=== PATIENT | male | born 1940 | race Caucasian/White ===

== ENCOUNTER → 2018-01-10 | Outpatient (CLI) | payer MEDICARE, BC ==
--- NOTE | 2018-01-10 17:01 | CT ---
EXAMINATION TYPE: CT abdomen pelvis wo con DATE OF EXAM: 01/10/2018 COMPARISON: Prior CT 12/29/2013, CT chest 07/17/2016 HISTORY: flank pain for 2-[address] DLP: 253.6 mGycm Automated exposure control for dose reduction was used. TECHNIQUE: Helical acquisition of images from the lung bases through the pelvis. FINDINGS: Artifact due to patient's hardware within the lumbar spine with sensitivity. There are dens e coronary artery calcifications present. LUNG BASES: No significant abnormality is appreciated. AORTA: No significant abnormality is appreciated. LIVER/GB: Patient is post cholecystectomy, there is dilation of the common bile duct. Colonic interpo sition noted anterior to the liver as on prior exam.. PANCREAS: No significant abnormality is seen. SPLEEN: No significant abnormality is seen. ADRENALS: No significant abnormality is seen. KIDNEYS: Marked left-sided hydronephrosis is again seen.. REPRODUCTIVE ORGANS: Prostate seeds are present.. URINARY BLADDER: There is a thickened wall possibly due to chronic outlet obstruction, correlate to exclude cystitis.. BOWEL: No significant abnormality is seen. FREE AIR: No Free Air is visible. ASCITES: None visible. PELVIC ADENOPATHY: None visualized. RETROPERITONEAL ADENOPATHY: No Retroperitoneal Adenopathy visible. OSSEOUS STRUCTURES: Postop change noted to the left hip. Degenerative disc changes are present in the visualized spine. Patient shows posterior fusion at L3-L5. IMPRESSION: MARKED LEFT-SIDED HYDRONEPHROSIS APPEARS CHRONIC. NONCONTRAST EXAM, ARTIFACTS. Additional findings ab ove.
== END | disposition home or self-care (01) ==
LOC: RADCTMAIN 15:12
PROVIDERS: ATTEND Urology
DX: N13.30 Unspecified hydronephrosis (principal)
CPT/HCPCS: 74176

== ENCOUNTER → 2018-01-12 | Outpatient (CLI) | payer MEDICARE, BC ==
--- NOTE | 2018-01-13 16:00 | PE ---
EXAMINATION TYPE: PET CT fusion skull to thigh DATE OF EXAM: 01/12/2018 COMPARISON: CT abdomen pelvis 01/10/2018, CT chest 07/17/2016 Prior PET/CT: None HISTORY: Prostate cancer, solitary pulmonary nodule. TECHNIQUE: Following the intravenous administration of 13.717 mCi of F-18 FDG, whole body images are performed from the skull base to the midthigh. Images are reviewed on the computer in the coronal, axial, and sagittal planes. Reconstructed rotating images are created on independent workstation and reviewed on the computer. A localization and attenuation correction CT is performed in conjunction with the PET scan. DLP: 187.20 mGycm SCAN: Initial Blood glucose: 68 mg/dL Average Mediastinum SUV: 1.24 Average Liver SUV: 1.62 FINDINGS: NECK: Mild uptake is within the adenoid tissue with an average SUV value of approximately 2.15. Abno rmal uptake within the neck is not otherwise identified. There is some increased uptake at the level of the vocal cords likely related to inflammation. THORAX: No abnormal uptake. No suspicious uptake within the posterior lateral right lung linear findi ngs. This has an SUV value 0.63 ABDOMEN: No abnormal uptake PELVIS: No abnormal uptake. Prostate has some limitation due to beam hardening artifact from the left hip prosthesis. Suspicious uptake within the prostate is not identified. OSSEOUS STRUCTURES: No abnormal uptake. LOCALIZATION CT: There is a 0.8 cm density adjacent to the peripheral margin of the posterior lateral right lung base corresponding to the findings on the comparison CTA chest. No significant interval c hanges evident. Coronary artery calcifications present no additional suspicious nodules are evident. Note is made of diverticular changes within the colon. Extensive postsurgical changes are within the lumbar spine. There is a left hydronephrosis and hydroureter present. COMPARISON: Findings appear stable from comparison chest and comparison abdomen and pelvis CTs. IMPRESSION: 1. No suspicious radiotracer accumulation to suggest metastatic disease at the posterior lateral righ t lung base nodule. 2. Suspicious uptake elsewhere within the PET scan to suggest metastatic prostate cancer is not ident ified. 3. Left hydronephrosis and hydroureter. Recommendations: 1. Recommend monitoring with CT chest. If the right basilar nodule should change, reevaluation with P ET CT could be performed.
== END | disposition home or self-care (01) ==
LOC: RADPETMAIN 01-05 12:23
PROVIDERS: ATTEND Internal Medicine Critical Care Medicine
DX: N13.30 Unspecified hydronephrosis (principal); R91.8 Other nonspecific abnormal finding of lung field
CPT/HCPCS: 78815; A9552

== ENCOUNTER 2018-04-10 09:01 | Day surgery (SDC) | payer MEDICARE, BC ==
[2018-04-08 11:35] VITALS: BMI 19.3
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
[~2018-04-10 09:01] MED LIST: DEXAMETHASONE SOD PHOSPHATE 10 MG/ML 1 ML VIAL IV ONE; LACTATED RINGERS 1,000 ML IV SCH; LIDOCAINE 1% 20 ML VIAL (10MG/ML) FOR IV START INTRADERMA PRN; MIDAZOLAM 2 MG/2 ML VIAL IV PRN; ONDANSETRON 4 MG/2 ML VIAL IVP ONE; SCOPOLAMINE 1.5MG/72HR PATCH TRANSDERM ONE; ceFAZolin 1,000 MG in DEXTROSE/WATER 1 50ML.BAG IV ONE
--- NOTE | 2018-04-10 10:09 | XR ---
EXAMINATION TYPE: XR KUB DATE OF EXAM: 04/10/2018 CLINICAL DATA: 77-year-old male preop kidney stones, [facility] COMPARISON: 02/12/2015 FINDINGS: Supine imaging limited for assessment of free air. Posterior and interbody lumbar fusion changes. Cho lecystectomy clips. Brachytherapy seeds in the region of the prostate gland. Pelvic phleboliths. Ama l content partially obscures the renal shadows. Moderate stool burden. Nonobstructive bowel gas patte rn. IMPRESSION: Bowel content largely obscures the renal shadows. Pelvic phleboliths are stable.
[2018-04-10 10:14] VITALS: TEMP 97.8
[2018-04-10] MEDS ORDERED: MIDAZOLAM 2 MG/2 ML VIAL ONE (10:56)
[2018-04-10] MEDS ORDERED: fentaNYL (PF) 50 MCG/ML 2 ML AMP ONE (10:56)
[2018-04-10] MEDS ORDERED: LIDOCAINE 1% INJ 10MG/ML (20 ML MDV) ONE (10:56)
[2018-04-10] MEDS ORDERED: SUCCINYLCHOLINE CHLORIDE 100 MG/5 ML SYR IV ONE (10:56)
[2018-04-10] MEDS ORDERED: ePHEDrine SULFATE/0.9% NACL/PF 50 MG/5 ML SYRINGE IV ONE (10:56)
[2018-04-10] MEDS ORDERED: PROPOFOL 10 MG/ML 20 ML VIAL IV ONE (10:56)
[2018-04-10] MEDS ORDERED: IOHEXOL 350 MG/ML 50 ML in EMPTY BAG 1 BAG IRRIGATION ONE (11:25)
[2018-04-10] MEDS ORDERED: LACTATED RINGERS 1,000 ML IV ONE (12:45)
--- NOTE | 2018-04-10 12:51 | P.OP ---
Date of Procedure: 04/10/18 Preoperative Diagnosis: Left flank pain, left hydronephrosis Postoperative Diagnosis: Same, multiple ureteral strictures, distal ureteral calculus causing obstruction Procedure(s) Performed: Cystoscopy, left retrograde pyelogram, left ureteroscopy laser lithotripsy and stone basket Anesthesia: LEA Surgeon: Wm Hammer Pathology: other (Stone) Condition: stable Disposition: PACU Indications for Procedure: The patient is 77. He has a history of a severely bad back with multiple surgeries as well as kidney stones. He has had left flank pain. He had a computed tomography scan a couple months ago identified left hydronephrosis. I wanted to come for cystoscopy and retrograde but due to multiple reasons he canceled the procedure. Now comes for this procedure Description of Procedure: The patient is brought to the operating suite he is given a successful general endotracheal anesthesia. He's placed lithotomy position with extreme care to his left hip due to previous hip surgery. It is placed in a very neutral position. The right leg is placed lithotomy as I approach in the left ureter. Cystoscopy Foroblique lens and 22-Bengali sheath identifies a normal urethra. The prostate is obstructing. The bladder wall is severely trabeculated with cellules. It is otherwise normal. After an extended period of time the left ureteral orifice is identified and intubated. There is marked J hooking of the ureter. A retrograde pyelogram shows stricturing in multiple areas with proximal hydronephrosis. There appears to be a filling defect in the distal ureter consistent with the stone. After several attempts I'm able to eventually pass a wire up the ureter into the renal pelvis. I'm unable to pass any catheter beyond the first stricturing just below the iliac vessels. I am able to pass a reentry sheath into the ureter up to this point in time. With the flexible ureteroscope I look through this and identify stone. The stone was broken into tiny pieces with the laser lithotripsy and basketed a. I am Never able to get a catheter beyond the strictured points and the ureter. We will have to see how much of this resolves after I remove the obstructing distal ureteral stone. Latter strain the patient awake and returned recovery room good condition. Review the computed tomography scan again in due to previous hip surgery as well as hardware the spine there is a lot of reflection in the region of the left ureter and therefore it difficult to really say what is going on in the ureter other than the obstruction from the stone identified from surgery today.
[2018-04-10] MEDS: HYDROmorphone 0.5 MG/0.5 ML SYRINGE IVP PRN ×4 (13:19→14:10)
[2018-04-10 13:48] VITALS: RESP 16
[2018-04-10] MEDS ORDERED: BELLADONNA-OPIUM 16.2-60 MG 1 EACH SUPP RECTAL ONE (14:42)
[2018-04-10] MEDS ORDERED: KETOROLAC 30 MG/ML 1 ML VIAL IVP PRN (14:42)
[2018-04-10] MEDS: MORPHINE SULFATE 4 MG/ML SYRINGE IV ONE ×2 (15:08→15:23)
--- NOTE | 2018-04-10 15:24 | FL ---
Fluoroscopy HISTORY: Ureteroscopy 1 minute 17 seconds fluoroscopy time supplied to the referring clinician. 7 intraoperative C-arm kevin ges document the procedure. See dictated report from urology.
[2018-04-10] MEDS ORDERED: HYDROcodone/APAP 7.5-325MG 1 EACH TAB PO ONE (15:53)
[2018-04-10] MEDS ORDERED: OXYBUTYNIN CHLORIDE 5 MG TAB PO STA (16:02)
[2018-04-10 16:40] VITALS: BP 172/80; PULSE 72
== END 2018-04-10 17:25 | disposition home or self-care (01) ==
LOC: OR 09:01
PROVIDERS: ATTEND Urology
DX: N13.2 Hydronephrosis with renal and ureteral calculous obstruction (principal); Z87.442 Personal history of urinary calculi; I25.10 Atherosclerotic heart disease of native coronary artery without angina pectoris; I10 Essential (primary) hypertension; E78.5 Hyperlipidemia, unspecified; Z86.711 Personal history of pulmonary embolism; Z85.46 Personal history of malignant neoplasm of prostate; Z95.5 Presence of coronary angioplasty implant and graft; M19.90 Unspecified osteoarthritis, unspecified site; Z79.82 Long term (current) use of aspirin; Z79.891 Long term (current) use of opiate analgesic; Z79.899 Other long term (current) drug therapy; Z88.1 Allergy status to other antibiotic agents
CPT/HCPCS: 52352; 82365; 74420; 74018; C1758 ×2; C1769 ×2; J2250; J2270; J1100; J2405; J2001; J3010; J0690; J0330; J2704; Q9967; J1170; 93005

== ENCOUNTER 2018-04-15 21:10 | Emergency (ER) | payer MEDICARE, BC ==
[2018-04-15 21:42] VITALS: BP 185/89; PULSE 76; RESP 20; TEMP 98.4
[2018-04-15] MEDS ORDERED: MORPHINE SULFATE 4 MG/ML SYRINGE IM STA (22:12)
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
== END 2018-04-15 22:25 | disposition home or self-care (01) ==
LOC: EC 21:10
DX: R33.9 Retention of urine, unspecified (principal); R10.30 Lower abdominal pain, unspecified; I10 Essential (primary) hypertension; I25.10 Atherosclerotic heart disease of native coronary artery without angina pectoris; E78.5 Hyperlipidemia, unspecified; M19.90 Unspecified osteoarthritis, unspecified site; Z79.82 Long term (current) use of aspirin; Z79.899 Other long term (current) drug therapy; Z88.1 Allergy status to other antibiotic agents; Z86.711 Personal history of pulmonary embolism; Z85.46 Personal history of malignant neoplasm of prostate; Z92.3 Personal history of irradiation; Z87.891 Personal history of nicotine dependence; Z95.5 Presence of coronary angioplasty implant and graft; Z90.49 Acquired absence of other specified parts of digestive tract; Z96.642 Presence of left artificial hip joint
CPT/HCPCS: 99284; 51702; 96372; J2270

== ENCOUNTER → 2018-04-22 | Outpatient (CLI) | payer MEDICARE, BC ==
[2018-04-22 08:40] LABS: Blood Urea Nitrogen 12 mg/dL (9-20)
--- NOTE | 2018-04-22 11:38 | XR ---
EXAMINATION TYPE: XR IVP DATE OF EXAM: 04/22/2018 COMPARISON: PET/CT January 12, 2018. CT abdomen pelvis January 10, 2018. Older CT urogram December HISTORY: Left-sided hydronephrosis and calculus of kidney per order. Left-sided flank pain per patien t. TECHNIQUE: Following intravenous administration of 100 cc Isovue-370, multiple spot images are obtain ed at varying time intervals. The preliminary film of the abdomen reveals metallic hardware from left hip arthroplasty partially im aged. Brachytherapy seeds in prostate gland overlying pubic symphysis is redemonstrated. Surgical teo nge to the mid to lower lumbar spine is again seen. Cholecystectomy clips are redemonstrated. Some re sidual contrast material is seen in distal colon. Overlying vascular calcification is present. Following intravenous administration of contrast material, sequential films of the abdomen were obtai rui. There is prompt cortical medullary uptake and excretion of the contrast by the right kidney whi ch demonstrates normal size and configuration. The collecting systems and visualized portions of the right ureter reveals slightly tortuous course otherwise no suspicious abnormality. Left kidney shows delayed cortical medullary uptake and excretion into dilated calyces. Even after waiting over 100 mi nutes there is nonvisualization of central pelvis or ureter. No obvious obstructing mass or calculus seen on recent CT. There is gradual accumulation of contrast material in the urinary bladder showing trabeculation and l obulated margin. Suspect findings related to chronic outlet obstruction. Post void image not performe d. After such longtime patient was anxious to leave. IMPRESSION: Severe left-sided pyelocaliectasis with absent excretion into left ureter. Etiology uncer tain as is new from 2014 CT urogram. Correlation with retrograde urogram findings April 10, 2018 ad josette. Suspect delayed function to left kidney versus right kidney. This can be quantified with nucle or medicine study if desired.
== END ==
LOC: RADFLMAIN 08:02
PROVIDERS: ATTEND Urology
DX: N13.2 Hydronephrosis with renal and ureteral calculous obstruction (principal)
CPT/HCPCS: 82565; 84520; 74400; Q9967

== ENCOUNTER 2018-04-26 18:51 | Inpatient (IN) | payer MEDICARE, BC ==
[2018-04-26] MEDS ORDERED: MORPHINE SULFATE 4 MG/ML SYRINGE IVP STA (19:41)
[2018-04-26] MEDS ORDERED: ONDANSETRON 4 MG/2 ML VIAL IVP STA (19:41)
[2018-04-26] MEDS ORDERED: ACETAMINOPHEN TAB 500 MG TAB PO STA (19:41)
[2018-04-26] MEDS ORDERED: LEVOFLOXACIN 750MG-D5W PMX 750 MG in DEXTROSE/WATER 1 150ML.BAG IVPB STA (19:55)
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
[2018-04-26 20:05] LABS: Basophils % (A) 0 %; Eosinophils % (A) 0 %; HCT 39.3 % (39.0-53.0); HGB 12.4 gm/dL (13.0-17.5); Lymphocytes # (A) 0.2 k/uL (1.0-4.8); Lymphocytes % (A) 2 %; MCH 30.9 pg (25.0-35.0); MCHC 31.6 g/dL (31.0-37.0); MCV 97.8 fL (80.0-100.0); Mean Platelet Volume 6.6; Monocytes # (A) 0.4 k/uL (0-1.0); Monocytes % (A) 5 %; Neutrophils % (A) 92 %; Platelet Count 266 k/uL (150-450); RBC 4.01 m/uL (4.30-5.90); RDW 12.8 % (11.5-15.5); WBC 8.7 k/uL (3.8-10.6)
[2018-04-26 20:18] LABS: ALT 34 U/L (21-72); AST 40 U/L (17-59); Albumin 3.6 g/dL (3.5-5.0); Alkaline Phosphatase 93 U/L (38-126); Anion Gap 9 mmol/L; Blood Urea Nitrogen 28 mg/dL (9-20); Calcium 8.8 mg/dL (8.4-10.2); Carbon Dioxide 29 mmol/L (22-30); Chloride 95 mmol/L (98-107); Glucose 127 mg/dL (74-99); Lipase 31 U/L (23-300); Potassium 5.5 mmol/L (3.5-5.1); Sodium 133 mmol/L (137-145); Total Bilirubin 0.6 mg/dL (0.2-1.3); Total Protein 6.9 g/dL (6.3-8.2)
[2018-04-26 20:29] LABS: Appearance,Urine Turbid (Clear); Bacteria,Urine Many /hpf; Bilirubin,Urine Negative (Negative); Blood,Urine Large (Negative); Color,Urine Light Red; Glucose,Urine (UA) Negative (Negative); Ketones,Urine Negative (Negative); Leukocyte Esterase,Urine Large (Negative); Mucus,Urine Many /hpf; Nitrite,Urine Positive (Negative); Protein,Urine 2+ (Negative); RBC,Urine >182 /hpf (0-5); Specific Gravity,Urine 1.018 (1.001-1.035); Urobilinogen,Urine <2.0 mg/dL (<2.0); WBC,Urine >182 /hpf (0-5)
--- NOTE | 2018-04-26 20:38 | XR ---
EXAMINATION TYPE: XR chest 2V DATE OF EXAM: 04/26/2018 COMPARISON: 11/13/2013 HISTORY: Left flank pain chest pain TECHNIQUE: Frontal and lateral views of the chest are obtained. FINDINGS: There is no heart failure nor confluent pneumonic infiltrate. There is elevated right diap hragm with interposition of the hepatic flexure of the colon. Heart size is normal. Costophrenic angl es are clear. IMPRESSION: No active cardiopulmonary disease. Chronic right diaphragm elevation.
--- NOTE | 2018-04-26 21:26 | CT ---
EXAMINATION TYPE: CT abdomen pelvis wo con DATE OF EXAM: 04/26/2018 COMPARISON: 01/10/2018 HISTORY: flank pain, hx of stones, prostate ca CT DLP: 445.1 mGycm Automated exposure control for dose reduction was used. TECHNIQUE: Helical acquisition of images was performed from the lung bases through the pelvis. FINDINGS: There is some patchy scarring and atelectasis at the lung bases. There is no pleural effusion. Heart size is normal. There is no pericardial effusion. There are clips from cholecystectomy. There is dila tion of the biliary tree. The common bile duct measures up to 1.5 cm. There is mild ectasia of the in trahepatic bile ducts also. Spleen appears normal. I see no pancreatic mass. There is no adrenal mass . There is severe left-sided hydronephrosis. There is extensive metal artifact apparently back surger y. There is extensive metal artifact from the left hip prosthesis. There is Scott catheter in the uri nary bladder. Ureters are difficult to evaluate because of artifact. There is no sign of free air. Th ere is no ascites. There is no inguinal hernia. There is no sign of a bowel obstruction. There is multilevel posterior fusion surgery in the lumbar spine. There is no compression fracture. B deep pelvis appears intact. IMPRESSION: THERE IS SEVERE LEFT-SIDED HYDRONEPHROSIS UNCHANGED COMPARED TO OLD EXAM. NO OBSTRUCTING CALCULUS NHUNG NTIFIED. EXAM LIMITED BY THE ARTIFACT. THERE IS SOME SCARRING AND ATELECTASIS AT THE LUNG BASES INCRE ASED COMPARED TO OLD EXAM. Chronic dilated biliary tree unchanged.
[2018-04-26] MEDS ORDERED: ONDANSETRON 4 MG/2 ML VIAL IVP PRN (22:46)
[2018-04-26] MEDS ORDERED: NALOXONE 0.4 MG/ML 1 ML VIAL IV PRN (22:46)
[2018-04-26] MEDS ORDERED: HYDROcodone/APAP 5-325MG 1 EACH TAB PO PRN (22:46)
[2018-04-26] MEDS: SODIUM CHLORIDE 0.9% 1,000 ML IV SCH (23:00)
[2018-04-27] MEDS: HYDROmorphone 1 MG/ML 1 ML SYRINGE IVP PRN ×2 (01:21→22:19)
[2018-04-27] MEDS: TEMAZEPAM 30 MG CAP PO PRN ×2 (02:04→22:16)
[2018-04-27 07:55] LABS: Basophils % (A) 0 %; Eosinophils # (A) 0.1 k/uL (0-0.7); Eosinophils % (A) 1 %; HCT 37.7 % (39.0-53.0); Lymphocytes # (A) 0.3 k/uL (1.0-4.8); Lymphocytes % (A) 3 %; MCH 31.7 pg (25.0-35.0); MCHC 31.7 g/dL (31.0-37.0); MCV 99.9 fL (80.0-100.0); Mean Platelet Volume 6.8; Monocytes # (A) 0.3 k/uL (0-1.0); Monocytes % (A) 3 %; Neutrophils # (A) 7.9 k/uL (1.3-7.7); Neutrophils % (A) 91 %; Platelet Count 241 k/uL (150-450); RBC 3.78 m/uL (4.30-5.90); RDW 12.9 % (11.5-15.5); WBC 8.7 k/uL (3.8-10.6)
[2018-04-27 08:09] LABS: Anion Gap 9 mmol/L; Blood Urea Nitrogen 24 mg/dL (9-20); Calcium 8.6 mg/dL (8.4-10.2); Carbon Dioxide 28 mmol/L (22-30); Chloride 99 mmol/L (98-107); Glucose 97 mg/dL (74-99); Potassium 5.1 mmol/L (3.5-5.1); Sodium 136 mmol/L (137-145)
[2018-04-27] MEDS ORDERED: HYDROcodone/APAP 10-325MG 1 EACH TAB PO PRN (11:05)
[2018-04-27] MEDS: LEVOFLOXACIN 500MG-D5W PMX 500 MG in DEXTROSE/WATER 1 100ML.BAG IVPB SCH (11:50)
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
[2018-04-27] MEDS: HEPARIN SODIUM,PORCINE 5,000 UNIT/ML 1 ML VIAL SQ SCH (16:47)
--- NOTE | 2018-04-27 18:05 | P.PN ---
Subjective Progress Note Date: 04/27/[address] Alfredo and he will place a nephrostomy tube in the left kidney tomorrow to relieve the obstruction Objective - Vital Signs Vital signs: Vital Signs Temp 96.7 F L 04/27/18 14:50 Pulse 57 L 04/27/18 14:50 Resp 16 04/27/18 14:50 BP 90/59 04/27/18 14:50 Pulse Ox 97 04/27/18 14:50 Intake & Output 04/26/18 04/27/18 04/27/18 18:59 06:59 18:59 Intake Total 740 Output Total 250 Balance -250 740 Weight 63.503 kg Intake: Intake, IV Titration 740 Amount Levofloxacin 500Mg-D5w 100 Pmx 500 mg In Dextrose/ Water 1 100ml.bag @ 100 mls/hr IVPB Q24H [facility] Rx#: [id number] Sodium Chloride 0.9% 1, 640 000 ml @ 80 mls/hr IV . [id number] [facility] Rx#:[id number] Output: Urine 250 Other: Voiding Method Indwelling Catheter Indwelling Catheter - Labs CBC & Chem 7: 04/27/18 07:29 04/27/18 07:29 Labs: Abnormal Lab Results - Last 24 Hours (Table) 04/26/18 04/26/18 04/26/18 Range/Units 19:35 19:35 20:00 RBC 4.01 L (4.30-5.90) m/uL Hgb 12.4 L (13.0-17.5) gm/dL Hct (39.0-53.0) % Neutrophils # 8.0 H (1.3-7.7) k/uL Lymphocytes # 0.2 L (1.0-4.8) k/uL Sodium 133 L (137-145) mmol/L Potassium 5.5 H (3.5-5.1) mmol/L Chloride 95 L (98-107) mmol/L BUN 28 H (9-20) mg/dL Glucose 127 H (74-99) mg/dL Urine Protein 2+ H (Negative) Urine Blood Large H (Negative) Ur Leukocyte Esterase Large H (Negative) Urine RBC >182 H (0-5) /hpf Urine WBC >182 H (0-5) /hpf Urine WBC Clumps Many H (None) /hpf Urine Bacteria Many H (None) /hpf Urine Mucus Many H (None) /hpf 04/27/18 04/27/18 Range/Units 07:29 07:29 RBC 3.78 L (4.30-5.90) m/uL Hgb 12.0 L (13.0-17.5) gm/dL Hct 37.7 L (39.0-53.0) % Neutrophils # 7.9 H (1.3-7.7) k/uL Lymphocytes # 0.3 L (1.0-4.8) k/uL Sodium 136 L (137-145) mmol/L Potassium (3.5-5.1) mmol/L Chloride (98-107) mmol/L BUN 24 H (9-20) mg/dL Glucose (74-99) mg/dL Urine Protein (Negative) Urine Blood (Negative) Ur Leukocyte Esterase (Negative) Urine RBC (0-5) /hpf Urine WBC (0-5) /hpf Urine WBC Clumps (None) /hpf Urine Bacteria (None) /hpf Urine Mucus (None) /hpf Microbiology - Last 24 Hours (Table) 04/26/18 19:35 Blood Culture Gram Stain - Preliminary Blood Blood Culture - Preliminary Enterobacter cloacae 04/26/18 19:35 Blood Culture - Final Blood 04/26/18 20:00 Urine Culture - Preliminary Urine,Catheterized
[2018-04-27] MEDS ORDERED: TEMAZEPAM 30 MG CAP PO SCH (21:00)
[2018-04-27] MEDS: LISINOPRIL 5 MG TAB PO SCH (22:16)
[2018-04-27] MEDS: ATENOLOL 25 MG TAB PO SCH (22:16)
[2018-04-27] MEDS: SODIUM CHLORIDE 0.9% 1,000 ML IV SCH (22:18)
[2018-04-28] MEDS: HEPARIN SODIUM,PORCINE 5,000 UNIT/ML 1 ML VIAL SQ SCH ×4 (00:34→23:10)
[2018-04-28] MEDS: ASPIRIN 81 MG PO SCH (08:00)
--- NOTE | 2018-04-28 08:52 | P.PN ---
Subjective Progress Note Date: 04/28/18 The patient is in the hospital with left flank pain. He has obstruction of the left ureter of indeterminate cause. The retrograde approach was not successful in order to give any answers the cause of the obstruction. He will get a left nephrostomy tube and antegrade nephrostogram today. Urethral Scott will be removed later today. Objective - Vital Signs Vital signs: Vital Signs Temp 97.8 F 04/28/18 07:58 Pulse 69 04/28/18 07:58 Resp 17 04/28/18 07:58 BP 131/75 04/28/18 07:58 Pulse Ox 100 04/28/18 07:58 Intake & Output 04/27/18 04/28/18 04/28/18 18:59 06:59 18:59 Intake Total 740 Output Total 1100 Balance 740 -1100 Intake: Intake, IV Titration 740 Amount Levofloxacin 500Mg-D5w 100 Pmx 500 mg In Dextrose/ Water 1 100ml.bag @ 100 mls/hr IVPB Q24H [facility] Rx#: [id number] Sodium Chloride 0.9% 1, 640 000 ml @ 80 mls/hr IV . [id number] [facility] Rx#:[id number] Output: Urine 1100 Other: Voiding Method Indwelling Catheter Indwelling Catheter - Labs CBC & Chem 7: 04/27/18 07:29 04/27/18 07:29 Labs: Microbiology - Last 24 Hours (Table) 04/26/18 20:00 Urine Culture - Preliminary Urine,Catheterized Gram Neg Bacilli 04/26/18 19:35 Blood Culture Gram Stain - Preliminary Blood Blood Culture - Preliminary Enterobacter cloacae 04/26/18 19:35 Blood Culture - Final Blood
--- NOTE | 2018-04-28 10:13 | P.PN ---
Progress Note - Text The patient is a 77-year-old gentleman who 2 evenings ago was admitted through the emergency room with abdominal flank discomfort. He has indeterminant hydronephrosis of the left kidney. Scott catheter placement earlier for urinary retention. Presently blood culture has grown out Enterobacter cloacae and there is a gram-negative bacilli growing out of his urine culture. Final identification and sensitivities are pending. He seems to have responded well to levofloxacin. Urology consult appreciated. Anticipation today for left nephrostomy tube and antegrade nephrostogram to be performed. Also anticipation for removal of Scott later today. This morning he is alert lying in bed. Does complain of some left back and flank discomfort. No respiratory distress or chest pain. Last vital signs show temperature 97.8 with a pulse of 69 and respirations 17. Blood pressure is 131/75 and he is 100% saturated on 2 L nasal cannula. Lungs are sent generally clear. Heart tones were regular without murmur or rubs appreciated Abdomen is soft and nontender without rebound or guarding. No unusual edema. He is alert and oriented. No focal deficits noted at this time. Discussed the above with patient and . They both seem to understand reasons for further workup and treatment. If all seems to go well they seem to be anticipating discharge tomorrow. We'll await for further clinical response along with results of microbiology testing and further recommendations from urology. Dr. Stokes on medical call for me if any concerns or problems should arise.
[2018-04-28] MEDS: LEVOFLOXACIN 500MG-D5W PMX 500 MG in DEXTROSE/WATER 1 100ML.BAG IVPB SCH (11:05)
[2018-04-28] MEDS: HYDROmorphone 1 MG/ML 1 ML SYRINGE IVP PRN ×3 (11:06→20:10)
[2018-04-28] MEDS: SODIUM CHLORIDE 0.9% 1,000 ML IV SCH ×2 (12:48→23:10)
[2018-04-28] MEDS: ATENOLOL 25 MG TAB PO SCH (20:03)
[2018-04-28] MEDS: LATANOPROST 0.005% OPHTH DROPS 2.5 ML BTL BOTH EYES SCH (20:03)
[2018-04-28] MEDS: LISINOPRIL 5 MG TAB PO SCH (20:03)
[2018-04-28] MEDS: TEMAZEPAM 30 MG CAP PO PRN (20:10)
[2018-04-29] MEDS: HYDROmorphone 1 MG/ML 1 ML SYRINGE IVP PRN ×4 (06:15→22:05)
[2018-04-29] MEDS: HEPARIN SODIUM,PORCINE 5,000 UNIT/ML 1 ML VIAL SQ SCH ×2 (07:26→17:24)
[2018-04-29] MEDS: ASPIRIN 81 MG PO SCH (07:27)
[2018-04-29] MEDS ORDERED: fentaNYL (PF) 50 MCG/ML 2 ML AMP IVP ONE (09:00)
[2018-04-29] MEDS ORDERED: MIDAZOLAM 2 MG/2 ML VIAL IVP ONE (09:00)
[2018-04-29] MEDS ORDERED: LIDOCAINE 1% INJ 10MG/ML (20 ML MDV) SQ ONE (09:05)
[2018-04-29] MEDS ORDERED: IV FLUID CONTINUATION 1,000 ML IV ONE (09:06)
[2018-04-29] MEDS ORDERED: IOPAMIDOL-250 50ML BTL IV ONE (09:34)
[2018-04-29] MEDS: LEVOFLOXACIN 500 MG TAB PO SCH (11:23)
[2018-04-29] MEDS: SODIUM CHLORIDE 0.9% 1,000 ML IV SCH (11:40)
--- NOTE | 2018-04-29 11:59 | P.PN ---
Subjective Progress Note Date: 04/29/18 The patient had a left nephrostomy tube placed today. The urine was cloudy so therefore an antegrade nephrostogram was not done. He is feeling better. His Scott catheters removed. From a urologic standpoint if he urinates and feels okay he can go home later today. He should go home on oral antibiotics. He should contact me on Sunday or for follow-up to make arrangements for an antegrade nephrostogram next week. Objective - Vital Signs Vital signs: Vital Signs Temp 97.5 F L 04/29/18 11:17 Pulse 51 L 04/29/18 11:17 Resp 16 04/29/18 11:17 BP 154/81 04/29/18 11:17 Pulse Ox 96 04/29/18 11:17 Intake & Output 04/28/18 04/29/18 04/29/18 18:59 06:59 18:59 Intake Total 400 300 100 Output Total 900 1700 Balance -500 -1400 100 Intake: IV 100 Intake, IV Titration 400 Amount Levofloxacin 500Mg-D5w 400 Pmx 500 mg In Dextrose/ Water 1 100ml.bag @ 100 mls/hr IVPB Q24H [facility] Rx#: [id number] Oral 300 Output: Urine 900 1700 Other: Voiding Method Indwelling Catheter Indwelling Catheter Indwelling Catheter - Labs CBC & Chem 7: 04/27/18 07:29 04/27/18 07:29 Labs: Microbiology - Last 24 Hours (Table) 04/26/18 19:35 Blood Culture Gram Stain - Final Blood Blood Culture - Final Enterobacter cloacae 04/26/18 20:00 Urine Culture - Final Urine,Catheterized Enterobacter cloacae 04/27/18 12:51 Blood Culture - Preliminary Blood No Growth after 24 hours 04/27/18 12:19 Blood Culture - Preliminary Blood No Growth after 24 hours
--- NOTE | 2018-04-29 12:51 | P.DS ---
Providers Date of admission: 04/26/18 22:46 The patient is a 77-year-old gentleman who 3 days previous presented to the emergency room with abdominal and left flank discomfort. Patient has been found to have hydronephrosis of the left kidney and did have a Scott catheter replacement prior to admission for urinary retention. Patient was found to have gram-negative a urinary tract infection with Enterobacter cloacae associated with sepsis with positive urine and blood cultures. On presentation his white count was 8.7 with hemoglobin of 12 and a platelet count of 241. Sodium was 136 with potassium of 5.5 with hydration decreased down to 5.1. Initially his BUN was 28 this also decreased. His GFR was 90 and creatinine 0.68. Blood sugar initially was 127 but decreased down to 97. Lactic acid level was 1.8. Urinalysis showed a large amount of leukocyte esterase and 182 white cells and as mentioned above blood and urine cultures were positive for Enterobacter to cloacae which was sensitive to Levaquin. Initial CAT scan showed the left sided hydronephrosis. No definite obstructing calculus. Chest x-ray showed no acute active disease. Some right diaphragmatic elevation. He is being followed as an outpatient by pulmonary medicine for a right lower lobe infiltrate. Patient was seen by urology Dr. Hammer.. Patient underwent left nephrostomy tube placement. And his Scott catheter was removed. Presently he is in bed alert and oriented. Vital signs reveal temperature 97.5 with a pulse of 51-60 and regular. Respirations are 16. Blood pressure 154/81 and he is 96% saturated on 3 L nasal cannula. Lung and heart examination is clear. Abdomen is soft and nontender. There is no unusual edema. He is generally weak but no focal neurological weakness. Patient is anticipating discharge later this afternoon. Dr. Hammer states that if he is doing well this afternoon he can be discharged and this was discussed with patient. Also discussed with nursing staff this afternoon. Levaquin 500 mg will be continued for another 10 days and be sent through my EMR to [facility]. He is to resume his home medications. [place] 10-325 approximately 4 tablets daily. Oxycodone 40 mg twice a day as maintenance for his chronic osteoarthritis and lumbar pain. Travel post eyedrops 0.004% 1 drop in both eyes daily Lisinopril 5 mg at at bedtime Atenolol 25 mg at at bedtime Aspirin 81 mg daily Restoril 30 mg at at bedtime as needed for sleep Simvastatin 40 mg at at bedtime for his cholesterol. Diet and activities as tolerated. Patient to have follow-up with Dr. Hammer in 2 days as per his note. Return to the emergency room if any concerns or problems should arise. Discharge diagnosis 1. Gram-negative septicemia with positive urinary and blood cultures for Enterobacter cloacae sensitive to Levaquin. 2. Left hydro-nephrosis of undetermined etiology at this time. 3. Previous postop urinary retention. 4. Previous history of prostate cancer. 5. Patient post previous left hip surgery and lumbar surgeries making evaluation by abdominal and pelvic CAT scans difficult. 6. History of nephrolithiasis 7. Hypertension 8. Coronary artery disease with previous heart catheterization and stent placement 9. Hyperlipidemia 10. Right lower lobe lung infiltrate being followed by pulmonary medicine and scheduled to have repeat CAT scan in July 2018. 11. Insomnia 12. Chronic pain mostly related to his back and hip disease. On chronic analgesics. 13. Previous surgeries include repair of mandibular fracture. Right elbow surgery. Previous left inguinal repair. Previous cholecystectomy. Attending physician: Kane Stokes Consults: 04/26/18 22:47 Consult Physician Routine Consulting Provider: Wm Hammer Consult Reason/Comments: pyelo, hydronephrosis Do you want consulting provider notified?: Already Contacted Primary care physician: Franky Brumfield Patient Condition at Discharge: Fair Plan - Discharge Summary Discharge Rx Participant: Yes New Discharge Prescriptions: No Action Temazepam [Restoril] 30 mg PO HS Atenolol [Tenormin] 25 mg PO HS Lisinopril 5 mg PO HS Aspirin 81 mg PO DAILY Simvastatin [Zocor] 40 mg PO HS oxyCODONE HCL 40 mg PO BID HYDROcodone/APAP 10-325MG [[place] 10-325] 1 tab PO DAILY PRN PRN Reason: Pain Travoprost [Travatan Z 0.004%] 1 drop BOTH EYES DAILY Discharge Medication List Aspirin 81 mg PO DAILY 02/23/14 [History] Atenolol [Tenormin] 25 mg PO HS 02/23/14 [History] Lisinopril 5 mg PO HS 02/23/14 [History] Temazepam [Restoril] 30 mg PO HS 02/23/14 [History] Simvastatin [Zocor] 40 mg PO HS 04/08/18 [History] HYDROcodone/APAP 10-325MG [[place] 10-325] 1 tab PO DAILY PRN 04/26/18 [History] Travoprost [Travatan Z 0.004%] 1 drop BOTH EYES DAILY 04/26/18 [History] oxyCODONE HCL 40 mg PO BID 04/26/18 [History] Follow up Appointment(s)/Referral(s): Franky Brumfield MD [Primary Care Provider] - 1-2 days
[2018-04-29] MEDS: LISINOPRIL 5 MG TAB PO SCH (21:54)
[2018-04-29] MEDS: LATANOPROST 0.005% OPHTH DROPS 2.5 ML BTL BOTH EYES SCH (21:54)
[2018-04-29] MEDS: ATENOLOL 25 MG TAB PO SCH (21:54)
[2018-04-29] MEDS: TEMAZEPAM 30 MG CAP PO PRN (22:14)
[2018-04-30] MEDS: HEPARIN SODIUM,PORCINE 5,000 UNIT/ML 1 ML VIAL SQ SCH ×2 (00:28→08:23)
[2018-04-30] MEDS: SODIUM CHLORIDE 0.9% 1,000 ML IV SCH (01:13)
[2018-04-30] MEDS: HYDROmorphone 1 MG/ML 1 ML SYRINGE IVP PRN (06:34)
--- NOTE | 2018-04-30 07:28 | IR ---
EXAMINATION TYPE: IR nephrostomy DATE OF EXAM: 04/29/2018 COMPARISON: CT 04/26/2018 HISTORY: Hydronephrosis, ureteral obstruction PROCEDURE: Maximal barrier technique was utilized. The skin overlying the left kidney was localized using ultrasound and the overlying skin prepped and draped. Ultrasound was utilized with sterile graciela hnique. Lidocaine used for local anesthesia. Skin lidya was made with a scalpel. Access was gained u nder ultrasound with a 21-gauge needle to the posterior left kidney. Urine returned in the hub of th e needle. A 0.018 inch wire was advanced. The access site was dilated and subsequently an 8.5-Fren ch catheter was advanced over wire in the renal pelvis and fixed in place. Urine returned in the hub of the catheter. Gentle hand injection of contrast material performed and spot image obtained verif brandy placement. Next a sterile dressing was placed. The patient remained in stable condition without complication. The patient was discharged to observation. No significant bleeding. 15 minutes of conscious sedation time utilized. 1.4 minutes fluoroscopy time. 47 intraoperative C-arm images document the procedure. IMPRESSION: STATUS POST 8.5 [place] left NEPHROSTOMY TUBE PLACEMENT WITH ULTRASOUND AND FLUOROSCOPIC G UDNG. THIS PROCEDURE WAS PERFORMED BY THE UNDERSIGNED.
[2018-04-30 07:33] VITALS: BP 124/70; PULSE 54; RESP 16; TEMP 97.7
[2018-04-30] MEDS: LEVOFLOXACIN 500 MG TAB PO SCH (08:22)
[2018-04-30] MEDS: ASPIRIN 81 MG PO SCH (08:23)
[2018-04-30] MEDS ORDERED: TAMSULOSIN 0.4 MG CAP.ER.24H PO SCH (08:30)
--- NOTE | 2018-04-30 11:24 | P.PN ---
Subjective Progress Note Date: 04/30/18 Principal diagnosis: This 77-year-old gentleman was admitted to the hospital with fever and suggestion of a left pyelonephritis due to an obstructive element from kidney stone. The patient recently had lithotripsy. He still has a residual stone in the left kidney. Patient presents with fever chills has positive blood and urine culture with Enterobacter cloacae which is sensitive to Levaquin patient' s remained afebrile since initial presentation. He is continues to remain afebrile. He has a drainage nephrostomy tube and a Scott catheter as he was unable to void. Patient has hematuria present in the nephrostomy tube and a Scott catheter drainage bag. Patient's been up to walk without dizziness feels well. Denies nausea vomiting or abdominal pain denies chest pain shortness of breath. The patient was planned for discharge yesterday however he could not and thus is being discharged today. Patient evaluated by me prior to discharge for Dr. Alejandre. He has received Levaquin dosage this morning. He will continue with antibiotic in the outpatient. Medicines prescribed albuterol available to him tomorrow due to the pharmacy remaining close to have. He should be fine as he has received his Levaquin and Flomax dose today. REVIEW OF SYSTEMS: Neuro: Denies any headaches dizziness. Psych: Denies anxiety depression feels oriented. Cardiac: Denies chest pain and angina palpitations. Respiratory: Denies shortness of breath cough. GI: Denies nausea vomiting or abdominal pain. No diarrhea or constipation, no bowel movement yet. : Has hematuria Extremities: Denies pain. No edema. Skin: Intact. Constitutional: No fever, chills. Objective - Vital Signs Vital signs: Vital Signs Temp 97.7 F 04/30/18 07:00 Pulse 54 L 04/30/18 07:00 Resp 16 04/30/18 07:00 BP 124/70 04/30/18 07:00 Pulse Ox 97 04/30/18 07:00 Intake & Output 04/29/18 04/30/18 04/30/18 18:59 06:59 18:59 Intake Total 100 940 Output Total 1000 2350 Balance -900 -1410 Intake: IV 100 Intake, IV Titration 640 Amount Sodium Chloride 0.9% 1, 640 000 ml @ 80 mls/hr IV . [id number] [facility] Rx#:[id number] Oral 300 Output: Drainage 400 500 Left Back 400 500 Urine 600 1850 Other: Voiding Method Indwelling Catheter Indwelling Catheter Indwelling Catheter # Bowel Movements 1 PHYSICAL EXAMINATION: Cooperative, at present in no acute distress. HEENT: Neck supple. No JVD. Chest: Clear to auscultation Cardiac: Normal S1-S2 no gallops no murmur . Abdomen: Soft Pap sounds present. Left nephrostomy tube in place Scott catheter in place Extremities: No edema no tenderness Neurologically: Awake, alert, oriented with well-coordinated movements. - Labs CBC & Chem 7: 04/27/18 07:29 04/27/18 07:29 Labs: Microbiology - Last 24 Hours (Table) 04/29/18 09:30 Urine Culture - Preliminary Urine,Ureter 04/27/18 12:51 Blood Culture - Preliminary Blood No Growth after 48 hours 04/27/18 12:19 Blood Culture - Preliminary Blood No Growth after 48 hours 04/26/18 19:35 Blood Culture Gram Stain - Final Blood Blood Culture - Final Enterobacter cloacae Assessment and Plan Assessment: ASSESSMENT: 1. Left pyelonephritis. 2. Obstructive left kidney. 3. Nephrolithiasis. 4. Hematuria. 5. Coronary artery disease. 6. Chronic back pain. 7. Mild chronic anemia. PLAN: Continue present medical regimen patient stable to be discharged home. His been on the appropriate antibiotic. He has received today's dose and is to continue on the outpatient. He has home care set up. He has appointments to follow with Dr. Shoaib Hammer and Dr. Alejandre.
== END 2018-04-30 13:26 | disposition home health service (06) | DRG 698 ==
LOC: EC 18:51 → 4MS4W 22:46
PROVIDERS: ADMIT Internal Medicine; ATTEND Internal Medicine
PROC: 0T9430Z Drainage of Left Kidney Pelvis with Drainage Device, Percutaneous Approach (ICD-10-PCS; principal; 2018-04-29 08:30)
DX: T83.518A Infection and inflammatory reaction due to other urinary catheter, initial encounter (principal); A41.51 Sepsis due to Escherichia coli [E. coli]; A41.59 Other Gram-negative sepsis; N13.6 Pyonephrosis; D64.9 Anemia, unspecified; E78.5 Hyperlipidemia, unspecified; G47.00 Insomnia, unspecified; G89.29 Other chronic pain; I10 Essential (primary) hypertension; I25.10 Atherosclerotic heart disease of native coronary artery without angina pectoris; N20.0 Calculus of kidney; N32.89 Other specified disorders of bladder; Z88.1 Allergy status to other antibiotic agents; Z79.82 Long term (current) use of aspirin; Z80.9 Family history of malignant neoplasm, unspecified; Z82.49 Family history of ischemic heart disease and other diseases of the circulatory system; Z85.46 Personal history of malignant neoplasm of prostate; Z86.711 Personal history of pulmonary embolism; Z87.442 Personal history of urinary calculi; Z87.891 Personal history of nicotine dependence; Z90.49 Acquired absence of other specified parts of digestive tract; Z95.5 Presence of coronary angioplasty implant and graft; Z96.642 Presence of left artificial hip joint; Z87.01 Personal history of pneumonia (recurrent); Z79.891 Long term (current) use of opiate analgesic; Z92.3 Personal history of irradiation; Z98.42 Cataract extraction status, left eye; Z98.41 Cataract extraction status, right eye
CPT/HCPCS: 36415; 50432; 71046; 74176; 80048; 80053; 81001; 83605; 83690; 85025; 87040; 87077; 87086; 87150; 87186; 96365; 96375; 99285

== ENCOUNTER 2018-05-03 11:00 | Day surgery (SDC) | payer MEDICARE, BC ==
[~2018-05-03 11:00] MED LIST changes: -DEXAMETHASONE SOD PHOSPHATE 10 MG/ML 1 ML VIAL IV ONE; +GENTAMICIN 80 MG in SODIUM CHLORIDE 0.9% 100 ML IVPB ONE; -LACTATED RINGERS 1,000 ML IV SCH; -LIDOCAINE 1% 20 ML VIAL (10MG/ML) FOR IV START INTRADERMA PRN; -MIDAZOLAM 2 MG/2 ML VIAL IV PRN; -ONDANSETRON 4 MG/2 ML VIAL IVP ONE; -SCOPOLAMINE 1.5MG/72HR PATCH TRANSDERM ONE; -ceFAZolin 1,000 MG in DEXTROSE/WATER 1 50ML.BAG IV ONE
[2018-05-03 11:24] VITALS: RESP 16; TEMP 98.1
[2018-05-03] MEDS ORDERED: SODIUM CHLORIDE 0.9% 500 ML 500 ML IV ONE (11:29)
[2018-05-03] MEDS ORDERED: LIDOCAINE 1% INJ 10MG/ML (20 ML MDV) ONE (12:10)
[2018-05-03 13:00] VITALS: BP 118/64; PULSE 69
--- NOTE | 2018-05-03 13:58 | IR ---
Nephrostogram HISTORY: Hydronephrosis Patient's indwelling left nephrostomy tube was evaluated under real-time fluoroscopy. General hand in jection of contrast material was performed under fluoroscopic observation and images were obtained. F ollowing the procedure catheter was attached to gravity drainage. No immediate consultation. Patient discharged in stable condition. FINDINGS: Left hydronephrosis is noted. There is redundancy the proximal ureter. At the level of the iliac vasculature, sacroiliac joint on the left there is an abrupt termination of the contrast sulaimani al. IMPRESSION: Mid left ureteral obstruction
== END 2018-05-03 12:58 | disposition home or self-care (01) ==
LOC: OR 11:00
PROVIDERS: ATTEND Radiology Diagnostic Radiology
DX: N13.1 Hydronephrosis with ureteral stricture, not elsewhere classified (principal); Z87.442 Personal history of urinary calculi
CPT/HCPCS: 50431; C1769; 74425

== ENCOUNTER → 2018-05-14 | Outpatient (CLI) | payer MEDICARE, BC ==
[2018-05-14 14:56] LABS: Basophils % (A) 1 %; Eosinophils # (A) 0.2 k/uL (0-0.7); Eosinophils % (A) 4 %; HCT 36.7 % (39.0-53.0); HGB 11.8 gm/dL (13.0-17.5); Lymphocytes # (A) 0.7 k/uL (1.0-4.8); Lymphocytes % (A) 13 %; MCH 32.2 pg (25.0-35.0); MCHC 32.1 g/dL (31.0-37.0); MCV 100.4 fL (80.0-100.0); Mean Platelet Volume 6.8; Monocytes # (A) 0.4 k/uL (0-1.0); Monocytes % (A) 7 %; Neutrophils # (A) 4.3 k/uL (1.3-7.7); Neutrophils % (A) 75 %; Platelet Count 275 k/uL (150-450); RBC 3.66 m/uL (4.30-5.90); RDW 13.3 % (11.5-15.5); WBC 5.8 k/uL (3.8-10.6)
[2018-05-14 15:10] LABS: Appearance,Urine Cloudy (Clear); Bilirubin,Urine Negative (Negative); Blood,Urine Large (Negative); Color,Urine Yellow; Glucose,Urine (UA) Negative (Negative); Ketones,Urine Negative (Negative); Leukocyte Esterase,Urine Large (Negative); Mucus,Urine Occasional /hpf; Nitrite,Urine Positive (Negative); Protein,Urine Trace (Negative); RBC,Urine >182 /hpf (0-5); Specific Gravity,Urine 1.015 (1.001-1.035); Urobilinogen,Urine <2.0 mg/dL (<2.0); WBC,Urine 65 /hpf (0-5)
[2018-05-14 15:20] LABS: ALT 15 U/L (21-72); AST 18 U/L (17-59); Albumin 3.7 g/dL (3.5-5.0); Alkaline Phosphatase 63 U/L (38-126); Anion Gap 5 mmol/L; Blood Urea Nitrogen 13 mg/dL (9-20); Calcium 8.9 mg/dL (8.4-10.2); Carbon Dioxide 30 mmol/L (22-30); Chloride 105 mmol/L (98-107); Glucose 118 mg/dL (74-99); Sodium 140 mmol/L (137-145); Total Bilirubin 0.5 mg/dL (0.2-1.3)
--- NOTE | 2018-05-14 16:05 | XR ---
EXAMINATION TYPE: XR chest 2V DATE OF EXAM: 05/14/2018 COMPARISON: Prior chest x-ray 04/26/2018 HISTORY: Preop TECHNIQUE: Frontal and lateral views of the chest are obtained on 3 images. FINDINGS: There is tenting of the right hemidiaphragm, suspect eventration. Mild loss in the right h emithorax is noted. Cardiomediastinal silhouette, pulmonary vascularity and sanna are stable. No evide nt pneumothorax or pleural effusion. Colonic interposition noted anterior to the liver. Postop change s are noted to the lumbar spine. Prominent lung volumes suggest underlying COPD. Surgical clips prese nt in the right upper quadrant. IMPRESSION: No acute cardiopulmonary process.
== END | disposition home or self-care (01) ==
LOC: RADXRMAIN 13:44
PROVIDERS: ATTEND Urology
DX: Z01.818 Encounter for other preprocedural examination (principal); Z01.812 Encounter for preprocedural laboratory examination; N13.30 Unspecified hydronephrosis; R53.83 Other fatigue; R06.02 Shortness of breath; R31.29 Other microscopic hematuria
CPT/HCPCS: 36415; 71046; 80053; 81001; 85025; 86850; 86900; 86901; 87077; 87086; 87186

== ENCOUNTER 2018-05-20 10:55 | Inpatient (IN) | payer MEDICARE, BC ==
[2018-05-16 10:15] VITALS: BMI 17.9
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
[~2018-05-20 10:55] MED LIST changes: +AMPICILLIN 1,000 MG in SODIUM CHLORIDE 0.9% 50 ML IVPB ONE; +DEXAMETHASONE SOD PHOSPHATE 10 MG/ML 1 ML VIAL IV ONE; -GENTAMICIN 80 MG in SODIUM CHLORIDE 0.9% 100 ML IVPB ONE; +GENTAMICIN IN NACL ISO-OSM PMX 80 MG in SALINE 1 100ML.BAG IVPB ONE; +HYDROmorphone 0.5 MG/0.5 ML SYRINGE IVP PRN; +LIDOCAINE 1% 20 ML VIAL (10MG/ML) FOR IV START INTRADERMA PRN; +ONDANSETRON 4 MG/2 ML VIAL IVP ONE; +SCOPOLAMINE 1.5MG/72HR PATCH TRANSDERM ONE
--- NOTE | 2018-05-20 11:25 | XR ---
EXAMINATION TYPE: XR KUB DATE OF EXAM: 05/20/2018 COMPARISON: NONE HISTORY: Presurgical TECHNIQUE: One view abdominal series FINDINGS: Left-sided nephrostomy tube is seen. There is a catheter overlying the bladder with patellar densitie s related to previous prostate intervention or previous surgery. Postsurgical change left hip and sev ere arthropathy right hip. Surgical clips gallbladder fossa retained fecal debris throughout the colo n. IMPRESSION: 1. Left-sided nephrostomy. Suspect there may be a upper pole renal calculi totaling approximately 3-4 with the largest measuring 5.2 mm
[2018-05-20] MEDS: LACTATED RINGERS 1,000 ML IV SCH (11:40)
[2018-05-20] MEDS ORDERED: MIDAZOLAM 2 MG/2 ML VIAL ONE (13:02)
[2018-05-20] MEDS ORDERED: ROCURONIUM BROMIDE 10 MG/ML 10 ML VIAL IV ONE (13:02)
[2018-05-20] MEDS ORDERED: fentaNYL (PF) 50 MCG/ML 2 ML AMP ONE (13:02)
[2018-05-20] MEDS ORDERED: ePHEDrine SULFATE/0.9% NACL/PF 50 MG/5 ML SYRINGE IV ONE (13:02)
[2018-05-20] MEDS ORDERED: SUCCINYLCHOLINE CHLORIDE 100 MG/5 ML SYR IV ONE (13:02)
[2018-05-20] MEDS ORDERED: NEOSTIGMINE 1 MG/ML 10 ML VIAL ONE (13:02)
[2018-05-20] MEDS ORDERED: GLYCOPYRROLATE 0.2 MG/ML 2 ML VIAL ONE (13:02)
[2018-05-20] MEDS ORDERED: PHENYLEPHRINE-0.9% NACL SYG 1 MG/10 ML SYRINGE ONE (13:02)
[2018-05-20] MEDS ORDERED: PROPOFOL 10 MG/ML 20 ML VIAL IV ONE (13:02)
[2018-05-20] MEDS ORDERED: LIDOCAINE 1% INJ 10MG/ML (20 ML MDV) ONE (13:02)
[2018-05-20] MEDS ORDERED: IOPAMIDOL-370 50ML BTL MISCELLANE ONE (13:31)
--- NOTE | 2018-05-20 14:44 | FL ---
EXAMINATION TYPE: FL Perc Nephro Tube Change DATE OF EXAM: 05/20/2018 COMPARISON: NONE HISTORY: Nephrostomy tube exchange TECHNIQUE: Fluoroscopy. FINDINGS: Fluoroscopic guidance was provided during procedure 6 minutes and 11 seconds 0 images subm itted. IMPRESSION: As Above.
[2018-05-20] MEDS ORDERED: LACTATED RINGERS 1,000 ML IV ONE (14:54)
[2018-05-20] MEDS ORDERED: MAG HYDROX/AL HYDROX/SIMETH 30 ML CUP PO PRN (16:26)
[2018-05-20] MEDS ORDERED: ACETAMINOPHEN TAB 325 MG TAB PO PRN (16:26)
[2018-05-20] MEDS ORDERED: ONDANSETRON 4 MG/2 ML VIAL IVP PRN (16:26)
[2018-05-20] MEDS ORDERED: NALOXONE 0.4 MG/ML 1 ML VIAL IV PRN (16:28)
[2018-05-20] MEDS ORDERED: HYDROmorphone PCA 5 MG/25 ML SYRINGE IV PRN (16:28)
--- NOTE | 2018-05-20 16:37 | P.OP ---
Date of Procedure: 05/20/18 Preoperative Diagnosis: Left ureteral obstruction indeterminate etiology Postoperative Diagnosis: Left ureteral obstruction secondary to left ureteral calculus and marked scarring of distal ureter Procedure(s) Performed: Percutaneous ureteroscopy with failed ureteral dilation. Replacement of 8- Macanese J nephrostomy tube, abdominal and retroperitoneal exploration with left ureterolithotomy, ureterectomy with ureteroureterostomy over 6 x 28 double-J catheter Anesthesia: LEA Surgeon: Wm Hammer Occupational Health And Safety Manager #1: Domo Gomes Estimated Blood Loss (ml): 200 Pathology: other (Stone, ureter) Condition: stable Disposition: PACU Indications for Procedure: The patient is 77. Several months ago he developed gross hematuria and flank pain. A computed tomography scan was indeterminate other than left hydronephrosis. For 3 months he declined any treatment but eventually elected to undergo cystoscopy retrograde pyelogram. Retrograde showed an obstruction around the iliac vessels. Remove some stone but the exact cause is indeterminate based on CT and retrograde pyelogram. Because is unable dilate the ureter from below I didn't nephrostomy tube was placed. An antegrade nephrostogram showed no passage of dye down the ureter beyond the obstruction. He comes for left ureteroscopy, antegrade procedures as indicated possible open ureterolithotomy or ureterectomy. Description of Procedure: The patient is brought to the operating suite on the operating table is given a general endotracheal anesthesia. He previously has had an indwelling catheter. He has a left nephrostomy tube. He's placed in a prone position with care to airways and extremities. A sterile prep and drape was administered. Through the previously placed nephrostomy tube a nephrostogram shows the ureter abruptly cut enough just above the iliac vessels at the SI joint. He get the impression that there may be a stone distal to this. I passed a wire down the ureter. I passed an 8-10-Macanese reentry catheter. A second safety wires passed down the ureter. Over the working wire pass a flexible ureteroscope remove the working wire looked down the ureter. I think I see an opening in the ureter. An 035 wires passed through the ureteroscope and fortunately through the ureter down into the bladder. Several attempts to dilate the ureter at this level failed. Because of this I feel that I'll need open the ureter to figure the problem. It is still my impression that there is a stone there. On the ureters no 35 super stiff wire for ureteral identification. Over the working wire an 8-Macanese J nephrostomy tube was placed in the kidney. Patient is placed in a supine position with a sterile prep and drape. An incision from the pubic bone to above the umbilicus is made. The rectus fascia is opened in its midline. Due to scarring of the pre-vesicle fat the peritoneum is entered. Scarring comes from radiation. I explore the retroperitoneum after packing the bowel away. Identify the internal and then external iliac vessels. I finally identify the ureter which is placed somewhat laterally crossing the external iliac vessels. Slowly adherent to the vessels. Palpably there appears to be a stone as the ureter crosses external iliac vein and artery. I tediously dissect proximally and distally to the stone and placed Vesseloops around the ureter. Tediously dissect the ureter off the iliac vessels making sure not to injure the vessels. Once this is done a ureterotomy is made above the stone. I cut the rigid ureterotomy through the stone. The stone was identified and removed. First segment of about 6-7 mm ureter looked very unhealthy. I elect to transect the ureter after plain stay stitches in the ureter proximally and distally. Ureter sent off to pathology. I spatulated the ureter proximally and distally. A new 6 x 28 double-J catheter was placed in the ureter and coils in the renal pelvis and the bladder over a 035 wire. The wires removed. I then closed the ureter with 2 running 4- 0 Vicryl's. Ureter was freed proximally and distally so that there is no tension on the ureter. A Lee-Quezada drain is brought through separate stab incision. The abdominal rectus fascias closed with interrupted [id number] 0 PDS a skin is stapled the patient's awake and returned recovery. Blood loss is approximately 200 mL.
[2018-05-20] MEDS: KETOROLAC 30 MG/ML 1 ML VIAL IVP PRN (17:45)
[2018-05-20] MEDS: DEXTROSE 5%-0.45% NACL 1,000 ML IV SCH (18:33)
[2018-05-20] MEDS: ATORVASTATIN 20 MG TAB PO SCH (21:21)
[2018-05-20] MEDS: LISINOPRIL 5 MG TAB PO SCH (21:21)
[2018-05-20] MEDS: ATENOLOL 25 MG TAB PO SCH (21:21)
[2018-05-20] MEDS: ARTIFICIAL TEARS-HYPROMELLOSE DROPS 15 ML BTL BOTH EYES SCH (22:55)
[2018-05-21] MEDS: KETOROLAC 30 MG/ML 1 ML VIAL IVP PRN ×4 (00:25→20:04)
[2018-05-21] MEDS: HYDROmorphone 0.5 MG/0.5 ML SYRINGE IVP PRN ×5 (03:48→21:32)
[2018-05-21] MEDS: DEXTROSE 5%-0.45% NACL 1,000 ML IV SCH ×2 (03:51→14:58)
[2018-05-21] MEDS: LACTATED RINGERS 1,000 ML IV SCH (04:16)
[2018-05-21] MEDS ORDERED: SODIUM CHLORIDE 0.9% 500 ML 500 ML IV ONE (07:18)
[2018-05-21] MEDS: ARTIFICIAL TEARS-HYPROMELLOSE DROPS 15 ML BTL BOTH EYES SCH ×2 (07:26→21:29)
[2018-05-21] MEDS: ASPIRIN 81 MG PO SCH (07:26)
[2018-05-21] MEDS: TAMSULOSIN 0.4 MG CAP.ER.24H PO SCH (07:26)
--- NOTE | 2018-05-21 07:30 | P.PN ---
Subjective Progress Note Date: 05/21/18 The patient's and his first postoperative day from a ureteral exploration, ureterolithotomy, ureterectomy and ureteral ureterostomy on the left side. He is having a moderate amount of pain which I expect is because of the fact that he is on chronic narcotics for his bad back therefore probably requiring more than he has been given. His urine output is diminished. His abdomen is soft. GOLD drainage was 100 mL. I will increase his narcotics and give him a bolus of fluids. We'll continue with recuperation. Objective - Vital Signs Vital signs: Vital Signs Temp 98.8 F 05/20/18 23:00 Pulse 67 05/20/18 23:00 Resp 12 05/20/18 23:00 BP 128/54 05/20/18 23:00 Pulse Ox 97 05/20/18 23:00 Intake & Output 05/20/18 05/21/18 05/21/18 18:59 06:59 18:59 Intake Total 1750 800 Output Total 1075 230 Balance 675 570 Intake: IV 1750 Intake, IV Titration 800 Amount Dextrose 5%-0.45% NaCl 1, 800 000 ml @ 100 mls/hr IV . Q10H [facility] Rx#:[id number] Output: Drainage 25 230 Abdomen 25 110 Left Back 120 Urine 850 Estimated Blood Loss 200 Other: Voiding Method Indwelling Catheter
[2018-05-21] MEDS ORDERED: HYDROmorphone 1 MG/ML 1 ML SYRINGE IVP PRN (09:49)
[2018-05-21] MEDS ORDERED: HYDROmorphone 0.5 MG/0.5 ML SYRINGE IVP PRN (09:49)
[2018-05-21] MEDS: LISINOPRIL 5 MG TAB PO SCH (21:29)
[2018-05-21] MEDS: ATENOLOL 25 MG TAB PO SCH (21:29)
[2018-05-21] MEDS: ATORVASTATIN 20 MG TAB PO SCH (21:29)
[2018-05-21] MEDS: TEMAZEPAM 30 MG CAP PO SCH (22:40)
[2018-05-22] MEDS: DEXTROSE 5%-0.45% NACL 1,000 ML IV SCH ×4 (01:08→20:48)
[2018-05-22] MEDS: LACTATED RINGERS 1,000 ML IV SCH (04:14)
[2018-05-22] MEDS: HYDROmorphone 0.5 MG/0.5 ML SYRINGE IVP PRN ×4 (04:50→18:53)
--- NOTE | 2018-05-22 08:15 | P.PN ---
Subjective Progress Note Date: 05/22/18 The patient is in his second postoperative day from a ureteral lithotomy and ureteral repair. His urine output is good. His GOLD drainage is moderate the most of his peritoneal fluid. His pain is reasonably under control. He will ambulate. If he ambulates adequately I will remove his catheter for a voiding trial. Objective - Vital Signs Vital signs: Vital Signs Temp 98.5 F 05/22/18 06:00 Pulse 67 05/22/18 06:00 Resp 20 05/22/18 06:00 BP 109/64 05/22/18 06:00 Pulse Ox 97 05/22/18 06:00 Intake & Output 05/21/18 05/22/18 05/22/18 18:59 06:59 18:59 Intake Total 1200 400 Output Total 650 1150 Balance 550 -750 Intake: Oral 1200 400 Output: Drainage 350 350 Abdomen 170 190 Left Back 180 160 Urine 300 800 Uretheral (Scott) 400 Other: Voiding Method Indwelling Catheter Indwelling Catheter
[2018-05-22] MEDS: ARTIFICIAL TEARS-HYPROMELLOSE DROPS 15 ML BTL BOTH EYES SCH ×2 (08:21→20:47)
[2018-05-22] MEDS: ASPIRIN 81 MG PO SCH (08:21)
[2018-05-22] MEDS: TAMSULOSIN 0.4 MG CAP.ER.24H PO SCH (08:21)
[2018-05-22] MEDS: KETOROLAC 30 MG/ML 1 ML VIAL IVP PRN ×3 (08:22→21:24)
[2018-05-22] MEDS: TEMAZEPAM 30 MG CAP PO SCH (20:47)
[2018-05-22] MEDS: ATENOLOL 25 MG TAB PO SCH (20:47)
[2018-05-22] MEDS: LISINOPRIL 5 MG TAB PO SCH (20:47)
[2018-05-22] MEDS: ATORVASTATIN 20 MG TAB PO SCH (20:47)
[2018-05-23] MEDS: LACTATED RINGERS 1,000 ML IV SCH ×2 (06:06→23:19)
[2018-05-23] MEDS: ASPIRIN 81 MG PO SCH (07:42)
[2018-05-23] MEDS: TAMSULOSIN 0.4 MG CAP.ER.24H PO SCH (07:42)
[2018-05-23] MEDS: KETOROLAC 30 MG/ML 1 ML VIAL IVP PRN (07:42)
[2018-05-23] MEDS: ARTIFICIAL TEARS-HYPROMELLOSE DROPS 15 ML BTL BOTH EYES SCH ×2 (07:44→20:20)
[2018-05-23] MEDS: HYDROmorphone 0.5 MG/0.5 ML SYRINGE IVP PRN ×3 (09:00→21:46)
--- NOTE | 2018-05-23 11:35 | P.PN ---
Subjective Progress Note Date: 05/23/18 The patient is in his third postoperative day from ureteral exploration, ureterolithotomy and ureteral lysis, ureterectomy. On the left side. He is feeling much better. His pain is under control. He is ambulating. He is tolerating a regular diet. I will discontinue his IV fluids. I'll discontinue his Scott. If he urinates adequately and continues to tolerate no of IV fluids he'll be discharged home tomorrow. I'll remove his drain tomorrow. His vital signs are stable. Objective - Vital Signs Vital signs: Vital Signs Temp 98.7 F 05/23/18 07:00 Pulse 75 05/23/18 07:00 Resp 16 05/23/18 07:45 BP 108/67 05/23/18 07:00 Pulse Ox 96 05/23/18 07:00 Intake & Output 05/22/18 05/23/18 05/23/18 18:59 06:59 18:59 Intake Total 300 Output Total 1025 865 350 Balance -1025 -565 -350 Weight 56.699 kg 56.699 kg Intake: Oral 300 Output: Drainage 925 65 350 Abdomen 375 25 50 Left Back 550 40 300 Urine 100 800 Uretheral (Scott) 800 Other: Voiding Method Indwelling Catheter Indwelling Catheter Indwelling Catheter # Voids 2 # Bowel Movements 0
[2018-05-23] MEDS: DEXTROSE 5%-0.45% NACL 1,000 ML IV SCH ×2 (11:54→23:18)
[2018-05-23] MEDS: ATORVASTATIN 20 MG TAB PO SCH (20:15)
[2018-05-23] MEDS: LISINOPRIL 5 MG TAB PO SCH (20:15)
[2018-05-23] MEDS: ATENOLOL 25 MG TAB PO SCH (20:15)
[2018-05-23] MEDS: TEMAZEPAM 30 MG CAP PO SCH (21:47)
[2018-05-24] MEDS: HYDROmorphone 2 MG/ML 1 ML SYRINGE IVP PRN ×4 (05:19→18:54)
[2018-05-24] MEDS: ASPIRIN 81 MG PO SCH (07:30)
[2018-05-24] MEDS: TAMSULOSIN 0.4 MG CAP.ER.24H PO SCH (07:30)
[2018-05-24] MEDS: ARTIFICIAL TEARS-HYPROMELLOSE DROPS 15 ML BTL BOTH EYES SCH ×2 (07:31→21:04)
--- NOTE | 2018-05-24 07:32 | P.PN ---
Subjective Progress Note Date: 05/24/18 The patient is in his fourth postoperative day. The Scott catheter was removed last night but he did not urinate. Bladder scan showed the amount of urine in the bladder around 60 mL. Most of the urine was suctioning up through the double-J catheter into the left nephrostomy tube. The drainage in the GOLD increased also. I will clamp the nephrostomy tube in order to fill up the bladder to see if he can void. I will leave the GOLD drain in for now just to make sure it does not continue to increase. I will delay is discharged to later today or tomorrow depending on how he does. Objective - Vital Signs Vital signs: Vital Signs Temp 99.4 F 05/24/18 07:00 Pulse 80 05/24/18 07:00 Resp 18 05/24/18 07:00 BP 105/62 05/24/18 07:00 Pulse Ox 96 05/24/18 07:00 Intake & Output 05/23/18 05/24/18 05/24/18 18:59 06:59 18:59 Intake Total 200 100 Output Total 1018 637 Balance -818 -537 Weight 56.699 kg Intake: Oral 200 100 Output: Drainage 780 530 Abdomen 50 210 Left Back 730 320 Urine 220 Uretheral (Scott) 200 Post Void Residual 18 107 Other: Voiding Method Indwelling Catheter Urinal # Voids 1
[2018-05-24] MEDS ORDERED: HYDROmorphone 4 MG TABLET PO PRN (10:57)
[2018-05-24] MEDS: TEMAZEPAM 30 MG CAP PO SCH (21:04)
[2018-05-24] MEDS: ATORVASTATIN 20 MG TAB PO SCH (21:04)
[2018-05-24] MEDS: LISINOPRIL 5 MG TAB PO SCH (22:54)
[2018-05-24] MEDS: ATENOLOL 25 MG TAB PO SCH (22:54)
[2018-05-24] MEDS ORDERED: SODIUM CHLORIDE 0.9% 500 ML 500 ML IV ONE (23:21)
[2018-05-24] MEDS ORDERED: DEXTROSE 5%-0.45% NACL 1,000 ML with POTASSIUM CHLORIDE 20 MEQ IV SCH ×2 (23:30)
[2018-05-25] MEDS: D5-0.45% NACL WITH KCL 20MEQ/L 1,000 ML IV SCH ×3 (02:04→22:58)
[2018-05-25] MEDS: ARTIFICIAL TEARS-HYPROMELLOSE DROPS 15 ML BTL BOTH EYES SCH ×2 (07:48→22:36)
[2018-05-25] MEDS: ASPIRIN 81 MG PO SCH (07:48)
[2018-05-25] MEDS: TAMSULOSIN 0.4 MG CAP.ER.24H PO SCH (07:48)
--- NOTE | 2018-05-25 09:43 | P.PN ---
Progress Note - Text Progress Note Date: 05/25/18 The patient is afebrile. He had not been eating or drinking much yesterday and last night his systolic blood pressure was less than 90. He was given fluids and his pressure this morning is 92/54. He is alert and says that his pain is much less since his nephrostomy tube was removed. He says that he is hungry but the hospital food is not appetizing and so his will be bringing in food from home. He does not think he's had a bowel movement in a few days. He denies any shortness of breath. Urine draining from his Scott catheter is dark brown in color but is free of clots. A moderate amount of serosanguineous drainage is coming from the Lee-Quezada drain. On examination the patient's incision is uninflamed. His abdomen is soft and nontender. The source of the patient's hypotension last night is probably hypovolemia as his blood pressure has improved with IV fluids. His labs will be checked this morning and it is possible that he could be discharged later today if he remains comfortable and he is normotensive. His Tenormin and lisinopril have been held due to his blood pressure.
[2018-05-25 11:10] LABS: HCT 25.1 % (39.0-53.0); MCH 31.4 pg (25.0-35.0); MCHC 31.8 g/dL (31.0-37.0); MCV 98.8 fL (80.0-100.0); Mean Platelet Volume 6.1; Platelet Count 295 k/uL (150-450); RBC 2.54 m/uL (4.30-5.90); RDW 13.7 % (11.5-15.5)
[2018-05-25 14:20] LABS: Anion Gap 2 mmol/L; Blood Urea Nitrogen 25 mg/dL (9-20); Calcium 7.5 mg/dL (8.4-10.2); Carbon Dioxide 27 mmol/L (22-30); Chloride 105 mmol/L (98-107); Glucose 113 mg/dL (74-99); Potassium 4.7 mmol/L (3.5-5.1); Sodium 134 mmol/L (137-145)
[2018-05-25] MEDS: TEMAZEPAM 30 MG CAP PO SCH (22:32)
[2018-05-25] MEDS: ATORVASTATIN 20 MG TAB PO SCH (22:32)
[2018-05-25] MEDS: ATENOLOL 25 MG TAB PO SCH (22:32)
[2018-05-25] MEDS: LISINOPRIL 5 MG TAB PO SCH (22:33)
[2018-05-25] MEDS: HYDROmorphone 2 MG/ML 1 ML SYRINGE IVP PRN (22:40)
[2018-05-26 02:07] VITALS: PULSE 82
[2018-05-26] MEDS: HYDROmorphone 2 MG/ML 1 ML SYRINGE IVP PRN (06:01)
[2018-05-26] MEDS: TAMSULOSIN 0.4 MG CAP.ER.24H PO SCH (07:50)
[2018-05-26] MEDS: ASPIRIN 81 MG PO SCH (07:51)
[2018-05-26] MEDS: ARTIFICIAL TEARS-HYPROMELLOSE DROPS 15 ML BTL BOTH EYES SCH (07:51)
[2018-05-26] MEDS: D5-0.45% NACL WITH KCL 20MEQ/L 1,000 ML IV SCH (07:51)
[2018-05-26 08:01] VITALS: BP 115/70; RESP 15; TEMP 98.2
[2018-05-26 09:58] LABS: Basophils % (A) 0 %; Eosinophils # (A) 0.2 k/uL (0-0.7); Eosinophils % (A) 2 %; HCT 27.6 % (39.0-53.0); HGB 9.1 gm/dL (13.0-17.5); Lymphocytes # (A) 0.6 k/uL (1.0-4.8); Lymphocytes % (A) 5 %; MCH 32.5 pg (25.0-35.0); MCHC 32.8 g/dL (31.0-37.0); MCV 98.8 fL (80.0-100.0); Mean Platelet Volume 6.6; Monocytes # (A) 0.9 k/uL (0-1.0); Monocytes % (A) 8 %; Neutrophils % (A) 85 %; Platelet Count 347 k/uL (150-450); RBC 2.79 m/uL (4.30-5.90); RDW 13.6 % (11.5-15.5); WBC 11.9 k/uL (3.8-10.6)
[2018-05-26 10:12] LABS: Anion Gap 5 mmol/L; Blood Urea Nitrogen 15 mg/dL (9-20); Carbon Dioxide 28 mmol/L (22-30); Chloride 100 mmol/L (98-107); Glucose 121 mg/dL (74-99); Sodium 133 mmol/L (137-145)
== END 2018-05-26 11:45 | disposition home health service (06) | DRG 661 ==
LOC: 2ORMAIN 10:55 → 4MS4W 16:22
PROVIDERS: ADMIT Urology; ATTEND Urology
PROC: 0T170Z7 Bypass Left Ureter to Left Ureter, Open Approach (ICD-10-PCS; 2018-05-20)
PROC: 0T25X0Z Change Drainage Device in Kidney, External Approach (ICD-10-PCS; 2018-05-20)
PROC: 0TC70ZZ Extirpation of Matter from Left Ureter, Open Approach (ICD-10-PCS; principal; 2018-05-20 13:00)
DX: N13.2 Hydronephrosis with renal and ureteral calculous obstruction (principal); I25.10 Atherosclerotic heart disease of native coronary artery without angina pectoris; I10 Essential (primary) hypertension; I25.84 Coronary atherosclerosis due to calcified coronary lesion; E78.5 Hyperlipidemia, unspecified; M19.90 Unspecified osteoarthritis, unspecified site; Z96.642 Presence of left artificial hip joint; E78.00 Pure hypercholesterolemia, unspecified; E86.1 Hypovolemia; Z88.1 Allergy status to other antibiotic agents; Z85.46 Personal history of malignant neoplasm of prostate; Z92.3 Personal history of irradiation; Z87.891 Personal history of nicotine dependence; Z95.5 Presence of coronary angioplasty implant and graft; Z98.1 Arthrodesis status; Z79.82 Long term (current) use of aspirin; Z79.899 Other long term (current) drug therapy; Z86.711 Personal history of pulmonary embolism; Z82.49 Family history of ischemic heart disease and other diseases of the circulatory system; Z79.891 Long term (current) use of opiate analgesic
CPT/HCPCS: 50435; 74018; 80048; 82365; 85025; 85027; 86850; 86900; 86901; 88305

== ENCOUNTER 2018-05-28 10:00 | Inpatient (IN) | payer MEDICARE, BC ==
[2018-05-28] MEDS ORDERED: SODIUM CHLORIDE 0.9% 500 ML 500 ML IV ONE (10:26)
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
[2018-05-28 11:28] LABS: Basophils % (A) 0 %; Eosinophils % (A) 0 %; HCT 26.4 % (39.0-53.0); HGB 8.4 gm/dL (13.0-17.5); Lymphocytes # (A) 0.3 k/uL (1.0-4.8); Lymphocytes % (A) 2 %; MCH 30.9 pg (25.0-35.0); MCHC 31.7 g/dL (31.0-37.0); MCV 97.4 fL (80.0-100.0); Mean Platelet Volume 6.2; Monocytes # (A) 0.9 k/uL (0-1.0); Monocytes % (A) 5 %; Neutrophils # (A) 14.7 k/uL (1.3-7.7); Neutrophils % (A) 91 %; Platelet Count 468 k/uL (150-450); RBC 2.71 m/uL (4.30-5.90); RDW 13.5 % (11.5-15.5); WBC 16.1 k/uL (3.8-10.6)
--- NOTE | 2018-05-28 11:29 | XR ---
EXAMINATION TYPE: XR chest 2V DATE OF EXAM: 05/28/2018 COMPARISON: Chest x-ray May 2018. HISTORY: Altered mental status since kidney stone surgery a few days ago. TECHNIQUE: Frontal and lateral views of the chest are obtained. FINDINGS: Elevated right hemidiaphragm is redemonstrated with colonic interposition . Seen best on la teral view there is new free air. Patchy bibasilar opacities are now present.. The cardiac silhouett e size is within normal limits. The osseous structures are intact. IMPRESSION: Nonspecific pneumoperitoneum given history of recent open abdominal surgery. New patchy bibasal acute atelectasis and/or infiltrate. Case discussed with ER physician via telephone at time of dictation.
[2018-05-28 11:35] LABS: Partial Thromboplastin Time 22.6 sec (22.0-30.0); Prothrombin Time 10.8 sec (9.0-12.0)
[2018-05-28 11:38] LABS: ALT 25 U/L (21-72); AST 22 U/L (17-59); Albumin 2.6 g/dL (3.5-5.0); Alkaline Phosphatase 69 U/L (38-126); Anion Gap 9 mmol/L; Blood Urea Nitrogen 19 mg/dL (9-20); Calcium 8.4 mg/dL (8.4-10.2); Carbon Dioxide 25 mmol/L (22-30); Chloride 99 mmol/L (98-107); Glucose 119 mg/dL (74-99); Potassium 4.8 mmol/L (3.5-5.1); Sodium 133 mmol/L (137-145); Total Bilirubin 0.7 mg/dL (0.2-1.3); Total Protein 5.3 g/dL (6.3-8.2)
[2018-05-28 11:39] LABS: RBC,Urine >182 /hpf (0-5); WBC,Urine >182 /hpf (0-5)
[2018-05-28 11:40] LABS: Appearance,Urine Bloody (Clear); Color,Urine Dark Red
[2018-05-28 11:54] LABS: Amphetamine Screen,Urine Not Detected (NotDetected); Barbiturate Screen,Urine Not Detected (NotDetected); Benzodiazepines Screen,Urine Detected (NotDetected); Cocaine Screen,Urine Not Detected (NotDetected); Methadone Screen, Urine Not Detected (NotDetected); Opiate Screen,Urine Detected (NotDetected); Oxycodone Screen, Urine Detected (NotDetected); Phencyclidine Screen,Urine Not Detected (NotDetected); Tricyclic Antidepressant,Urine Not Detected (NotDetected); Urn Cannabinoid Scrn Not Detected (NotDetected)
[2018-05-28 12:00] LABS: Troponin I 0.022 ng/mL (0.000-0.034)
[2018-05-28] MEDS ORDERED: LEVOFLOXACIN 750MG-D5W PMX 750 MG in DEXTROSE/WATER 1 150ML.BAG IVPB STA (12:22)
[2018-05-28 12:34] LABS: Creatine Kinase MB 1.2 ng/mL (0.0-2.4)
[2018-05-28] MEDS ORDERED: SODIUM CHLORIDE 0.9% 1,000 ML IV ONE ×2 (13:17→15:31)
[2018-05-28] MEDS ORDERED: HYDROmorphone 0.5 MG/0.5 ML SYRINGE IVP PRN (15:21)
[2018-05-28] MEDS ORDERED: HYDROcodone/APAP 10-325MG 1 EACH TAB PO PRN (17:29)
--- NOTE | 2018-05-28 18:24 | HP ---
HISTORY AND PHYSICAL Mr. Bonds is a 77-year-old gentleman presented to the emergency room. CHIEF COMPLAINT: Apparently altered mental status and not feeling well this morning. HISTORY OF PRESENT ILLNESS: The patient recently underwent urological surgery to remove a left ureteral stone and also improve drainage of the stenotic left distal ureter. The patient went home apparently 2 days ago and this morning he was very weak. Apparently seeing spots he stated and felt confused and brought in by family members. He denies any chest pain or unusual shortness of breath, but has been very weak. No nausea, vomiting. The patient's past history as stated with the recent urologic procedures. Other past history though includes long-standing orthopedic problems with the back and hips with multiple surgeries performed previously for which he is also on chronic pain medication. He has had a previous left inguinal hernia repair, cholecystectomy, history of renal stones, and history of prostate cancer. The patient has had previous shockwave lithotripsy. He has other medical history of hypertension, coronary artery disease with previous stent placement, hyperlipidemia, insomnia. There is also some concern regarding a right lower lobe mass. It has been followed by pulmonary medicine and he plans on having a PET scan performed in July. ALLERGIES: INCLUDE CEPHALOSPORINS FOR WHICH HE HAS HAD NAUSEA AND VOMITING. HOME MEDICATIONS: Included his [place] that he takes daily for pain as needed . He is on Plavix 75 mg daily. He is on oxycodone 40 mg twice a day for chronic pain control with temazepam 30 mg at q.h.s. for sleep. Flomax 0.4 mg daily, Zocor 40 mg at q.h.s., lisinopril 5 mg at q.h.s. He is on Refresh tears 2 drops to both eyes twice a day. Atenolol 25 mg at q.h.s. and aspirin 81 mg daily. REVIEW OF SYSTEMS: Basically as mentioned in history of present illness. He states he feels a little more alert this afternoon as seen in the evening in the emergency room. He is not having further visual disturbances. He denies any chest pain. No nausea or vomiting. No fever or chills. Some mild cough. No unusual edema. FAMILY HISTORY: Positive for hypertension and heart disease. Father had a myocardial infarction. The mother had an unknown type of cancer. SOCIAL HISTORY: Positive for smoking in the past, but denies any excessive alcohol usage. 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 PHYSICAL EXAMINATION: The patient generally looks somewhat cachectic, but he is alert, in no acute distress. His temperature is 97.9, pulse of 94, respirations were up to 18 and now down to 12, blood pressure was down to 93/58, it is now 105/56, and he is 98% saturated. LUNGS: Are generally clear, although diminished at bases. Head and neck exam revealed the neck to be not stiff. No adenopathy. Extraocular movements intact. Once again , lungs are generally clear, but diminished. Heart tones were slightly tachycardic and irregular without definitive murmurs or rubs appreciated. ABDOMEN: Soft and nontender without rebound, guarding, or masses. Extremities revealed no edema. Neurologically, he is alert, knows where he is at this particular time. There is no cranial nerves or focal peripheral weakness noted. LABORATORY TESTING: Revealed a white count elevated at 16, with a hemoglobin down to 8.4 and a platelet count of 468 and there is a left shift of 14.7. His INR was 1.0. Sodium is slightly low at 133 with a potassium 4.8. His BUN of 19, creatinine 0.62, giving him a GFR 60. Blood sugar was 119. His albumin is low at 2.6. CK was 33 and troponin 0.022. AST and ALT were normal. Urine revealed 182 white and red cells. It was grossly dark red. Toxicology screen is positive for oxycodone and benzodiazepines for which he is taking and consistent with. The patient did have a chest x-ray which revealed the pneumoperitoneum after his recent surgery and there is some very patchy basilar atelectasis or infiltrate seen. Also, his EKG showed some atrial fibrillation with a rate just above 100. Some nonspecific T-wave changes without any acute ischemic changes noted. IMPRESSION: 1. Possibility of underlying sepsis from urinary source, although the urine is also post surgical procedures, but he does have an elevated white count with a left shift. 2. New onset atrial fibrillation, although rate is only mildly elevated at this time. 3. Recent urologic procedure for removal of renal stones and improvement of drainage of the left kidney with distal ureteral obstruction and anemia postop, likely related to some blood loss. 4. Other past medical history is delineated in the past history section of this report as stated above. PLANS: At this time, the patient to be hydrated. Antibiotics in the form of Levaquin has been started pending culture. We will increase his beta ryanne, atenolol dosage from 25- 50, and consult with Cardiology and urology are to follow and further recommendations and treatment pending clinical response and results of above. MMLIZETTL / JANESN: [id number] / MTDD
[2018-05-28 20:18] LABS: Glucose,Whole Blood 96 mg/dL (75-99)
[2018-05-28] MEDS: ARTIFICIAL TEARS-HYPROMELLOSE DROPS 15 ML BTL BOTH EYES SCH (20:48)
[2018-05-28] MEDS: TEMAZEPAM 15 MG CAP PO SCH (20:48)
[2018-05-28] MEDS: ATORVASTATIN 20 MG TAB PO SCH (20:48)
[2018-05-28] MEDS: ATENOLOL 50 MG TAB PO SCH (20:48)
[2018-05-28] MEDS ORDERED: LISINOPRIL 5 MG TAB PO SCH (21:00)
[2018-05-28] MEDS ORDERED: ATENOLOL 25 MG TAB PO SCH (21:00)
[2018-05-28] MEDS ORDERED: TEMAZEPAM 30 MG CAP PO SCH (21:00)
[2018-05-29 06:45] LABS: Basophils % (A) 0 %; Eosinophils # (A) 0.1 k/uL (0-0.7); Eosinophils % (A) 1 %; HCT 20.4 % (39.0-53.0); Lymphocytes # (A) 0.4 k/uL (1.0-4.8); Lymphocytes % (A) 2 %; MCH 31.5 pg (25.0-35.0); MCHC 32.1 g/dL (31.0-37.0); Mean Platelet Volume 6.6; Monocytes # (A) 0.8 k/uL (0-1.0); Monocytes % (A) 5 %; Neutrophils # (A) 15.4 k/uL (1.3-7.7); Neutrophils % (A) 92 %; Platelet Count 382 k/uL (150-450); RBC 2.08 m/uL (4.30-5.90); RDW 13.8 % (11.5-15.5); WBC 16.8 k/uL (3.8-10.6)
[2018-05-29 06:47] LABS: Anion Gap 5 mmol/L; Blood Urea Nitrogen 18 mg/dL (9-20); Calcium 7.5 mg/dL (8.4-10.2); Carbon Dioxide 27 mmol/L (22-30); Chloride 102 mmol/L (98-107); Glucose 84 mg/dL (74-99); Potassium 4.4 mmol/L (3.5-5.1); Sodium 134 mmol/L (137-145)
[2018-05-29 06:48] LABS: Glucose,Whole Blood 101 mg/dL (75-99)
[2018-05-29 07:15] LABS: HGB 6.6 gm/dL (13.0-17.5)
--- NOTE | 2018-05-29 07:57 | P.PN ---
Progress Note - Text The patient is a 77-year-old gentleman who presented yesterday to the emergency room not feeling well with altered mental status and weakness. The patient had recently undergone left ureteral stone removal and further urologic surgery to improve drainage of the stenotic left distal ureter. The patient was found yesterday to have an elevated white count and a be anemic. Urinalysis was consistent with infection. He was also found to be in what appeared new onset atrial fibrillation with rate around 100. The patient was placed on antibiotics in the form of Levaquin. Also his beta blockers were slightly increased. This morning he states he feels better. He is aroused easily. Denies chest pain or shortness of breath at rest. Temperature is 98.4 with a pulse of 79 and respirations 21. Blood pressure is 109/51 and he is 93% saturated on 2 L nasal cannula. Lungs are generally clear. Heart rate sounds more regular today. Abdomen is nontender. No unusual edema. Neurologically he seems alert and oriented without focal cranial nerves or peripheral deficits but he is generally weak. Laboratory White count persists to be elevated at 16.8 and hemoglobin is still down to 6.6. Platelets are 382. Sodium is 134 with potassium 4.1. BUN is 18 with creatinine of 0.7 for given him a GFR of 88. TSH is mildly low at 0.374 and free T4 is pending. No cultures are back at this time. Impressions and plans 1. Sepsis from urinary tract source. On Levaquin with cultures pending. Lactic acid level was not elevated. Patient appears to be improving. 2. New-onset atrial fibrillation. EKG from this morning appears to be sinus rhythm. He is not having any chest pain. 3. A blood loss anemia with hemoglobin down to 6.6. We'll transfuse 1 unit of packed cells. Patient is dyspneic with minimal exertion. Overall very weak. Await further recommendations from consultants. Cardiology and neurology. Repeat labs in the morning. We'll add physical and occupational therapy once patient is transfused 1 unit of blood.
[2018-05-29 07:59] LABS: T4, Free (Free Thyroxine) 1.46 ng/dL (0.78-2.19)
[2018-05-29] MEDS: ARTIFICIAL TEARS-HYPROMELLOSE DROPS 15 ML BTL BOTH EYES SCH ×2 (08:24→20:47)
[2018-05-29] MEDS: TAMSULOSIN 0.4 MG CAP.ER.24H PO SCH (08:27)
[2018-05-29] MEDS: LISINOPRIL 2.5 MG TAB PO SCH (08:28)
[2018-05-29] MEDS: ASPIRIN 81 MG PO SCH (08:29)
--- NOTE | 2018-05-29 08:54 | P.PN ---
Subjective Progress Note Date: 05/29/18 Patient is in the hospital with dehydration, blood loss anemia and urinary tract infection with sepsis. Dr. Alejandre is transfusing him blood. His urine output is improved. I'll remove his fernando today. I'll check the drain fluid and urine fluid for creatinine to see whether the drain fluid his peritoneal fluid or urine. I'll continue to follow. Objective - Vital Signs Vital signs: Vital Signs Temp 98.1 F 05/29/18 08:00 Pulse 79 05/29/18 08:00 Resp 18 05/29/18 08:00 BP 91/52 05/29/18 08:00 Pulse Ox 94 L 05/29/18 08:00 Intake & Output 05/28/18 05/29/18 05/29/18 18:59 06:59 18:59 Intake Total 600 Output Total 750 Balance -150 Weight 58.967 kg 53 kg Intake: Intake, IV Titration 600 Amount Sodium Chloride 0.9% 1, 600 000 ml @ 75 mls/hr IV . [id number] ONE Rx#:[id number] Output: Urine 750 Other: Voiding Method Indwelling Catheter # Voids 1 - Labs CBC & Chem 7: 05/29/18 05:23 05/29/18 05:23 Labs: Abnormal Lab Results - Last 24 Hours (Table) 05/28/18 05/28/18 05/28/18 Range/Units 10:45 10:45 10:45 WBC 16.1 H (3.8-10.6) k/uL RBC 2.71 L (4.30-5.90) m/uL Hgb 8.4 L (13.0-17.5) gm/dL Hct 26.4 L (39.0-53.0) % Plt Count 468 H (150-450) k/uL Neutrophils # 14.7 H (1.3-7.7) k/uL Lymphocytes # 0.3 L (1.0-4.8) k/uL Sodium 133 L (137-145) mmol/L Creatinine 0.62 L (0.66-1.25) mg/dL Glucose 119 H (74-99) mg/dL POC Glucose (mg/dL) (75-99) mg/dL Calcium (8.4-10.2) mg/dL Total Creatine Kinase 33 L (55-170) U/L Total Protein 5.3 L (6.3-8.2) g/dL Albumin 2.6 L (3.5-5.0) g/dL TSH (0.465-4.680) mIU/L Urine RBC (0-5) /hpf Urine WBC (0-5) /hpf Urine Opiates Screen (NotDetected) Ur Oxycodone Screen (NotDetected) U Benzodiazepines Scrn (NotDetected) 05/28/18 05/29/18 05/29/18 Range/Units 10:45 05:23 05:23 WBC 16.8 H (3.8-10.6) k/uL RBC 2.08 L (4.30-5.90) m/uL Hgb 6.6 L* D (13.0-17.5) gm/dL Hct 20.4 L (39.0-53.0) % Plt Count (150-450) k/uL Neutrophils # 15.4 H (1.3-7.7) k/uL Lymphocytes # 0.4 L (1.0-4.8) k/uL Sodium 134 L (137-145) mmol/L Creatinine (0.66-1.25) mg/dL Glucose (74-99) mg/dL POC Glucose (mg/dL) (75-99) mg/dL Calcium 7.5 L (8.4-10.2) mg/dL Total Creatine Kinase (55-170) U/L Total Protein (6.3-8.2) g/dL Albumin (3.5-5.0) g/dL TSH 0.374 L (0.465-4.680) mIU/L Urine RBC >182 H (0-5) /hpf Urine WBC >182 H (0-5) /hpf Urine Opiates Screen Detected H (NotDetected) Ur Oxycodone Screen Detected H (NotDetected) U Benzodiazepines Scrn Detected H (NotDetected) 05/29/18 Range/Units 06:44 WBC (3.8-10.6) k/uL RBC (4.30-5.90) m/uL Hgb (13.0-17.5) gm/dL Hct (39.0-53.0) % Plt Count (150-450) k/uL Neutrophils # (1.3-7.7) k/uL Lymphocytes # (1.0-4.8) k/uL Sodium (137-145) mmol/L Creatinine (0.66-1.25) mg/dL Glucose (74-99) mg/dL POC Glucose (mg/dL) 101 H (75-99) mg/dL Calcium (8.4-10.2) mg/dL Total Creatine Kinase (55-170) U/L Total Protein (6.3-8.2) g/dL Albumin (3.5-5.0) g/dL TSH (0.465-4.680) mIU/L Urine RBC (0-5) /hpf Urine WBC (0-5) /hpf Urine Opiates Screen (NotDetected) Ur Oxycodone Screen (NotDetected) U Benzodiazepines Scrn (NotDetected)
[2018-05-29] MEDS ORDERED: CLOPIDOGREL 75 MG TAB PO SCH (09:00)
--- NOTE | 2018-05-29 09:42 | ECHOF ---
Referral Reason:new atrial fib MEASUREMENTS -------- HEIGHT: 177.8 cm WEIGHT: 59.0 kg BP: 109/51 RVIDd: 3.5 cm (< 3.3) IVSd: 1.1 cm (0.6 - 1.1) LVIDd: 3.9 cm (3.9 - 5.3) LVPWd: 1.1 cm (0.6 - 1.1) IVSs: 1.6 cm LVIDs: 2.7 cm LVPWs: 1.8 cm LA Diam: 3.9 cm (2.7 - 3.8) LAESV Index (A-L): 25.98 ml/m Ao Diam: 2.5 cm (2.0 - 3.7) AV Cusp: 1.5 cm (1.5 - 2.6) MV EXCURSION: 8.677 mm (> 18.000) MV EF SLOPE: 54 mm/s (70 - 150) EPSS: 0.7 cm MV E Home: 0.81 m/s MV DecT: 237 ms MV A Home: 0.91 m/s MV E/A Ratio: 0.89 RAP: 5.00 mmHg RVSP: 27.00 mmHg FINDINGS -------- Sinus rhythm. This was a technically adequate study. The left ventricular size is normal. There is borderline concentric left ventricular hypertrophy. Overall left ventricular systolic function is normal with, an EF between 60 - 65 %. The right ventricle is mildly enlarged. Normal LA size by volume 22+/-6 ml/m2. The right atrium is normal in size. The aortic valve is trileaflet and appears structurally normal. The mitral valve is normal. Mild tricuspid regurgitation present. Right ventricular systolic pressure is normal at < 35 mmHg. The pulmonic valve was not well visualized. The aortic root size is normal. IVC Not well visulized. There is no pericardial effusion. CONCLUSIONS -------- 1. Sinus rhythm. 2. This was a technically adequate study. 3. The left ventricular size is normal. 4. There is borderline concentric left ventricular hypertrophy. 5. Overall left ventricular systolic function is normal with, an EF between 60 - 65 %. 6. The right ventricle is mildly enlarged. 7. Normal LA size by volume 22+/-6 ml/m2. 8. The right atrium is normal in size. 9. The aortic valve is trileaflet and appears structurally normal. 10. The mitral valve is normal. 11. Mild tricuspid regurgitation present. 12. Right ventricular systolic pressure is normal at < 35 mmHg. 13. The pulmonic valve was not well visualized. 14. The aortic root size is normal. 15. IVC Not well visulized. 16. There is no pericardial effusion. CONSUMER SERVICES CONSULTANT: Alma Rosenthal RDCS
--- NOTE | 2018-05-29 10:07 | P.PN ---
Subjective Progress Note Date: 05/29/18 Principal diagnosis: Weakness This is a pleasant 77-year-old gentleman who sees Dr. MALAIKA Murphy in the office as an outpatient with a past medical history significant for coronary artery disease and prior angioplasty and stenting with the details on that are unavailable at this point, hypertension, dyslipidemia, who presented to the emergency room feeling weak. The patient just underwent a urological surgery to remove a left ureteral stone and also improve the drainage of stenotic left distal ureter. The procedure was performed a few days ago. The patient does have chronic Scott catheter placed. He presented to the hospital not feeling right. He stated that and feeling weak. No symptoms of chest pain or chest discomfort, no shortness of breath, no dizziness or lightheadedness, and no feeling of heart racing or fluttering and no syncope. The EKG showed atrial fibrillation with a relatively controlled heart rate. This is new to the patient. He never been diagnosed was A. fib before. The cardiac enzymes were checked and came in to be within normal limits. The hemoglobin came in to be around 6 and the patient is in process of receiving one unit of packed RBC. There is no obvious source of bleeding beside the hematuria. The UA was performed and showed evidence of UTI. The echocardiogram showed normal LV function without any significant valvular abnormalities. The chest x-ray did not show any acute abnormalities as well. Objective - Vital Signs Vital signs: Vital Signs Temp 98.1 F 05/29/18 08:00 Pulse 79 05/29/18 08:00 Resp 18 05/29/18 08:00 BP 91/52 05/29/18 08:00 Pulse Ox 94 L 05/29/18 08:00 Intake & Output 05/28/18 05/29/18 05/29/18 18:59 06:59 18:59 Intake Total 600 240 Output Total 750 100 Balance -150 140 Weight 58.967 kg 53 kg Intake: Intake, IV Titration 600 Amount Sodium Chloride 0.9% 1, 600 000 ml @ 75 mls/hr IV . [id number] ONE Rx#:[id number] Oral 240 Output: Drainage 100 Left Abdomen 100 Urine 750 Other: Voiding Method Indwelling Catheter Indwelling Catheter # Voids 1 - Constitutional General appearance: Present: no acute distress - Respiratory Respiratory: bilateral: CTA - Cardiovascular Rhythm: irregularly irregular Heart sounds: normal: S1, S2 - Labs CBC & Chem 7: 01/23/19 05:23 05/29/18 05:23 Labs: Abnormal Lab Results - Last 24 Hours (Table) 05/28/18 05/28/18 05/28/18 Range/Units 10:45 10:45 10:45 WBC 16.1 H (3.8-10.6) k/uL RBC 2.71 L (4.30-5.90) m/uL Hgb 8.4 L (13.0-17.5) gm/dL Hct 26.4 L (39.0-53.0) % Plt Count 468 H (150-450) k/uL Neutrophils # 14.7 H (1.3-7.7) k/uL Lymphocytes # 0.3 L (1.0-4.8) k/uL Sodium 133 L (137-145) mmol/L Creatinine 0.62 L (0.66-1.25) mg/dL Glucose 119 H (74-99) mg/dL POC Glucose (mg/dL) (75-99) mg/dL Calcium (8.4-10.2) mg/dL Total Creatine Kinase 33 L (55-170) U/L Total Protein 5.3 L (6.3-8.2) g/dL Albumin 2.6 L (3.5-5.0) g/dL TSH (0.465-4.680) mIU/L Urine RBC (0-5) /hpf Urine WBC (0-5) /hpf Urine Opiates Screen (NotDetected) Ur Oxycodone Screen (NotDetected) U Benzodiazepines Scrn (NotDetected) 05/28/18 05/29/18 05/29/18 Range/Units 10:45 05:23 05:23 WBC 16.8 H (3.8-10.6) k/uL RBC 2.08 L (4.30-5.90) m/uL Hgb 6.6 L* D (13.0-17.5) gm/dL Hct 20.4 L (39.0-53.0) % Plt Count (150-450) k/uL Neutrophils # 15.4 H (1.3-7.7) k/uL Lymphocytes # 0.4 L (1.0-4.8) k/uL Sodium 134 L (137-145) mmol/L Creatinine (0.66-1.25) mg/dL Glucose (74-99) mg/dL POC Glucose (mg/dL) (75-99) mg/dL Calcium 7.5 L (8.4-10.2) mg/dL Total Creatine Kinase (55-170) U/L Total Protein (6.3-8.2) g/dL Albumin (3.5-5.0) g/dL TSH 0.374 L (0.465-4.680) mIU/L Urine RBC >182 H (0-5) /hpf Urine WBC >182 H (0-5) /hpf Urine Opiates Screen Detected H (NotDetected) Ur Oxycodone Screen Detected H (NotDetected) U Benzodiazepines Scrn Detected H (NotDetected) 05/29/18 Range/Units 06:44 WBC (3.8-10.6) k/uL RBC (4.30-5.90) m/uL Hgb (13.0-17.5) gm/dL Hct (39.0-53.0) % Plt Count (150-450) k/uL Neutrophils # (1.3-7.7) k/uL Lymphocytes # (1.0-4.8) k/uL Sodium (137-145) mmol/L Creatinine (0.66-1.25) mg/dL Glucose (74-99) mg/dL POC Glucose (mg/dL) 101 H (75-99) mg/dL Calcium (8.4-10.2) mg/dL Total Creatine Kinase (55-170) U/L Total Protein (6.3-8.2) g/dL Albumin (3.5-5.0) g/dL TSH (0.465-4.680) mIU/L Urine RBC (0-5) /hpf Urine WBC (0-5) /hpf Urine Opiates Screen (NotDetected) Ur Oxycodone Screen (NotDetected) U Benzodiazepines Scrn (NotDetected) Assessment and Plan Assessment: Assessment #1 generalized weakness #2 anemia likely secondary to hematuria #3 atrial fibrillation with controlled heart rate, seems to be of new onset #4 coronary artery disease Plan #1 I agree about increasing the dose of metoprolol #2 I would suggest stop the Plavix since the stent was performed more than a year ago and the patient hemoglobin is low #3 hold any kind of oral anticoagulation for the atrial fibrillation at this point #4 the echocardiogram was reviewed #5 follow-up with the patient. Thank you for allowing us participate in his care
[2018-05-29 11:34] VITALS: BMI 16.7
[2018-05-29] MEDS: ATENOLOL 50 MG TAB PO SCH (11:42)
[2018-05-29 11:47] LABS: Glucose,Whole Blood 125 mg/dL (75-99)
[2018-05-29] MEDS ORDERED: LEVOFLOXACIN 750MG-D5W PMX 750 MG in DEXTROSE/WATER 1 150ML.BAG IVPB SCH (14:00)
[2018-05-29 16:02] LABS: Basophils % (A) 0 %; Eosinophils # (A) 0.1 k/uL (0-0.7); Eosinophils % (A) 0 %; HCT 26.5 % (39.0-53.0); Hypochromasia Slight; Lymphocytes # (A) 0.5 k/uL (1.0-4.8); Lymphocytes % (A) 2 %; MCH 31.1 pg (25.0-35.0); MCHC 31.7 g/dL (31.0-37.0); MCV 98.4 fL (80.0-100.0); Mean Platelet Volume 6.4; Monocytes # (A) 0.9 k/uL (0-1.0); Monocytes % (A) 4 %; Neutrophils # (A) 20.2 k/uL (1.3-7.7); Neutrophils % (A) 93 %; Platelet Count 376 k/uL (150-450); RDW 13.8 % (11.5-15.5); WBC 21.8 k/uL (3.8-10.6)
[2018-05-29 16:08] LABS: HGB 8.4 gm/dL (13.0-17.5)
[2018-05-29 16:09] LABS: Glucose,Whole Blood 111 mg/dL (75-99)
[2018-05-29] MEDS: ATORVASTATIN 20 MG TAB PO SCH (20:42)
[2018-05-29] MEDS: TEMAZEPAM 15 MG CAP PO SCH (20:42)
[2018-05-29 21:00] LABS: Glucose,Whole Blood 71 mg/dL (75-99)
[2018-05-30 05:33] LABS: Glucose,Whole Blood 87 mg/dL (75-99)
[2018-05-30 07:06] LABS: Basophils % (A) 0 %; Eosinophils # (A) 0.2 k/uL (0-0.7); Eosinophils % (A) 1 %; HCT 27.5 % (39.0-53.0); HGB 8.7 gm/dL (13.0-17.5); Lymphocytes # (A) 0.5 k/uL (1.0-4.8); Lymphocytes % (A) 2 %; MCH 30.7 pg (25.0-35.0); MCHC 31.5 g/dL (31.0-37.0); MCV 97.5 fL (80.0-100.0); Mean Platelet Volume 5.9; Monocytes # (A) 0.7 k/uL (0-1.0); Monocytes % (A) 3 %; Neutrophils # (A) 18.6 k/uL (1.3-7.7); Neutrophils % (A) 93 %; Platelet Count 461 k/uL (150-450); RBC 2.82 m/uL (4.30-5.90); RDW 13.8 % (11.5-15.5); WBC 20.1 k/uL (3.8-10.6)
[2018-05-30 07:17] LABS: Anion Gap 3 mmol/L; Blood Urea Nitrogen 17 mg/dL (9-20); Calcium 7.6 mg/dL (8.4-10.2); Carbon Dioxide 28 mmol/L (22-30); Chloride 102 mmol/L (98-107); Glucose 91 mg/dL (74-99); Potassium 4.1 mmol/L (3.5-5.1); Sodium 133 mmol/L (137-145)
--- NOTE | 2018-05-30 08:10 | P.PN ---
Progress Note - Text The patient presented to the emergency room 2 days previous with the multiple altered mental status and weakness. Patient had undergone earlier urologic surgery for removal of left renal stone and cyanotic left distal ureter. Patient was found to be very anemic with a hemoglobin down to 6.6 and an elevated white count. Patient did receive unit of packed cells yesterday and has been on antibiotics. IV hydration. Patient also was initially in atrial fibrillation but appears to be back in sinus rhythm at this time. Patient appears to be generally weak but arouses easily. States he feels better. Denies any chest pain or shortness of breath at rest. Vital signs this morning showed a temperature 98.3 with a pulse of 71 and respirations 20. Blood pressure 99/58 and he was 96% saturated on 2 L. Lungs are generally clear although diminished at bases. Heart tones appeared to be regular. Abdomen nontender. No unusual edema. He is generally weak with atrophic musculature but no neurological focal weakness or cranial nerve deficits noted. Laboratory This morning shows a white count persisting at 20,000 with a hemoglobin of 8.7 and a platelet count of 461. There still somewhat of a left shift at 18.6. Sodium is 133 with a potassium 4.1. BUN is 17 with a creatinine of 0.65 given him a GFR greater than 90. Calcium is 7.6 and blood sugar 91. Urine culture is still pending but blood culture from the is negative Impressions and plans Patient clinically appears to be better. At this point we will see how he does with therapy today. Continue Levaquin pending culture. Possible discharge to home tomorrow pending clinical response and results of above. If physically unable to manage May have to consider extended care facility rehab.
--- NOTE | 2018-05-30 08:40 | P.PN ---
Subjective Progress Note Date: 05/30/18 Principal diagnosis: Weakness This is a pleasant 77-year-old gentleman who sees Dr. MALAIKA Murphy in the office as an outpatient with a past medical history significant for coronary artery disease and prior angioplasty and stenting with the details on that are unavailable at this point, hypertension, dyslipidemia, who presented to the emergency room feeling weak. The patient just underwent a urological surgery to remove a left ureteral stone and also improve the drainage of stenotic left distal ureter. The procedure was performed a few days ago. The patient does have chronic Scott catheter placed. He presented to the hospital not feeling right. He stated that and feeling weak. No symptoms of chest pain or chest discomfort, no shortness of breath, no dizziness or lightheadedness, and no feeling of heart racing or fluttering and no syncope. The EKG showed atrial fibrillation with a relatively controlled heart rate. This is new to the patient. He never been diagnosed was A. fib before. The cardiac enzymes were checked and came in to be within normal limits. The hemoglobin came in to be around 6 and the patient is in process of receiving one unit of packed RBC. There is no obvious source of bleeding beside the hematuria. The UA was performed and showed evidence of UTI. The echocardiogram showed normal LV function without any significant valvular abnormalities. The chest x-ray did not show any acute abnormalities as well. On follow-up with the patient today, May 302018, he is feeling slightly better. He continues to be in atrial fibrillation was controlled heart rate on the current dose of beta ryanne. His hemoglobin dropped last night around 6 and received one unit of packed RBC with improvement in the hemoglobin to around 8. He is not on any antiplatelet beside aspirin and I don't feel that we need to put him on anticoagulation because of the anemia and possible bleeding related to hematuria. Objective - Vital Signs Vital signs: Vital Signs Temp 98.3 F 05/30/18 04:00 Pulse 71 05/30/18 04:00 Resp 20 05/30/18 04:00 BP 99/58 05/30/18 04:00 Pulse Ox 96 05/30/18 04:00 Intake & Output 05/29/18 05/30/18 05/30/18 18:59 06:59 18:59 Intake Total 550 575 Output Total 750 340 Balance -200 235 Weight 53 kg 53.5 kg Intake: Intake, IV Titration 450 Amount Sodium Chloride 0.9% 1, 450 000 ml @ 75 mls/hr IV . [id number] ONE Rx#:[id number] Oral 240 125 Blood Product 310 Rc As-1 Unit 310 [id number] Output: Drainage 100 90 Left Abdomen 100 90 Urine 650 250 Other: Voiding Method Indwelling Catheter Indwelling Catheter - Constitutional General appearance: Present: no acute distress - Respiratory Respiratory: bilateral: CTA - Cardiovascular Rhythm: irregularly irregular Heart sounds: normal: S1, S2 - Labs CBC & Chem 7: 05/30/18 06:42 05/30/18 06:42 Labs: Abnormal Lab Results - Last 24 Hours (Table) 05/29/18 05/29/18 05/29/18 Range/Units 08:47 11:35 15:36 WBC 21.8 H (3.8-10.6) k/uL RBC 2.70 L (4.30-5.90) m/uL Hgb 8.4 L D (13.0-17.5) gm/dL Hct 26.5 L (39.0-53.0) % Plt Count (150-450) k/uL Neutrophils # 20.2 H (1.3-7.7) k/uL Lymphocytes # 0.5 L (1.0-4.8) k/uL Sodium (137-145) mmol/L Creatinine (0.66-1.25) mg/dL POC Glucose (mg/dL) 125 H (75-99) mg/dL Calcium (8.4-10.2) mg/dL Crossmatch See Detail 05/29/18 05/29/18 05/30/18 Range/Units 16:05 20:59 06:42 WBC 20.1 H (3.8-10.6) k/uL RBC 2.82 L (4.30-5.90) m/uL Hgb 8.7 L (13.0-17.5) gm/dL Hct 27.5 L (39.0-53.0) % Plt Count 461 H (150-450) k/uL Neutrophils # 18.6 H (1.3-7.7) k/uL Lymphocytes # 0.5 L (1.0-4.8) k/uL Sodium (137-145) mmol/L Creatinine (0.66-1.25) mg/dL POC Glucose (mg/dL) 111 H 71 L (75-99) mg/dL Calcium (8.4-10.2) mg/dL Crossmatch 05/30/18 Range/Units 06:42 WBC (3.8-10.6) k/uL RBC (4.30-5.90) m/uL Hgb (13.0-17.5) gm/dL Hct (39.0-53.0) % Plt Count (150-450) k/uL Neutrophils # (1.3-7.7) k/uL Lymphocytes # (1.0-4.8) k/uL Sodium 133 L (137-145) mmol/L Creatinine 0.65 L (0.66-1.25) mg/dL POC Glucose (mg/dL) (75-99) mg/dL Calcium 7.6 L (8.4-10.2) mg/dL Crossmatch Microbiology - Last 24 Hours (Table) 05/28/18 13:17 Blood Culture - Preliminary Blood No Growth after 24 hours 05/29/18 08:30 Urine Culture - Preliminary Urine,Catheterized Assessment and Plan Assessment: Assessment #1 generalized weakness #2 anemia likely secondary to hematuria #3 atrial fibrillation with controlled heart rate, seems to be of new onset #4 coronary artery disease Plan #1 continue the current dose of beta ryanne #2 continue holding any kind of anticoagulation #3 continue monitoring the hemoglobin #4 follow-up with the patient Thank you for allowing us participate in his care
[2018-05-30] MEDS: ARTIFICIAL TEARS-HYPROMELLOSE DROPS 15 ML BTL BOTH EYES SCH ×2 (09:26→20:12)
[2018-05-30] MEDS: ASPIRIN 81 MG PO SCH (09:26)
[2018-05-30] MEDS: ATENOLOL 50 MG TAB PO SCH (09:26)
[2018-05-30] MEDS: TAMSULOSIN 0.4 MG CAP.ER.24H PO SCH (09:26)
[2018-05-30] MEDS ORDERED: HYDROmorphone 2 MG TAB PO PRN (10:26)
[2018-05-30] MEDS: LISINOPRIL 2.5 MG TAB PO SCH ×2 (11:42→15:36)
[2018-05-30 12:17] LABS: Glucose,Whole Blood 95 mg/dL (75-99)
[2018-05-30] MEDS ORDERED: LEVOFLOXACIN 750 MG TAB PO SCH (14:00)
[2018-05-30] MEDS: HYDROcodone/APAP 10-325MG 1 EACH TAB PO PRN (15:36)
[2018-05-30 16:55] LABS: Glucose,Whole Blood 92 mg/dL (75-99)
[2018-05-30 19:56] LABS: Glucose,Whole Blood 97 mg/dL (75-99)
[2018-05-30] MEDS: TEMAZEPAM 15 MG CAP PO SCH (20:12)
[2018-05-30] MEDS: ATORVASTATIN 20 MG TAB PO SCH (20:12)
--- NOTE | 2018-05-31 01:24 | DS ---
DISCHARGE SUMMARY Mr. Bonds is a 77-year-old gentleman who was admitted through the emergency room on the of this month. He had been confused and weak at home. The patient had recently undergone a urological procedure to remove left ureteral stone and also help improve a stenotic left distal ureter. Apparently he had generally been doing well until he felt confused with visual disturbances the day of admission and brought to the emergency room. The patient was found on presentation to be somewhat obtunded and lethargic. White count elevated at 16, with a hemoglobin initially of 8.4, and platelet count of 468. INR was 1.0. His sodium was 133, potassium 4.8, BUN of 19 with a creatinine 0.62, and a blood sugar of 119. Liver function tests were good, although albumin was low at 2.6. Troponin was normal at 0.022. TSH was mildly low at 0.374 with a free T4 was normal at 1.46. Urinalysis did show 182 white and red cells. The patient was given IV fluids, initiated on antibiotics. Consult obtained with the urology and cardiology as his EKG showed atrial fibrillation, rate around 100. Subsequent laboratory values revealed a drop in his hemoglobin down to 6.6, and with his lower blood pressures and weakness and shortness of breath, he was transfused 1 unit of packed cells. Cultures of blood and urine remained no growth. His anemia was felt to possibly secondary to blood loss from the urinary source and plasma lactic acid level is 1.6 with hydration and the blood transfusion. The patient participated with physical and occupational therapy and showed improvement and plans at this point are to likely discharge back to home tomorrow morning. Home medications to include aspirin 81 mg daily, but he is to remain off of Plavix and not restart that. He is to take his atenolol instead of 25 mg, increase that to 2 or 50 mg daily. He can continue his other home medications and include his Restoril at q.h.s., Flomax 0.4 mg daily, Zocor 40 mg daily, lisinopril 5 mg at q.h.s every other day. He can take his [place] 10-325 1 q.8 hours, but is recommended to hold his oxycodone for now or atleast decrease to 1 daily. It is recommended that he take his lisinopril every other day instead of daily and recheck in the office in approximately a week and follow up with Urology. Home nursing follow up recommended. Also follow up with Cardiology for his new onset atrial fib. FINAL DISCHARGE DIAGNOSES: 1. Symptomatic acute blood loss anemia requiring transfusions with hemoglobin dropping to 6.6, symptomatically. 2. New onset atrial fib with generally rate controlled. 3. Underlying malnutrition with low albumin. Somewhat severe, with an albumin of 2.6. 4. Hematuria from recent procedure. 5. Recent hydronephrosis of the left kidney with left renal stone and ureteral stenoses. 6. History of severe lumbar and hip osteoarthritis with previous multiple surgeries for those areas. 7. Underlying coronary artery disease with previous stenting. 8. History of hypertension. 9. History of hyperlipidemia. 10.History of chronic pain syndrome. 11.History of insomnia. 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 Prognosis overall is guarded. He is to resume a diet and gradual increase in activities with home care and home therapy. MMODL / IJN: [id number] / [id number]
[2018-05-31 07:15] LABS: Glucose,Whole Blood 115 mg/dL (75-99)
--- NOTE | 2018-05-31 07:40 | P.DS ---
Providers Date of admission: 05/28/18 13:17 Attending physician: Franky Brumfield Consults: 05/28/18 13:17 Consult Physician Urgent Consulting Provider: [facility] Consult Reason/Comments: New-onset A. fib Do you want consulting provider notified?: Yes Consult Physician Urgent Consulting Provider: Wm Hammer Consult Reason/Comments: Urinary tract infection, postop Do you want consulting provider notified?: Yes Primary care physician: Franky Brumfield Plan - Discharge Summary Discharge Rx Participant: No New Discharge Prescriptions: No Action Temazepam [Restoril] 30 mg PO HS Atenolol [Tenormin] 25 mg PO HS Lisinopril 5 mg PO HS Aspirin 81 mg PO DAILY Simvastatin [Zocor] 40 mg PO HS oxyCODONE HCL 40 mg PO BID HYDROcodone/APAP 10-325MG [[place] 10-325] 1 tab PO DAILY PRN PRN Reason: Pain Tamsulosin [Flomax] 0.4 mg PO DAILY #30 cap Vit C/E/Zn/Coppr/Lutein/Zeaxan [Preservision Areds 2 Softgel] 1 cap PO BID Carboxymethylcellulose Sodium [Refresh Tears] 2 drops BOTH EYES BID Clopidogrel [Plavix] 75 mg PO DAILY Discharge Medication List Aspirin 81 mg PO DAILY 02/23/14 [History] Atenolol [Tenormin] 25 mg PO HS 02/23/14 [History] Lisinopril 5 mg PO HS 02/23/14 [History] Temazepam [Restoril] 30 mg PO HS 02/23/14 [History] Simvastatin [Zocor] 40 mg PO HS 04/08/18 [History] HYDROcodone/APAP 10-325MG [[place] 10-325] 1 tab PO DAILY PRN 04/26/18 [History] oxyCODONE HCL 40 mg PO BID 04/26/18 [History] Tamsulosin [Flomax] 0.4 mg PO DAILY #30 cap 04/30/18 [Rx] Carboxymethylcellulose Sodium [Refresh Tears] 2 drops BOTH EYES BID 05/02/18 [ History] Vit C/E/Zn/Coppr/Lutein/Zeaxan [Preservision Areds 2 Softgel] 1 cap PO BID 05/02 [History] Clopidogrel [Plavix] 75 mg PO DAILY 05/28/18 [History] Follow up Appointment(s)/Referral(s): Franky Brumfield MD [Primary Care Provider] - 06/06/18 11:00 am [facility] Visiting Nurse, [NON-STAFF] - 1-2 Days
--- NOTE | 2018-05-31 07:47 | P.PN ---
Progress Note - Text The patient is a 77-year-old gentleman who was admitted with weakness, relative hypotension and confusion state. Please refer to discharge summary that has been dictated. This morning he is aroused and alert and oriented. Patient states he feels better. Vital signs show a temperature 90.8 with a pulse of 58 and respirations 16. Blood pressure 107/54 and he is 91% saturated. Lung and heart exam was clear. Abdomen is soft and nontender. No unusual edema. No focal neurological deficits noted. A cultures of blood and urine have all been negative. Last hemoglobin was 8.7. Anticipate discharge home today. Please refer to previously dictated discharge summary for meds and instructions for follow-up. Home nursing recommended. Recommended patient decrease his [place] to once a day. Decrease his lisinopril to every other day or cut in half. Increase his atenolol to 2 tablets daily. Follow up in office next week. We'll hold antibiotics as cultures are all negative.
[2018-05-31] MEDS: LISINOPRIL 2.5 MG TAB PO SCH (08:44)
[2018-05-31] MEDS: ATENOLOL 50 MG TAB PO SCH (08:45)
[2018-05-31] MEDS: TAMSULOSIN 0.4 MG CAP.ER.24H PO SCH (08:45)
[2018-05-31] MEDS: ASPIRIN 81 MG PO SCH (08:45)
[2018-05-31] MEDS: ARTIFICIAL TEARS-HYPROMELLOSE DROPS 15 ML BTL BOTH EYES SCH (08:46)
[2018-05-31] MEDS: HYDROcodone/APAP 10-325MG 1 EACH TAB PO PRN (08:53)
[2018-05-31 11:41] LABS: Glucose,Whole Blood 105 mg/dL (75-99)
[2018-05-31 11:58] VITALS: BP 107/68; PULSE 78; RESP 17; TEMP 98.2
--- NOTE | 2018-05-31 13:32 | CDI ---
Documentation Clarification Form Date: 05/31/2018 12:40:34 PM From: Beatriz Thorne RN, CCDS Admit Date: 05/28/2018 1:17:00 PM Patient Name: Franky Bonds Visit Number: [id number] Discharge Date: ATTENTION: The Clinical Documentation Specialists (CDI) and [facility] Coding Staff appreciate your assistance in clarifying documentation. Please respond to the clarification below the line at the bottom and electronically sign. The CDI & [facility] Coding staff will review the response and follow-up if needed. Please note: Queries are made part of the Legal Health Record. If you have any questions, please contact the author of this message via ITS. Dr. Franky Brumfield Altered Mental Status was documented in the ED evaluation, your H&P and ongoing progress notes. He was having difficulty time understanding conversations per . History/Risk Factors: Coronary Artery disease, hypertension, Prostate disorder 04/29/18 Nephrostomy tube-left Clinical Indicators: Present with confusion, weakness, blood in his urine from his catheter Vital signs: 97/60 89 16 97.9 EK: shows Atrial Fibrillation with rapid ventricular response at 104 bpm Labs: WBC 16.1 HGB 8.4, HCT 26.4 NA+ 133; UA: Ur WBC >182, bloody appearance, Urine Drug Screen positive for Opiates, Oxycodone, Benzodiazepines CXR: New patchy bibasilar ac atelectasis and/or infiltrate Treatment: Monitor Labs Levaquin IV Neurological assessment per protocol In your professional opinion, please clarify the etiology of the Altered Mental Status, if known. Metabolic Encephalopathy (specify cause if known) Toxic Encephalopathy Delirium (specify cause): Dementia (if know, specify Type and if with/without Behavioral Disturbance) Other condition (please specify) Unable to determine (Last Revision: August 2017) Toxic encephalopathy with hypovolemic shock. POA. RRD. MTDD
--- NOTE | 2018-05-31 13:50 | CDI ---
Documentation Clarification Form Date: 05/31/2018 1:36:43 PM From: Beatriz Thorne RN, CCDS Admit Date: 05/28/2018 1:17:00 PM Patient Name: Franky Bonds Visit Number: [id number] Discharge Date: ATTENTION: The Clinical Documentation Specialists (CDI) and [facility] Coding Staff appreciate your assistance in clarifying documentation. Please respond to the clarification below the line at the bottom and electronically sign. The CDI & [facility] Coding staff will review the response and follow-up if needed. Please note: Queries are made part of the Legal Health Record. If you have any questions, please contact the author of this message via ITS. Dr. Malick Guaman Atrial Fibrillation is documented in the ED evaluation, H&P, and your consult and progress notes. History/Risk Factors: Coronary artery disease, Hypertension Clinical Indicators: Present with complaints of feeling weak, no feeling his heart was racing or fluttering and no syncope. He had an initial HGB 8.4, dropped to 6.6 05/30/18 he continues to be in atrial fibrillation with controlled rate on current dose of beta ryanne EKG/telemetry: Atrial Fibrillation with rapid ventricular response at 104 bmp Treatment: traffic monitor specialist Tenormin PO Hold anticoagulation In your professional opinion, can you please clarify the type of Atrial Fibrillation, if known? Paroxysmal Persistent Other, please specify Unable to determine (Last Revision: August 2017) MTDD
--- NOTE | 2018-05-31 14:10 | CDI ---
Documentation Clarification Form Date: 05/31/2018 1:52:52 PM From: Beatriz Thorne RN, CCDS Admit Date: 05/28/2018 1:17:00 PM Patient Name: Franky Bonds Visit Number: [id number] Discharge Date: ATTENTION: The Clinical Documentation Specialists (CDI) and [facility] Coding Staff appreciate your assistance in clarifying documentation. Please respond to the clarification below the line at the bottom and electronically sign. The CDI & [facility] Coding staff will review the response and follow-up if needed. Please note: Queries are made part of the Legal Health Record. If you have any questions, please contact the author of this message via ITS. Dr. Wm Hammer UTI was documented in the ED evaluation, your consult on 05/29/18. History/Risk Factors: Davila catheter POA, Coronary artery disease, Hypertension , Prostate cancer , Clinical Indicators: Present with confusion and complaints of weakness. He was noted to have blood in his urine from his davila catheter present on admission. 04/29/18 had nephrostomy tube- left Vital Signs: 97/60 89 16 97.9 WBC: 16.1 Urinalysis: appearance bloody, urine WBC >184 Urine Culture: No Growth after 18 hours Treatment Levaquin IV (change to Po) IV Fluids bolus Flomax PO Monitor I/O Please clarify in your documentation the urinary tract infection with sepsis, cause if known: -If due to the Davila catheter, device or implant, please document Identify location of infection (if known) Bladder, Kidney, Urethra Contaminated specimen Other, please specify Unable to determine Present on Admission: Yes No (Last Revision: February 2017) the uti w sepsis would be due to wither the nephrostomy tube or davila which were required MTDD
--- NOTE | 2018-06-04 07:39 | CDI ---
Documentation Clarification Form Date: 06/04/18 From: Alessia Adal Marnie Sanchez, Developmental Mathematics Instructor Hours-8:30 am & 5 pm MCece Admit Date: 05/28/2018 1:17:00 PM Patient Name: Franky Bonds Visit Number: [id number] Discharge Date: 05/31/2018 2:40:00 PM ATTENTION: The Clinical Documentation Specialists (CDI) and [facility] Coding Staff appreciate your assistance in clarifying documentation. Please respond to the clarification below the line at the bottom and electronically sign. The CDI & [facility] Coding staff will review the response and follow-up if needed. Please note: Queries are made part of the Legal Health Record. If you have any questions, please contact the author of this message via ITS. Dr. Franky Brumfield Malnutrition has been documented in discharge summary. History/Risk Factors: sepsis, UTI, toxic encephalopathy,cachexia Labs: Albumin/ Total Protein:2.6/5.3 Current BMI: 16.9 Insufficient energy intake: intake less than 50% EER > 1 year, depressed temporal region, sunken eyes, protruding clavical bones, prominent depressions between ribs and sternum Weight Loss: Loss of subcutaneous fat: visible fat loss Loss of muscle mass: visible muscle loss Fluid accumulation: Treatment: general healthful diet and commercial beverage Dietary Consult: yes Supplements: CIB TID PPN/TPN: none In your professional opinion, can you please clarify if these findings signify one of the following conditions? Mild Protein-Calorie Malnutrition Moderate Protein-Calorie Malnutrition Severe Protein-Calorie Malnutrition Malnutrition, unspecified Malnutrition following GI surgery Other condition, please specify Unable to determine Moderate protein-calorie malnutrition, POA. RRD. MTDD
== END 2018-05-31 14:40 | disposition home health service (06) | DRG 698 ==
LOC: EC 10:00 → 3SCARD 13:17 → 3NMEDONC 05-30 17:05
PROVIDERS: ADMIT Internal Medicine; ATTEND Internal Medicine
PROC: 30233N1 Transfusion of Nonautologous Red Blood Cells into Peripheral Vein, Percutaneous Approach (ICD-10-PCS; principal; 2018-05-29)
DX: T83.511A Infection and inflammatory reaction due to indwelling urethral catheter, initial encounter (principal); A41.9 Sepsis, unspecified organism; G92 Toxic encephalopathy; R57.1 Hypovolemic shock; R64 Cachexia; Z68.1 Body mass index [BMI] 19.9 or less, adult; D62 Acute posthemorrhagic anemia; E44.0 Moderate protein-calorie malnutrition; N39.0 Urinary tract infection, site not specified; I48.91 Unspecified atrial fibrillation; D50.0 Iron deficiency anemia secondary to blood loss (chronic); E78.5 Hyperlipidemia, unspecified; I25.10 Atherosclerotic heart disease of native coronary artery without angina pectoris; E86.0 Dehydration; I10 Essential (primary) hypertension; G89.4 Chronic pain syndrome; G47.00 Insomnia, unspecified; M16.10 Unilateral primary osteoarthritis, unspecified hip; M47.816 Spondylosis without myelopathy or radiculopathy, lumbar region; R91.8 Other nonspecific abnormal finding of lung field; I83.90 Asymptomatic varicose veins of unspecified lower extremity; Z79.82 Long term (current) use of aspirin; Z79.02 Long term (current) use of antithrombotics/antiplatelets; Z79.891 Long term (current) use of opiate analgesic; Z79.899 Other long term (current) drug therapy; Z88.1 Allergy status to other antibiotic agents; Z86.711 Personal history of pulmonary embolism; Z87.442 Personal history of urinary calculi; Z85.46 Personal history of malignant neoplasm of prostate; Z92.3 Personal history of irradiation; Z90.49 Acquired absence of other specified parts of digestive tract; Z95.5 Presence of coronary angioplasty implant and graft; Z96.642 Presence of left artificial hip joint; Z87.891 Personal history of nicotine dependence; Z87.01 Personal history of pneumonia (recurrent); Z87.820 Personal history of traumatic brain injury; Z98.42 Cataract extraction status, left eye; Z98.41 Cataract extraction status, right eye; Z82.49 Family history of ischemic heart disease and other diseases of the circulatory system; Y84.6 Urinary catheterization as the cause of abnormal reaction of the patient, or of later complication, without mention of misadventure at the time of the procedure
CPT/HCPCS: 36415; 71046; 80048; 80053; 80306; 81001; 82550; 82553; 82570; 83605; 84439; 84443; 84484; 85025; 85610; 85730; 86850; 86900; 86901; 86920; 87040; 87086; 93005; 93306; 96361; 96365; 96375; 99285

== ENCOUNTER 2018-06-02 10:17 | Emergency (ER) | payer MEDICARE, BC ==
[2018-06-02 10:34] VITALS: RESP 16; TEMP 98.3
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
[2018-06-02 11:22] LABS: Basophils # (A) 0.1 k/uL (0-0.2); Basophils % (A) 0 %; Eosinophils # (A) 0.7 k/uL (0-0.7); Eosinophils % (A) 5 %; HCT 32.5 % (39.0-53.0); HGB 10.4 gm/dL (13.0-17.5); Hypochromasia Slight; Lymphocytes # (A) 0.9 k/uL (1.0-4.8); Lymphocytes % (A) 6 %; MCH 31.4 pg (25.0-35.0); MCHC 32.1 g/dL (31.0-37.0); MCV 97.7 fL (80.0-100.0); Mean Platelet Volume 6.4; Monocytes # (A) 0.8 k/uL (0-1.0); Monocytes % (A) 6 %; Neutrophils # (A) 11.7 k/uL (1.3-7.7); Neutrophils % (A) 82 %; Platelet Count 811 k/uL (150-450); RBC 3.33 m/uL (4.30-5.90); RDW 13.9 % (11.5-15.5); WBC 14.4 k/uL (3.8-10.6)
[2018-06-02 11:40] LABS: ALT 32 U/L (21-72); AST 37 U/L (17-59); Albumin 2.3 g/dL (3.5-5.0); Alkaline Phosphatase 98 U/L (38-126); Anion Gap 4 mmol/L; Blood Urea Nitrogen 8 mg/dL (9-20); Calcium 7.8 mg/dL (8.4-10.2); Carbon Dioxide 29 mmol/L (22-30); Chloride 103 mmol/L (98-107); Glucose 118 mg/dL (74-99); Potassium 4.3 mmol/L (3.5-5.1); Sodium 136 mmol/L (137-145); Total Bilirubin 0.5 mg/dL (0.2-1.3)
--- NOTE | 2018-06-02 11:42 | XR ---
Abdomen HISTORY: Pain Frontal view the abdomen correlated to prior abdomen 05/20/2018 Double-J left ureteral stent is in place. Postop changes are noted to the lumbar spine and left hip. There are overlying artifacts present, cardiac leads, tubing. Lung bases are not included on exam. Ga s distended loops of small bowel are present. Retained fecal debris again noted within the colon. Pos tprocedural changes noted to the prostate, Scott catheter no longer seen. Arthropathy present in the right hip. IMPRESSION: Postop changes.
[2018-06-02 11:51] LABS: Partial Thromboplastin Time 25.3 sec (22.0-30.0); Prothrombin Time 10.3 sec (9.0-12.0)
[2018-06-02 12:05] LABS: RBC,Urine >182 /hpf (0-5); WBC,Urine >182 /hpf (0-5)
--- NOTE | 2018-06-02 12:06 | XR ---
EXAMINATION TYPE: XR chest 1V portable DATE OF EXAM: 06/02/2018 COMPARISON: Abdomen same date, cysts chest x-ray 05/28/2018 HISTORY: 1 week postop, hematuria TECHNIQUE: Single frontal view of the chest is obtained. FINDINGS: Pneumoperitoneum is again noted. Right hemidiaphragm is elevated. No pneumothorax. Heart s ize is stable. IMPRESSION: Persistent pneumoperitoneum is present, there is elevation of the right hemidiaphragm wh ich is again seen. Case discussed with Mariya in the EC at the time of interpretation of the exam.
[2018-06-02 12:09] LABS: Appearance,Urine Bloody (Clear); Color,Urine Red
[2018-06-02 15:40] VITALS: BP 116/73; PULSE 81
== END 2018-06-02 15:00 | disposition home or self-care (01) ==
LOC: EC 10:17
DX: R31.9 Hematuria, unspecified (principal); R05 Cough; R63.0 Anorexia; I25.10 Atherosclerotic heart disease of native coronary artery without angina pectoris; E78.5 Hyperlipidemia, unspecified; I10 Essential (primary) hypertension; M19.90 Unspecified osteoarthritis, unspecified site; Z86.711 Personal history of pulmonary embolism; Z85.46 Personal history of malignant neoplasm of prostate; Z87.442 Personal history of urinary calculi; Z87.19 Personal history of other diseases of the digestive system; Z90.6 Acquired absence of other parts of urinary tract; Z90.49 Acquired absence of other specified parts of digestive tract; Z95.818 Presence of other cardiac implants and grafts; Z95.5 Presence of coronary angioplasty implant and graft; Z98.890 Other specified postprocedural states; Z96.642 Presence of left artificial hip joint; Z93.6 Other artificial openings of urinary tract status; Z87.891 Personal history of nicotine dependence; Z79.82 Long term (current) use of aspirin; Z79.891 Long term (current) use of opiate analgesic; Z79.02 Long term (current) use of antithrombotics/antiplatelets; Z79.899 Other long term (current) drug therapy; Z88.1 Allergy status to other antibiotic agents
CPT/HCPCS: 36415; 71045; 74018; 80053; 81001; 85025; 85610; 85730; 87086; 99284

== ENCOUNTER 2018-06-28 09:03 | Inpatient (IN) | payer MEDICARE, BC ==
[2018-06-28] MEDS ORDERED: LEVOFLOXACIN 750MG-D5W PMX 750 MG in DEXTROSE/WATER 1 150ML.BAG IVPB STA (09:08)
[2018-06-28] MEDS ORDERED: IBUPROFEN 600 MG TAB PO STA (09:08)
[2018-06-28] MEDS ORDERED: ACETAMINOPHEN TAB 500 MG TAB PO STA (09:08)
[2018-06-28] MEDS ORDERED: HYDROmorphone 0.5 MG/0.5 ML SYRINGE IVP STA (09:09)
[2018-06-28] MEDS ORDERED: ONDANSETRON 4 MG/2 ML VIAL IVP STA (09:10)
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
[2018-06-28] MEDS: SODIUM CHLORIDE 0.9% 500 ML 500 ML IV SCH ×2 (09:17→10:07)
[2018-06-28 09:35] LABS: Basophils % (A) 0 %; Eosinophils # (A) 0.1 k/uL (0-0.7); Eosinophils % (A) 1 %; HCT 32.9 % (39.0-53.0); HGB 10.1 gm/dL (13.0-17.5); Hypochromasia Slight; Lymphocytes # (A) 0.3 k/uL (1.0-4.8); Lymphocytes % (A) 3 %; MCH 29.7 pg (25.0-35.0); MCHC 30.6 g/dL (31.0-37.0); MCV 97.2 fL (80.0-100.0); Mean Platelet Volume 6.4; Monocytes # (A) 0.5 k/uL (0-1.0); Monocytes % (A) 5 %; Neutrophils # (A) 8.8 k/uL (1.3-7.7); Neutrophils % (A) 90 %; Platelet Count 394 k/uL (150-450); RBC 3.39 m/uL (4.30-5.90); RDW 14.8 % (11.5-15.5); WBC 9.8 k/uL (3.8-10.6)
--- NOTE | 2018-06-28 09:43 | XR ---
EXAMINATION TYPE: XR chest 2V DATE OF EXAM: 06/28/2018 COMPARISON: 06/02/2018 HISTORY: Fever and altered mental status TECHNIQUE: Frontal and lateral views of the chest are obtained. FINDINGS: Colonic superimposition over the liver is unchanged from the prior. Large amount retained colonic stool is noted. Cholecystectomy clips are seen. Chronic right hemidiaphragm elevation is pres ent. The lungs are clear without evidence of focal consolidation or pleural effusion. No pneumothorax is seen. Enlargement of the main pulmonary arteries is again noted suggesting underlying pulmonary a rterial hypertension. Cardiomediastinal silhouette is within normal limits. IMPRESSION: 1. No acute cardiopulmonary process. 2. Enlargement of main pulmonary artery suggesting underlying pulmonary arterial hypertension. 3. Large degree of retained colonic stool without colonic dilatation and the visualized upper abdomen .
[2018-06-28 09:46] LABS: Partial Thromboplastin Time 24.7 sec (22.0-30.0); Prothrombin Time 11.1 sec (9.0-12.0)
[2018-06-28 09:50] LABS: ALT 64 U/L (21-72); AST 144 U/L (17-59); Alkaline Phosphatase 417 U/L (38-126); Anion Gap 6 mmol/L; Blood Urea Nitrogen 11 mg/dL (9-20); Calcium 8.4 mg/dL (8.4-10.2); Carbon Dioxide 27 mmol/L (22-30); Chloride 104 mmol/L (98-107); Glucose 114 mg/dL (74-99); Potassium 4.3 mmol/L (3.5-5.1); Sodium 137 mmol/L (137-145); Total Bilirubin 0.6 mg/dL (0.2-1.3); Total Protein 6.2 g/dL (6.3-8.2)
[2018-06-28 10:35] LABS: Appearance,Urine Cloudy (Clear); Bacteria,Urine Occasional /hpf; Bilirubin,Urine Negative (Negative); Blood,Urine Moderate (Negative); Color,Urine Yellow; Glucose,Urine (UA) Negative (Negative); Ketones,Urine Trace (Negative); Leukocyte Esterase,Urine Large (Negative); Mucus,Urine Few /hpf; Nitrite,Urine Positive (Negative); Protein,Urine 1+ (Negative); RBC,Urine >182 /hpf (0-5); Specific Gravity,Urine 1.014 (1.001-1.035); Urobilinogen,Urine <2.0 mg/dL (<2.0); WBC,Urine >182 /hpf (0-5)
[2018-06-28] MEDS ORDERED: SODIUM CHLORIDE 0.9% 1,000 ML IV ONE (11:39)
[2018-06-28] MEDS ORDERED: ACETAMINOPHEN TAB 325 MG TAB PO PRN (11:40)
[2018-06-28] MEDS ORDERED: IBUPROFEN 600 MG TAB PO PRN (11:40)
[2018-06-28 12:18] VITALS: RESP 16
[2018-06-28] MEDS ORDERED: HYDROcodone/APAP 10-325MG 1 EACH TAB PO PRN (13:27)
[2018-06-28 14:55] VITALS: BMI 18.6
[2018-06-28] MEDS ORDERED: TEMAZEPAM 30 MG CAP PO SCH (21:00)
[2018-06-28] MEDS ORDERED: ATORVASTATIN 20 MG TAB PO SCH (21:00)
[2018-06-28] MEDS ORDERED: LOSARTAN 25 MG TAB PO SCH (21:00)
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
[2018-06-29] MEDS ORDERED: CLOPIDOGREL 75 MG TAB PO SCH (09:00)
[2018-06-29] MEDS ORDERED: ASPIRIN 81 MG PO SCH (09:00)
[2018-06-29] MEDS ORDERED: TAMSULOSIN 0.4 MG CAP.ER.24H PO SCH (09:00)
[2018-06-29 09:30] VITALS: BP 110/54; PULSE 80; TEMP 98
--- NOTE | 2018-06-29 11:02 | P.DS ---
Providers Date of admission: 06/28/18 11:39 Attending physician: Franky Brumfield Consults: 06/28/18 11:39 Consult Physician Urgent Consulting Provider: Wm Hammer Consult Reason/Comments: Urinary tract infection Do you want consulting provider notified?: Yes Primary care physician: Franky Brumfield The patient is a 77-year-old gentleman who presented to the emergency room in a confused state with a temperature of 101. Workup in the emergency room revealed marked pyuria and hematuria on urinalysis. He does have history of a recent large kidney stone with obstruction then ended up with an open exploration to remove the urethral stone and stent placement in the left distal ureter for drainage. He has had what appeared to be a previous urinary tract infection also. Other comorbidities include long-standing orthopedic problems in the back and hips which required multiple surgeries and chronic analgesic control. There is also history of prostate cancer. History of hypertension, coronary artery disease with stent placement and hyperlipidemia and insomnia. With his temperature in mental status changes and lethargy the patient was admitted with IV fluids and IV antibiotics in the form of Levaquin. Cultures have been sent. Patient clinically improved though with the treatment. A Scott catheter has been placed. Temperature has remained down and this morning it is 98.0 with a pulse of 80 and respirations 16. Blood pressure 110/54 and is 96% saturated. Lung and heart exam was clear. Abdomen is nontender. No unusual edema. He is alert and oriented without focal neurological deficits. At this time the patient will be discharge. Case discussed with urology. Scott catheter will be continued. He will resume his home medications except I discussed with family and nursing staff that he is continue losartan 25 mg daily but not to take lisinopril. Can continue his chronic pain medicines which is oxycodone 40 mg twice a day and [place] 10-325 one to 2 daily as needed. For breakthrough pain. Aspirin 81 mg daily Restoril 30 mg at at bedtime Flomax 0.4 daily Zocor 40 mg at at bedtime And Plavix 75 mg daily. Discharge diagnosis Urinary tract infection with sepsis. Organism unspecified at this time pending cultures. Toxic encephalopathy with the underlying infection with confusion and lethargy and mental status changes. Also relative hypotension. History of nephrolithiasis with obstruction of the left kidney drainage and status post open surgery to remove blockage and stenting. Multiple orthopedic problems of the back and hips which have required multiple surgeries in the past and for which she is on chronic pain meds. History of prostate cancer. Hypertension Coronary artery disease with stent placement Hyperlipidemia Insomnia The Valentin will be sent in to his pharmacy here at the hospital. 750 mg 1 daily for 7 more days. Patient will have follow-up with Dr. Hammer from urology this week. 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 Plan - Discharge Summary Discharge Rx Participant: No New Discharge Prescriptions: No Action Temazepam [Restoril] 30 mg PO HS Aspirin 81 mg PO DAILY oxyCODONE HCL 40 mg PO BID HYDROcodone/APAP 10-325MG [[place] 10-325] 1 tab PO DAILY PRN PRN Reason: Pain Tamsulosin [Flomax] 0.4 mg PO DAILY #30 cap Clopidogrel [Plavix] 75 mg PO DAILY Simvastatin [Zocor] 40 mg PO HS Losartan [Cozaar] 25 mg PO HS Lisinopril [Zestril] 5 mg PO DAILY Discharge Medication List Aspirin 81 mg PO DAILY 02/23/14 [History] Temazepam [Restoril] 30 mg PO HS 02/23/14 [History] HYDROcodone/APAP 10-325MG [[place] 10-325] 1 tab PO DAILY PRN 04/26/18 [History] oxyCODONE HCL 40 mg PO BID 04/26/18 [History] Tamsulosin [Flomax] 0.4 mg PO DAILY #30 cap 04/30/18 [Rx] Clopidogrel [Plavix] 75 mg PO DAILY 05/28/18 [History] Simvastatin [Zocor] 40 mg PO HS 06/02/18 [History] Lisinopril [Zestril] 5 mg PO DAILY 06/28/18 [History] Losartan [Cozaar] 25 mg PO HS 06/28/18 [History] Follow up Appointment(s)/Referral(s): Franky Brumfield MD [Primary Care Provider] - 1-2 days
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
[2018-06-29] MEDS ORDERED: LEVOFLOXACIN 750MG-D5W PMX 750 MG in DEXTROSE/WATER 1 150ML.BAG IVPB SCH (12:00)
== END 2018-06-29 12:15 | disposition home or self-care (01) | DRG 871 ==
LOC: EC 09:03 → 4SSUR 11:39
PROVIDERS: ADMIT Internal Medicine; ATTEND Internal Medicine
DX: A41.9 Sepsis, unspecified organism (principal); G92 Toxic encephalopathy; N39.0 Urinary tract infection, site not specified; N13.9 Obstructive and reflux uropathy, unspecified; E78.5 Hyperlipidemia, unspecified; G47.00 Insomnia, unspecified; I10 Essential (primary) hypertension; I25.10 Atherosclerotic heart disease of native coronary artery without angina pectoris; M19.90 Unspecified osteoarthritis, unspecified site; R91.8 Other nonspecific abnormal finding of lung field; M54.5 Low back pain; M25.559 Pain in unspecified hip; G89.29 Other chronic pain; Z79.02 Long term (current) use of antithrombotics/antiplatelets; Z79.82 Long term (current) use of aspirin; Z79.891 Long term (current) use of opiate analgesic; Z79.899 Other long term (current) drug therapy; Z96.642 Presence of left artificial hip joint; Z95.5 Presence of coronary angioplasty implant and graft; Z87.891 Personal history of nicotine dependence; Z87.442 Personal history of urinary calculi; Z87.440 Personal history of urinary (tract) infections; Z86.711 Personal history of pulmonary embolism; Z85.46 Personal history of malignant neoplasm of prostate; Z87.820 Personal history of traumatic brain injury; Z87.01 Personal history of pneumonia (recurrent); Z88.8 Allergy status to other drugs, medicaments and biological substances; Z98.1 Arthrodesis status; Z98.42 Cataract extraction status, left eye; Z98.41 Cataract extraction status, right eye; Z96.1 Presence of intraocular lens; Z90.49 Acquired absence of other specified parts of digestive tract; Z92.3 Personal history of irradiation; Z80.3 Family history of malignant neoplasm of breast; Z82.49 Family history of ischemic heart disease and other diseases of the circulatory system
CPT/HCPCS: 36415; 71046; 80053; 81001; 83605; 85025; 85610; 85730; 87040; 87077; 87086; 87186; 87502; 93005; 96365; 96375; 99285

== ENCOUNTER → 2018-12-25 | Outpatient (CLI) | payer MEDICARE, BC ==
[2018-12-25 13:09] LABS: Basophils % (A) 0 %; Eosinophils # (A) 0.2 k/uL (0-0.7); Eosinophils % (A) 1 %; HCT 36.2 % (39.0-53.0); HGB 11.5 gm/dL (13.0-17.5); Lymphocytes % (A) 8 %; MCHC 31.9 g/dL (31.0-37.0); MCV 94.2 fL (80.0-100.0); Monocytes # (A) 0.6 k/uL (0-1.0); Monocytes % (A) 5 %; Neutrophils # (A) 9.6 k/uL (1.3-7.7); Neutrophils % (A) 84 %; Platelet Count 272 k/uL (150-450); RBC 3.84 m/uL (4.30-5.90); RDW 15.4 % (11.5-15.5); WBC 11.4 k/uL (3.8-10.6)
[2018-12-25 19:52] LABS: African American GFR (CKD) 97.8 (60.0-200.0); Albumin 4.2 g/dL (3.80-4.90); Albumin/Globulin Ratio 1.68 (1.60-3.17); Anion Gap 8.4 mmol/L (4.00-12.00); BUN/Creat Ratio 17.5 Ratio (12.00-20.00); Calcium 8.7 mg/dL (8.7-10.3); Carbon Dioxide 27.6 mmol/L (21.6-31.8); Globulin 2.5 g/dL (1.6-3.3); Non-African American GFR(CKD) 84.4 (60.0-200.0); Potassium 4.2 mmol/L (3.5-5.5); Total Bilirubin 0.5 mg/dL (0.2-1.2); Total Protein 6.7 g/dL (6.2-8.2)
== END | disposition home or self-care (01) ==
LOC: LABWHC1 12:18
PROVIDERS: ATTEND Internal Medicine
DX: A41.9 Sepsis, unspecified organism (principal); R79.9 Abnormal finding of blood chemistry, unspecified; D64.9 Anemia, unspecified
CPT/HCPCS: 36415; 80053; 85025; 87040; 87086

== ENCOUNTER → 2019-02-10 | Outpatient (CLI) | payer MEDICARE, BC | END | disposition home or self-care (01) | LOC: LABWHC1 13:11 | PROVIDERS: ATTEND Urology | DX: C61 Malignant neoplasm of prostate (principal) | CPT/HCPCS: 36415; 84153 ==

== ENCOUNTER → 2019-02-21 | Outpatient (CLI) | payer MEDICARE, BC | LOC: LABWHC1 13:28 | PROVIDERS: ATTEND Urology | DX: R97.20 Elevated prostate specific antigen [PSA] (principal) | CPT/HCPCS: 36415; 84153 ==

== ENCOUNTER → 2019-02-26 | Outpatient (CLI) | payer MEDICARE, BC | LOC: LABWHC1 10:39 | PROVIDERS: ATTEND Urology | DX: R97.20 Elevated prostate specific antigen [PSA] (principal) | CPT/HCPCS: 36415; 84153 ==

== ENCOUNTER → 2019-03-06 | Outpatient (CLI) | payer MEDICARE, BC ==
[2019-03-06 14:33] LABS: HCT 41.5 % (39.0-53.0); MCH 31.3 pg (25.0-35.0); MCHC 31.5 g/dL (31.0-37.0); MCV 99.4 fL (80.0-100.0); Mean Platelet Volume 5.4; Platelet Count 437 k/uL (150-450); RBC 4.17 m/uL (4.30-5.90); RDW 13.1 % (11.5-15.5); WBC 10.8 k/uL (3.8-10.6)
[2019-03-06 18:31] LABS: Band Neutrophils % 1 %; Eosinophils # (M) 0.65 k/uL (0-0.7); Lymphocytes # (M) 1.62 k/uL (1.0-4.8); Metamyelocytes # (M) 0.54 k/uL (0); Metamyelocytes % 5 %; Monocytes # (M) 0.76 k/uL (0-1.0); Myelocytes # (M) 0.11 k/uL (0); Myelocytes % 1 %; Neutrophils % (M) 66 %; Nucleated Red Blood Cells 0 /100 WBC (0-0); Total Cells Counted 200
[2019-03-06 18:32] LABS: Polychromasia Present
[2019-03-06 18:53] LABS: Erythrocyte Sedimentation Rate 29 mm/hr (0-15)
[2019-03-06 19:07] LABS: C Reactive Protein 0.6 mg/dL (0.0-0.8); Uric Acid 5.1 mg/dL (3.7-8.7)
--- NOTE | 2019-03-07 09:58 | XR ---
EXAMINATION TYPE: XR toes LT DATE OF EXAM: 03/06/2019 COMPARISON: NONE HISTORY: L big toe infection R/O Osteomyalitis TECHNIQUE: 3 views of the left great toe are submitted FINDINGS: There Is no evidence for fracture or dislocation. No bony destructive process is seen. Vasc ular calcifications are noted. IMPRESSION: No evidence for osteomyelitis at this time. If symptoms persist consider bone scan.
== END | disposition home or self-care (01) ==
LOC: LABWHC1 13:37
PROVIDERS: ATTEND Family Medicine
DX: L03.032 Cellulitis of left toe (principal); M79.89 Other specified soft tissue disorders
CPT/HCPCS: 36415; 84550; 85025; 85652; 86140; 87040

== ENCOUNTER → 2019-03-11 | Outpatient (CLI) | payer MEDICARE, BC ==
--- NOTE | 2019-03-11 16:07 | NM ---
EXAMINATION TYPE: NM bone scan whole body DATE OF EXAM: 03/11/2019 COMPARISON: No recent exams for comparison, comparison prior CT 04/26/2018 HISTORY: Prostate cancer Delayed whole-body scanning was performed following the injection of 22.2 mCi Tc 99m MDP. Images acq uired 3 hours post injection. FINDINGS: Uptake of the radiopharmaceutical is mildly abnormal. No significant left renal uptake is identified. Patient is status post left hip arthroplasty, uptake at the level of the femoral prosthesis is noted which may be postoperative, difficult to exclude loosening of the prosthesis. There is likely calcif ication present within the superficial femoral arteries. Uptake within the left forearm is likely due to the injection. Bandlike area of uptake is present in what is likely L2 vertebral body which may b e due to an osteoporotic compression fracture, relative photopenia at the lower lumbar spine may be d ue to patient's postop change. Uptake in the maxilla and mandible is likely due to periodontal diseas e. IMPRESSION: Findings could be due to osteoporotic compression fracture or degenerative disc change. Possible hip loosening of the prosthesis on the left. No convincing metastatic disease.
== END | disposition home or self-care (01) ==
LOC: RADNMMAIN 09:57
PROVIDERS: ATTEND Urology
DX: C61 Malignant neoplasm of prostate (principal); Z88.1 Allergy status to other antibiotic agents
CPT/HCPCS: 78306; A9503

== ENCOUNTER 2019-04-02 12:45 | Observation (INO) | payer MEDICARE, BC ==
[2019-04-02] MEDS ORDERED: CLINDAMYCIN 900 MG in DEXTROSE 5% IN WATER 50 ML IVPB ONE ×2 (13:58)
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
[2019-04-02 15:23] LABS: Basophils % (A) 0 %; Eosinophils # (A) 0.3 k/uL (0-0.7); Eosinophils % (A) 4 %; HCT 37.5 % (39.0-53.0); Lymphocytes # (A) 0.9 k/uL (1.0-4.8); Lymphocytes % (A) 13 %; MCH 31.8 pg (25.0-35.0); MCHC 32.1 g/dL (31.0-37.0); MCV 99.1 fL (80.0-100.0); Mean Platelet Volume 5.7; Monocytes # (A) 0.5 k/uL (0-1.0); Monocytes % (A) 8 %; Neutrophils # (A) 4.8 k/uL (1.3-7.7); Neutrophils % (A) 73 %; Platelet Count 237 k/uL (150-450); RBC 3.78 m/uL (4.30-5.90); RDW 12.9 % (11.5-15.5); WBC 6.5 k/uL (3.8-10.6)
[2019-04-02 15:37] LABS: African American GFR (CKD) >90 (>60 ml/min/1.73 sqM); Anion Gap 5 mmol/L; Blood Urea Nitrogen 15 mg/dL (9-20); Calcium 8.9 mg/dL (8.4-10.2); Carbon Dioxide 30 mmol/L (22-30); Chloride 105 mmol/L (98-107); Glucose 100 mg/dL (74-99); Non-African American GFR(CKD) 83 (>60 ml/min/1.73 sqM); Potassium 4.2 mmol/L (3.5-5.1); Sodium 140 mmol/L (137-145)
[2019-04-02] MEDS ORDERED: LACTATED RINGERS 1,000 ML IV ONE (16:36)
[2019-04-02] MEDS ORDERED: HYDROcodone/APAP 7.5-325MG 1 EACH TAB PO PRN (17:44)
[2019-04-02] MEDS: AMPICILLIN-SULBACTAM 3 GM in SODIUM CHLORIDE 0.9% 100 ML IVPB SCH ×3 (18:24→22:51)
[2019-04-02] MEDS ORDERED: PROPOFOL 10 MG/ML 20 ML VIAL IV ONE (18:26)
[2019-04-02] MEDS ORDERED: ceFAZolin 3,000 MG in SODIUM CHLORIDE 0.9% IRRIGATIO 3,000 ML IRRIGATION ONE (18:50)
--- NOTE | 2019-04-02 19:06 | P.OP ---
Date of Procedure: 04/02/19 Preoperative Diagnosis: Left great toe paronychial infection Postoperative Diagnosis: Same Procedure(s) Performed: Irrigation and debridement and nail removal left great toe (irrigation and debridement of nonviable skin and subcutaneous tissue with a scalpel was performed) Anesthesia: MAC Surgeon: Winston Mckenzie Estimated Blood Loss (ml): 5 IV fluids (ml): 300 Pathology: other (Deep cultures sent to microbiology) Condition: stable Disposition: PACU Indications for Procedure: The patient is very pleasant 78-year-old male who is had a paronychial infection to his left great toenail for the past month. He was initially managed by his primary care physician with oral antibiotics. He continued to have pain and persistent infection is referred to my office. He had x-rays which showed no evidence of deep infection. Clinically he had a paronychial infection. He was continued on oral antibiotics and warm water soaks were started. I saw him this afternoon in the office and he had failed to improve over the last week despite oral antibiotics and warm water soaks. He continued to have a paronychial infection with a small amount of purulent drainage. He also had chronic hypertrophic changes of the nail plate consistent with a fungal infection. He rated his pain around the paronychial fold at a 10 out of 10. We discussed performing a digital block in the office and removing the nail plate and performing an I&D versus admitting the patient to the hospital for a course of IV antibiotics and a formal I&D in the operating room. Due to the patient failing over 3 weeks of oral antibiotics and wound care he and his requested being admitted to the hospital overnight and a formal I&D in the operating room. We discussed potential risks and complications including but not limited to risk of persistent infection, risk of need for further procedures, risk of deep infection, and possibly risk of amputation. They also understand the potential for nail deformity and failure of the nail to grow. Operative Findings: There is a small amount of purulence in the paronychia fold which was swabbed and sent for cultures Description of Procedure: The patient was identified and prepped holding and the correct left big toe was marked with my initials. I reviewed the consent form with the patient and his . All the questions were answered. The patient was then brought back to the operating room. He was positioned on the OR table where a Mac sedation was administered. A timeout was then performed identifying the correct patient and operative extremity. A digital block was then performed using a mixture of 2% lidocaine and quarter percent Marcaine open without epinephrine. Once the digital block of the great toe was performed the leg was prepped and draped in the standard sterile fashion. I began by making small incisions into the paronychial fold at the medial and lateral base of the nail plate. A small amount of purulence was encountered. It was swabbed and sent for culture. Due to the hypertrophic changes in the nail plate and the pressure the nail plate was putting on the paronychial fold I removed the nail plate with a Jasper elevator. The wound was thoroughly irrigated with sterile saline. The incisions were closed loosely with interrupted 3-0 nylon. A sterile nonadherent dressing consisting of Adaptic, fluffs, Kerlix, and Mohamud wrap was applied. The patient was then brought to recovery having time of the procedure well. Plan: The patient is going to be admitted overnight for 2 doses of IV Unasyn. We will commence dressing changes tomorrow with nonadherent gauze over the nail matrix. The patient started and seen by Dr. Tello recommended discharge home tomorrow on Augmentin. He will also require twice daily warm water soaks in wa rm soapy water with Dial soap. He'll follow-up in the office with me in 1 week for a wound check.
[2019-04-02] MEDS: oxyCODONE ER 20 MG TAB.ER.12H PO SCH (20:16)
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
[2019-04-02] MEDS ORDERED: TEMAZEPAM 30 MG CAP PO SCH (21:00)
[2019-04-03] MEDS: AMPICILLIN-SULBACTAM 3 GM in SODIUM CHLORIDE 0.9% 100 ML IVPB SCH (06:21)
[2019-04-03] MEDS: oxyCODONE ER 20 MG TAB.ER.12H PO SCH (07:39)
[2019-04-03 08:04] VITALS: BP 145/69; PULSE 60; RESP 17; TEMP 98.6
[2019-04-03] MEDS ORDERED: ATENOLOL 25 MG TAB PO SCH (09:00)
[2019-04-03] MEDS ORDERED: MULTIVITAMINS, THERA 1 EACH TAB PO SCH (09:00)
[2019-04-03] MEDS ORDERED: ASPIRIN 81 MG PO SCH (09:00)
[2019-04-03] MEDS ORDERED: TAMSULOSIN 0.4 MG CAP.ER.24H PO SCH (09:00)
--- NOTE | 2019-04-03 09:47 | P.DS ---
Providers Date of admission: 04/02/19 14:11 Expected date of discharge: 04/03/19 Attending physician: Winston Mckenzie Consults: 04/02/19 13:58 Consult Physician Routine Consulting Provider: Moose Tello Consult Reason/Comments: Left great toe paronychial infection Do you want consulting provider notified?: Yes Consult Physician Routine Consulting Provider: Salomon Chapman Consult Reason/Comments: Medical management Do you want consulting provider notified?: Yes Primary care physician: Winston Mckenzie - Discharge Diagnosis(es) (1) Cellulitis of great toe of left foot Current Visit: Yes Status: Acute (2) Paronychia of great toe, left Current Visit: Yes Status: Acute Hospital Course: The patient is an 78-year-old male who presented to our office yesterday for a recheck of his left great toe. He was previously treated by his primary care physician with oral antibiotics and was referred to our office for further evaluation and treatment by Dr. Mckenzie. For the past week the patient continued on oral antibiotics and warm water soaks. The patient failed to improve and he was taken to the operating room last night for a irrigation and debridement with nail removal of the left great toe. The patient has been seen by Dr. Mckenzie as well. He has had 2 doses of Unasyn overnight. The patient will be sent home on Augmentin. On the day of discharge, the patient states his pain is controlled. Vital signs are stable. Patient has done well postoperatively. Dressing on the left foot was removed. There is active bleeding present to the nail bed no purulent drainage noted. Mild swelling to the toe is present. No proximal red streaking. The patient's toe was soaked and a dry nonadherent dressing was applied. Calf is soft and nontender. Good foot and ankle motion present. Neurological and circulatory status is intact. The patient is stable for discharge home today. He will recheck in our office in 1 week. Pertinent Studies: Laboratory Tests 04/02/19 04/02/19 14:45 14:45 WBC 6.5 RBC 3.78 L Hgb 12.0 L Lymphocytes # 0.9 L Glucose 100 H Patient Condition at Discharge: Stable Plan - Discharge Summary Discharge Rx Participant: No New Discharge Prescriptions: New Amoxic-Pot Clav 875-125Mg [Augmentin 875-125] 1 tab PO Q12HR #20 tablet No Action Temazepam [Restoril] 30 mg PO HS Aspirin 162 mg PO DAILY Tamsulosin [Flomax] 0.4 mg PO DAILY #30 cap Simvastatin [Zocor] 40 mg PO HS HYDROcodone/APAP 7.5-325MG [[place] 7.5-325] 1 tab PO BID PRN PRN Reason: Pain oxyCODONE HCL [oxyCODONE HCL (IR)] 60 mg PO BID Atenolol 25 mg PO DAILY Multivitamins, Thera [Multivitamin (formulary)] 1 tab PO DAILY Cephalexin [Keflex] 500 mg PO TID Discharge Medication List Aspirin 162 mg PO DAILY 02/23/14 [History] Temazepam [Restoril] 30 mg PO HS 02/23/14 [History] Tamsulosin [Flomax] 0.4 mg PO DAILY #30 cap 04/30/18 [Rx] Simvastatin [Zocor] 40 mg PO HS 06/02/18 [History] Amoxic-Pot Clav 875-125Mg [Augmentin 875-125] 1 tab PO Q12HR #20 tablet 04/02/19 [Rx] Atenolol 25 mg PO DAILY 04/02/19 [History] Cephalexin [Keflex] 500 mg PO TID 04/02/19 [History] HYDROcodone/APAP 7.5-325MG [[place] 7.5-325] 1 tab PO BID PRN 04/02/19 [History] Multivitamins, Thera [Multivitamin (formulary)] 1 tab PO DAILY 04/02/19 [History] oxyCODONE HCL [oxyCODONE HCL (IR)] 60 mg PO BID 04/02/19 [History] Follow up Appointment(s)/Referral(s): Winston Mckenzie MD [Primary Care Provider] - 1 Week Patient Instructions/Handouts: Abscess Incision and Drainage (DC) Activity/Diet/Wound Care/Special Instructions: Warm water and Dial soap soaks to the left great toe twice daily. Allow wound to dry and apply non-adherent dressing after soaking Follow up with Dr. Mckenzie in 1 week for a wound check. Follow up with Dr. Tello. Call [facility] with any questions or concerns, . Discharge Disposition: HOME SELF-CARE
== END 2019-04-03 10:14 | disposition home or self-care (01) ==
LOC: 4SSUR 14:11
PROVIDERS: ADMIT Orthopaedic Surgery; ATTEND Orthopaedic Surgery
DX: L03.032 Cellulitis of left toe (principal); I25.10 Atherosclerotic heart disease of native coronary artery without angina pectoris; I10 Essential (primary) hypertension; Z87.891 Personal history of nicotine dependence; E78.5 Hyperlipidemia, unspecified; M19.90 Unspecified osteoarthritis, unspecified site; G89.29 Other chronic pain; M54.9 Dorsalgia, unspecified; M79.605 Pain in left leg; M25.552 Pain in left hip; Z85.46 Personal history of malignant neoplasm of prostate; Z92.3 Personal history of irradiation; Z87.01 Personal history of pneumonia (recurrent); Z86.711 Personal history of pulmonary embolism; Z87.442 Personal history of urinary calculi; Z86.718 Personal history of other venous thrombosis and embolism; Z96.642 Presence of left artificial hip joint; Z90.49 Acquired absence of other specified parts of digestive tract; Z95.5 Presence of coronary angioplasty implant and graft; Z98.42 Cataract extraction status, left eye; Z98.41 Cataract extraction status, right eye; Z82.49 Family history of ischemic heart disease and other diseases of the circulatory system; Z80.3 Family history of malignant neoplasm of breast; Z79.02 Long term (current) use of antithrombotics/antiplatelets; Z79.82 Long term (current) use of aspirin; Z79.891 Long term (current) use of opiate analgesic; Z79.899 Other long term (current) drug therapy; Z88.1 Allergy status to other antibiotic agents
CPT/HCPCS: 11750; 86900; 86901; 80048; 85025; 86850; 87070; 87205; 87075; 87102; G0378 ×2; J0690; J0295 ×2; J2704

== ENCOUNTER → 2019-07-03 | Outpatient (CLI) | payer MEDICARE, BC ==
--- NOTE | 2019-07-03 12:41 | XR ---
KUB HISTORY: Kidney stones, C 61, N20 5 KUB and 2 images correlated prior exam 06/02/2018 There has been removal of the left double-J stent, overlying artifacts and longer seen. Postop change s again noted to the left hip spine. Osteoarthritic change noted to the right hip. Metallic seeds pre sent over the prostate. There are vascular calcifications within the pelvis. Surgical clips present i n the left hemipelvis. Retained fecal debris present throughout the distribution of the colon, bowel gas may be. Underlying detail. Surgical clips present right upper quadrant. IMPRESSION: Correlate for fecal stasis.
== END | disposition home or self-care (01) ==
LOC: LABWHC1 11:01
PROVIDERS: ATTEND Urology
DX: R19.5 Other fecal abnormalities (principal); C61 Malignant neoplasm of prostate
CPT/HCPCS: 36415; 74018; 84153

== ENCOUNTER 2019-07-10 09:47 | Inpatient (IN) | payer MEDICARE, BC ==
[2019-07-10] MEDS ORDERED: KETOROLAC 30 MG/ML 1 ML VIAL IVP STA (09:57)
[2019-07-10] MEDS ORDERED: SODIUM CHLORIDE 0.9% 500 ML 500 ML IV STA (09:57)
[2019-07-10] MEDS ORDERED: SODIUM CHLORIDE 0.9% 1,000 ML IV STA ×3 (09:57→11:51)
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
[2019-07-10 10:16] LABS: Basophils % (A) 0 %; Eosinophils # (A) 0.4 k/uL (0-0.7); Eosinophils % (A) 4 %; HCT 37.7 % (39.0-53.0); HGB 12.1 gm/dL (13.0-17.5); Lymphocytes # (A) 0.8 k/uL (1.0-4.8); Lymphocytes % (A) 9 %; MCH 31.1 pg (25.0-35.0); MCHC 32.2 g/dL (31.0-37.0); MCV 96.6 fL (80.0-100.0); Monocytes # (A) 0.8 k/uL (0-1.0); Monocytes % (A) 8 %; Neutrophils # (A) 6.9 k/uL (1.3-7.7); Neutrophils % (A) 76 %; Platelet Count 224 k/uL (150-450); RDW 12.9 % (11.5-15.5)
[2019-07-10 10:27] LABS: Albumin 3.6 g/dL (3.5-5.0); Calcium 8.6 mg/dL (8.4-10.2); Total Bilirubin 0.4 mg/dL (0.2-1.3); Total Protein 6.8 g/dL (6.3-8.2)
[2019-07-10 10:28] LABS: Appearance,Urine Clear (Clear); Bacteria,Urine Rare /hpf; Bilirubin,Urine Negative (Negative); Blood,Urine Moderate (Negative); Color,Urine Light Yellow; Glucose,Urine (UA) Negative (Negative); Ketones,Urine Negative (Negative); Leukocyte Esterase,Urine Small (Negative); Mucus,Urine Rare /hpf; Nitrite,Urine Negative (Negative); PH, Urine 5.5 (5.0-8.0); Protein,Urine Negative (Negative); RBC,Urine >182 /hpf (0-5); Specific Gravity,Urine 1.008 (1.001-1.035); Urobilinogen,Urine <2.0 mg/dL (<2.0); WBC,Urine 16 /hpf (0-5)
--- NOTE | 2019-07-10 10:40 | XR ---
EXAMINATION TYPE: XR KUB DATE OF EXAM: 07/10/2019 COMPARISON: 07/03/2019 HISTORY: Pain TECHNIQUE: One view abdominal series FINDINGS: Postsurgical change involving the vertebral column. Extensive retained fecal debris throughout the co cliff with a nonspecific pattern. No diagnostic evidence of obstruction. Severe arthropathy right hip a nd postsurgical change left hip. Surgical clips are seen in the gallbladder fossa. Hypertrophic hewitt es of the spine with diffuse osteopenia. Elevation the right hemidiaphragm. Metallic densities overly ing the region of the prostate gland. IMPRESSION: 1. Nonspecific abdomen. Correlate for constipation.
[2019-07-10] MEDS ORDERED: INSULIN REGULAR 100 UNIT/ML VIAL IV ONE (12:06)
[2019-07-10] MEDS ORDERED: DEXTROSE 50% SYRINGE 50 ML IVP STA (12:07)
--- NOTE | 2019-07-10 13:10 | US ---
EXAMINATION TYPE: US kidneys/renal and bladder DATE OF EXAM: 07/10/2019 COMPARISON: NONE CLINICAL HISTORY: hydronephrosis . EXAM MEASUREMENTS: Right Kidney: 11.7 x 7.7 x 6.7 cm Left Kidney: 12.4 x 6.7 x 6.7 cm Technically difficult study. Only able to visualized intercostally due to overlying bowel gas Right Kidney: moderate hydro,subcentimeter cyst noted, partially obscured, see above limitations Left Kidney: severe hydro unable to visualize normal parenchyma, partially obscured see above limitat ions Bladder: distended bladder, prominent vessels visualized posterior, possible inferior septation IMPRESSION: 1. Bilateral hydronephrosis greater on the left. Note is made the bladder is distended correlate clin ically. Mild bladder wall thickening posteriorly could be on the basis of cystitis correlate with uri nalysis to exclude other etiologies..
--- NOTE | 2019-07-10 13:34 | CT ---
EXAMINATION TYPE: CT abdomen pelvis wo con DATE OF EXAM: 07/10/2019 COMPARISON: 04/26/2018 HISTORY: 78-year-old male Flank pain. CT DLP: 535.7 mGycm. Automated exposure control for dose reduction was used. TECHNIQUE: Contiguous axial scanning of the abdomen and pelvis without IV contrast. Coronal and sagit anastasiya reconstructions performed. FINDINGS: Heart normal size without pericardial effusion. Extensive two-vessel coronary artery calcifications a re present. Redemonstrated prominent asymmetric elevation right hemidiaphragm. Pleural-parenchymal thickening pos terior right base has increased in the interval and can be reassessed in 6 months. Bands of atelectas is and scarring at the left base unchanged. Cholecystectomy clips. Chronic dilatation of the bile duct and biliary tree. Lack of IV contrast limi ts assessment of the solid abdominal viscera and vascular structures. Adrenal glands, some seen appears satisfactory. Pancreas diffusely atrophic. Redemonstrated is severe left-sided hydronephrosis and hydroureter down to the left iliac vessel cros sing. There has been progressive renal cortical loss as compared to 2018. Moderate right-sided hydronephrosis and hydroureter. Moderate apical scarring calcifications abdominal aorta and iliac arteries. No dilated small bowel, free fluid, or free air. Limited assessment of the retroperitoneum due to extensive streak and beam hardening artifact from th e patient's L3-L5 posterior fusion hardware. No obvious retroperitoneal lymphadenopathy. Severe distention of the urinary bladder up to the level of the umbilicus measuring 15.3 cm. Wall thi ckening and slight trabeculated appearance is noted. Brachytherapy seeds are present within the prost ate gland which measures approximately 4.8 cm wide. Extensive dental artifact from the patient's left hip total arthroplasty limits visualization of pelv ic structures. Mild generalized anasarca change is noted. Bones: Degenerative changes of the right hip. Bone harvesting site posterior left iliac bone. Lumbar fusion hardware. IMPRESSION: 1. 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 Progressive renal cortical volume loss as compared to 2018. 2. Moderate right-sided hydronephrosis and hydroureter. No obstructing calculus is identified. 3. Marked distention of the urinary bladder with the dome of the bladder reaching up to the level of the umbilicus. Wall thickening and trabeculation suggests chronic bladder wall hypertrophy. Correlat e for bladder outlet obstruction. 4. The prostate gland contains brachytherapy seeds and measures 4.8 cm wide, only mildly enlarged. 5. Unchanged diffuse dilatation of the bile duct and biliary tree. 6. Continued asymmetric elevation right hemidiaphragm. Correlate for the possibility of hemidiaphrag matic paralysis. Pleural parenchymal thickening at the right base is increased from 2018 and probably represents progressive scarring. Follow-up CT chest in 6 months to reassess this thickening.
[2019-07-10] MEDS ORDERED: NALOXONE 0.4 MG/ML 1 ML VIAL IV PRN ×2 (14:00→16:50)
[2019-07-10] MEDS ORDERED: HYDROcodone/APAP 7.5-325MG 1 EACH TAB PO PRN (14:10)
[2019-07-10] MEDS ORDERED: DEXTROSE 5% IN WATER 1,000 ML IV SCH (14:15)
[2019-07-10] MEDS: DEXTROSE 5% IN WATER 1,000 ML with SODIUM BICARB (1 MEQ/ML) 150 ML IV SCH (14:38)
[2019-07-10] MEDS ORDERED: MELATONIN 3 MG TABLET PO PRN (16:50)
[2019-07-10] MEDS ORDERED: ACETAMINOPHEN TAB 325 MG TAB PO PRN (16:50)
[2019-07-10] MEDS ORDERED: ONDANSETRON 4 MG/2 ML VIAL IVP PRN (16:50)
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
[2019-07-10 16:58] LABS: Calcium 8.4 mg/dL (8.4-10.2); Potassium 5.3 mmol/L (3.5-5.1)
[2019-07-10] MEDS ORDERED: DOCUSATE 283 MG/5 ML ENEMA RECTAL STA (18:09)
[2019-07-10] MEDS ORDERED: BISACODYL 10 MG SUPP RECTAL STA (18:11)
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
[2019-07-10 19:03] LABS: Hepatitis B Surface AB- Quant 3.5 mIU/mL; Hepatitis B Surface Antibody Non-Reactive (Non-Reactive); Hepatitis B Surface Antigen Non-Reactive (Non-Reactive)
[2019-07-10] MEDS ORDERED: TEMAZEPAM 30 MG CAP PO SCH (21:00)
[2019-07-10] MEDS: HYDROcodone/APAP 7.5-325MG 1 EACH TAB PO PRN (21:34)
[2019-07-10] MEDS: ATORVASTATIN 20 MG TAB PO SCH (21:35)
[2019-07-11] MEDS: DEXTROSE 5% IN WATER 1,000 ML with SODIUM BICARB (1 MEQ/ML) 150 ML IV SCH (02:17)
[2019-07-11 05:40] LABS: HCT 35.5 % (39.0-53.0); HGB 11.9 gm/dL (13.0-17.5); MCH 31.7 pg (25.0-35.0); MCHC 33.5 g/dL (31.0-37.0); MCV 94.4 fL (80.0-100.0); Mean Platelet Volume 7.3; Platelet Count 219 k/uL (150-450); RBC 3.76 m/uL (4.30-5.90); WBC 6.7 k/uL (3.8-10.6)
[2019-07-11 05:48] LABS: INR 1.1 (<1.2); Prothrombin Time 11.3 sec (9.0-12.0)
[2019-07-11 05:50] LABS: Calcium 8.4 mg/dL (8.4-10.2); Magnesium 1.9 mg/dL (1.6-2.3); Potassium 4.8 mmol/L (3.5-5.1)
[2019-07-11 07:02] LABS: VBG PH 7.39 (7.31-7.41)
[2019-07-11] MEDS: MULTIVITAMINS, THERA 1 EACH TAB PO SCH (07:41)
[2019-07-11] MEDS: TAMSULOSIN 0.4 MG CAP.ER.24H PO SCH (07:41)
[2019-07-11] MEDS: ATENOLOL 25 MG TAB PO SCH (07:41)
[2019-07-11] MEDS: HYDROcodone/APAP 7.5-325MG 1 EACH TAB PO PRN (07:47)
[2019-07-11] MEDS ORDERED: ASPIRIN 81 MG PO SCH (09:00)
[2019-07-11] MEDS: SODIUM CHLORIDE 0.9% 1,000 ML IV SCH ×2 (12:11→20:28)
[2019-07-11] MEDS ORDERED: amLODIPine 10 MG TAB PO STA (12:25)
--- NOTE | 2019-07-11 12:33 | P.PN ---
Subjective Progress Note Date: 07/11/19 The patient is in the hospital with acute renal failure. Upon admission his creatinine was 11.19. It is down to 2. 55 this morning. He is feeling much better. His confusion has lessened. He has had good bowel movement with the cathartics. I had a lengthy discussion with the patient and his about the causes of retention (impaction, lower urinary tract obstruction, bad back ). His hydronephrosis is due to the urine retention. His elevated PSA also has to be addressed. From urologic standpoint he will probably go home with the catheter and I will do outpatient urodynamics with cystoscopy. I will continue to follow the patient. Objective - Vital Signs Vital signs: Vital Signs Temp 97.9 F 07/11/19 12:00 Pulse 57 L 07/11/19 12:00 Resp 18 07/11/19 12:00 BP 197/82 07/11/19 12:00 Pulse Ox 96 07/11/19 12:00 Intake & Output 07/10/19 07/11/19 07/11/19 18:59 06:59 18:59 Intake Total 240 90 Output Total 4850 3150 750 Balance -4610 -3150 -660 Weight 58.967 kg 87.5 kg Intake: Oral 240 90 Output: Urine 4850 3150 750 Uretheral (Scott) 1000 Other: Voiding Method Indwelling Catheter Indwelling Catheter Indwelling Catheter # Voids 1 - Labs CBC & Chem 7: 07/11/19 05:20 07/11/19 05:20 Labs: Abnormal Lab Results - Last 24 Hours (Table) 07/10/19 07/11/19 07/11/19 Range/Units 16:15 05:20 05:20 RBC 3.76 L (4.30-5.90) m/uL Hgb 11.9 L (13.0-17.5) gm/dL Hct 35.5 L (39.0-53.0) % VBG pCO2 (37-51) mmHg VBG HCO3 (24-28) mmol/L Potassium 5.3 H (3.5-5.1) mmol/L Carbon Dioxide 21 L 32 H (22-30) mmol/L BUN 85 H 47 H (9-20) mg/dL Creatinine 8.00 H* 2.55 H (0.66-1.25) mg/dL 07/11/19 Range/Units 05:59 RBC (4.30-5.90) m/uL Hgb (13.0-17.5) gm/dL Hct (39.0-53.0) % VBG pCO2 53 H (37-51) mmHg VBG HCO3 31 H (24-28) mmol/L Potassium (3.5-5.1) mmol/L Carbon Dioxide (22-30) mmol/L BUN (9-20) mg/dL Creatinine (0.66-1.25) mg/dL Microbiology - Last 24 Hours (Table) 07/10/19 10:00 Urine Culture - Final Urine,Voided
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
--- NOTE | 2019-07-11 14:58 | P.PN ---
Subjective Progress Note Date: 07/11/19 (delayed charting seen at 1000) Principal diagnosis: confusion Patient is an 78-year-old male past medical history of pyelonephritis left hydronephrosis, and multiple kidney stones along with A. fib, hypertension, and dyslipidemia who presented to the emergency department due to increasing confusion. On arrival to the emergency department his blood pressure is 171/75. His initial laboratory analysis showed a hemoglobin of 12.1, hematocrit 37.7, potassium 6, carbon dioxide 16, anion gap 16, BUN 107, and creatinine of 11. He had a KUB which was negative. This was followed by renal ultrasound which demonstrated bilateral [place]. He ultimately underwent an CT abdomen and pelvis. This demonstrated persistent severe left-sided hydronephrosis and hydroureter along with mild right hydronephrosis but no obstructing calculi, marked distention of the urinary bladder, mildly enlarged prostate, and asymmetric elevation of the right hemidiaphragm along with pleural parenchymal thickening at the right base. He had a Davila catheter inserted with return of 1400 mL of urine. He was started on IV fluids. Nephrology and urology were consulted. His potassium improved within a few hours and his renal function greatly improved by the next morning. He did developed some hematuria suspect due to bladder distension. Patient seen and examined at bedside. No chest pain, swelling better right hand, no shortness of breath, had a large BM today, no nausea, no vomiting, feeling less fatigued. Worried about needed a davila on D/C as hx of sepsis due to davila in the past. Objective - Vital Signs Vital signs: Vital Signs Temp 97.9 F 07/11/19 12:00 Pulse 57 L 07/11/19 12:00 Resp 18 07/11/19 12:00 BP 197/82 07/11/19 12:00 Pulse Ox 96 07/11/19 12:00 Intake & Output 07/10/19 07/11/19 07/11/19 18:59 06:59 18:59 Intake Total 240 90 Output Total 4850 3150 750 Balance -4610 -3150 -660 Weight 58.967 kg 87.5 kg Intake: Oral 240 90 Output: Urine 4850 3150 750 Uretheral (Davila) 1000 Other: Voiding Method Indwelling Catheter Indwelling Catheter Indwelling Catheter # Voids 1 - Exam General: ill appearing, no distress, appears at stated age Derm: warm, dry Head: atraumatic, normocephalic, symmetric Eyes: EOMI, no lid lag, anicteric sclera Mouth: no lip lesion, mucus membranes moist, [place] Cardiovascular: S1S2 reg, no murmur, positive posterior tibial pulse bilateral, Lungs: CTA bilateral, no rhonchi, no rales , no accessory muscle use Abdominal: soft, nontender to palpation, no guarding, no appreciable organomegaly Ext: + gross muscle atrophy, no edema, no contractures Neuro: CN II-XI grossly intact, no focal neuro deficits Psych: Alert, oriented, appropriate affect, confusion resolved. - Labs CBC & Chem 7: 07/11/19 05:20 07/11/19 05:20 Labs: Abnormal Lab Results - Last 24 Hours (Table) 07/10/19 07/11/19 07/11/19 Range/Units 16:15 05:20 05:20 RBC 3.76 L (4.30-5.90) m/uL Hgb 11.9 L (13.0-17.5) gm/dL Hct 35.5 L (39.0-53.0) % VBG pCO2 (37-51) mmHg VBG HCO3 (24-28) mmol/L Potassium 5.3 H (3.5-5.1) mmol/L Carbon Dioxide 21 L 32 H (22-30) mmol/L BUN 85 H 47 H (9-20) mg/dL Creatinine 8.00 H* 2.55 H (0.66-1.25) mg/dL 07/11/19 Range/Units 05:59 RBC (4.30-5.90) m/uL Hgb (13.0-17.5) gm/dL Hct (39.0-53.0) % VBG pCO2 53 H (37-51) mmHg VBG HCO3 31 H (24-28) mmol/L Potassium (3.5-5.1) mmol/L Carbon Dioxide (22-30) mmol/L BUN (9-20) mg/dL Creatinine (0.66-1.25) mg/dL Microbiology - Last 24 Hours (Table) 07/10/19 10:00 Urine Culture - Final Urine,Voided Assessment and Plan Assessment: Acute renal failure secondary to urinary retention -Davila catheter placed - strict i and o -IV fluids -Repeat BMP in a.m. -Avoid additional nephrotoxic agents -nephrology and urology recs appreciated (likely home with davila, out pt urodynamincs) Acute on chronic Back pain likely secondary hydronephrosis -Continue with norco, stop oxy with somonolence -Monitor for improvement Acute metabolic encepahlopathy due to renal failure - supportive care and as above. Anemia, chronic -Follow CBC -Outpatient evaluation Paroxysmal atrial fibrillation - atenolol - not on chronic anticoagulation will not start Hypertension - atenolol - follow BP Dyslipidemia - Zocor History of prostate cancer with elevated PSA - Urology recs Known right lower lobe mass -Being followed by pulmonary Hyperkalemia, resolved anion gap metabolic acidosis, resolved DVT prophylaxis: SCDs Discussed with: patient, nursing Anticipated discharge date: 2-[address]: home A total of 65 minutes was spent on the care of this complex patient more than 50% of the time was spent in counseling and care coordination.
[2019-07-11] MEDS: ATORVASTATIN 20 MG TAB PO SCH (21:39)
[2019-07-12 06:20] LABS: HCT 37.5 % (39.0-53.0); HGB 12.4 gm/dL (13.0-17.5); MCH 31.4 pg (25.0-35.0); MCHC 33.2 g/dL (31.0-37.0); MCV 94.6 fL (80.0-100.0); Mean Platelet Volume 7.2; Platelet Count 283 k/uL (150-450); RBC 3.96 m/uL (4.30-5.90); WBC 9.8 k/uL (3.8-10.6)
[2019-07-12 06:42] LABS: Calcium 8.8 mg/dL (8.4-10.2); Potassium 4.4 mmol/L (3.5-5.1)
[2019-07-12] MEDS: ATENOLOL 25 MG TAB PO SCH (09:28)
[2019-07-12] MEDS: TAMSULOSIN 0.4 MG CAP.ER.24H PO SCH (09:28)
[2019-07-12] MEDS: MULTIVITAMINS, THERA 1 EACH TAB PO SCH (09:28)
[2019-07-12] MEDS: HYDROcodone/APAP 7.5-325MG 1 EACH TAB PO PRN ×2 (09:33→16:08)
--- NOTE | 2019-07-12 11:00 | P.PN ---
Subjective Progress Note Date: 07/12/19 The patient's creatinine has normalized. He is feeling well. From urologic standpoint he can go home at any time. The catheter should remain in. I will set him up for cystoscopy and urodynamics to assess the function of the bladder and try to determine the reason he went in urine retention. The possibilities could include a neurogenic bladder ,fecal impaction or prostate enlargement. Objective - Vital Signs Vital signs: Vital Signs Temp 98.4 F 07/12/19 08:00 Pulse 65 07/12/19 08:00 Resp 18 07/12/19 04:00 BP 146/75 07/12/19 08:00 Pulse Ox 98 07/12/19 08:00 Intake & Output 07/11/19 07/12/19 07/12/19 18:59 06:59 18:59 Intake Total 90 150 60 Output Total 1550 650 Balance -1460 -500 60 Weight 85.6 kg Intake: Intake, IV Titration 150 Amount Sodium Chloride 0.9% 1, 150 000 ml @ 75 mls/hr IV . [id number] [facility] Rx#:[id number] Oral 90 60 Output: Urine 1550 650 Other: Voiding Method Indwelling Catheter Indwelling Catheter Indwelling Catheter # Voids 0 # Bowel Movements 0 - Labs CBC & Chem 7: 07/12/19 05:45 07/12/19 05:45 Labs: Abnormal Lab Results - Last 24 Hours (Table) 07/12/19 07/12/19 Range/Units 05:45 05:45 RBC 3.96 L (4.30-5.90) m/uL Hgb 12.4 L (13.0-17.5) gm/dL Hct 37.5 L (39.0-53.0) % BUN 24 H (9-20) mg/dL Glucose 103 H (74-99) mg/dL Microbiology - Last 24 Hours (Table) 07/10/19 10:00 Urine Culture - Final Urine,Voided
--- NOTE | 2019-07-12 11:28 | P.PN ---
Subjective Progress Note Date: 07/12/19 Follow-up for acute kidney injury Objective - Vital Signs Vital signs: Vital Signs Temp 98.4 F 07/12/19 08:00 Pulse 65 07/12/19 08:00 Resp 18 07/12/19 04:00 BP 146/75 07/12/19 08:00 Pulse Ox 98 07/12/19 08:00 Intake & Output 07/11/19 07/12/19 07/12/19 18:59 06:59 18:59 Intake Total 90 150 60 Output Total 1550 650 Balance -1460 -500 60 Weight 85.6 kg Intake: Intake, IV Titration 150 Amount Sodium Chloride 0.9% 1, 150 000 ml @ 75 mls/hr IV . [id number] [facility] Rx#:[id number] Oral 90 60 Output: Urine 1550 650 Other: Voiding Method Indwelling Catheter Indwelling Catheter Indwelling Catheter # Voids 0 # Bowel Movements 0 - Exam Acute distress S1-S2 heard Lungs clear Abdomen soft Scott catheter No edema - Labs CBC & Chem 7: 07/12/19 05:45 07/12/19 05:45 Labs: Abnormal Lab Results - Last 24 Hours (Table) 07/12/19 07/12/19 Range/Units 05:45 05:45 RBC 3.96 L (4.30-5.90) m/uL Hgb 12.4 L (13.0-17.5) gm/dL Hct 37.5 L (39.0-53.0) % BUN 24 H (9-20) mg/dL Glucose 103 H (74-99) mg/dL Microbiology - Last 24 Hours (Table) 07/10/19 10:00 Urine Culture - Final Urine,Voided Assessment and Plan Assessment: #1 acute kidney injury secondary to obstructive uropathy creatinine back to baseline. #2 history of prostate cancer #3 hyperkalemia secondary to obstructive uropathy resolved #4 metabolic alkalosis #5 hypertension essential Plan: #1 renal function stable back to baseline #2 appreciate urology input #3 stable from nephrology point of view for discharge
--- NOTE | 2019-07-12 13:45 | P.PN ---
Subjective Progress Note Date: 07/12/19 (delayed charting seen at 1030) Principal diagnosis: confusion Patient is an 78-year-old male past medical history of pyelonephritis left hydronephrosis, and multiple kidney stones along with A. fib, hypertension, and dyslipidemia who presented to the emergency department due to increasing confusion. On arrival to the emergency department his blood pressure is 171/75. His initial laboratory analysis showed a hemoglobin of 12.1, hematocrit 37.7, potassium 6, carbon dioxide 16, anion gap 16, BUN 107, and creatinine of 11. He had a KUB which was negative. This was followed by renal ultrasound which demonstrated bilateral [place]. He ultimately underwent an CT abdomen and pelvis. This demonstrated persistent severe left-sided hydronephrosis and hydroureter along with mild right hydronephrosis but no obstructing calculi, marked distention of the urinary bladder, mildly enlarged prostate, and asymmetric elevation of the right hemidiaphragm along with pleural parenchymal thickening at the right base. He had a Davila catheter inserted with return of 1400 mL of urine. He was started on IV fluids. Nephrology and urology were consulted. His potassium improved within a few hours and his renal function greatly improved by the next morning. He did developed some hematuria suspect due to bladder distension. He will be discharge with a davila cath and outpatient urodynamic testing. Patient seen and examined at bedside. Feeling well today, still having some diarrhea, no nausea, no vomiting, no chest pain, no shortness of breath, is okay with home health. Excited be discharged tomorrow. He is having some worsening low back pain that his oxycodone has been held. We discussed that we will restart this but at a lower dose and see how he tolerates it. Objective - Vital Signs Vital signs: Vital Signs Temp 98.4 F 07/12/19 08:00 Pulse 65 07/12/19 08:00 Resp 18 07/12/19 04:00 BP 146/75 07/12/19 08:00 Pulse Ox 98 07/12/19 08:00 Intake & Output 07/11/19 07/12/19 07/12/19 18:59 06:59 18:59 Intake Total 90 150 60 Output Total 1550 650 Balance -1460 -500 60 Weight 85.6 kg Intake: Intake, IV Titration 150 Amount Sodium Chloride 0.9% 1, 150 000 ml @ 75 mls/hr IV . [id number] [facility] Rx#:[id number] Oral 90 60 Output: Urine 1550 650 Other: Voiding Method Indwelling Catheter Indwelling Catheter Indwelling Catheter # Voids 0 # Bowel Movements 0 - Exam General: Nontoxic, no distress, appears at stated age Derm: warm, dry Head: atraumatic, normocephalic, symmetric Eyes: EOMI, no lid lag, anicteric sclera Mouth: no lip lesion, mucus membranes moist, [place] Cardiovascular: S1S2 reg, no murmur, positive posterior tibial pulse bilateral, Lungs: CTA bilateral, no rhonchi, no rales , no accessory muscle use Abdominal: soft, nontender to palpation, no guarding, no appreciable organomegaly Ext: + gross muscle atrophy, 1+ edema, no contractures Neuro: CN II-XII grossly intact, no focal neuro deficits Psych: Alert, oriented, appropriate affect, confusion resolved. - Labs CBC & Chem 7: 07/12/19 05:45 07/12/19 05:45 Labs: Abnormal Lab Results - Last 24 Hours (Table) 07/12/19 07/12/19 Range/Units 05:45 05:45 RBC 3.96 L (4.30-5.90) m/uL Hgb 12.4 L (13.0-17.5) gm/dL Hct 37.5 L (39.0-53.0) % BUN 24 H (9-20) mg/dL Glucose 103 H (74-99) mg/dL Microbiology - Last 24 Hours (Table) 07/10/19 10:00 Urine Culture - Final Urine,Voided Assessment and Plan Assessment: Acute renal failure secondary to urinary retention -Davila catheter placed - strict i and o -IV fluids -Repeat BMP in a.m. -Avoid additional nephrotoxic agents -nephrology and urology recs appreciated: home with davila, out pt urodynamincs Diarrhea, s/p suppository - possible fecal impaction on presentation - monitor for resolution. Acute on chronic Back pain likely secondary hydronephrosis -Continue with norco, resume Oxy today -Monitor for improvement Anemia, chronic -Follow CBC -Outpatient evaluation Paroxysmal atrial fibrillation - atenolol - not on chronic anticoagulation will not start Hypertension - atenolol - follow BP Dyslipidemia - Zocor History of prostate cancer with elevated PSA - Urology recs Known right lower lobe mass -Being followed by pulmonary Hyperkalemia, resolved anion gap metabolic acidosis, resolved Acute metabolic encepahlopathy due to renal failure, resolved DVT prophylaxis: SCDs Discussed with: patient, nursing, Dr. Hammer Anticipated discharge date: in AM Anticipated discharge place: home with home health A total of 35 minutes was spent on the care of this complex patient more than 50% of the time was spent in counseling and care coordination.
[2019-07-12] MEDS: ATORVASTATIN 20 MG TAB PO SCH (20:43)
[2019-07-13 07:12] LABS: HCT 37.6 % (39.0-53.0); MCHC 32.1 g/dL (31.0-37.0); MCV 96.7 fL (80.0-100.0); Mean Platelet Volume 7.3; Platelet Count 249 k/uL (150-450); RBC 3.88 m/uL (4.30-5.90)
[2019-07-13 07:31] LABS: African American GFR (CKD) >90 (>60 ml/min/1.73 sqM); Anion Gap 6 mmol/L; Blood Urea Nitrogen 17 mg/dL (9-20); Calcium 8.8 mg/dL (8.4-10.2); Carbon Dioxide 30 mmol/L (22-30); Chloride 104 mmol/L (98-107); Glucose 106 mg/dL (74-99); Non-African American GFR(CKD) 85 (>60 ml/min/1.73 sqM); Potassium 3.9 mmol/L (3.5-5.1); Sodium 140 mmol/L (137-145)
[2019-07-13] MEDS: TAMSULOSIN 0.4 MG CAP.ER.24H PO SCH (08:03)
[2019-07-13] MEDS: ATENOLOL 25 MG TAB PO SCH (08:03)
[2019-07-13] MEDS: MULTIVITAMINS, THERA 1 EACH TAB PO SCH (08:03)
[2019-07-13 10:23] VITALS: BP 144/70; PULSE 65; RESP 17; TEMP 98.5
--- NOTE | 2019-07-13 10:49 | P.DS ---
Providers Date of admission: 07/10/19 14:00 Expected date of discharge: 07/13/19 Attending physician: Shelia Bone MD Consults: 07/10/19 11:49 Consult Physician Stat Consulting Provider: Lily Mosley Consult Reason/Comments: acute renal failure Do you want consulting provider notified?: Yes 07/10/19 16:51 Consult Physician Routine Consulting Provider: Wm Hammer Consult Reason/Comments: bilateral hydro with obstruction Do you want consulting provider notified?: Yes Primary care physician: Latha Burt Hospital Course: Discharge Diagnosis: Acute kidney injury secondary to urinary retention Diarrhea, s/p suppository with constipation on arrival Acute on chronic Back pain likely secondary hydronephrosis Anemia, chronic Paroxysmal atrial fibrillation Hypertension Dyslipidemia History of prostate cancer with elevated PSA Known right lower lobe mass Hyperkalemia, resolved anion gap metabolic acidosis, resolved Acute metabolic encepahlopathy due to renal failure, resolved Hospital Course: Patient is an 78-year-old male past medical history of pyelonephritis left hydronephrosis, and multiple kidney stones along with A. fib, hypertension, and dyslipidemia who presented to the emergency department due to increasing confusion. On arrival to the emergency department his blood pressure is 171/75. His initial laboratory analysis showed a hemoglobin of 12.1, hematocrit 37.7, potassium 6, carbon dioxide 16, anion gap 16, BUN 107, and creatinine of 11. He had a KUB which was negative. This was followed by renal ultrasound which demonstrated bilateral [place]. He ultimately underwent an CT abdomen and pelvis. This demonstrated persistent severe left-sided hydronephrosis and hydroureter along with mild right hydronephrosis but no obstructing calculi, marked distention of the urinary bladder, mildly enlarged prostate, and asymmetric elevation of the right hemidiaphragm along with pleural parenchymal thickening at the right base. He had a Davila catheter inserted with return of 1400 mL of urine. He was started on IV fluids. Nephrology and urology were consulted. His potassium improved within a few hours and his renal function greatly improved by the next morning. He did developed some hematuria suspect due to bladder distension. He will be discharge with a davila cath and outpatient urodynamic testing. He continued to improve and was back to baseline. He will follow-up with Dr. Hammer in 5-[address] Burt in 3-5 days. He will have [facility] home [facility] but they can not establish until 07/22/19. Patient seen and examined at bedside. Feeling well and back to baseline. No chest pain, SOB, nausea, or vomiting. Vital signs reviewed and stable. General: non toxic, no distress, appears at stated age, thin with temporal wasting Derm: warm, dry Head: atraumatic, normocephalic, symmetric Eyes: EOMI, no lid lag, anicteric sclera Mouth: no lip lesion, mucus membranes moist Cardiovascular: S1S2 reg, no murmur, positive posterior tibial pulse bilateral, Lungs: CTA bilateral, no rhonchi, no rales , no accessory muscle use Abdominal: soft, nontender to palpation, no guarding, no appreciable organomegaly Ext: no gross muscle atrophy, no edema, no contractures Neuro: CN II-XI grossly intact, no focal neuro deficits Psych: Alert, oriented, appropriate affect A total of 35 minutes of time were spent preparing this complex discharge summary . Patient Condition at Discharge: Stable Plan - Discharge Summary Discharge Rx Participant: Yes New Discharge Prescriptions: Continue Temazepam [Restoril] 30 mg PO HS Aspirin 162 mg PO HS HYDROcodone/APAP 7.5-325MG [Cosby 7.5-325] 1 tab PO BID PRN PRN Reason: Pain oxyCODONE HCL [oxyCODONE HCL (IR)] 60 mg PO BID Atenolol 25 mg PO HS Multivitamins, Thera [Multivitamin (formulary)] 1 tab PO DAILY Simvastatin 40 mg PO HS Vit C/E/Zn/Coppr/Lutein/Zeaxan [Preservision Areds 2 Softgel] 1 cap PO BID Tamsulosin HCl [Flomax] 0.4 mg PO DAILY Discontinued Cephalexin [Keflex] 500 mg PO BID Discharge Medication List Aspirin 162 mg PO HS 02/23/14 [History] Temazepam [Restoril] 30 mg PO HS 02/23/14 [History] Atenolol 25 mg PO HS 04/02/19 [History] HYDROcodone/APAP 7.5-325MG [[place] 7.5-325] 1 tab PO BID PRN 04/02/19 [History] Multivitamins, Thera [Multivitamin (formulary)] 1 tab PO DAILY 04/02/19 [History] oxyCODONE HCL [oxyCODONE HCL (IR)] 60 mg PO BID 04/02/19 [History] Simvastatin 40 mg PO HS 07/10/19 [History] Tamsulosin HCl [Flomax] 0.4 mg PO DAILY 07/10/19 [History] Vit C/E/Zn/Coppr/Lutein/Zeaxan [Preservision Areds 2 Softgel] 1 cap PO BID 09/23 [History] Follow up Appointment(s)/Referral(s): Latha Burt MD [Primary Care Provider] - 1-2 days [facility] Visiting Nurse, [NON-STAFF] - 07/22/19 Wm Hammer MD [STAFF PHYSICIAN] - 1 Week Patient Instructions/Handouts: Davila Catheter Placement and Care (DC) Activity/Diet/Wound Care/Special Instructions: Activity: as tolerated Diet: regular Special Instructions: maintain Davila until seen by Dr. Hammer Discharge Disposition: HOME WITH HOME HEALTH SERVICES
--- NOTE | 2019-07-13 12:02 | P.PN ---
Subjective Progress Note Date: 07/13/19 Follow-up for acute kidney injury Objective - Vital Signs Vital signs: Vital Signs Temp 98.5 F 07/13/19 07:53 Pulse 65 07/13/19 07:53 Resp 17 07/13/19 07:53 BP 144/70 07/13/19 07:53 Pulse Ox 96 07/13/19 07:53 Intake & Output 07/12/19 07/13/19 07/13/19 17:59 06:59 18:59 Intake Total 580 Output Total Balance 580 Weight Intake: Intake, IV Titration Amount Sodium Chloride 0.9% 1, 000 ml @ 75 mls/hr IV . [id number] [facility] Rx#:[id number] Oral 580 Output: Urine Other: Voiding Method Indwelling Catheter # Voids # Bowel Movements - Exam Acute distress S1-S2 heard Lungs clear Abdomen soft Scott catheter No edema - Labs CBC & Chem 7: 07/13/19 06:10 07/13/19 06:10 Labs: Abnormal Lab Results - Last 24 Hours (Table) 07/13/19 07/13/19 Range/Units 06:10 06:10 RBC 3.88 L (4.30-5.90) m/uL Hgb 12.0 L (13.0-17.5) gm/dL Hct 37.6 L (39.0-53.0) % Glucose 106 H (74-99) mg/dL Assessment and Plan Assessment: #1 acute kidney injury secondary to obstructive uropathy creatinine back to baseline. #2 history of prostate cancer #3 hyperkalemia secondary to obstructive uropathy resolved #4 metabolic alkalosis #5 hypertension essential Plan: #1 renal function stable back to baseline #2 appreciate urology input #3 stable from nephrology point of view for discharge
== END 2019-07-13 12:52 | disposition home health service (06) | DRG 682 ==
LOC: EC 09:47 → 3SCARD 14:00 → 4SSUR 07-12 15:30
PROVIDERS: ADMIT Family Medicine; ATTEND Family Medicine
DX: N17.9 Acute kidney failure, unspecified (principal); G93.41 Metabolic encephalopathy; E87.2 Acidosis; Z85.46 Personal history of malignant neoplasm of prostate; Z92.3 Personal history of irradiation; D64.9 Anemia, unspecified; E78.5 Hyperlipidemia, unspecified; E86.0 Dehydration; E87.5 Hyperkalemia; G89.29 Other chronic pain; H91.90 Unspecified hearing loss, unspecified ear; I10 Essential (primary) hypertension; I25.10 Atherosclerotic heart disease of native coronary artery without angina pectoris; I48.0 Paroxysmal atrial fibrillation; K56.41 Fecal impaction; M19.90 Unspecified osteoarthritis, unspecified site; N13.30 Unspecified hydronephrosis; Z79.82 Long term (current) use of aspirin; Z79.899 Other long term (current) drug therapy; Z80.3 Family history of malignant neoplasm of breast; Z82.49 Family history of ischemic heart disease and other diseases of the circulatory system; Z86.711 Personal history of pulmonary embolism; Z87.442 Personal history of urinary calculi; Z87.891 Personal history of nicotine dependence; Z95.5 Presence of coronary angioplasty implant and graft; Z96.642 Presence of left artificial hip joint; R91.8 Other nonspecific abnormal finding of lung field; Z87.440 Personal history of urinary (tract) infections; Z90.49 Acquired absence of other specified parts of digestive tract; R19.7 Diarrhea, unspecified
CPT/HCPCS: 36415; 51702; 74018; 74176; 76770; 80048; 80053; 81001; 82272; 82550; 82803; 83690; 83735; 84484; 85025; 85027; 85610; 86704; 86706; 87086; 87324; 87340; 96361; 96374; 96375; 99285

== ENCOUNTER → 2019-10-27 | Outpatient (CLI) | payer MEDICARE, BC ==
--- NOTE | 2019-10-28 09:08 | XR ---
EXAMINATION TYPE: XR KUB DATE OF EXAM: 10/27/2019 COMPARISON: 07/10/2019 HISTORY: Pain TECHNIQUE: One view abdominal series FINDINGS: The osseous structures are intact. The bowel gas pattern is nonspecific extensive retained fecal abdoul ris throughout the colon. Postsurgical change left hip and severe arthropathy right hip. Postsurgical change lower lumbar spine. Degenerative change and diffuse osteopenia remaining lumbar spine. Surgic al clips in the right upper quadrant. Nonspecific calcifications in the pelvis. There are 3 calcifica tions overlying the left upper quadrant which could be within the left kidney in greatest diameter is 3 mm. IMPRESSION: 1. Nonspecific abdomen. Correlate for constipation. 2. Probable left-sided renal calculi (3). Greatest diameter is 3 mm.
== END | disposition home or self-care (01) ==
LOC: RAD 17:14
PROVIDERS: ATTEND Urology
DX: N20.0 Calculus of kidney (principal)
CPT/HCPCS: 74018

== ENCOUNTER → 2020-01-22 | Outpatient (CLI) | payer MEDICARE, BC ==
--- NOTE | 2020-01-22 14:56 | XR ---
EXAMINATION TYPE: XR chest 2V DATE OF EXAM: 01/22/2020 COMPARISON: 06/28/2018 TECHNIQUE: PA and lateral views submitted. HISTORY: Cough FINDINGS: I per inflation noted with bibasilar subsegmental consolidation. Elevated right hemidiaphragm. Surgic al clips in the right upper quadrant. Post surgical changes overlie the vertebral column. Arthropathy of the shoulders. No pneumothorax. IMPRESSION: 1. COPD with basilar atelectasis or infiltrate and elevated right hemidiaphragm.
== END | disposition home or self-care (01) ==
LOC: RADXRMAIN 14:37
PROVIDERS: ATTEND Family Medicine
DX: K44.9 Diaphragmatic hernia without obstruction or gangrene (principal); J44.9 Chronic obstructive pulmonary disease, unspecified
CPT/HCPCS: 71046

== ENCOUNTER → 2020-02-09 | Outpatient (CLI) | payer MEDICARE, BC ==
--- NOTE | 2020-02-09 15:12 | XR ---
EXAMINATION TYPE: XR chest 2V DATE OF EXAM: 02/09/2020 COMPARISON: Right chest x-ray 01/22/2020 HISTORY: Pneumonia, cough and congestion TECHNIQUE: Frontal and lateral views of the chest are obtained. FINDINGS: There is some improvement in aeration at the lung bases as compared to prior exam. Right h emidiaphragm remains elevated. No evident pneumothorax or pleural effusion. Surgical clips present in the right upper quadrant. Prominent lung volume with increased retrosternal airspace may be indicati ve of underlying COPD. Postop changes in the lumbar spine. IMPRESSION: Improvement in patient's airspace disease.
== END | disposition home or self-care (01) ==
LOC: RADXRMAIN 14:52
PROVIDERS: ATTEND Family Medicine
DX: J18.9 Pneumonia, unspecified organism (principal)
CPT/HCPCS: 71046

== ENCOUNTER 2020-09-03 11:51 | Inpatient (IN) | payer MEDICARE, BC ==
[2020-09-03] MEDS ORDERED: HYDROmorphone 0.5 MG/0.5 ML SYRINGE IVP ONE ×2 (12:06→12:18)
[2020-09-03] MEDS ORDERED: LIDOCAINE 1% INJ 10MG/ML (20 ML MDV) SQ ONE (12:08)
[2020-09-03] MEDS ORDERED: IV FLUID CONTINUATION 950 ML IV ONE (12:08)
[2020-09-03] MEDS ORDERED: HEPARIN SODIUM 1,000 UN/ML (10ML VL) ONE (12:21)
[2020-09-03 12:25] LABS: Basophils % (A) 0 %; Eosinophils # (A) 0.1 k/uL (0-0.7); Eosinophils % (A) 0 %; HCT 33.1 % (39.0-53.0); Lymphocytes # (A) 0.6 k/uL (1.0-4.8); Lymphocytes % (A) 4 %; MCH 31.5 pg (25.0-35.0); MCHC 33.2 g/dL (31.0-37.0); MCV 94.7 fL (80.0-100.0); Mean Platelet Volume 6.4; Monocytes # (A) 0.7 k/uL (0-1.0); Monocytes % (A) 4 %; Neutrophils # (A) 15.2 k/uL (1.3-7.7); Neutrophils % (A) 91 %; Platelet Count 382 k/uL (150-450); RDW 12.4 % (11.5-15.5); WBC 16.6 k/uL (3.8-10.6)
[2020-09-03] MEDS ORDERED: NITROGLYCERIN-D5W PMX 50 MG in DEXTROSE/WATER 1 250ML.BAG IV ONE (12:28)
[2020-09-03 12:31] LABS: INR 1.1 (<1.2); Prothrombin Time 11.2 sec (9.0-12.0)
[2020-09-03 12:37] LABS: African American GFR (CKD) >90 (>60 ml/min/1.73 sqM); Anion Gap 5 mmol/L; Blood Urea Nitrogen 14 mg/dL (9-20); Calcium 8.4 mg/dL (8.4-10.2); Carbon Dioxide 26 mmol/L (22-30); Chloride 105 mmol/L (98-107); Glucose 162 mg/dL (74-99); Non-African American GFR(CKD) 89 (>60 ml/min/1.73 sqM); Potassium 4.1 mmol/L (3.5-5.1); Sodium 136 mmol/L (137-145)
[2020-09-03] MEDS ORDERED: TICAGRELOR 90 MG TAB ONE (12:39)
[2020-09-03] MEDS ORDERED: IOPAMIDOL-370 125ML BTL INJ ONE ×2 (12:43→13:38)
[2020-09-03] MEDS ORDERED: TICAGRELOR 90 MG TAB PO ONE (12:43)
[2020-09-03] MEDS ORDERED: IOPAMIDOL-370 100ML BTL INJ ONE ×2 (12:50→13:22)
[2020-09-03] MEDS ORDERED: NITROGLYCERIN 1000MCG/10ML SYRINGE INTRACORON ONE (13:00)
[2020-09-03] MEDS ORDERED: fentaNYL (PF) 50 MCG/ML 2 ML AMP ONE (13:12)
[2020-09-03] MEDS ORDERED: fentaNYL (PF) 50 MCG/ML 2 ML AMP IV ONE (13:15)
[2020-09-03] MEDS ORDERED: MIDAZOLAM 2 MG/2 ML VIAL IV ONE (13:15)
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
[2020-09-03] MEDS ORDERED: MAG HYDROX/AL HYDROX/SIMETH 30 ML CUP PO PRN (14:02)
[2020-09-03] MEDS ORDERED: ATROPINE SULFATE 0.1 MG/ML 10ML SYRINGE IV PRN (14:02)
[2020-09-03] MEDS ORDERED: ZOLPIDEM 5 MG TAB PO PRN (14:02)
[2020-09-03] MEDS ORDERED: RX INFO: IV CONTRAST WAS GIVEN 1 EACH MISC MISCELLANE PRN (14:02)
[2020-09-03 14:49] LABS: Glucose,Whole Blood 125 mg/dL (75-99)
[2020-09-03] MEDS: NITROGLYCERIN-D5W PMX 50 MG in DEXTROSE/WATER 1 250ML.BAG IV SCH (15:00)
[2020-09-03] MEDS: SODIUM CHLORIDE 0.9% 1,000 ML IV SCH (15:00)
[2020-09-03] MEDS ORDERED: MORPHINE SULFATE 4 MG/ML SYRINGE IVP PRN (15:21)
[2020-09-03] MEDS ORDERED: MORPHINE SULFATE 4 MG/ML SYRINGE ONE (15:26)
[2020-09-03] MEDS: HYDROcodone/APAP 7.5-325MG 1 EACH TAB PO PRN ×2 (15:57→23:16)
--- NOTE | 2020-09-03 16:17 | P.CARDCATH ---
Date of Procedure: 09/03/20 Preoperative Diagnosis: Acute inferolateral wall myocardial infarction Postoperative Diagnosis: Total occlusion of the first diagonal branch. Hazy lesion within the stented area of the LAD. Mild to moderate ostial stenosis of the left main Procedure(s) Performed: Left heart cath without left ventriculography Description of Procedure: HISTORY: This is a 79-year-old gentleman who came to the emergency room with complaints of chest pain for about 4 hours prior to coming to the emergency room. The pain is precordial in nature. His EKG showed ST elevation in inferior leads and also lateral leads. Patient is advised to have cardiac catheterization and further intervention as needed. CONSENT:I have discussed the risks, benefits and alternative therapies for the above-mentioned procedure and for both sedation/analgesia as well as necessary blood product administration, if indicated, as they pertain to this patient. The patient has indicated understanding and acceptance of the risks and procedures discussed. PROCEDURE: Patient was brought to the lab in a fasting state. Patient was given some IV sedation. The right groin is infiltrated with lidocaine and right femoral artery was entered using Seldinger technique. A 6-[place] catheter was left in place and selective coronary arteriography and left ventriculography was performed. Patient tolerated the procedure well. Femoral angiogram was performed and Angio-Seal was applied for hemostasis. No immediate complications were noted and patient was transferred to [facility] in a stable condition Conscious Sedation: A she already received sedation in the emergency room. Patient was given additional Dilaudid 0.5 Fentanyl [] g Duration 20 minutes HEMODYNAMICS: Aortic pressure is about 160/70. The left ventricle end-diastolic pressure was not measured SELECTIVE CORONARY ARTERIOGRAPHY: LEFT MAIN: There is ostial stenosis of the left main with about 40-50% stenosis. THE LEFT ANTERIOR DESCENDING CORONARY ARTERY: This is a fair caliber vessel with haziness noted and within the stented area in the proximal portion. There is a first diagonal branch which shows faint flow with evidence of acute occlusion THE LEFT CIRCUMFLEX AND IS CORONARY ARTERY: This is a small to moderate caliber vessel free of occlusive disease THE RIGHT CORONARY ARTERY: Is a dominant vessel with mild diffuse plaque without any significant focal lesions LEFT VENTRICULOGRAPHY:, Not performed FINAL IMPRESSION:. Total occlusion of the first diagonal branch. Haziness within the stented area of the LAD. Moderate left main disease PLAN:. Dr. Pride's evaluating patient for possible intervention of the diagonal and LAD PROGNOSIS: Guarded
--- NOTE | 2020-09-03 18:00 | ECHOF ---
Referral Reason:EF MEASUREMENTS -------- HEIGHT: 177.8 cm WEIGHT: 59.0 kg BP: 158/88 IVSd: 1.8 cm (0.6 - 1.1) LVIDd: 3.6 cm (3.9 - 5.3) LVPWd: 1.8 cm (0.6 - 1.1) IVSs: 1.9 cm LVIDs: 2.7 cm LVPWs: 1.4 cm LAESV Index (A-L): 27.46 ml/m Ao Diam: 3.5 cm (2.0 - 3.7) AV Cusp: 2.2 cm (1.5 - 2.6) MV EXCURSION: 10.412 mm (> 18.000) MV EF SLOPE: 81 mm/s (70 - 150) EPSS: 1.1 cm MV E Home: 0.46 m/s MV DecT: 140 ms MV A Home: 0.62 m/s MV E/A Ratio: 0.75 FINDINGS -------- Sinus rhythm. This was a technically difficult study with suboptimal views. Pt. not able to turn due to recent he art cath. There is moderate concentric left ventricular hypertrophy. Overall left ventricular systolic functi on is moderate-severely impaired with, an EF between 30 - 35 %. Apical anterior LV wall motion is h ypokinetic. Apical lateral LV wall motion is hypokinetic. Apical inferior LV wall motion is hyp okinetic. Apical septum LV wall motion is hypokinetic. The RV was not well visualized. Normal LA size by volume 22+/-6 ml/m2. The right atrium was not well visualized. xx ml of Lumason was utilized for enhancement of images. Interatrial and interventricular septum intact. There is no evidence of aortic regurgitation. There is no evidence of aortic stenosis. No mitral regurgitation. Trace tricuspid regurgitation present. Unable to estimate RVSP due to inadequate TR jet spectral do ppler profile. The pulmonic valve was not well visualized. The aortic root size is normal. IVC Not well visulized. There is no pericardial effusion. CONCLUSIONS -------- 1. There is moderate concentric left ventricular hypertrophy. 2. Overall left ventricular systolic function is moderate-severely impaired with, an EF between 30 - 35 %. 3. Apical anterior LV wall motion is hypokinetic. 4. Apical lateral LV wall motion is hypokinetic. 5. Apical inferior LV wall motion is hypokinetic. 6. Apical septum LV wall motion is hypokinetic. 7. Trace tricuspid regurgitation present. BRAKE REPAIRER BUS: Silva Mendez RDCS
[2020-09-03] MEDS: MORPHINE SULFATE 4 MG/ML SYRINGE IVP PRN ×2 (18:28→21:12)
--- NOTE | 2020-09-03 18:37 | XR ---
EXAMINATION TYPE: XR chest 1V portable DATE OF EXAM: 09/03/2020 COMPARISON: 02/09/2020 HISTORY: Sternal pain TECHNIQUE: Single view FINDINGS: There is slight elevated right diaphragm. Heart size is normal. There are no hilar masses. Thoracic aorta is atheromatous. There are chest leads. IMPRESSION: No active cardiopulmonary disease. Normal heart. Mild chronic elevation of the right diap hragm.
[2020-09-03] MEDS: atenoloL 25 MG TAB PO SCH (18:46)
--- NOTE | 2020-09-03 20:14 | P.PRCINT ---
Percutaneous Coronary Int. - Percutaneous Coronary Intervention Percutaneous Coronary Intervention: PROCEDURES PERFORMED: Left coronary angiography, PCI proximal to mid LAD with overlapping 2.75 x 33mm and 3.0 x 23mm Xience TONIO, post dilated proximally with a 3.5 NC balloon, IVUS left main, kissing balloon angioplasty diagonal 1 branch INDICATION: STEMI HISTORY: Patient is a pleasant 79 year old male with history of hypertension, hyperlipidemia, CAD with prior PCI of LAD, cancer who presented with chest pain for 4 hrs and was found to have ST elevation in the inferior and lateral leads with mild AVL reciprocal changes. He had a diagnostic heart catheterization performed which showed minimal disease of the RCA and circumflex with a stent in the LAD with diffuse instent stenosis and hazy appearing proximal LAD 90% stenosis with AMANDA 0 flow of a diagonal 1 branch. The presentation was atypical with EKG changes not typical however felt possibility of distal LAD and diagonal causing inferior and lateral changes and diagonal branch did have a 100% stenosis. There was also questionable left main proximal disease however on angiography appeared 20-30%. There was a consideration of possible Takatsubo's or pericarditis however felt best to proceed with intervention of LAD. PROCEDURE: After the risks, benefits and alternatives of the above mentioned procedure explained in detail with the patient, informed consent was obtained. Patient had already been taken to the catheterization lab and prepped and draped in usual fashion. A 6-Latvian sheath had already been placed in the right femoral artery. A 6Fr CLS 3.5 catheter was used to engage the left main. Heparin was given for ACT > 250. A 0.014 BMW wire was advanced into the diagonal 1 branch and then a second 0.014 BMW wire was advanced into the distal LAD. Balloon angioplasty was performed of the diagonal 1 with a 2.0 x 12mm balloon. Balloon angioplasty was performed of the LAD with a 2.5 x 12mm balloon. Given diffuse disease of the LAD, and some hazziness past the previously placed stent the entire proximal to mid LAD was thought best covered. Next a 2.75 x 33mm Xience TONIO was placed in the mid LAD. A 3.0 x 23mm Xience TONIO was placed at the proximal LAD, overlapping. A 3.5 x 12mm NC balloon was used to post dilated the proximal to mid portion of the stent. There was continued pinching of the diagonal 1 branch and therefore the diagonal 1 was rewired and balloon angioplasty was performed with a 2.0 x 12mm compliant then noncompliant balloon. Next kissing balloon angioplasty was performed of the diagonal and mid LAD with 2.0 x 12 mm NC and 3.0 x 12mm NC balloons respectively. IVUS was performed of the left main which showed eccentric takeoff however only resulting in a 20-30% proximal stenosis with diamter 4.0mm. Patient did still have ST elevations and chest pain and there was consideration of possible Takotsubo's as presentation and bedside echo did show apical ballooning. The wires were pulled and final angiograms were performed. Preintervention there was a hazy 90% proximal LAD stenosis with dif fuse instent stenosis and mid 70% stenosis with AMANDA 3 flow. Post intervention there was AMANDA 3 flow, < 10% stenosis. Preintervention of the diagonal 1 branch there was 100% stenosis with AMANDA 0 flow and post intervention there was AMANDA 3 flow with 10% stenosis. The right femoral angiogram showed adequate anatomy and a 6Fr Angioseal was placed with hemostasis achieved. The patient tolerated the procedure well however did have continued chest pain and ST elevations. Patient was transported back to the post catheterization holding area in stable condition. Conscious Sedation: Patient was monitored under the direct supervision of vision of myself for conscious sedation using Versed and fentanyl for a total duration of 83 minutes HEMODYNAMICS: Ao: 134/78 SELECTIVE CORONARY ARTERIOGRAPHY: LEFT MAIN: The left main is a large caliber vessel which bifurcates into the LAD and circumflex. There is a proximal left main 20-30% stenosis. LEFT ANTERIOR DESCENDING CORONARY ARTERY: LAD is a large caliber vessel which wraps around to the apex. There is a proximal to mid LAD stent with a hazy 90% stenosis of the proximal LAD at the level of the diagonal 1 branch. The diagonal 1 branch has a 100% proximal stenosis with AMANDA 0 flow. There is mid 70% LAD stenosis. LEFT CIRCUMFLEX CORONARY ARTERY: Left circumflex is a moderate caliber vessel. There is a proximal circumflex 40-50% stenosis and mild luminal irregularities elsewhere. RIGHT CORONARY ARTERY: The right coronary artery was not imaged. FINAL IMPRESSION: 1. CAD as described above status post PCI proximal to mid LAD with overlapping 2.75 x 33mm and 3.0 x 23mm Xience TONIO, post dilated proximally with a 3.5 NC balloon 2. Atypical presentation with ST elevations inferiorly and CAD not correlating with EKG. ST elevations and chest pain not improved with PCI. Consider other additional etiology of ongoing chest pain such as Takotsubo's cardiomyopathy or pericarditis. PLAN: 1. Aggressive risk factor modification per most recent ACC/AHA guidelines. 2. Check 2D echo to evaluate for wall motion, evaluate for Takotsubo's cardiomyopathy. 3. Continue dual antiplatelets for 12 months.
[2020-09-03] MEDS ORDERED: ASPIRIN 81 MG PO SCH (21:00)
[2020-09-03] MEDS: TICAGRELOR 90 MG TAB PO SCH (21:10)
[2020-09-03] MEDS: ASPIRIN 81 MG PO SCH (21:10)
[2020-09-03] MEDS: ATORVASTATIN 20 MG TAB PO SCH (21:10)
[2020-09-03] MEDS ORDERED: TEMAZEPAM 30 MG CAP PO PRN (21:50)
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
[2020-09-04] MEDS: MORPHINE SULFATE 4 MG/ML SYRINGE IVP PRN ×6 (00:20→18:51)
[2020-09-04] MEDS: SODIUM CHLORIDE 0.9% 1,000 ML IV SCH ×2 (03:30→08:59)
[2020-09-04 05:13] LABS: Basophils % (A) 0 %; Eosinophils % (A) 0 %; HCT 32.8 % (39.0-53.0); HGB 10.7 gm/dL (13.0-17.5); Lymphocytes # (A) 0.8 k/uL (1.0-4.8); Lymphocytes % (A) 5 %; MCH 31.3 pg (25.0-35.0); MCHC 32.5 g/dL (31.0-37.0); MCV 96.1 fL (80.0-100.0); Mean Platelet Volume 6.3; Monocytes # (A) 0.9 k/uL (0-1.0); Monocytes % (A) 6 %; Neutrophils # (A) 14.7 k/uL (1.3-7.7); Neutrophils % (A) 89 %; Platelet Count 354 k/uL (150-450); RBC 3.42 m/uL (4.30-5.90); WBC 16.5 k/uL (3.8-10.6)
[2020-09-04 05:32] LABS: African American GFR (CKD) >90 (>60 ml/min/1.73 sqM); Anion Gap 6 mmol/L; Blood Urea Nitrogen 12 mg/dL (9-20); Calcium 8.7 mg/dL (8.4-10.2); Carbon Dioxide 29 mmol/L (22-30); Chloride 100 mmol/L (98-107); Glucose 117 mg/dL (74-99); Non-African American GFR(CKD) 88 (>60 ml/min/1.73 sqM); Potassium 4.5 mmol/L (3.5-5.1); Sodium 135 mmol/L (137-145)
[2020-09-04] MEDS: TAMSULOSIN 0.4 MG CAP.ER.24H PO SCH (08:57)
[2020-09-04] MEDS: HEPARIN SODIUM,PORCINE/PF 5,000 UNIT/0.5 ML SYRINGE SQ SCH ×2 (08:57→20:38)
[2020-09-04] MEDS: TICAGRELOR 90 MG TAB PO SCH ×2 (08:57→20:37)
[2020-09-04] MEDS: NITROGLYCERIN-D5W PMX 50 MG in DEXTROSE/WATER 1 250ML.BAG IV SCH (09:39)
[2020-09-04] MEDS: HYDROcodone/APAP 7.5-325MG 1 EACH TAB PO PRN ×2 (10:24→20:36)
--- NOTE | 2020-09-04 10:34 | P.PN ---
Subjective Progress Note Date: 09/04/20 Chest pain no abdominal pain no shortness of breath. Remains afebrile and no dizziness. Objective - Vital Signs Vital signs: Vital Signs Temp 98.1 F 09/04/20 08:00 Pulse 75 09/04/20 09:00 Resp 20 09/04/20 09:00 BP 132/79 09/04/20 09:00 Pulse Ox 97 09/04/20 09:00 Intake & Output 09/03/20 09/04/20 09/04/20 18:59 06:59 18:59 Intake Total 759 1080 590 Output Total 575 690 380 Balance 184 390 210 Weight 59.24 kg 57.6 kg Intake: IV 414 Intake, IV Titration 345 1080 490 Amount Nitroglycerin-D5w Pmx 50 45 180 265 mg In Dextrose/Water 1 250ml.bag @ Titrate IV . Q0M [facility] Rx#:[id number] Sodium Chloride 0.9% 1, 300 900 225 000 ml @ 75 mls/hr IV . [id number] [facility] Rx#:[id number] Oral 100 Output: Urine 575 690 380 Other: Voiding Method Urinal Urinal - Exam Constitutional: No acute distress, conversant, pleasant Eyes: Anicteric sclerae, moist conjunctiva, no lid-lag, PERRLA ENMT: NC/AT,Oropharynx clear Neck:Supple, FROM, no masses, or JVD Lungs: Clear to auscultation, Clear to percussion, Normal respiratory effort, no accessory muscle use Cardiovascular: Heart regular in rate and rhythm, No murmurs, gallops, or rubs no peripheral edema Abdominal: Soft Nontender, nom distended, no guarding, no rebound or rigidity, Normoactive bowel sounds No hepatomegaly, No splenomegaly, No palpable mass No abdominal wall hernia noted Skin: Normal temperature, tone, texture, turgor, No induration No subcutaneous nodules, No rash, lesions, No ulcers Extremities:No digital cyanosis No clubbing, Pedal pulses intact and symmetrical Radial pulses intact and symmetrical Normal gait and station, No calf tenderness Psychiatric: Alert and oriented to person, place and time, Appropriate affect Intact judgement Neuro: Muscles Strength 5/5 in all 4 extremities, Sensation to light touch grossly present throughout, Cranial nerves II-XII grossly intact. No focal sensory deficits - Labs CBC & Chem 7: 09/04/20 04:42 09/04/20 04:42 Labs: Abnormal Lab Results - Last 24 Hours (Table) 09/03/20 09/03/20 09/03/20 Range/Units 12:15 12:15 12:15 WBC 16.6 H (3.8-10.6) k/uL RBC 3.50 L (4.30-5.90) m/uL Hgb 11.0 L (13.0-17.5) gm/dL Hct 33.1 L (39.0-53.0) % Neutrophils # 15.2 H (1.3-7.7) k/uL Lymphocytes # 0.6 L (1.0-4.8) k/uL Sodium 136 L (137-145) mmol/L Glucose 162 H (74-99) mg/dL POC Glucose (mg/dL) (75-99) mg/dL Troponin I 0.089 H* (0.000-0.034) ng/mL 09/03/20 09/03/20 09/04/20 Range/Units 14:48 18:17 00:32 WBC (3.8-10.6) k/uL RBC (4.30-5.90) m/uL Hgb (13.0-17.5) gm/dL Hct (39.0-53.0) % Neutrophils # (1.3-7.7) k/uL Lymphocytes # (1.0-4.8) k/uL Sodium (137-145) mmol/L Glucose (74-99) mg/dL POC Glucose (mg/dL) 125 H (75-99) mg/dL Troponin I 68.400 H* 61.100 H* (0.000-0.034) ng/mL 09/04/20 09/04/20 Range/Units 04:42 04:42 WBC 16.5 H (3.8-10.6) k/uL RBC 3.42 L (4.30-5.90) m/uL Hgb 10.7 L (13.0-17.5) gm/dL Hct 32.8 L (39.0-53.0) % Neutrophils # 14.7 H (1.3-7.7) k/uL Lymphocytes # 0.8 L (1.0-4.8) k/uL Sodium 135 L (137-145) mmol/L Glucose 117 H (74-99) mg/dL POC Glucose (mg/dL) (75-99) mg/dL Troponin I (0.000-0.034) ng/mL Assessment and Plan Plan: STEMI s/p stent : Cardiology following on aspirin atenolol atorvastatin and brilinta ischemic cardiomyopathy with chronic systolic heart failure fraction 30% h/o CAD Cardiology evaluating for LifeVest chronic low back pain continue with pain control with narcotics Essential hypertension stable monitor BPH: Continue Flomax Insomnia: Restoril Leukocytosis: WBC 16,000 likely reactive, monitor. CODE STATUS:full code DVT prophylaxis: heparin sc tid Discussed with: Patient Anticipated discharge place: home in 2-3 days
[2020-09-04 12:21] VITALS: BMI 18.2
--- NOTE | 2020-09-04 15:42 | P.PN ---
Subjective Progress Note Date: 09/04/20 This is a 79-year-old gentleman was admitted to the hospital with complaints of chest pain and inferior wall myocardial infarction. Patient had a cardiac catheterization and subsequently angioplasty and stent placement of the diagonal and the LAD. Patient remains stable today. Complaints of mild chest discomfort on deep breathing. Remains since sinus mechanism. Denies any shortness of breath. Echo Cardigan showed impaired LV function with an ejection fraction about 35%. Lungs are clear. Heart is regular. We'll continue his current medical therapy. His puncture site is healing well. If his LV function remains poor, may consider LifeVest before discharge Objective - Vital Signs Vital signs: Vital Signs Temp 98 F 09/04/20 12:00 Pulse 70 09/04/20 14:00 Resp 20 09/04/20 14:00 BP 142/99 09/04/20 14:00 Pulse Ox 99 09/04/20 14:00 Intake & Output 09/03/20 09/04/20 09/04/20 18:59 06:59 18:59 Intake Total 759 1080 1115 Output Total 575 690 830 Balance 184 390 285 Weight 59.24 kg 57.6 kg 57.6 kg Intake: IV 414 Intake, IV Titration 345 1080 865 Amount Nitroglycerin-D5w Pmx 50 45 180 265 mg In Dextrose/Water 1 250ml.bag @ Titrate IV . Q0M [facility] Rx#:[id number] Sodium Chloride 0.9% 1, 300 900 600 000 ml @ 75 mls/hr IV . [id number] [facility] Rx#:[id number] Oral 250 Output: Urine 575 690 830 Other: Voiding Method Urinal Urinal Urinal - Exam GENERAL EXAM: Patient is alert and oriented and doesn't appear to be in any acute distress HEENT: Normocephalic. Normal reaction of pupils, equal size, normal range of extraocular motion. No erythema or exudates in the throat. NECK: No masses, no nuchal rigidity. CHEST: No chest wall deformity. LUNGS: Equal air entry with no crackles or wheeze. HEART: S1 and S2 normal with no audible mumurs or gallops. Regular rhythm, fem orals equal on both sides.. ABDOMEN: No hepatosplenomegaly, normal bowel sounds, no guarding or rigidity. SKIN: No rashes CENTRAL NERVOUS SYSTEM: No focal deficits. EXTREMITIES: No cyanosis, clubbing or edema. - Labs CBC & Chem 7: 09/04/20 04:42 09/04/20 04:42 Labs: Abnormal Lab Results - Last 24 Hours (Table) 09/03/20 09/04/20 09/04/20 Range/Units 18:17 00:32 04:42 WBC 16.5 H (3.8-10.6) k/uL RBC 3.42 L (4.30-5.90) m/uL Hgb 10.7 L (13.0-17.5) gm/dL Hct 32.8 L (39.0-53.0) % Neutrophils # 14.7 H (1.3-7.7) k/uL Lymphocytes # 0.8 L (1.0-4.8) k/uL Sodium (137-145) mmol/L Glucose (74-99) mg/dL Troponin I 68.400 H* 61.100 H* (0.000-0.034) ng/mL 09/04/20 Range/Units 04:42 WBC (3.8-10.6) k/uL RBC (4.30-5.90) m/uL Hgb (13.0-17.5) gm/dL Hct (39.0-53.0) % Neutrophils # (1.3-7.7) k/uL Lymphocytes # (1.0-4.8) k/uL Sodium 135 L (137-145) mmol/L Glucose 117 H (74-99) mg/dL Troponin I (0.000-0.034) ng/mL Assessment and Plan (1) STEMI (ST elevation myocardial infarction) Current Visit: Yes Status: Acute Code(s): I21.3 - ST ELEVATION (STEMI) MYOCARDIAL INFARCTION OF [facility] SITE SNOMED Code(s): 59383589 (2) Essential hypertension Current Visit: Yes Status: Acute Code(s): I10 - ESSENTIAL (PRIMARY) HYPERTENSION SNOMED Code(s): 63078117 (3) Dyslipidemia Current Visit: Yes Status: Acute Code(s): E78.5 - HYPERLIPIDEMIA, UNSPECIFIED SNOMED Code(s): 057828608 (4) Ischemic cardiomyopathy Current Visit: Yes Status: Acute Code(s): I25.5 - ISCHEMIC CARDIOMYOPATHY SNOMED Code(s): 955317868 Plan: Continue current medical therapy. Increase activity. May transfer to telemetry unit tomorrow. We will consider LifeVest before discharge
[2020-09-04] MEDS: ATORVASTATIN 20 MG TAB PO SCH (20:36)
[2020-09-04] MEDS: atenoloL 25 MG TAB PO SCH (20:37)
[2020-09-04] MEDS: ASPIRIN 81 MG PO SCH (20:38)
[2020-09-04] MEDS: TEMAZEPAM 15 MG CAP PO PRN (20:44)
[2020-09-05] MEDS: NITROGLYCERIN-D5W PMX 50 MG in DEXTROSE/WATER 1 250ML.BAG IV SCH (03:50)
[2020-09-05 04:04] LABS: Basophils % (A) 0 %; Eosinophils # (A) 0.1 k/uL (0-0.7); Eosinophils % (A) 1 %; HCT 26.7 % (39.0-53.0); Lymphocytes # (A) 0.7 k/uL (1.0-4.8); Lymphocytes % (A) 5 %; MCH 32.6 pg (25.0-35.0); MCHC 34.2 g/dL (31.0-37.0); MCV 95.2 fL (80.0-100.0); Mean Platelet Volume 6.5; Monocytes # (A) 1.1 k/uL (0-1.0); Monocytes % (A) 7 %; Neutrophils # (A) 12.8 k/uL (1.3-7.7); Platelet Count 370 k/uL (150-450); RDW 12.3 % (11.5-15.5); WBC 14.9 k/uL (3.8-10.6)
[2020-09-05 04:26] LABS: ALT 16 U/L (4-49); AST 112 U/L (17-59); African American GFR (CKD) >90 (>60 ml/min/1.73 sqM); Albumin 2.8 g/dL (3.5-5.0); Alkaline Phosphatase 70 U/L (38-126); Anion Gap 5 mmol/L; Blood Urea Nitrogen 14 mg/dL (9-20); Calcium 8.4 mg/dL (8.4-10.2); Carbon Dioxide 25 mmol/L (22-30); Chloride 105 mmol/L (98-107); Glucose 105 mg/dL (74-99); Non-African American GFR(CKD) >90 (>60 ml/min/1.73 sqM); Sodium 135 mmol/L (137-145); Total Bilirubin 0.5 mg/dL (0.2-1.3); Total Protein 5.9 g/dL (6.3-8.2)
[2020-09-05 04:37] LABS: Potassium 3.9 mmol/L (3.5-5.1)
[2020-09-05] MEDS: MORPHINE SULFATE 4 MG/ML SYRINGE IVP PRN ×4 (04:48→18:33)
[2020-09-05 05:52] LABS: HGB 9.1 gm/dL (13.0-17.5)
[2020-09-05] MEDS: SPIRONOLACTONE 25 MG TAB PO SCH (09:05)
[2020-09-05] MEDS: TAMSULOSIN 0.4 MG CAP.ER.24H PO SCH (09:07)
[2020-09-05] MEDS: TICAGRELOR 90 MG TAB PO SCH ×2 (09:07→21:22)
[2020-09-05] MEDS: HEPARIN SODIUM,PORCINE/PF 5,000 UNIT/0.5 ML SYRINGE SQ SCH ×2 (09:07→21:22)
[2020-09-05] MEDS: lisinopriL 5 MG TAB PO SCH (09:07)
[2020-09-05] MEDS: SODIUM CHLORIDE 0.9% 1,000 ML IV SCH (09:09)
[2020-09-05] MEDS: HYDROcodone/APAP 7.5-325MG 1 EACH TAB PO PRN ×2 (09:20→22:23)
--- NOTE | 2020-09-05 09:55 | P.PN ---
Subjective Progress Note Date: 09/05/20 Chest pain no abdominal pain no shortness of breath. In bed, not in distress. Objective - Vital Signs Vital signs: Vital Signs Temp 97.5 F L 09/05/20 08:00 Pulse 62 09/05/20 09:00 Resp 16 09/05/20 09:00 BP 127/84 09/05/20 09:00 Pulse Ox 96 09/05/20 09:00 Intake & Output 09/04/20 09/05/20 09/05/20 18:59 06:59 18:59 Intake Total 1615 1150 307.25 Output Total 1130 1025 180 Balance 485 125 127.25 Weight 57.6 kg 54.1 kg Intake: Intake, IV Titration 1165 1150 307.25 Amount Nitroglycerin-D5w Pmx 50 265 250 82.25 mg In Dextrose/Water 1 250ml.bag @ Titrate IV . Q0M [facility] Rx#:[id number] Sodium Chloride 0.9% 1, 900 900 225 000 ml @ 75 mls/hr IV . [id number] [facility] Rx#:[id number] Oral 450 Output: Urine 1130 1025 180 Other: Voiding Method Urinal Urinal # Bowel Movements 1 - Exam Constitutional: No acute distress, conversant, pleasant Eyes: Anicteric sclerae, moist conjunctiva, no lid-lag, PERRLA ENMT: NC/AT,Oropharynx clear Neck:Supple, FROM, no masses, or JVD Lungs: Clear to auscultation, Clear to percussion, Normal respiratory effort, no accessory muscle use Cardiovascular: Heart regular in rate and rhythm, No murmurs, gallops, or rubs no peripheral edema Abdominal: Soft Nontender, non distended, no guarding, no rebound or rigidity, Normoactive bowel sounds Skin: Normal temperature, tone, texture, turgor, No induration No subcutaneous nodules, No rash, lesions, No ulcers Extremities:No digital cyanosis No clubbing, Pedal pulses intact and symmetrical Radial pulses intact and symmetrical Normal gait and station, No calf tenderness Psychiatric: Alert and oriented to person, place and time, Appropriate affect Intact judgement Neuro: Muscles Strength 5/5 in all 4 extremities Cranial nerves II-XII grossly intact. No focal sensory deficits - Labs CBC & Chem 7: 09/05/20 03:16 09/05/20 03:16 Labs: Abnormal Lab Results - Last 24 Hours (Table) 09/05/20 09/05/20 Range/Units 03:16 03:16 WBC 14.9 H (3.8-10.6) k/uL RBC 2.80 L (4.30-5.90) m/uL Hgb 9.1 L D (13.0-17.5) gm/dL Hct 26.7 L (39.0-53.0) % Neutrophils # 12.8 H (1.3-7.7) k/uL Lymphocytes # 0.7 L (1.0-4.8) k/uL Monocytes # 1.1 H (0-1.0) k/uL Sodium 135 L (137-145) mmol/L Creatinine 0.55 L (0.66-1.25) mg/dL Glucose 105 H (74-99) mg/dL AST 112 H (17-59) U/L Total Protein 5.9 L (6.3-8.2) g/dL Albumin 2.8 L (3.5-5.0) g/dL Assessment and Plan Plan: STEMI s/p stent : Cardiology following on aspirin atenolol atorvastatin and brilinta ischemic cardiomyopathy with chronic systolic heart failure fraction 30% h/o CAD Cardiology evaluating for LifeVest chronic low back pain continue with pain control with narcotics Essential hypertension stable monitor BPH: Continue Flomax Insomnia: Restoril Leukocytosis: WBC 16,000 likely reactive, monitor. Decreased down to 14,000 CODE STATUS:full code DVT prophylaxis: heparin sc tid Discussed with: Patient Anticipated discharge place: home in 1-2 days
--- NOTE | 2020-09-05 13:09 | P.PN ---
Subjective Progress Note Date: 09/05/20 This is a 79-year-old gentleman was admitted to the hospital with complaints of chest pain and inferior wall myocardial infarction. Patient had a cardiac catheterization and subsequently angioplasty and stent placement of the diagonal and the LAD. Patient remains stable today. Complaints of mild chest discomfort on deep breathing. Remains since sinus mechanism. Denies any shortness of breath. Echo Cardigan showed impaired LV function with an ejection fraction about 35%. Lungs are clear. Heart is regular. We'll continue his current medical therapy. His puncture site is healing well. If his LV function remains poor, may consider LifeVest before discharge. 09/05/2020: This patient is status post stent placement of the left anterior descending coronary artery and the diagonal branch. He is feeling much better. Denies any chest pain, shortness breath or dizziness. He is being taken off nitroglycerin drip. Lungs are clear. Heart is irregular. Patient is being transferred to telemetry unit. Increase activity as tolerated. Possible discharge within next 24-48 hours Objective - Vital Signs Vital signs: Vital Signs Temp 97.5 F L 09/05/20 08:00 Pulse 62 09/05/20 11:00 Resp 17 09/05/20 11:00 BP 121/85 09/05/20 11:00 Pulse Ox 98 09/05/20 11:00 Intake & Output 09/04/20 09/05/20 09/05/20 18:59 06:59 18:59 Intake Total 1615 1150 472.05 Output Total 1130 1025 280 Balance 485 125 192.05 Weight 57.6 kg 54.1 kg Intake: Intake, IV Titration 1165 1150 472.05 Amount Nitroglycerin-D5w Pmx 50 265 250 97.05 mg In Dextrose/Water 1 250ml.bag @ Titrate IV . Q0M [facility] Rx#:[id number] Sodium Chloride 0.9% 1, 900 900 375 000 ml @ 75 mls/hr IV . [id number] [facility] Rx#:[id number] Oral 450 Output: Urine 1130 1025 280 Other: Voiding Method Urinal Urinal Urinal # Bowel Movements 1 - Exam GENERAL EXAM: Patient is alert and oriented and doesn't appear to be in any ac cora distress HEENT: Normocephalic. Normal reaction of pupils, equal size, normal range of extraocular motion. No erythema or exudates in the throat. NECK: No masses, no nuchal rigidity. CHEST: No chest wall deformity. LUNGS: Equal air entry with no crackles or wheeze. HEART: S1 and S2 normal with no audible mumurs or gallops. Regular rhythm, femorals equal on both sides.. ABDOMEN: No hepatosplenomegaly, normal bowel sounds, no guarding or rigidity. SKIN: No rashes CENTRAL NERVOUS SYSTEM: No focal deficits. EXTREMITIES: No cyanosis, clubbing or edema. - Labs CBC & Chem 7: 09/05/20 03:16 09/05/20 03:16 Labs: Abnormal Lab Results - Last 24 Hours (Table) 09/05/20 09/05/20 Range/Units 03:16 03:16 WBC 14.9 H (3.8-10.6) k/uL RBC 2.80 L (4.30-5.90) m/uL Hgb 9.1 L D (13.0-17.5) gm/dL Hct 26.7 L (39.0-53.0) % Neutrophils # 12.8 H (1.3-7.7) k/uL Lymphocytes # 0.7 L (1.0-4.8) k/uL Monocytes # 1.1 H (0-1.0) k/uL Sodium 135 L (137-145) mmol/L Creatinine 0.55 L (0.66-1.25) mg/dL Glucose 105 H (74-99) mg/dL AST 112 H (17-59) U/L Total Protein 5.9 L (6.3-8.2) g/dL Albumin 2.8 L (3.5-5.0) g/dL Assessment and Plan (1) STEMI (ST elevation myocardial infarction) Current Visit: Yes Status: Acute Code(s): I21.3 - ST ELEVATION (STEMI) MY OCARDIAL INFARCTION OF UNS SITE SNOMED Code(s): 88641841 (2) Essential hypertension Current Visit: Yes Status: Acute Code(s): I10 - ESSENTIAL (PRIMARY) HYPERTENSION SNOMED Code(s): 44968140 (3) Dyslipidemia Current Visit: Yes Status: Acute Code(s): E78.5 - HYPERLIPIDEMIA, UNSPECIFIED SNOMED Code(s): 203390058 (4) Ischemic cardiomyopathy Current Visit: Yes Status: Acute Code(s): I25.5 - ISCHEMIC CARDIOMYOPATHY SNOMED Code(s): 082319467 Plan: Patient remains stable. No arrhythmias. Lungs are clear. Heart is regular. We will discontinue IV nitroglycerin. Transfer to telemetry unit. Increase activity
[2020-09-05] MEDS: atenoloL 25 MG TAB PO SCH (21:22)
[2020-09-05] MEDS: ATORVASTATIN 20 MG TAB PO SCH (21:22)
[2020-09-05] MEDS: ASPIRIN 81 MG PO SCH (21:22)
[2020-09-05] MEDS: TEMAZEPAM 15 MG CAP PO PRN (22:22)
[2020-09-06 01:58] VITALS: TEMP 98.4
[2020-09-06] MEDS: MORPHINE SULFATE 4 MG/ML SYRINGE IVP PRN (06:59)
[2020-09-06] MEDS: lisinopriL 5 MG TAB PO SCH (09:12)
[2020-09-06] MEDS: TAMSULOSIN 0.4 MG CAP.ER.24H PO SCH (09:12)
[2020-09-06] MEDS: TICAGRELOR 90 MG TAB PO SCH (09:12)
[2020-09-06] MEDS: SPIRONOLACTONE 25 MG TAB PO SCH (09:12)
[2020-09-06] MEDS: HEPARIN SODIUM,PORCINE/PF 5,000 UNIT/0.5 ML SYRINGE SQ SCH (09:12)
[2020-09-06 09:19] VITALS: RESP 16
[2020-09-06] MEDS ORDERED: APIXABAN 2.5 MG TABLET PO SCH (10:15)
[2020-09-06] MEDS ORDERED: atenoloL 25 MG TAB PO SCH (10:15)
[2020-09-06] MEDS ORDERED: APIXABAN 5 MG TAB PO SCH (10:15)
--- NOTE | 2020-09-06 11:07 | ECHOF ---
Referral Reason:LV function and wall motion abnormalities MEASUREMENTS -------- HEIGHT: 177.8 cm WEIGHT: 54.0 kg BP: 112/51 IVSd: 1.1 cm (0.6 - 1.1) LVIDd: 4.7 cm (3.9 - 5.3) LVPWd: 1.2 cm (0.6 - 1.1) IVSs: 1.2 cm LVIDs: 2.8 cm LVPWs: 1.5 cm FINDINGS -------- Sinus rhythm. This was a technically difficult study with suboptimal views. Limited Study The left ventricular size is normal. There is mild concentric left ventricular hypertrophy. Overa ll left ventricular systolic function is moderately impaired with, an EF between 35 - 40 %. Holt Hy pokinesis. 5.0mg of Lumason was utilized for enhancement of images There is a 0.9 x 0.6cm thombus in the LV apex. There is no pericardial effusion. CONCLUSIONS -------- 1. The left ventricular size is normal. 2. There is mild concentric left ventricular hypertrophy. 3. Overall left ventricular systolic function is moderately impaired with, an EF between 35 - 40 %. 4. Holt Hypokinesis. 5. 5.0mg of Lumason was utilized for enhancement of images 6. There is a 0.9 x 0.6cm thombus in the LV apex. COMPUTER TECHNOLOGIST: Silva Mendez ROBBI
--- NOTE | 2020-09-06 12:10 | P.PN ---
Subjective This is a pleasant 79-year-old male past medical history significant for cancer, coronary artery disease with history of PCI, hypertension, hyperlipidemia. He follows in the office with Dr. Murphy. We have been asked to see in consultation for STEMI. EKG revealed sinus rhythm with inferior wall DE, heart rate 82. 09/03/20 Patient underwent cardiac cath and PCI proximal to mid LAD. Echocardiogram revealed EF between 30-35%, LV wall motion hypokinesis. 09/06/20: Patient transferred from ICU to stepdown yesterday. Patient seen and examined at bedside, no acute distress. Able to be discharged home. Patient denies chest pain, shortness of breath, palpitations, lightheadedness, presyncope. He does endorse chronic back pain. Telemetry reviewed patient in sinus mechanism heart rate 60s. Patient currently being maintained on aspirin 81 mg daily, atenolol 25 mg daily, atorvastatin 20 mg nightly, lisinopril 5 mg daily, spironolactone 12.5 mg daily, Brilinta 90 mg twice a day Limited echo obtained today revealed EF between 35-40%, apex hypokinesis, and a new 0.90.6 cm thrombus in the LV apex. GENERAL: In no acute distress. NECK: Supple without JVD or thyromegaly. LUNGS: Breath sounds clear to auscultation bilaterally. Respiration equal and unlabored. No wheezes, rales or rhonchi. HEART: Regular rate and rhythm without murmurs, rubs or gallops. S1 and S2 heard. EXTREMITIES: Normal range of motion, no edema. No clubbing or cyanosis. Peripheral pulses intact. ASSESSMENT STEMI s/p PCI proximal to mid LAD on 09/03/20 Ischemic cardiomyopathy EF 35-40% LV Thrombus Hypertension Coronary artery disease with prior history of PCI Dyslipidemia PLAN -We will start eliquis 2.5mg BID for new LV thrombus, will check coverage of medication with case management -Discontinue Aspirin -Increase atorvastatin to 40mg daily -Continue Brilinta 90mg BID -Continue atenolol 25mg daily, lisinopril 5mg daily, spironolactone 12.5mg daily -Patient is adament on going home today. We are ok with patient going home today if medication covered, and with close follow up in clinic. -Patient will follow up with Dr. Murphy in the outpatient office with 1 week. Nurse Practitioner note has been reviewed, I agree with a documented findings and plan of care. Patient was seen and examined. Objective - Vital Signs Vital signs: Vital Signs Temp 98.4 F 09/06/20 04:00 Pulse 60 09/06/20 04:00 Resp 18 09/06/20 04:00 BP 112/51 09/06/20 04:00 Pulse Ox 100 09/06/20 04:00 Intake & Output 09/05/20 09/06/20 09/06/20 18:59 06:59 18:59 Intake Total 712.05 Output Total 280 1225 175 Balance 432.05 -1225 -175 Intake: Intake, IV Titration 472.05 Amount Nitroglycerin-D5w Pmx 50 97.05 mg In Dextrose/Water 1 250ml.bag @ Titrate IV . Q0M [facility] Rx#:[id number] Sodium Chloride 0.9% 1, 375 000 ml @ 75 mls/hr IV . [id number] [facility] Rx#:[id number] Oral 240 Output: Urine 280 1225 175 Other: Voiding Method Urinal Urinal # Voids 2 1 1 # Bowel Movements 1 - Labs CBC & Chem 7: 09/05/20 03:16 09/05/20 03:16
--- NOTE | 2020-09-06 12:26 | P.DS ---
Providers Date of admission: 09/03/20 11:52 Expected date of discharge: 09/06/20 Attending physician: Bruce Funes Consults: 09/03/20 14:02 Consult Physician Routine Consulting Provider: Cardiology Colten Consult Reason/Comments: Post Interventional patient Do you want consulting provider notified?: Already Contacted 09/03/20 18:11 Consult Physician Routine Consulting Provider: Nidia Jolley Consult Reason/Comments: medical management Do you want consulting provider notified?: Yes Primary care physician: Latha Burt Hospital Course: HPI: 79 year old male with hypertension , hyperlipidemia ,CAD s/p PCI patient suddenly experienced central chest pain 7/10 in severity , crushing, pain , non radiating, no associated nausea, vomiting, SOB, diaphoresis , diz ziness. happened suddenly while preparing breakfast. he waited for an hour, resting, before he decided to call EMS as he was not improving, he did not try to take any medications while waiting. he does report history of CAD. he has been experiencing easy fatigability over the past week or two . again denies any associated CP or SOB. he denies any coughing, URI symptoms, nausea vomiting or other GI symptoms enroute with EMS, he received aspirin , nitro , and fentanyl . in the ED< EKG suggestive of inferolateral STEMI he was rushed to the slabber light, and found to have 100% occlusion of diagonal branch , proximal LAD with 90%, and diffuse LAD intent restenosis , he stents were inserted. cardiology is also , entertaining the possible diagnosis of takatsubo's syndrome , patient does reoprt going through unusual stress with his sister in law health situation patient currently feels better, denies any ongoing chest pain echocardiogram showed LVEF of 30-35% trops up to 68 WBC 16 Hospital course and treatment: Patient was admitted to the hospital with chest pain, he was found to have an ST segment elevation RI. He was evaluated by cardiology. 2-D echo was obtained was consistent with EF 35-40%. He underwent cardiac catheterization and had PCI proximal to mid LAD. Medical management was continued, medications adjusted. He was found to have an LV thrombus. Chest pain resolved. He feels much better. He had leukocytosis of 16,000 which improved to 14,000 prior to discharge. He continued to gradually improve and by the time of discharge he feels much better. He was cleared by cardiology for discharge. Cardiology considering LifeVest. He'll follow up with cardiology as an outpatient Diagnoses upon discharge: STEMI s/p stent ischemic cardiomyopathy with chronic systolic heart failure fraction 35-40% h/o CAD LV thrombus chronic low back pain Essential hypertension stable monitor BPH Insomnia Leukocytosis Patient Condition at Discharge: Stable Plan - Discharge Summary New Discharge Prescriptions: New Apixaban [Eliquis] 2.5 mg PO BID 30 Days #60 tab Spironolactone [Aldactone] 12.5 mg PO DAILY 30 Days #30 tab lisinopriL [Zestril] 5 mg PO DAILY 30 Days #30 tab Tamsulosin [Flomax] 0.4 mg PO DAILY 30 Days #30 cap.er.24h Ticagrelor [Brilinta] 90 mg PO BID 30 Days #60 tab Apixaban [Eliquis] 2.5 mg PO BID tablet Continue Temazepam [Restoril] 30 mg PO HS oxyCODONE HCL [oxyCODONE HCL (IR)] 60 mg PO BID atenoloL [Atenolol] 25 mg PO HS Multivitamins, Thera [Multivitamin (formulary)] 2 tab PO DAILY Simvastatin 40 mg PO HS Cholecalciferol [Vitamin D3 (25 Mcg = 1000 Iu)] 25 mcg PO DAILY oxyCODONE HCL/ACETAMINOPHEN [Percocet 7.5-325 mg] 1 tab PO BID PRN PRN Reason: Pain Discontinued Aspirin 162 mg PO HS Discharge Medication List Temazepam [Restoril] 30 mg PO HS 02/23/14 [History] Multivitamins, Thera [Multivitamin (formulary)] 2 tab PO DAILY 04/02/19 [History] atenoloL [Atenolol] 25 mg PO HS 04/02/19 [History] oxyCODONE HCL [oxyCODONE HCL (IR)] 60 mg PO BID 04/02/19 [History] Simvastatin 40 mg PO HS 07/10/19 [History] Cholecalciferol [Vitamin D3 (25 Mcg = 1000 Iu)] 25 mcg PO DAILY 09/03/20 [History] oxyCODONE HCL/ACETAMINOPHEN [Percocet 7.5-325 mg] 1 tab PO BID PRN 09/03/20 [History] Apixaban [Eliquis] 2.5 mg PO BID tablet 09/06/20 [Rx] Apixaban [Eliquis] 2.5 mg PO BID 30 Days #60 tab 09/06/20 [Rx] Spironolactone [Aldactone] 12.5 mg PO DAILY 30 Days #30 tab 09/06/20 [Rx] Tamsulosin [Flomax] 0.4 mg PO DAILY 30 Days #30 cap.er.24h 09/06/20 [Rx] Ticagrelor [Brilinta] 90 mg PO BID 30 Days #60 tab 09/06/20 [Rx] lisinopriL [Zestril] 5 mg PO DAILY 30 Days #30 tab 09/06/20 [Rx] Follow up Appointment(s)/Referral(s): Tim Murphy MD [STAFF PHYSICIAN] - 1 Week Latha Burt MD [Primary Care Provider] - 1-2 days Discharge Disposition: HOME SELF-CARE
[2020-09-06] MEDS: HYDROcodone/APAP 7.5-325MG 1 EACH TAB PO PRN (12:27)
[2020-09-06 12:30] VITALS: BP 113/67; PULSE 64
[2020-09-06] MEDS ORDERED: ATORVASTATIN 40 MG TAB PO SCH (21:00)
== END 2020-09-06 15:29 | disposition home or self-care (01) | DRG 247 ==
LOC: EC 11:51 → 2SICU 11:51 → EC 14:06 → 2SICU 14:06 → EDSTATUS 15:08 → 3SCARD 09-05 14:44
PROVIDERS: ADMIT Internal Medicine Clinical Cardiac Electrophysiology; ATTEND Internal Medicine Clinical Cardiac Electrophysiology
PROC: 027035Z Dilation of Coronary Artery, One Artery with Two Drug-eluting Intraluminal Devices, Percutaneous Approach (ICD-10-PCS; principal; 2020-09-03 12:50)
PROC: 4A023N7 Measurement of Cardiac Sampling and Pressure, Left Heart, Percutaneous Approach (ICD-10-PCS; 2020-09-03 12:50)
PROC: B2111ZZ Fluoroscopy of Multiple Coronary Arteries using Low Osmolar Contrast (ICD-10-PCS; 2020-09-03 12:50)
DX: I21.19 ST elevation (STEMI) myocardial infarction involving other coronary artery of inferior wall (principal); I50.22 Chronic systolic (congestive) heart failure; N12 Tubulo-interstitial nephritis, not specified as acute or chronic; N13.30 Unspecified hydronephrosis; E78.5 Hyperlipidemia, unspecified; I11.0 Hypertensive heart disease with heart failure; I25.10 Atherosclerotic heart disease of native coronary artery without angina pectoris; Z95.5 Presence of coronary angioplasty implant and graft; D72.829 Elevated white blood cell count, unspecified; G89.29 Other chronic pain; M54.5 Low back pain; N40.0 Benign prostatic hyperplasia without lower urinary tract symptoms; G47.00 Insomnia, unspecified; I48.91 Unspecified atrial fibrillation; Z86.711 Personal history of pulmonary embolism; M19.90 Unspecified osteoarthritis, unspecified site; N42.9 Disorder of prostate, unspecified; V89.2XXS Person injured in unspecified motor-vehicle accident, traffic, sequela; Z85.46 Personal history of malignant neoplasm of prostate; Z87.442 Personal history of urinary calculi; G89.21 Chronic pain due to trauma; M25.552 Pain in left hip; R20.0 Anesthesia of skin; R20.2 Paresthesia of skin; Z96.642 Presence of left artificial hip joint; H26.9 Unspecified cataract; I83.90 Asymptomatic varicose veins of unspecified lower extremity; K40.90 Unilateral inguinal hernia, without obstruction or gangrene, not specified as recurrent; Z87.891 Personal history of nicotine dependence; Z82.49 Family history of ischemic heart disease and other diseases of the circulatory system; Z79.82 Long term (current) use of aspirin; Z79.899 Other long term (current) drug therapy; I25.5 Ischemic cardiomyopathy; I25.2 Old myocardial infarction; Z80.3 Family history of malignant neoplasm of breast; Z79.02 Long term (current) use of antithrombotics/antiplatelets
CPT/HCPCS: 36415; 71045; 80048; 80053; 84484; 85025; 85610; 92921; 92978; 93306; 93308; 93458

== ENCOUNTER 2020-12-07 17:55 | Emergency (ER) | payer MEDICARE, BC ==
[2020-12-07 18:35] VITALS: TEMP 97.8
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
[2020-12-07 22:15] VITALS: BP 139/97; PULSE 53; RESP 20
[2020-12-07 22:33] LABS: Appearance,Urine Clear (Clear); Bacteria,Urine Occasional /hpf; Bilirubin,Urine Negative (Negative); Blood,Urine Large (Negative); Color,Urine Yellow; Glucose,Urine (UA) Negative (Negative); Ketones,Urine Negative (Negative); Leukocyte Esterase,Urine Trace (Negative); Nitrite,Urine Negative (Negative); Protein,Urine 1+ (Negative); RBC,Urine >182 /hpf (0-5); Specific Gravity,Urine 1.012 (1.001-1.035); Urobilinogen,Urine <2.0 mg/dL (<2.0); WBC,Urine 10 /hpf (0-5)
== END 2020-12-07 22:05 | disposition home or self-care (01) ==
LOC: EC 17:55
DX: R33.9 Retention of urine, unspecified (principal); N39.0 Urinary tract infection, site not specified; I48.91 Unspecified atrial fibrillation; I25.10 Atherosclerotic heart disease of native coronary artery without angina pectoris; E78.5 Hyperlipidemia, unspecified; M19.90 Unspecified osteoarthritis, unspecified site; I10 Essential (primary) hypertension; Z87.442 Personal history of urinary calculi; Z90.49 Acquired absence of other specified parts of digestive tract; Z87.891 Personal history of nicotine dependence; Z85.46 Personal history of malignant neoplasm of prostate
CPT/HCPCS: 51702; 81001; 99283

== ENCOUNTER 2020-12-08 15:29 | Inpatient (IN) | payer MEDICARE, BC ==
[2020-12-08] MEDS ORDERED: SODIUM CHLORIDE 0.9% 500 ML 500 ML IV STA (17:13)
[2020-12-08 17:30] LABS: Basophils % (A) 0 %; Eosinophils # (A) 0.1 k/uL (0-0.7); Eosinophils % (A) 2 %; HGB 12.8 gm/dL (13.0-17.5); Lymphocytes # (A) 0.8 k/uL (1.0-4.8); Lymphocytes % (A) 9 %; MCH 31.6 pg (25.0-35.0); MCHC 32.8 g/dL (31.0-37.0); MCV 96.3 fL (80.0-100.0); Mean Platelet Volume 6.9; Monocytes # (A) 0.4 k/uL (0-1.0); Monocytes % (A) 4 %; Neutrophils # (A) 7.1 k/uL (1.3-7.7); Neutrophils % (A) 84 %; Platelet Count 353 k/uL (150-450); RBC 4.05 m/uL (4.30-5.90); RDW 14.1 % (11.5-15.5); WBC 8.5 k/uL (3.8-10.6)
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
[2020-12-08 17:38] LABS: Albumin 4.5 g/dL (3.5-5.0); Calcium 9.7 mg/dL (8.4-10.2); Magnesium 1.7 mg/dL (1.6-2.3); Potassium 4.5 mmol/L (3.5-5.1); Total Bilirubin 0.4 mg/dL (0.2-1.3)
[2020-12-08 17:40] LABS: INR 1.1 (<1.2); Prothrombin Time 11.5 sec (9.0-12.0)
--- NOTE | 2020-12-08 17:45 | XR ---
EXAMINATION TYPE: XR chest 2V DATE OF EXAM: 12/08/2020 COMPARISON: 09/03/2020 HISTORY: Weakness. Short of breath. TECHNIQUE: 2 views FINDINGS: There is hepatic flexure over the right lower lung field. This is also present on the old a bdomen CT scan of 07/10/2019 and appears unchanged. There is interposition of the hepatic flexure of th e colon. The left lung is clear. There is no heart failure. Heart and mediastinum are normal. There a re chest leads. IMPRESSION: No active cardiopulmonary disease. No adverse change compared to old exam. Normal heart.
[2020-12-08 17:58] LABS: Appearance,Urine Clear (Clear); Bilirubin,Urine Negative (Negative); Blood,Urine Large (Negative); Color,Urine Yellow; Glucose,Urine (UA) Negative (Negative); Ketones,Urine Negative (Negative); Leukocyte Esterase,Urine Moderate (Negative); Mucus,Urine Rare /hpf; Nitrite,Urine Negative (Negative); PH, Urine 5.5 (5.0-8.0); Protein,Urine Trace (Negative); RBC,Urine 102 /hpf (0-5); Specific Gravity,Urine 1.013 (1.001-1.035); Urobilinogen,Urine <2.0 mg/dL (<2.0); WBC,Urine 26 /hpf (0-5)
[2020-12-08] MEDS ORDERED: ASPIRIN 81 MG PO STA (19:15)
[2020-12-08] MEDS ORDERED: NITROGLYCERIN SL TABS 0.4 MG TAB SUBLINGUAL PRN (19:15)
[2020-12-09] MEDS ORDERED: TEMAZEPAM 15 MG CAP PO SCH (02:00)
[2020-12-09] MEDS ORDERED: CLOPIDOGREL 75 MG TAB PO SCH (09:00)
[2020-12-09] MEDS ORDERED: APIXABAN 5 MG TAB PO SCH (09:00)
[2020-12-09] MEDS ORDERED: ASPIRIN 325 MG TAB PO SCH (09:00)
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
[2020-12-09] MEDS ORDERED: ACETAMINOPHEN TAB 325 MG TAB PO PRN (10:54)
[2020-12-09] MEDS: NITROGLYCERIN OINT 1 INCH/GM PACKET TOPICAL SCH ×2 (11:21→11:22)
[2020-12-09 11:29] LABS: Chol/HDL Ratio 2.77
[2020-12-09 14:23] VITALS: RESP 18
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
--- NOTE | 2020-12-09 14:30 | P.DS ---
Providers Date of admission: 12/08/20 19:17 Attending physician: Salomon Chapman Consults: 12/08/20 19:15 Consult Physician Urgent Consulting Provider: [facility] Consult Reason/Comments: Elevated troponin Do you want consulting provider notified?: Yes Primary care physician: Juan Miguel De La O [facility] Course: Please refer to my history of present illness for further details Plan - Discharge Summary New Discharge Prescriptions: Continue Simvastatin 40 mg PO HS Tamsulosin [Flomax] 0.4 mg PO DAILY 30 Days #30 cap.er.24h Vit C/E/Zn/Coppr/Lutein/Zeaxan [Preservision Areds 2 Softgel] 1 cap PO BID oxyCODONE HCL/ACETAMINOPHEN [Percocet 7.5-325 mg] 1 tab PO BID PRN PRN Reason: Pain Clopidogrel Bisulfate [Plavix] 75 mg PO DAILY Apixaban [Eliquis] 5 mg PO BID Discontinued Temazepam [Restoril] 30 mg PO HS oxyCODONE HCL [oxyCODONE HCL (IR)] 60 mg PO BID atenoloL [Atenolol] 25 mg PO HS Nitrofurantoin Monohyd/M-Cryst [Macrobid] 100 mg PO Q12HR #20 cap Ciprofloxacin HCl [Cipro] 500 mg PO BID Discharge Medication List Simvastatin 40 mg PO HS 07/10/19 [History] oxyCODONE HCL/ACETAMINOPHEN [Percocet 7.5-325 mg] 1 tab PO BID PRN 09/03/20 [History] Tamsulosin [Flomax] 0.4 mg PO DAILY 30 Days #30 cap.er.24h 09/06/20 [Rx] Apixaban [Eliquis] 5 mg PO BID 12/07/20 [History] Clopidogrel Bisulfate [Plavix] 75 mg PO DAILY 12/07/20 [History] Vit C/E/Zn/Coppr/Lutein/Zeaxan [Preservision Areds 2 Softgel] 1 cap PO BID 12/07/20 [History] Follow up Appointment(s)/Referral(s): Tim Murphy MD [STAFF PHYSICIAN] - 1 Week Juan Miguel De La O MD [Primary Care Provider] - 3 Days
[2020-12-09] MEDS ORDERED: oxyCODONE-APAP 7.5-325MG 1 EACH TAB PO PRN (14:33)
[2020-12-09 16:09] VITALS: PULSE 49
[2020-12-09 16:33] VITALS: BP 154/76; TEMP 97.4
--- NOTE | 2020-12-09 19:00 | ECHOF ---
Referral Reason:LV function MEASUREMENTS -------- HEIGHT: 177.8 cm WEIGHT: 59.0 kg BP: 113/65 RVIDd: 3.1 cm (< 3.3) IVSd: 1.3 cm (0.6 - 1.1) LVIDd: 3.6 cm (3.9 - 5.3) LVPWd: 1.1 cm (0.6 - 1.1) IVSs: 1.6 cm LVIDs: 2.9 cm LVPWs: 1.6 cm LA Diam: 3.5 cm (2.7 - 3.8) LAESV Index (A-L): 29.89 ml/m Ao Diam: 3.0 cm (2.0 - 3.7) AV Cusp: 2.2 cm (1.5 - 2.6) MV EXCURSION: 11.844 mm (> 18.000) MV EF SLOPE: 75 mm/s (70 - 150) EPSS: 1.0 cm MV E Home: 0.62 m/s MV DecT: 284 ms MV A Home: 0.62 m/s MV E/A Ratio: 1.01 RAP: 5.00 mmHg RVSP: 30.70 mmHg FINDINGS -------- Sinus rhythm. Resting bradycardia (HR<60bpm). This was a technically adequate study. The left ventricular size is normal. There is mild concentric left ventricular hypertrophy. Overa ll left ventricular systolic function is normal with, an EF between 55 - 60 %. The diastolic fillin g pattern is normal for the age of the patient 11.40. The right ventricle is normal in size. Normal LA size by volume 22+/-6 ml/m2. The right atrial size is normal. Interatrial and interventricular septum intact. There is mild aortic valve sclerosis. Mild mitral annular calcification present. Mild mitral regurgitation is present. The tricuspid valve appears structurally normal. Mild tricuspid regurgitation present. Right vent ricular systolic pressure is normal at < 35 mmHg. There is no pulmonic regurgitation present. The aortic root size is normal. IVC Not well visulized. There is no pericardial effusion. CONCLUSIONS -------- 1. There is mild concentric left ventricular hypertrophy. 2. Overall left ventricular systolic function is normal with, an EF between 55 - 60 %. 3. Normal LA size by volume 22+/-6 ml/m2. 4. Mild mitral regurgitation is present. 5. Mild tricuspid regurgitation present. 6. There is no pericardial effusion. TOUR COUNSELOR: Alma Rosenthal RDCS
[2020-12-09] MEDS ORDERED: ATORVASTATIN 20 MG TAB PO SCH (21:00)
[2020-12-09] MEDS ORDERED: VIT A,C & E-LUTEIN-MINERALS 1 EACH TAB PO SCH (21:00)
[2020-12-10] MEDS ORDERED: TAMSULOSIN 0.4 MG CAP.ER.24H PO SCH (09:00)
== END 2020-12-09 16:32 | disposition home or self-care (01) | DRG 948 ==
LOC: EC 15:29 → 3SCARD 19:17
PROVIDERS: ADMIT Hospitalist; ATTEND Hospitalist
DX: R53.1 Weakness (principal); N39.0 Urinary tract infection, site not specified; I50.22 Chronic systolic (congestive) heart failure; I13.0 Hypertensive heart and chronic kidney disease with heart failure and stage 1 through stage 4 chronic kidney disease, or unspecified chronic kidney disease; T44.7X5A Adverse effect of beta-adrenoreceptor antagonists, initial encounter; E78.5 Hyperlipidemia, unspecified; I25.10 Atherosclerotic heart disease of native coronary artery without angina pectoris; I25.2 Old myocardial infarction; I48.91 Unspecified atrial fibrillation; Z96.642 Presence of left artificial hip joint; Z95.5 Presence of coronary angioplasty implant and graft; Z87.891 Personal history of nicotine dependence; Z87.442 Personal history of urinary calculi; Z86.711 Personal history of pulmonary embolism; Z85.46 Personal history of malignant neoplasm of prostate; Z82.49 Family history of ischemic heart disease and other diseases of the circulatory system; Z80.3 Family history of malignant neoplasm of breast; Z79.899 Other long term (current) drug therapy; Z79.02 Long term (current) use of antithrombotics/antiplatelets; Z79.01 Long term (current) use of anticoagulants; N42.9 Disorder of prostate, unspecified; M19.90 Unspecified osteoarthritis, unspecified site; K40.90 Unilateral inguinal hernia, without obstruction or gangrene, not specified as recurrent; G89.21 Chronic pain due to trauma; N18.9 Chronic kidney disease, unspecified
CPT/HCPCS: 36415; 71046; 80053; 80061; 81001; 83605; 83735; 84484; 85025; 85610; 85730; 87086; 93005; 93306; 99285

== ENCOUNTER → 2020-12-29 | Outpatient (CLI) | payer MEDICARE, BC ==
[2020-12-29 15:19] LABS: Basophils % (A) 0 %; Eosinophils # (A) 0.2 k/uL (0-0.7); Eosinophils % (A) 2 %; HCT 38.8 % (39.0-53.0); Lymphocytes # (A) 1.5 k/uL (1.0-4.8); Lymphocytes % (A) 14 %; MCH 31.1 pg (25.0-35.0); MCHC 30.9 g/dL (31.0-37.0); MCV 100.6 fL (80.0-100.0); Macrocytosis Slight; Monocytes # (A) 0.7 k/uL (0-1.0); Monocytes % (A) 7 %; Neutrophils # (A) 8.5 k/uL (1.3-7.7); Neutrophils % (A) 76 %; Platelet Count 340 k/uL (150-450); RBC 3.86 m/uL (4.30-5.90); RDW 13.6 % (11.5-15.5); WBC 11.1 k/uL (3.8-10.6)
[2020-12-29 15:26] LABS: Appearance,Urine Cloudy (Clear); Bacteria,Urine Few /hpf; Bilirubin,Urine Negative (Negative); Blood,Urine Moderate (Negative); Color,Urine Yellow; Glucose,Urine (UA) Negative (Negative); Ketones,Urine Negative (Negative); Leukocyte Esterase,Urine Large (Negative); Mucus,Urine Rare /hpf; Nitrite,Urine Positive (Negative); PH, Urine 6.5 (5.0-8.0); Protein,Urine Trace (Negative); RBC,Urine 26 /hpf (0-5); Specific Gravity,Urine 1.016 (1.001-1.035); Urobilinogen,Urine <2.0 mg/dL (<2.0); WBC,Urine 122 /hpf (0-5)
[2020-12-29 15:34] LABS: ALT 7 U/L (4-49); AST 22 U/L (17-59); African American GFR (CKD) >90 (>60 ml/min/1.73 sqM); Albumin 4.4 g/dL (3.5-5.0); Alkaline Phosphatase 59 U/L (38-126); Anion Gap 9 mmol/L; Blood Urea Nitrogen 19 mg/dL (9-20); Calcium 9.8 mg/dL (8.4-10.2); Carbon Dioxide 25 mmol/L (22-30); Chloride 102 mmol/L (98-107); Glucose 121 mg/dL (74-99); Non-African American GFR(CKD) 82 (>60 ml/min/1.73 sqM); Potassium 5.4 mmol/L (3.5-5.1); Sodium 136 mmol/L (137-145); Total Bilirubin 0.3 mg/dL (0.2-1.3); Total Protein 7.9 g/dL (6.3-8.2)
== END | disposition home or self-care (01) ==
LOC: LABPAT 14:58
PROVIDERS: ATTEND Urology
DX: Z01.812 Encounter for preprocedural laboratory examination (principal); N32.0 Bladder-neck obstruction
CPT/HCPCS: 36415; 80053; 81001; 85025; 87086

== ENCOUNTER 2020-12-31 10:18 | Day surgery (SDC) | payer MEDICARE, BC ==
[2020-12-29 10:48] VITALS: BMI 17.2
[~2020-12-31 10:18] MED LIST changes: +ALPRAZolam 0.25 MG TAB PO PRN; +ALPRAZolam 0.5 MG TAB PO PRN; -AMPICILLIN 1,000 MG in SODIUM CHLORIDE 0.9% 50 ML IVPB ONE; +ASPIRIN 325 MG TAB PO STA; +ATORVASTATIN 80 MG TAB PO STA; -DEXAMETHASONE SOD PHOSPHATE 10 MG/ML 1 ML VIAL IV ONE; -GENTAMICIN IN NACL ISO-OSM PMX 80 MG in SALINE 1 100ML.BAG IVPB ONE; +HEPARIN SODIUM,PORCINE 10,000 UNIT in SODIUM CHLORIDE 0.9% 1,000 ML IRRIGATION PRN; +HEPARIN SODIUM,PORCINE 2,500 UNIT in SODIUM CHLORIDE 0.9% 250 ML IRRIGATION PRN; -HYDROmorphone 0.5 MG/0.5 ML SYRINGE IVP PRN; -LIDOCAINE 1% 20 ML VIAL (10MG/ML) FOR IV START INTRADERMA PRN; +NITROGLYCERIN SL TABS 0.4 MG TAB SUBLINGUAL PRN; -ONDANSETRON 4 MG/2 ML VIAL IVP ONE; -SCOPOLAMINE 1.5MG/72HR PATCH TRANSDERM ONE; +SODIUM CHLORIDE 0.9% 1,000 ML in EMPTY BAG 1 BAG IV ONE
[2020-12-31 11:21] VITALS: RESP 16; TEMP 97.8
[2020-12-31] MEDS ORDERED: HEPARIN SODIUM 1,000 UN/ML (10ML VL) ONE (13:00)
[2020-12-31] MEDS ORDERED: fentaNYL (PF) 50 MCG/ML 2 ML AMP ONE (13:00)
[2020-12-31] MEDS ORDERED: LIDOCAINE 1% INJ 10MG/ML (20 ML MDV) SQ ONE (13:10)
[2020-12-31] MEDS: VERAPAMIL SYRINGE (5 MG/10 ML) INTRAARTER ONE ×2 (13:11→13:27)
[2020-12-31] MEDS ORDERED: MIDAZOLAM 2 MG/2 ML VIAL IV ONE (13:12)
[2020-12-31] MEDS ORDERED: HEPARIN SODIUM 1,000 UN/ML (10ML VL) IV ONE (13:14)
[2020-12-31] MEDS ORDERED: IOPAMIDOL-370 100ML BTL INJ ONE (13:27)
[2020-12-31] MEDS ORDERED: SODIUM CHLORIDE 0.9% 1,000 ML IV SCH (13:30)
[2020-12-31] MEDS ORDERED: oxyCODONE-APAP 7.5-325MG 1 EACH TAB PO STA (16:47)
--- NOTE | 2020-12-31 17:48 | CC ---
CARDIAC CATHETERIZATION REPORT DATE OF SERVICE: 12/31/2020 PROCEDURE: Left heart catheterization, coronary angiography. PERFORMED BY: Dr. Akil Murphy. Moderate conscious sedation time was 20 minutes. Patient was administered Versed. Oxygen saturation, hemodynamics and EKG were monitored closely. CLINICAL INFORMATION: Mr. Franky Bonds is an 80-year-old gentleman with history of CAD, hypertension, hyperlipidemia, severe back pain and previous back surgeries who also has severe BPH and he is going for prostate surgery. In August of this year he had a plaque rupturing of LAD with an acute anterior [place], underwent stenting of this vessel. He also has had previous stenting of RCA performed by me in 2013. Because of significant symptoms of chest tightness and pressure, prior to elective surgery he was advised cardiac catheterization after due discussion. Risks, benefits and options were explained. PROCEDURE NOTE: Under local anesthesia and strict aseptic precautions, a 6-Russian introducer was placed in the right radial artery. Using JL3.5 and JR4 catheters I performed coronary angiography, and the same right catheter was used to check LV pressures. LV gram was not performed. The sheath was taken out and TR band applied as per protocol, with saturation in the fingers of the right hand of 92%. Results were discussed with the patient and his and he was sent to the room in a stable condition. CARDIAC CATHETERIZATION FINDINGS: The left ventricular end-diastolic pressure was 10 mmHg without any gradient across the aortic valve. CORONARY ANGIOGRAPHY FINDINGS: RIGHT CORONARY ARTERY: This is a heavily calcified, very dominant vessel which was stented in the mid portion. The stented area is widely patent with good flow. Both the PDA and PLV branches are large in caliber, free of significant disease and supply a sizable amount of myocardium. RCA therefore is relatively disease-free but heavily calcified. No significant disease. LEFT MAIN CORONARY ARTERY: Short patent vessel free of significant disease that bifurcates into LAD and circumflex. LEFT ANTERIOR DESCENDING CORONARY ARTERY: This vessel was stented in August of this year. The vessel is widely patent with remarkably good flow the entire LAD. The stented segment is free of significant disease with good flow. No more than 35% narrowing. It gives off a diagonal branch which is free of significant disease. The LAD runs all the way to the apex, supplying a sizable amount of myocardium. The LAD that was stented before is therefore widely patent. LEFT POSTERIOR CIRCUMFLEX CORONARY ARTERY: Technically this is a nondominant vessel, gives off 2 small branches. One is an obtuse marginal and one is an AV groove branch of the left atrial circumflex branch. Minor irregularities. No significant disease in circumflex. FINAL IMPRESSION: This patient has widely patent LAD and RCA that was stented. Circumflex has no significant disease. Filling pressures are normal and there is no gradient across the aortic valve. RECOMMENDATIONS: This patient can go ahead with the prostate surgery that is scheduled to be performed by Dr. Shoaib Hammer in the first week of January. There is no contraindication, but the risk is moderate, given patient's known CAD and prior myocardial infarction and multivessel PCI. I am advising cautious fluid administration, optimal BP control perioperatively. Advised that he can stop Plavix 5 days before the procedure as well as aspirin. There is some amount of risk of thrombosis because we are doing this time before one year, but given the circumstances of his significant urinary symptoms, I am recommending that he can go ahead with the operation. This note will serve as a clearance for his surgery. MMODL / IJN: [id number] /
[2020-12-31 18:54] VITALS: BP 143/65; PULSE 54
== END 2020-12-31 18:32 | disposition home or self-care (01) ==
LOC: CATHCVL 10:18
PROVIDERS: ATTEND Internal Medicine Interventional Cardiology
DX: I25.10 Atherosclerotic heart disease of native coronary artery without angina pectoris (principal); I25.84 Coronary atherosclerosis due to calcified coronary lesion; I10 Essential (primary) hypertension; E78.5 Hyperlipidemia, unspecified; M54.9 Dorsalgia, unspecified; Z95.5 Presence of coronary angioplasty implant and graft; I25.2 Old myocardial infarction; I48.0 Paroxysmal atrial fibrillation; Z79.01 Long term (current) use of anticoagulants; N40.0 Benign prostatic hyperplasia without lower urinary tract symptoms; Z79.899 Other long term (current) drug therapy; Z79.02 Long term (current) use of antithrombotics/antiplatelets
CPT/HCPCS: 93458; C1894; C1769; J2250; J2001; J1644; Q9967

== ENCOUNTER 2021-01-12 06:02 | Day surgery (SDC) | payer MEDICARE, BC ==
[2021-01-04 14:59] VITALS: BMI 16.5
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
[~2021-01-12 06:02] MED LIST changes: -ALPRAZolam 0.25 MG TAB PO PRN; -ALPRAZolam 0.5 MG TAB PO PRN; +AMPICILLIN 1,000 MG in SODIUM CHLORIDE 0.9% 50 ML IVPB PRN; -ASPIRIN 325 MG TAB PO STA; -ATORVASTATIN 80 MG TAB PO STA; +DEXAMETHASONE SOD PHOSPHATE 4 MG/ML 1 ML VIAL IV ONE; +GENTAMICIN 80 MG in SODIUM CHLORIDE 0.9% 100 ML IVPB PRN; -HEPARIN SODIUM,PORCINE 10,000 UNIT in SODIUM CHLORIDE 0.9% 1,000 ML IRRIGATION PRN; -HEPARIN SODIUM,PORCINE 2,500 UNIT in SODIUM CHLORIDE 0.9% 250 ML IRRIGATION PRN; +LACTATED RINGERS 1,000 ML IV SCH; +LIDOCAINE 1% (10MG/ML) FOR IV START INTRADERMA PRN; +MIDAZOLAM 2 MG/2 ML VIAL IV PRN; -NITROGLYCERIN SL TABS 0.4 MG TAB SUBLINGUAL PRN; +ONDANSETRON 4 MG/2 ML VIAL IVP ONE; -SODIUM CHLORIDE 0.9% 1,000 ML in EMPTY BAG 1 BAG IV ONE
[2021-01-12] MEDS ORDERED: PHENYLEPHRINE-0.9% NACL SYG 1,000 MCG/10 ML SYRINGE ONE (07:30)
[2021-01-12] MEDS ORDERED: ROCURONIUM 10 MG/ML (5 ML VIAL) IV ONE (07:30)
[2021-01-12] MEDS ORDERED: fentaNYL (PF) 50 MCG/ML 2 ML AMP ONE (07:30)
[2021-01-12] MEDS ORDERED: LIDOCAINE 1% INJ 10MG/ML (20 ML MDV) ONE (07:30)
[2021-01-12] MEDS ORDERED: MIDAZOLAM 2 MG/2 ML VIAL ONE (07:30)
[2021-01-12] MEDS ORDERED: SUCCINYLCHOLINE CHLORIDE 100 MG/5 ML SYR IV ONE (07:30)
[2021-01-12] MEDS ORDERED: PROPOFOL 10 MG/ML 20 ML VIAL IV ONE (07:30)
[2021-01-12] MEDS ORDERED: NEOSTIGMINE 1 MG/ML 10 ML VIAL ONE (07:30)
[2021-01-12] MEDS ORDERED: GLYCOPYRROLATE 0.2 MG/ML 2 ML VIAL ONE (07:30)
--- NOTE | 2021-01-12 08:47 | P.OP ---
Date of Procedure: 01/12/21 Preoperative Diagnosis: Urine retention, prostate cancer, status post radiation therapy Postoperative Diagnosis: Same Procedure(s) Performed: Bipolar TURP Anesthesia: LEA Surgeon: Wm Hammer Estimated Blood Loss (ml): 50 Pathology: other (Prostate tissue) Condition: stable Disposition: PACU Indications for Procedure: The patient is 80. He has multiple medical problems as well is back problems. His history of prostate cancer treated with radiation therapy. He has had rec urrence and has been on LHRH therapy. He is gone in urine retention. Medical management was failed to get him to void spontaneously. He comes for a TURP. he has been cleared by cardiology Description of Procedure: Patient is brought to the operating suite. He is given a general endotracheal anesthesia. He's placed lithotomy position with a sterile prep and drape. U nder direct vision the 25-[place] sheath and direct vision obturator was introduced in urethra to the anterior urethra is normal. In the prosthetic urethra it is consistent with previous radiation therapy. As I passed the resectoscope into the bladder there is obvious obstructing tissue at the bladder neck. With the Saldaña resectoscope, supersect bipolar loop I first resect the prominent intravesical middle lobe of the prostate.. This Has a visual appearance of recurrent carcinoma. I resect the left lateral lobe and then the right lateral lobe to proximal to the verumontanum.. This opens up the prostate nicely. There is minimal anterior tissue. I freed the bladder of prosthetic chips. I control any prostatic bleeding with electrocautery. At the end of procedure the prostatic fossa was wide open. The bladder was clear creded With a good stream. An 18-[place] coud-tip catheter is introduced the bladder with clear urine return. The patient is awakened and returned recovery room good condition. He tolerated procedure well and will be discharged home upon recovery. Blood loss is approximately 50 mL
[2021-01-12 08:51] VITALS: TEMP 97.1
[2021-01-12] MEDS: HYDROmorphone 0.5 MG/0.5 ML SYRINGE IVP PRN ×3 (09:00→09:44)
[2021-01-12] MEDS ORDERED: LACTATED RINGERS 1,000 ML IV ONE ×2 (09:13)
[2021-01-12 09:55] VITALS: RESP 16
[2021-01-12 10:48] VITALS: BP 136/88; PULSE 71
== END 2021-01-12 11:32 | disposition home or self-care (01) ==
LOC: OR 06:02
PROVIDERS: ATTEND Urology
DX: N32.0 Bladder-neck obstruction (principal); R33.9 Retention of urine, unspecified; G89.29 Other chronic pain; R51.9 Headache, unspecified; M25.552 Pain in left hip; F31.9 Bipolar disorder, unspecified; Z92.3 Personal history of irradiation; Z85.46 Personal history of malignant neoplasm of prostate; I25.10 Atherosclerotic heart disease of native coronary artery without angina pectoris; I10 Essential (primary) hypertension; E78.5 Hyperlipidemia, unspecified; I48.91 Unspecified atrial fibrillation; M19.90 Unspecified osteoarthritis, unspecified site; Z79.899 Other long term (current) drug therapy; Z79.82 Long term (current) use of aspirin; Z79.01 Long term (current) use of anticoagulants; Z86.711 Personal history of pulmonary embolism; Z90.49 Acquired absence of other specified parts of digestive tract
CPT/HCPCS: 52601; 84132; J2250; J1100; J2710; J2405; J2001; J3010; J1580; J0290; J2370; J0330; J2704; J1170; 88305

== ENCOUNTER 2021-01-23 14:18 | Inpatient (IN) | payer MEDICARE, BC ==
[2021-01-23] MEDS ORDERED: NITROGLYCERIN SL TABS 0.4 MG TAB SUBLINGUAL PRN ×2 (14:23→17:36)
[2021-01-23] MEDS ORDERED: HEPARIN SODIUM 1,000 UN/ML (10ML VL) IV ONE (14:23)
[2021-01-23] MEDS ORDERED: SODIUM CHLORIDE 0.9% 1,000 ML IV STA (14:23)
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
[2021-01-23] MEDS ORDERED: MORPHINE SULFATE 4 MG/ML SYRINGE IVP STA (14:34)
[2021-01-23 14:46] LABS: Basophils % (A) 0 %; Eosinophils # (A) 0.2 k/uL (0-0.7); Eosinophils % (A) 2 %; HCT 34.6 % (39.0-53.0); HGB 11.5 gm/dL (13.0-17.5); Lymphocytes # (A) 1.5 k/uL (1.0-4.8); Lymphocytes % (A) 14 %; MCH 31.9 pg (25.0-35.0); MCHC 33.2 g/dL (31.0-37.0); MCV 96.1 fL (80.0-100.0); Mean Platelet Volume 6.9; Monocytes # (A) 0.6 k/uL (0-1.0); Monocytes % (A) 6 %; Neutrophils # (A) 7.7 k/uL (1.3-7.7); Neutrophils % (A) 76 %; Platelet Count 517 k/uL (150-450); RDW 13.5 % (11.5-15.5); WBC 10.1 k/uL (3.8-10.6)
[2021-01-23] MEDS ORDERED: IV FLUID CONTINUATION 700 ML IV ONE (14:48)
[2021-01-23 14:53] LABS: ALT 11 U/L (4-49); AST 23 U/L (17-59); African American GFR (CKD) >90 (>60 ml/min/1.73 sqM); Albumin 3.5 g/dL (3.5-5.0); Alkaline Phosphatase 77 U/L (38-126); Anion Gap 11 mmol/L; Blood Urea Nitrogen 14 mg/dL (9-20); Calcium 9.1 mg/dL (8.4-10.2); Carbon Dioxide 23 mmol/L (22-30); Chloride 103 mmol/L (98-107); Glucose 142 mg/dL (74-99); Magnesium 1.5 mg/dL (1.6-2.3); Non-African American GFR(CKD) 86 (>60 ml/min/1.73 sqM); Potassium 4.1 mmol/L (3.5-5.1); Sodium 137 mmol/L (137-145); Total Bilirubin 0.4 mg/dL (0.2-1.3); Total Protein 6.7 g/dL (6.3-8.2)
[2021-01-23] MEDS ORDERED: LIDOCAINE 1% INJ 10MG/ML (20 ML MDV) ONE (14:54)
[2021-01-23] MEDS ORDERED: VERAPAMIL 2.5 MG/ML 2 ML AMP ONE (14:54)
[2021-01-23] MEDS ORDERED: NALOXONE 0.4 MG/ML 1 ML VIAL IV PRN (14:58)
[2021-01-23] MEDS ORDERED: LIDOCAINE 1% INJ 10MG/ML (20 ML MDV) SQ ONE (14:58)
[2021-01-23] MEDS ORDERED: MIDAZOLAM 2 MG/2 ML VIAL IV ONE (14:58)
--- NOTE | 2021-01-23 14:58 | XR ---
EXAMINATION TYPE: XR chest 1V portable DATE OF EXAM: 01/23/2021 COMPARISON: 12/08/2020 HISTORY: Chest pain TECHNIQUE: Single view FINDINGS: There is some elevation of the right diaphragm. There is interposition of the hepatic flexu re of the colon. There is calcification at the pulmonary sanna consistent with old granulomatous disea se. Heart size is normal. There is atheromatous change in the thoracic aorta. Left lung is clear. IMPRESSION: No acute lung disease. Chronic elevation of the right diaphragm. No change.
[2021-01-23] MEDS ORDERED: VERAPAMIL SYRINGE (5 MG/10 ML) INTRAARTER ONE (14:59)
[2021-01-23] MEDS ORDERED: CLOPIDOGREL 75 MG TAB ONE ×2 (15:04→15:05)
[2021-01-23 15:07] LABS: Prothrombin Time 10.9 sec (9.0-12.0)
[2021-01-23] MEDS ORDERED: CLOPIDOGREL 75 MG TAB PO ONE ×2 (15:12→15:20)
[2021-01-23 15:13] LABS: Partial Thromboplastin Time 21.3 sec (22.0-30.0)
[2021-01-23] MEDS ORDERED: NITROGLYCERIN 1000MCG/10ML SYRINGE INTRACORON ONE (15:14)
[2021-01-23] MEDS ORDERED: TIROFIBAN 12.5MG-250ML NS 250 ML IV ONE (15:20)
[2021-01-23] MEDS ORDERED: IOPAMIDOL-370 125ML BTL INJ ONE (15:24)
[2021-01-23] MEDS ORDERED: NITROGLYCERIN-D5W PMX 50 MG in DEXTROSE/WATER 1 250ML.BAG IV ONE (15:34)
[2021-01-23] MEDS ORDERED: HEPARIN SOD,PORK IN 0.45% NACL 25,000 UNIT in 0.45% NACL 1 250ML.BAG IV ONE (15:34)
[2021-01-23] MEDS ORDERED: MAG HYDROX/AL HYDROX/SIMETH 30 ML CUP PO ONE (15:36)
[2021-01-23 15:52] LABS: Glucose,Whole Blood 89 mg/dL (75-99)
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
[2021-01-23] MEDS ORDERED: ATROPINE SULFATE 0.1 MG/ML 10ML SYRINGE IV PRN (17:36)
[2021-01-23] MEDS ORDERED: MAG HYDROX/AL HYDROX/SIMETH 30 ML CUP PO PRN (17:36)
[2021-01-23] MEDS ORDERED: RX INFO: IV CONTRAST WAS GIVEN 1 EACH MISC MISCELLANE PRN (17:36)
--- NOTE | 2021-01-23 17:36 | P.PRCINT ---
Percutaneous Coronary Int. - Percutaneous Coronary Intervention Percutaneous Coronary Intervention: PROCEDURES PERFORMED: Bilateral coronary angiography, PTCA of acute stent thrombosis with a 3.0 x 12 mm noncompliant balloon INDICATION: Anterior septal STEMI HISTORY: Patient is a pleasant 80-year-old male with a history of coronary artery disease with previous stenting of his LAD, most recently in August 2020. Patient presented with anterior septal STEMI and therefore heart catheterization was recommended. CONSENT:I have discussed the risks, benefits and alternative therapies for the above-mentioned procedure and for both sedation/analgesia as well as necessary blood product administration, if indicated, as they pertain to this patient. The patient has indicated understanding and acceptance of the risks and procedures discussed. PROCEDURE: After the risks, benefits and alternatives of the above mentioned procedure explained in detail with the patient, informed consent was obtained. Patient was taken to the catheterization lab and prepped and draped in usual fashion. 1% lidocaine was used to anesthetize the right radial artery. A 6- [place] sheath was placed in the right radial artery using modified Seldinger technique. Left coronary angiography was performed with a 6-[place] CLS 3.5 catheter. Heparin was given for ACT greater than 250. A 0.014 BMW wire was advanced into the distal LAD. Balloon angioplasty was performed initially with a 2.5 x 12 mm balloon. Next a 3.0 x 12 mm noncompliant balloon was used to perform balloon angioplasty of the stents. There was some distal embolization of thrombus into a distal diagonal 2 branch. This diagonal branch was attempted to be wired however due to tortuosity was unable to. Therefore was felt best to treat this is embolization medically and Aggrastat drip was started. Preintervention there was 100% stenosis with AMANDA 0 flow. Postintervention there was less than 10% stenosis with AMANDA 3 flow other than the distal diagonal 2 branch did have thrombus in it. Right coronary angiography was performed with a 5-[place] JR5 catheter in various views. The right radial sheath was removed and a TR band was placed with hemostasis achieved. The patient tolerated the procedure well. Patient was transported back to the post catheterization holding area in stable condition. Conscious Sedation: Patient was monitored under the direct supervision of vision of myself for conscious sedation using Versed and fentanyl for a total duration of 28 minutes HEMODYNAMICS: Ao: 98/65 SELECTIVE CORONARY ARTERIOGRAPHY: LEFT MAIN: The left main is a large caliber vessel which bifurcates into the LAD and circumflex. There is an angulation of the proximal left main however appears to be only 30% proximal left main stenosis. LEFT ANTERIOR DESCENDING CORONARY ARTERY: LAD is a large caliber vessel which wraps around to the apex. There is a long proximal to mid LAD stent with some 70% "pinching" of the small caliber diagonal 1 branch. There is diffuse thrombus noted in the LAD stent with 100% proximal LAD stenosis. LEFT CIRCUMFLEX CORONARY ARTERY: Left circumflex is a moderate caliber vessel with mild 20-30% stenosis. RIGHT CORONARY ARTERY: The right coronary artery is a large caliber vessel which gives off a PDA and PLV branch and is the dominant vessel. There is a proximal 20-30% RCA stenosis and mild luminal irregularities of the PDA and PLV. FINAL IMPRESSION: 1. Coronary artery disease as described above with 30% left main stenosis, 20- 30% RCA stenosis, 20-30% circumflex stenosis and 100% LAD in-stent thrombosis. 2. S/p PTCA of acute stent thrombosis with a 3.0 x 12 mm noncompliant balloon PLAN: 1. Aggressive risk factor modification per most recent ACC/AHA guidelines. 2. Continue dual antiplatelets for 12 months.
[2021-01-23] MEDS ORDERED: SODIUM CHLORIDE 0.9% 1,000 ML IV SCH ×2 (17:45)
[2021-01-23] MEDS: HEPARIN SOD,PORK IN 0.45% NACL 25,000 UNIT in 0.45% NACL 1 250ML.BAG IV SCH ×2 (19:29→19:30)
[2021-01-23] MEDS: HYDROcodone/APAP 5-325MG 1 EACH TAB PO PRN (20:04)
[2021-01-23] MEDS: ZOLPIDEM 5 MG TAB PO PRN (20:05)
[2021-01-23] MEDS: NITROGLYCERIN-D5W PMX 50 MG in DEXTROSE/WATER 1 250ML.BAG IV SCH (21:00)
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
[2021-01-23] MEDS ORDERED: hydrALAZINE HCL 20 MG/ML 1 ML VIAL IVP PRN (21:37)
[2021-01-24] MEDS: MORPHINE SULFATE 4 MG/ML SYRINGE IVP PRN ×6 (01:35→21:34)
[2021-01-24] MEDS: HYDROcodone/APAP 5-325MG 1 EACH TAB PO PRN ×2 (03:11→09:45)
[2021-01-24 04:46] LABS: HCT 33.2 % (39.0-53.0); HGB 11.1 gm/dL (13.0-17.5); MCH 32.1 pg (25.0-35.0); MCHC 33.4 g/dL (31.0-37.0); MCV 96.2 fL (80.0-100.0); Mean Platelet Volume 6.7; Platelet Count 490 k/uL (150-450); RBC 3.45 m/uL (4.30-5.90); RDW 13.6 % (11.5-15.5); WBC 13.8 k/uL (3.8-10.6)
[2021-01-24 04:59] LABS: Partial Thromboplastin Time 39.8 sec (22.0-30.0); Prothrombin Time 10.9 sec (9.0-12.0)
[2021-01-24 05:14] LABS: Chloride 104 mmol/L (98-107)
[2021-01-24 05:15] LABS: African American GFR (CKD) >90 (>60 ml/min/1.73 sqM); Anion Gap 9 mmol/L; Blood Urea Nitrogen 13 mg/dL (9-20); Calcium 8.8 mg/dL (8.4-10.2); Carbon Dioxide 23 mmol/L (22-30); Glucose 124 mg/dL (74-99); Magnesium 1.9 mg/dL (1.6-2.3); Non-African American GFR(CKD) >90 (>60 ml/min/1.73 sqM); Potassium 4.6 mmol/L (3.5-5.1); Sodium 136 mmol/L (137-145)
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
[2021-01-24] MEDS: METOPROLOL SUCCINATE (ER) 25 MG TAB.ER.24H PO SCH (08:30)
[2021-01-24] MEDS: ASPIRIN 81 MG PO SCH (08:30)
[2021-01-24] MEDS ORDERED: CLOPIDOGREL 75 MG TAB PO SCH (09:00)
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
[2021-01-24] MEDS: ATORVASTATIN 80 MG TAB PO SCH (21:35)
[2021-01-24] MEDS: HEPARIN SODIUM 1,000 UN/ML (10ML VL) IV PRN (23:10)
[2021-01-25] MEDS: MORPHINE SULFATE 4 MG/ML SYRINGE IVP PRN ×2 (03:12→20:46)
[2021-01-25] MEDS: NITROGLYCERIN-D5W PMX 50 MG in DEXTROSE/WATER 1 250ML.BAG IV SCH (04:45)
[2021-01-25 04:57] LABS: Basophils # (A) 0.1 k/uL (0-0.2); Basophils % (A) 1 %; Eosinophils # (A) 0.1 k/uL (0-0.7); Eosinophils % (A) 2 %; HCT 32.6 % (39.0-53.0); HGB 10.7 gm/dL (13.0-17.5); Lymphocytes # (A) 0.8 k/uL (1.0-4.8); Lymphocytes % (A) 11 %; MCH 32.4 pg (25.0-35.0); MCHC 32.9 g/dL (31.0-37.0); MCV 98.6 fL (80.0-100.0); Mean Platelet Volume 6.8; Monocytes # (A) 0.7 k/uL (0-1.0); Monocytes % (A) 10 %; Neutrophils # (A) 5.8 k/uL (1.3-7.7); Neutrophils % (A) 76 %; Platelet Count 380 k/uL (150-450); RBC 3.31 m/uL (4.30-5.90); RDW 13.5 % (11.5-15.5); WBC 7.7 k/uL (3.8-10.6)
[2021-01-25 05:02] LABS: African American GFR (CKD) >90 (>60 ml/min/1.73 sqM); Anion Gap 5 mmol/L; Blood Urea Nitrogen 12 mg/dL (9-20); Calcium 8.4 mg/dL (8.4-10.2); Carbon Dioxide 23 mmol/L (22-30); Chloride 106 mmol/L (98-107); Glucose 101 mg/dL (74-99); Non-African American GFR(CKD) >90 (>60 ml/min/1.73 sqM); Potassium 4.6 mmol/L (3.5-5.1); Sodium 134 mmol/L (137-145)
[2021-01-25] MEDS: HEPARIN SODIUM 1,000 UN/ML (10ML VL) IV PRN (05:53)
[2021-01-25] MEDS: HYDROcodone/APAP 5-325MG 1 EACH TAB PO PRN ×2 (06:07→12:15)
--- NOTE | 2021-01-25 07:32 | P.PN ---
Subjective Progress Note Date: 01/25/21 Principal diagnosis: Acute coronary syndrome The patient is a pleasant 80-year-old gentleman was coronary artery disease as well as permanent atrial fibrillation who was admitted to the hospital with acute coronary syndrome and acute anterior ST elevation myocardial infarction. He underwent an emergent heart catheterization and PCI of the LAD. He was seen this morning with his chest pain-free. He is off nitroglycerin IV. He continues to be on heparin IV which I'm going to stop and start him back on oral anticoagulation for the atrial fibrillation. No echocardiogram was ordered and we'll get an echo to assess ejection fraction between Y he is stable hemodynamically with a good blood pressure and with heart rate. He is on dual antiplatelet therapy along with high intensity statin along with beta ryanne. We'll follow-up on the echo. Objective - Vital Signs Vital signs: Vital Signs Temp 96.9 F L 01/25/21 04:00 Pulse 75 01/25/21 07:00 Resp 13 01/25/21 07:00 BP 110/67 01/25/21 07:00 Pulse Ox 96 01/25/21 07:00 Intake & Output 01/24/21 01/25/21 01/25/21 18:59 06:59 18:59 Intake Total 778.349 812.104 Output Total 925 750 Balance -146.651 62.104 Weight 50 kg 51 kg Intake: IV 480 520 0.9 480 520 Intake, IV Titration 298.349 192.104 Amount Heparin Sod,Pork in 0.45% 69.349 169.604 NaCl 25,000 unit In 0.45 % NaCl 1 250ml.bag @ 12 UNITS/KG/HR 5.987 mls/hr IV .Q24H [facility] Rx#: [id number] Nitroglycerin-D5w Pmx 50 229 22.5 mg In Dextrose/Water 1 250ml.bag @ 20 MCG/MIN 6 mls/hr IV .Q24H [facility] Rx#: [id number] Oral 100 Output: Urine 925 750 Other: Voiding Method Indwelling Catheter Indwelling Catheter - Constitutional General appearance: Present: no acute distress - Respiratory Respiratory: bilateral: CTA - Cardiovascular Rhythm: irregularly irregular Heart sounds: normal: S1, S2 - Labs CBC & Chem 7: 01/25/21 04:04 01/25/21 04:04 Labs: Abnormal Lab Results - Last 24 Hours (Table) 01/24/21 01/25/21 01/25/21 Range/Units 21:04 04:04 04:04 RBC 3.31 L (4.30-5.90) m/uL Hgb 10.7 L (13.0-17.5) gm/dL Hct 32.6 L (39.0-53.0) % Lymphocytes # 0.8 L (1.0-4.8) k/uL APTT 33.2 H (22.0-30.0) sec Sodium 134 L (137-145) mmol/L Creatinine 0.56 L (0.66-1.25) mg/dL Glucose 101 H (74-99) mg/dL Assessment and Plan Assessment: Assessment #[address] patient myocardial infarction and status post PCI of the LAD #2 known CAD and prior stenting of the LAD #3 hypertension #4 dyslipidemia #5 paroxysmal atrial fibrillation Plan #1 continue dual antiplatelet therapy #2 DC heparin and start the patient on oral anticoagulation #3 continue the current dose of beta ryanne #4 follow-up on the echocardiogram
[2021-01-25] MEDS: CLOPIDOGREL 75 MG TAB PO SCH (09:02)
[2021-01-25] MEDS: ASPIRIN 81 MG PO SCH (09:02)
[2021-01-25] MEDS: APIXABAN 5 MG TAB PO SCH ×2 (09:02→20:45)
[2021-01-25] MEDS: METOPROLOL SUCCINATE (ER) 25 MG TAB.ER.24H PO SCH (10:37)
[2021-01-25 11:22] LABS: Glucose,Whole Blood 84 mg/dL (75-99)
--- NOTE | 2021-01-25 12:50 | ECHOF ---
Referral Reason:STEMI MEASUREMENTS -------- HEIGHT: 177.8 cm WEIGHT: 50.8 kg BP: 88/57 IVSd: 1.3 cm (0.6 - 1.1) LVIDd: 4.5 cm (3.9 - 5.3) LVPWd: 1.0 cm (0.6 - 1.1) IVSs: 1.2 cm LVIDs: 3.6 cm LVPWs: 1.4 cm Ao Diam: 3.4 cm (2.0 - 3.7) AV Cusp: 2.0 cm (1.5 - 2.6) MV EXCURSION: 13.550 mm (> 18.000) MV EF SLOPE: 81 mm/s (70 - 150) EPSS: 1.0 cm MV E Home: 0.48 m/s MV DecT: 170 ms MV A Home: 0.59 m/s MV E/A Ratio: 0.82 RAP: 5.00 mmHg RVSP: 23.69 mmHg FINDINGS -------- Sinus rhythm. This was a technically difficult study with suboptimal views. Patient is post cardiac catheterizati on and cannot be in left lateral position. The left ventricular size is normal. There is mild concentric left ventricular hypertrophy. Overa ll left ventricular systolic function is moderate-severely impaired with, an EF between 30 - 35 %. Mid anterior LV wall motion is hypokinetic. Mid anteroseptal LV wall motion is hypokinetic. Api yared anterior LV wall motion is hypokinetic. Apical lateral LV wall motion is hypokinetic. Apica l inferior LV wall motion is hypokinetic. Apical septum LV wall motion is akinetic. The RV was not well visualized. The left atrium was not well visualized. The right atrium was not well visualized. 5.0mg of Lumason was utilized for enhancement of images Interatrial and interventricular septum intact. There is mild aortic valve sclerosis. There is no evidence of aortic regurgitation. There is no e vidence of aortic stenosis. The mitral valve leaflets are mildly thickened. Mild mitral regurgitation is present. The tricuspid valve appears structurally normal. Mild tricuspid regurgitation present. Right vent ricular systolic pressure is normal at < 35 mmHg. The right ventricular systolic pressure, as measu red by Doppler, is 23.69mmHg. The pulmonic valve was not well visualized. Can not exclude possible thrombus in apex VS artifact. The aortic root size is normal. IVC Not well visulized. There is no pericardial effusion. CONCLUSIONS -------- 1. This was a technically difficult study with suboptimal views. 2. There is mild concentric left ventricular hypertrophy. 3. Overall left ventricular systolic function is moderate-severely impaired with, an EF between 30 - 35 %. 4. Mid anterior LV wall motion is hypokinetic. 5. Mid anteroseptal LV wall motion is hypokinetic. 6. Apical anterior LV wall motion is hypokinetic. 7. Apical lateral LV wall motion is hypokinetic. 8. Apical inferior LV wall motion is hypokinetic. 9. Apical septum LV wall motion is akinetic. 10. Mild mitral regurgitation is present. 11. Mild tricuspid regurgitation present. 12. Can not exclude possible thrombus in apex VS artifact. FOOTWEAR FACTORY WORKER: Silva Mendez RDCS
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
[2021-01-25] MEDS: ATORVASTATIN 80 MG TAB PO SCH (20:45)
[2021-01-25] MEDS: ZOLPIDEM 5 MG TAB PO PRN (21:16)
[2021-01-26] MEDS: MORPHINE SULFATE 4 MG/ML SYRINGE IVP PRN ×3 (00:04→05:07)
[2021-01-26] MEDS: HYDROcodone/APAP 5-325MG 1 EACH TAB PO PRN ×2 (03:27→08:43)
[2021-01-26] MEDS: METOPROLOL SUCCINATE (ER) 25 MG TAB.ER.24H PO SCH (08:44)
[2021-01-26] MEDS: ASPIRIN 81 MG PO SCH (08:44)
[2021-01-26] MEDS: CLOPIDOGREL 75 MG TAB PO SCH (08:44)
[2021-01-26] MEDS: APIXABAN 5 MG TAB PO SCH (08:45)
--- NOTE | 2021-01-26 10:19 | P.PN ---
Subjective Progress Note Date: 01/26/21 HISTORY OF PRESENT ILLNESS: This is a very pleasant 80-year-old gentleman with coronary artery disease and prior stenting of the LAD who follows with Dr. Murphy irregularly as well as hypertension and dyslipidemia and paroxysmal atrial fibrillation was admitted to the hospital with chest discomfort and was diagnosed with acute anterior ST patient myocardial infarction. He underwent an emergent heart catheterization and PCI of the LAD. The patient was seen this morning. He continues to have mild ongoing chest discomfort he states about 4-5/10 in intensity. Currently he is on heparin IV and he was on IIb IIIa inhibitors earlier which was stopped this morning. Beside that he is on dual antiplatelet therapy but he is not on any beta ryanne nor high intensity statin. He is stable hemodynamically. I'm going to add small dose of beta ryanne with Toprol-XL and also high intensity statin was Lipitor 80 mg by mouth daily at bedtime. I'm going to continue the heparin at this point in case we need to take the patient back to the [facility] before we start him on oral anticoagulation for his atrial fibrillation. Echo still pending. He is also on IV nitroglycerin which is getting titrated for his chest pain 01/25/2021 He was seen this morning with his chest pain-free. He is off nitroglycerin IV. He continues to be on heparin IV which I'm going to stop and start him back on oral anticoagulation for the atrial fibrillation. No echocardiogram was ordered and we'll get an echo to assess ejection fraction between Y he is stable hemodynamically with a good blood pressure and with heart rate. He is on dual antiplatelet therapy along with high intensity statin along with beta ryanne. We'll follow-up on the echo. 01/26/2021 Patient examined this morning at the bedside. Patient denies chest pain or pressure. Denies shortness of breath. He states he has been ambulating in the hallway. Vital signs stable. Echocardiogram completed revealed ejection fraction 30-35%, LV wall hypokinesis, mild MR, and mild TR. PHYSICAL EXAM: VITAL SIGNS: Reviewed. GENERAL: Well-developed in no acute distress. NECK: Supple. No JVD or thyromegaly LUNGS: Respirations even and unlabored. Lungs essentially clear to auscultation bilaterally. HEART: Regular rate and rhythm. S1 and S2 heard. EXTREMITIES: Normal range of motion. No clubbing or cyanosis. Peripheral pulses intact. No lower extremity edema ASSESSMENT: Acute STEMI with PTCA of stented LAD Known coronary artery disease with previous PCI to LAD Paroxysmal atrial fibrillation Hypertension Hyperlipidemia PLAN: Continue current cardiac medications Patient is stable for discharge from a cardiac standpoint He is to follow up outpatient with Dr. Murphy Nurse practitioner note has been reviewed by physician. Signing provider agrees with the documented findings, assessment, and plan of care. Objective - Vital Signs Vital signs: Vital Signs Temp 98.3 F 01/26/21 04:00 Pulse 65 01/26/21 04:00 Resp 13 01/26/21 04:00 BP 128/73 01/26/21 04:00 Pulse Ox 96 01/26/21 04:00 Intake & Output 01/25/21 01/26/21 01/26/21 18:59 06:59 18:59 Intake Total 344.30 10 Output Total 400 450 500 Balance -55.70 -440 -500 Intake: IV 110 10 0.9 110 10 Intake, IV Titration 134.30 Amount Nitroglycerin-D5w Pmx 50 134.30 mg In Dextrose/Water 1 250ml.bag @ 20 MCG/MIN 6 mls/hr IV .Q24H [facility] Rx#: [id number] Oral 100 Output: Urine 400 450 500 Other: Voiding Method Indwelling Catheter Indwelling Catheter Indwelling Catheter - Labs CBC & Chem 7: 01/25/21 04:04 01/25/21 10:14
[2021-01-26 10:54] VITALS: BMI 16.1
[2021-01-26 12:13] VITALS: BP 116/81; PULSE 80; RESP 18; TEMP 97.8
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
== END 2021-01-26 12:30 | disposition home health service (06) | DRG 251 ==
LOC: EC 14:18 → 2SICU 14:59
PROVIDERS: ADMIT Internal Medicine; ATTEND Internal Medicine
PROC: 02703ZZ Dilation of Coronary Artery, One Artery, Percutaneous Approach (ICD-10-PCS; principal; 2021-01-23 14:44)
PROC: 4A023N7 Measurement of Cardiac Sampling and Pressure, Left Heart, Percutaneous Approach (ICD-10-PCS; principal; 2021-01-23 14:44)
PROC: B2111ZZ Fluoroscopy of Multiple Coronary Arteries using Low Osmolar Contrast (ICD-10-PCS; principal; 2021-01-23 14:44)
DX: I21.02 ST elevation (STEMI) myocardial infarction involving left anterior descending coronary artery (principal); T82.867A Thrombosis due to cardiac prosthetic devices, implants and grafts, initial encounter; I48.21 Permanent atrial fibrillation; G89.29 Other chronic pain; I10 Essential (primary) hypertension; I25.10 Atherosclerotic heart disease of native coronary artery without angina pectoris; Z20.822 Contact with and (suspected) exposure to COVID-19; E78.5 Hyperlipidemia, unspecified; I25.2 Old myocardial infarction; J44.9 Chronic obstructive pulmonary disease, unspecified; I08.1 Rheumatic disorders of both mitral and tricuspid valves; Z85.46 Personal history of malignant neoplasm of prostate; Z79.01 Long term (current) use of anticoagulants; Z79.02 Long term (current) use of antithrombotics/antiplatelets; Z79.82 Long term (current) use of aspirin; Z79.899 Other long term (current) drug therapy; Z82.49 Family history of ischemic heart disease and other diseases of the circulatory system; Z86.711 Personal history of pulmonary embolism; Z87.442 Personal history of urinary calculi; Z87.891 Personal history of nicotine dependence; Z95.5 Presence of coronary angioplasty implant and graft; Z96.642 Presence of left artificial hip joint; Z92.3 Personal history of irradiation; Z90.49 Acquired absence of other specified parts of digestive tract; Z98.42 Cataract extraction status, left eye; Z98.41 Cataract extraction status, right eye; Z88.1 Allergy status to other antibiotic agents; Z98.890 Other specified postprocedural states; Z87.01 Personal history of pneumonia (recurrent)
CPT/HCPCS: 36415; 71045; 80048; 80053; 83735; 84132; 84484; 85025; 85027; 85610; 85730; 87635; 92920; 93005; 93306; 93454; 96374; 96375; 99291

== ENCOUNTER 2021-01-26 16:05 | Emergency (ER) | payer MEDICARE, BC ==
[2021-01-26 16:13] VITALS: BP 118/74; PULSE 61; RESP 16; TEMP 98.9
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
== END 2021-01-26 16:56 | disposition home or self-care (01) ==
LOC: EC 16:05
DX: T83.098A Other mechanical complication of other urinary catheter, initial encounter (principal); I48.91 Unspecified atrial fibrillation; I25.10 Atherosclerotic heart disease of native coronary artery without angina pectoris; E78.5 Hyperlipidemia, unspecified; I10 Essential (primary) hypertension; I25.2 Old myocardial infarction; M19.90 Unspecified osteoarthritis, unspecified site; Z79.82 Long term (current) use of aspirin; Z79.01 Long term (current) use of anticoagulants; Z88.1 Allergy status to other antibiotic agents; Z86.711 Personal history of pulmonary embolism; Z85.46 Personal history of malignant neoplasm of prostate; Z87.442 Personal history of urinary calculi; Z90.49 Acquired absence of other specified parts of digestive tract; Z96.642 Presence of left artificial hip joint; Z87.891 Personal history of nicotine dependence; Y82.8 Other medical devices associated with adverse incidents
CPT/HCPCS: 99283

== ENCOUNTER 2021-01-29 17:28 | Inpatient (IN) | payer MEDICARE, BC ==
[2021-01-29] MEDS ORDERED: SODIUM CHLORIDE 0.9% 500 ML 500 ML IV STA ×2 (18:00→20:34)
[2021-01-29] MEDS ORDERED: SODIUM CHLORIDE 0.9% 1,000 ML IV STA ×2 (18:00→20:34)
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
[2021-01-29 18:58] LABS: Basophils % (A) 0 %; Eosinophils % (A) 0 %; HCT 32.9 % (39.0-53.0); Lymphocytes # (A) 0.3 k/uL (1.0-4.8); Lymphocytes % (A) 2 %; MCH 32.3 pg (25.0-35.0); MCHC 33.5 g/dL (31.0-37.0); MCV 96.5 fL (80.0-100.0); Mean Platelet Volume 7.3; Monocytes # (A) 0.6 k/uL (0-1.0); Monocytes % (A) 3 %; Neutrophils # (A) 16.4 k/uL (1.3-7.7); Neutrophils % (A) 94 %; Platelet Count 275 k/uL (150-450); RBC 3.41 m/uL (4.30-5.90); WBC 17.4 k/uL (3.8-10.6)
[2021-01-29 19:14] LABS: ALT 13 U/L (4-49); AST 33 U/L (17-59); African American GFR (CKD) >90 (>60 ml/min/1.73 sqM); Albumin 2.9 g/dL (3.5-5.0); Alkaline Phosphatase 57 U/L (38-126); Anion Gap 6 mmol/L; Blood Urea Nitrogen 16 mg/dL (9-20); Calcium 8.1 mg/dL (8.4-10.2); Carbon Dioxide 23 mmol/L (22-30); Chloride 99 mmol/L (98-107); Creatine Kinase 69 U/L (55-170); Glucose 124 mg/dL (74-99); Lipase 24 U/L (23-300); Magnesium 1.6 mg/dL (1.6-2.3); Non-African American GFR(CKD) >90 (>60 ml/min/1.73 sqM); Potassium 4.3 mmol/L (3.5-5.1); Sodium 128 mmol/L (137-145); Total Bilirubin 0.5 mg/dL (0.2-1.3); Total Protein 5.9 g/dL (6.3-8.2)
[2021-01-29] MEDS ORDERED: NITROGLYCERIN SL TABS 0.4 MG TAB SUBLINGUAL PRN (20:33)
[2021-01-29] MEDS ORDERED: HYDROmorphone 0.5 MG/0.5 ML SYRINGE IVP STA (20:34)
--- NOTE | 2021-01-29 20:59 | XR ---
EXAMINATION TYPE: XR chest 2V DATE OF EXAM: 01/29/2021 COMPARISON: NONE HISTORY: Fever. Back pain TECHNIQUE: 2 views FINDINGS: Heart is normal. There is some mild interstitial infiltrate left lower lobe. There is no he art failure. There are no hilar masses. Thoracic aorta is atheromatous. There is mild elevation of th e right diaphragm. IMPRESSION: There is some mild interstitial infiltrate and fibrotic changes that are stable compared to old exam. No heart failure. Normal heart size.
[2021-01-29] MEDS: oxyCODONE-APAP 7.5-325MG 1 EACH TAB PO PRN (21:01)
[2021-01-29 21:15] LABS: Amorphous Sediment,Urine Occasional /hpf; Appearance,Urine Clear (Clear); Bacteria,Urine Occasional /hpf; Bilirubin,Urine Negative (Negative); Blood,Urine Large (Negative); Color,Urine Yellow; Glucose,Urine (UA) Negative (Negative); Ketones,Urine Negative (Negative); Leukocyte Esterase,Urine Large (Negative); Mucus,Urine Occasional /hpf; Nitrite,Urine Positive (Negative); Protein,Urine 1+ (Negative); RBC,Urine 181 /hpf (0-5); Specific Gravity,Urine 1.015 (1.001-1.035); Urobilinogen,Urine <2.0 mg/dL (<2.0); WBC,Urine 47 /hpf (0-5)
[2021-01-29] MEDS ORDERED: NALOXONE 0.4 MG/ML 1 ML VIAL IV PRN (21:44)
[2021-01-29] MEDS ORDERED: LEVOFLOXACIN 750MG-D5W PMX 750 MG in DEXTROSE/WATER 1 150ML.BAG IVPB STA (21:46)
[2021-01-30] MEDS: oxyCODONE-APAP 7.5-325MG 1 EACH TAB PO PRN ×2 (01:31→07:27)
[2021-01-30] MEDS: VIT A,C & E-LUTEIN-MINERALS 1 EACH TAB PO SCH ×4 (01:32→20:21)
[2021-01-30] MEDS: ATORVASTATIN 80 MG TAB PO SCH ×2 (01:32→20:21)
[2021-01-30] MEDS: APIXABAN 5 MG TAB PO SCH ×3 (01:32→20:21)
[2021-01-30] MEDS: SODIUM CHLORIDE 0.9% 1,000 ML IV SCH ×3 (01:34→13:47)
[2021-01-30] MEDS: TAMSULOSIN 0.4 MG CAP.ER.24H PO SCH (07:27)
[2021-01-30] MEDS: METOPROLOL SUCCINATE (ER) 25 MG TAB.ER.24H PO SCH (07:27)
[2021-01-30] MEDS: ASPIRIN 81 MG PO SCH (07:27)
[2021-01-30] MEDS: CLOPIDOGREL 75 MG TAB PO SCH (07:27)
[2021-01-30] MEDS ORDERED: ONDANSETRON 4 MG/2 ML VIAL IVP PRN (12:25)
[2021-01-30] MEDS: PANTOPRAZOLE 40 MG/10 ML VIAL IVP SCH ×2 (12:36→20:21)
[2021-01-30] MEDS: LEVOFLOXACIN 500MG-D5W PMX 500 MG in DEXTROSE/WATER 1 100ML.BAG IVPB SCH (13:47)
[2021-01-30] MEDS ORDERED: ALPRAZolam 0.25 MG TAB PO PRN (15:28)
--- NOTE | 2021-01-30 16:28 | CT ---
EXAMINATION TYPE: CT abdomen pelvis wo con DATE OF EXAM: 01/30/2021 COMPARISON: 07/10/2019 HISTORY: abdominal pain CT DLP: 477.5 mGycm Automated exposure control for dose reduction was used. Images from the diaphragm to the floor the pelvis with no contrast. There is patchy airspace consolidation at both lung bases and more on the right side. There is dense coronary artery calcification. Heart is slightly enlarged. There is elevated right diaphragm. There a re clips from cholecystectomy. Common bile duct is large and measures 15 mm. Intrahepatic bile ducts are not significantly dilated. Spleen is intact. The stomach is intact. There is mild pericardial eff usion. There is small cystic changes in the pancreas and could relate to chronic pancreatitis. There is no adrenal mass. There is moderately severe left-sided hydronephrosis. There is left renal c ortical thinning. Exam limited by metal artifact from the fusion surgery in the lower lumbar spine. R ight kidney shows normal size with no hydronephrosis. There is no retroperitoneal adenopathy. There i s Scott catheter in the urinary bladder. There is left hip prosthesis. There is no free fluid in the pelvis. There are sigmoid diverticula without diverticulitis. There is no evidence of free air. There is no ascites. There is no sign of a bowel obstruction. There is posterior fusion surgery in the lumbar spine from L3 to L5. Vertebra have normal alignment. There is no significant compression deformity. Appendix is not definitely seen. There is no sign of t hickened appendix. IMPRESSION: There is right lower lobe pneumonia and atelectasis which has progressed compared to old exam. There is some pneumonia left lung base that has progressed compared to old exam. Atherosclerotic vascular disease. Chronic obstruction of the left kidney with hydronephrosis and elba l atrophy. There is clearing of the right side renal obstruction and hydronephrosis compared to old e xam. Chronically dilated biliary tree slightly increased compared to old exam.
[2021-01-30] MEDS: ERTAPENEM 1 GM in SODIUM CHLORIDE 0.9% 50 ML IVPB SCH (17:22)
--- NOTE | 2021-01-30 18:58 | HP ---
HISTORY AND PHYSICAL DATE OF SERVICE: 01/30/2021. CHIEF COMPLAINTS: Fever. HISTORY OF PRESENT ILLNESS: This 80-year-old gentleman with a past medical history of fibrillation, CAD, history of hypertension, hyperlipidemia, history of myocardial infarction, history of DJD, pulmonary embolism, history of renal disease, being followed by Dr. De La O and Dr. Hammer in the outpatient setting, was complaining of fever. The patient had 3 cardiac stents about 3 weeks ago. Currently the patient is complaining of fever up to 140 degrees and no sore throat. Patient complains of weakness. The patient has had Covid 19 immunization. Patient came to [facility] and admitted for further evaluation and treatment. Features of UTI were suspected in the ER and the patient started on IV antibiotics. Patient was found to be dehydrated. There is no history of headache, loss of consciousness or seizures at this time. The patient has also had some rigors. The patient also was vomiting also at this time. PAST MEDICAL HISTORY: Atrial fibrillation, CAD, hypertension, hyperlipidemia, myocardial infarction, DJD. MEDICATIONS: Home medications are reviewed include: Oxycodone, vitamin C, Flomax. Nitrostat, Toprol- XL, Plavix, Lipitor, aspirin,doses are reviewed. ALLERGIES: CEFACLOR AND CEPHALOSPORIN. FAMILY HISTORY: History of myocardial infarction. SOCIAL HISTORY: Previous history of smoking. No history of alcohol intake. REVIEW OF SYSTEMS: ENT: Diminished vision, diminished hearing. CARDIOVASCULAR: No angina. RESPIRATION: As mentioned earlier. GI: As mentioned earlier. : As mentioned earlier. NERVOUS SYSTEM: No numbness or weakness. ALLERGY/IMMUNOLOGY: No asthma or hayfever. MUSCULOSKELETAL: As mentioned earlier. HEMATOLOGY/ONCOLOGY: No history of anemia. ENDOCRINE: As mentioned earlier. CONSTITUTIONAL: As mentioned earlier. DERMATOLOGY negative. RHEUMATOLOGY: Negative. PSYCHIATRIC: As mentioned earlier. pulmonary embolism. PHYSICAL EXAMINATION: Patient is alert, oriented x2. Pulse 73, blood pressure 93/50, respirations 16. Temp 98.2, pulse ox 93% on room air. HEENT is conjunctivae normal. Oral mucosa moist. NECK is no jugular venous distention. No carotid bruit. No lymph node enlargement. CARDIOVASCULAR system: S1, S2 muffled. Ejection murmur. RESPIRATION: Breath sounds diminished in the bases. A few scattered rhonchi. ABDOMEN: Soft, scaphoid, nontender. No mass palpable. LEGS: No edema. No swelling. NERVOUS SYSTEM: Higher functions as mentioned earlier. Moves all 4 limbs. Mild diffuse weakness. LYMPHATICS: No lymph nodes palpable in the neck, axillae or groin. SKIN: No ulcer. No rash and no bleeding. JOINTS: No active deforming arthropathy. LABS: At this time shows: WBC 7.2, hemoglobin 11. Sodium 128, potassium 4.3. ASSESSMENT: 1. Acute urinary tract infection with severe sepsis and relative hypotension secondary to urinary tract infection. 2. Change in mental status acute metabolic encephalopathy secondary to sepsis. 3. Possible acute gastritis. 4. Increased WBC. 5. Anemia, normocytic. 6. Hyponatremia. 7. Hypocalcemia, mild. 8. Hypoalbuminemia with severe protein calorie malnutrition. 9. History of atrial fibrillation. 10.History of coronary artery disease. 11.Hypertension. 12.Hyperlipidemia. 13.History of myocardial infarction. 14.History of degenerative joint disease. 15.History of pneumonia. 16.History of pulmonary embolism. 17.History of anemia with transfusion hematuria. 18.History of prostate cancer. 19.History of hydronephrosis. 20.History of kidney stones. 21.History of pyelonephritis. 22.History of back surgery. 23.Cholecystectomy. 24.History of coronary artery disease, stent. 25.History of motion sickness. 26.Remote history of nicotine dependence. 27.FULL CODE. RECOMMENDATIONS AND DISCUSSION: This 80-year-old gentleman who presented with multiple complex medical issues, we will monitor the patient closely. We will continue the current medications. Continue with IV antibiotics. Cultures. Also get Dr. Velásquez for evaluation. I would recommend a CT scan of the abdomen and pelvis with no contrast to evaluate for any evidence of urinary tract obstructions or infections. Otherwise, resume the home medications. Symptomatic treatment for the vomiting. Protonix and we will keep the patient n.p.o. except medications at this time but once the vomiting subsides, we will slowly advance diet to full liquids and then soft diet. Prognosis guarded because of multiple complex medical issues. Further recommendations to follow. Discussed with the family at the bedside and copy of this dictation is being forwarded to Dr. De La O who is the primary care physician. MMLIZETTL / JANESN: [id number] / REY
[2021-01-30] MEDS: ACETAMINOPHEN TAB 325 MG TAB PO PRN (20:20)
[2021-01-30 21:49] LABS: Appearance,Urine Cloudy (Clear); Bilirubin,Urine Negative (Negative); Blood,Urine Large (Negative); Color,Urine Light Red; Glucose,Urine (UA) Negative (Negative); Ketones,Urine Negative (Negative); Leukocyte Esterase,Urine Moderate (Negative); Mucus,Urine Rare /hpf; Nitrite,Urine Negative (Negative); Protein,Urine 1+ (Negative); RBC,Urine >182 /hpf (0-5); Specific Gravity,Urine 1.019 (1.001-1.035); Urobilinogen,Urine <2.0 mg/dL (<2.0); WBC,Urine 47 /hpf (0-5)
[2021-01-31] MEDS: SODIUM CHLORIDE 0.9% 1,000 ML IV SCH ×2 (02:04→19:22)
[2021-01-31] MEDS: ACETAMINOPHEN TAB 325 MG TAB PO PRN ×2 (02:12→08:42)
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
[2021-01-31] MEDS: PANTOPRAZOLE 40 MG/10 ML VIAL IVP SCH (08:37)
[2021-01-31] MEDS: VIT A,C & E-LUTEIN-MINERALS 1 EACH TAB PO SCH ×2 (08:37→19:54)
[2021-01-31] MEDS: ASPIRIN 81 MG PO SCH (08:37)
[2021-01-31] MEDS: TAMSULOSIN 0.4 MG CAP.ER.24H PO SCH (08:37)
[2021-01-31] MEDS: APIXABAN 5 MG TAB PO SCH ×2 (08:37→19:54)
[2021-01-31] MEDS: METOPROLOL SUCCINATE (ER) 25 MG TAB.ER.24H PO SCH (08:38)
[2021-01-31] MEDS: CLOPIDOGREL 75 MG TAB PO SCH (08:38)
[2021-01-31] MEDS: ERTAPENEM 1 GM in SODIUM CHLORIDE 0.9% 50 ML IVPB SCH (08:38)
[2021-01-31 09:19] LABS: Basophils # (A) 0.03 X 10*3/uL (0.00-0.10); Basophils % (A) 0.2 %; Eosinophils # (A) 0.01 X 10*3/uL (0.04-0.35); Eosinophils % (A) 0.1 %; HCT 28.7 % (39.6-50.0); Lymphocytes # (A) 0.34 X 10*3/uL (0.90-5.00); Lymphocytes % (A) 2.2 %; MCH 30.7 pg (27.0-32.0); MCHC 31.4 g/dL (32.0-37.0); Mean Platelet Volume 9.9 fL (9.5-12.2); Monocytes # (A) 0.77 X 10*3/uL (0.20-1.00); Neutrophils # (A) 14.08 X 10*3/uL (1.80-7.70); Neutrophils % (A) 91.8 %; Platelet Count 236 X 10*3/uL (140-440); RBC 2.93 X 10*6/uL (4.40-5.60); RDW 13.2 % (11.5-14.5); WBC 15.33 X 10*3/uL (4.50-10.00)
[2021-01-31 09:52] LABS: African American GFR (CKD) 108.5 (60.0-200.0); Albumin 2.7 g/dL (3.80-4.90); Albumin/Globulin Ratio 1.23 (1.60-3.17); Anion Gap 9.4 mmol/L (4.00-12.00); Calcium 7.6 mg/dL (8.7-10.3); Carbon Dioxide 20.6 mmol/L (21.6-31.8); Globulin 2.2 g/dL (1.6-3.3); Non-African American GFR(CKD) 93.6 (60.0-200.0); Potassium 4.3 mmol/L (3.5-5.5); Total Bilirubin 0.4 mg/dL (0.2-1.2); Total Protein 4.9 g/dL (6.2-8.2)
[2021-01-31] MEDS ORDERED: QUEtiapine 25 MG TAB PO PRN (10:53)
--- NOTE | 2021-01-31 11:58 | P.PN ---
Subjective She is admitted for severe sepsis patient still has low-grade fevers. Patient does have a Scott catheter which is chronic and which was replaced. Patient the is being treated for UTI and there was a concern about pneumonia. Patient does have some infiltrate bilaterally no clear air bronchogram and the CT of the chest. Patient is also on levofloxacin infectious disease is following the patient. Patient wanted to go home but we don't have any cultures available patient was hyponatremic hyponatremia improved at this time and the patient does have leukocytosis and there is some improvement in leukocytosis as well. Patient appears to have bit of confusion which may be his baseline but oriented times close to 3. Constitutional: Denied any fatigue denied any fever. Cardio vascular: denied any chest pain, palpitations Gastrointestinal denied any nausea vomiting Pulmonary: Denied any shortness of breath cough Neurologic denied any new focal deficits All inpatient medications were reviewed and appropriate changes in these medications as dictated in the interval history and assessment and plan. PHYSICAL EXAMINATION: GENERAL: The patient is alert and oriented x3, not in any acute distress. Thin built HEENT: Pupils are round and equally reacting to light. EOMI. No scleral icterus. No conjunctival pallor. Normocephalic, atraumatic. No pharyngeal erythema. No thyromegaly. CARDIOVASCULAR: S1 and S2 present. No murmurs, rubs, or gallops. PULMONARY: Chest is clear to auscultation, no wheezing or crackles. ABDOMEN: Soft, nontender, nondistended, normoactive bowel sounds. No palpable organomegaly. MUSCULOSKELETAL: No joint swelling or deformity. EXTREMITIES: No cyanosis, clubbing, or pedal edema. NEUROLOGICAL: Gross neurological examination did not reveal any focal deficits. SKIN: No rashes. Assessment and plan -Sepsis possibility of her urinary tract infection, low possibility of pneumonia. Continue with ertapenem awaiting blood cultures. Continue with levofloxacin follow-up with infectious disease -Possible or toxic encephalopathy which may have improved -Possible baseline dementia -Hypervolemic hyponatremia which improved with IV fluids -Artery disease -Hyperlipidemia -Chronic back pain -BPH Vicente history of atrial fibrillation probably paroxysmal presently rate controlled continue with anticoagulation with Eliquis DVT prophylaxis: On Eliquis Objective - Vital Signs Vital signs: Vital Signs Temp 97.5 F L 01/31/21 08:00 Pulse 58 L 01/31/21 08:41 Resp 18 01/31/21 08:41 BP 92/50 01/31/21 08:00 Pulse Ox 98 01/31/21 08:00 Intake & Output 01/30/21 01/31/21 01/31/21 18:59 06:59 18:59 Intake Total 480 Output Total 1500 500 Balance -1020 -500 Intake: Oral 480 Output: Urine 1500 500 Other: Voiding Method Indwelling Catheter Indwelling Catheter Indwelling Catheter - Labs CBC & Chem 7: 01/31/21 05:43 01/31/21 05:43 Labs: Abnormal Lab Results - Last 24 Hours (Table) 01/30/21 01/31/21 01/31/21 Range/Units 20:10 05:43 05:43 WBC 15.33 H (4.50-10.00) X 10*3/uL RBC 2.93 L (4.40-5.60) X 10*6/uL Hgb 9.0 L (13.0-17.0) g/dL Hct 28.7 L (39.6-50.0) % MCV 98.0 H (80.0-97.0) fL MCHC 31.4 L (32.0-37.0) g/dL Immature Gran # 0.10 H (0.00-0.04) X 10*3/uL Neutrophils # 14.08 H (1.80-7.70) X 10*3/uL Lymphocytes # 0.34 L (0.90-5.00) X 10*3/uL Eosinophils # 0.01 L (0.04-0.35) X 10*3/uL Carbon Dioxide 20.6 L (21.6-31.8) mmol/L Calcium 7.6 L (8.7-10.3) mg/dL Total Protein 4.9 L (6.2-8.2) g/dL Albumin 2.70 L (3.80-4.90) g/dL Albumin/Globulin Ratio 1.23 L (1.60-3.17) g/dL Urine Protein 1+ H (Negative) Urine Blood Large H (Negative) Ur Leukocyte Esterase Moderate H (Negative) Urine RBC >182 H (0-5) /hpf Urine WBC 47 H (0-5) /hpf Urine Mucus Rare H (None) /hpf Microbiology - Last 24 Hours (Table) 01/29/21 18:41 Blood Culture - Preliminary Blood No Growth after 24 hours 01/29/21 18:41 Urine Culture - Preliminary Urine,Voided
[2021-01-31] MEDS: LEVOFLOXACIN 500MG-D5W PMX 500 MG in DEXTROSE/WATER 1 100ML.BAG IVPB SCH (13:45)
[2021-01-31 14:13] VITALS: BMI 16.0
[2021-01-31 17:07] LABS: C Reactive Protein 23.1 mg/dL (0.0-0.8)
[2021-01-31] MEDS: ATORVASTATIN 80 MG TAB PO SCH (19:55)
[2021-01-31] MEDS: PANTOPRAZOLE 40 MG TABLET PO SCH (19:55)
[2021-02-01] MEDS: ACETAMINOPHEN TAB 325 MG TAB PO PRN (01:57)
[2021-02-01] MEDS: SODIUM CHLORIDE 0.9% 1,000 ML IV SCH ×3 (04:57→20:27)
--- NOTE | 2021-02-01 05:59 | PN ---
PROGRESS NOTE DATE OF SERVICE: 01/31/2021 REASON FOR FOLLOWUP: UTI and pneumonia. INTERVAL HISTORY: The patient did have a low-grade fever of 100.6 this morning. Repeat afterwards 99.9. The patient overall is feeling better. He is breathing comfortably. He did have a cough, not bringing up any sputum. No nausea, no vomiting. No abdominal pain. No diarrhea. Scott catheter has been changed. PHYSICAL EXAMINATION: Blood pressure 121/62 with a pulse of 73, temperature 99.9. He is 94% on room air. General description is an elderly male lying in bed in no distress. Respiratory system: Unlabored breathing, decreased breath sounds. No wheeze. Heart S1, S2. Regular rate and rhythm. Abdomen soft, no tenderness. LABS: Hemoglobin is 9.1, white count 15.33. Procalcitonin 0.31. Repeat urine is positive. Cultures currently pending. DIAGNOSTIC IMPRESSION AND PLAN: Patient admitted to the hospital with fever concerning likely for catheter associated urinary tract infection plus-minus component of pneumonia. Patient does have CEPHALOSPORIN ALLERGY. Currently covered with Valentin Humphrey to continue while waiting for the culture to finalize and monitor clinical course closely. MMODL / IJN: [id number] /
[2021-02-01] MEDS: ERTAPENEM 1 GM in SODIUM CHLORIDE 0.9% 50 ML IVPB SCH (08:06)
[2021-02-01] MEDS: TAMSULOSIN 0.4 MG CAP.ER.24H PO SCH (08:07)
[2021-02-01] MEDS: CLOPIDOGREL 75 MG TAB PO SCH (08:07)
[2021-02-01] MEDS: METOPROLOL SUCCINATE (ER) 25 MG TAB.ER.24H PO SCH (08:07)
[2021-02-01] MEDS: ASPIRIN 81 MG PO SCH (08:07)
[2021-02-01] MEDS: oxyCODONE-APAP 7.5-325MG 1 EACH TAB PO PRN (08:07)
[2021-02-01] MEDS: VIT A,C & E-LUTEIN-MINERALS 1 EACH TAB PO SCH ×3 (08:07→20:23)
[2021-02-01] MEDS: PANTOPRAZOLE 40 MG TABLET PO SCH ×2 (08:07→20:14)
[2021-02-01] MEDS: APIXABAN 5 MG TAB PO SCH ×2 (08:07→20:14)
[2021-02-01] MEDS: LEVOFLOXACIN 500 MG TAB PO SCH (13:54)
--- NOTE | 2021-02-01 14:35 | P.PN ---
Subjective Progress Note Date: 02/01/21 She is admitted for severe sepsis patient still has low-grade fevers. Patient does have a Scott catheter which is chronic and which was replaced. Patient the is being treated for UTI and there was a concern about pneumonia. Patient does have some infiltrate bilaterally no clear air bronchogram and the CT of the chest. Patient is also on levofloxacin infectious disease is following the patient. Patient wanted to go home but we don't have any cultures available patient was hyponatremic hyponatremia improved at this time and the patient does have leukocytosis and there is some improvement in leukocytosis as well. Patient appears to have bit of confusion which may be his baseline but oriented times close to 3. 02/01/2021 Patient sitting up at the bedside today, he expresses a desire to go home. However patient has had a T-max of 101.9 last 24 hours. Additional vital signs included a heart rate of 96, blood pressure 104/58, 91% on room air His white count remains elevated today 15.33. Hemoglobin is stable at 9 which is chronic for the patient. Sodium is 135, potassium 4.3. Mag was 1.6 on admission, repeat today. Patient continues on all of her cardiac medications. He is status post stent to his LAD was limited as a STEMI and discharged on January 26. Patient does live at home with his . PT OT has been consulted today. His sputum culture still pending. Blood culture is negative, urine culture negative 2. COVID, influenza A and B are negative. ROS Constitutional: Denied any fatigue denied any fever. Cardio vascular: denied any chest pain, palpitations Gastrointestinal denied any nausea vomiting Pulmonary: Denied any shortness of breath cough Neurologic denied any new focal deficits All inpatient medications were reviewed and appropriate changes in these m edications as dictated in the interval history and assessment and plan. PHYSICAL EXAMINATION: GENERAL: The patient is alert and oriented x3, not in any acute distress. Thin built HEENT: Pupils are round and equally reacting to light. EOMI. No scleral icterus. No conjunctival pallor. Normocephalic, atraumatic. No pharyngeal erythema. No thyromegaly. CARDIOVASCULAR: S1 and S2 present. No murmurs, rubs, or gallops. PULMONARY: There is coarse rhonchi bilateral posterior all lung chawla, negative for crackles in the bases ABDOMEN: Soft, nontender, nondistended, normoactive bowel sounds. No palpable organomegaly. MUSCULOSKELETAL: No joint swelling or deformity. EXTREMITIES: No cyanosis, clubbing, or pedal edema. NEUROLOGICAL: Gross neurological examination did not reveal any focal deficits. SKIN: No rashes. Assessment and plan Assessment -Sepsis possibility of her urinary tract infection, low possibility of pneumonia. Continue with ertapenem awaiting blood cultures. -Possible or toxic encephalopathy which may have improved -Possible baseline dementia -Hypervolemic hyponatremia which improved with IV fluids -Artery disease -Hyperlipidemia -Chronic back pain -BPH - on Flomax, chronic Scott in place -History of prostate cancer -history of atrial fibrillation probably paroxysmal presently rate controlled continue with anticoagulation with Eliquis DVT prophylaxis: On Eliquis GI prophylaxis: On Protonix DO NOT RESUSCITATE Plan Repeat labs in the morning, monitor trends continue to encourage ambulation, continue to encourage IS. Antibiotics per ID and discharge. Continue all her medications. Pending PT OT consultation. Objective - Vital Signs Vital signs: Vital Signs Temp 98.6 F 02/01/21 08:00 Pulse 96 02/01/21 08:05 Resp 16 02/01/21 08:05 BP 104/58 02/01/21 08:00 Pulse Ox 91 L 02/01/21 08:00 Intake & Output 01/31/21 02/01/21 02/01/21 18:59 06:59 18:59 Intake Total 900 Output Total 1200 750 Balance -300 -750 Weight 50.802 kg Intake: Intake, IV Titration 900 Amount Ertapenem 1 gm In Sodium 50 Chloride 0.9% 50 ml @ 100 mls/hr IVPB DAILY [facility] Rx #:[id number] Levofloxacin 500Mg-D5w 100 Pmx 500 mg In Dextrose/ Water 1 100ml.bag @ 100 mls/hr IVPB Q24H [facility] Rx#: [id number] Sodium Chloride 0.9% 1, 750 000 ml @ 75 mls/hr IV . [id number] [facility] Rx#:[id number] Output: Urine 1200 750 Other: Voiding Method Indwelling Catheter Indwelling Catheter Indwelling Catheter - Labs CBC & Chem 7: 01/31/21 05:43 01/31/21 05:43 Labs: Abnormal Lab Results - Last 24 Hours (Table) 01/31/21 01/31/21 Range/Units 05:43 05:43 C-Reactive Protein 23.1 H (0.0-0.8) mg/dL Procalcitonin 0.31 H (0.02-0.09) ng/mL Microbiology - Last 24 Hours (Table) 01/30/21 20:10 Urine Culture - Final Urine,Voided 01/29/21 18:41 Blood Culture - Preliminary Blood No Growth after 48 hours 01/29/21 18:41 Urine Culture - Final Urine,Voided
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
--- NOTE | 2021-02-01 18:36 | PN ---
PROGRESS NOTE DATE OF SERVICE: 02/01/2021 REASON FOR FOLLOWUP: Fever with concern for aspiration pneumonia and UTI. INTERVAL HISTORY: Patient did spike another fever this morning after midnight of 101.9. He is afebrile since then. The patient overall is feeling better and wants to go home. Denies having any chest pain or shortness of breath. He did have a cough, not bringing up any sputum. No abdominal pain or diarrhea. PHYSICAL EXAMINATION: Blood pressure is 104/58 with a pulse of 96. Temperature 98.6. He is 91% on room air. General description is an elderly male lying in the bed in no distress. Respiratory system: Unlabored breathing, decreased breath sounds at bases. No wheeze. Heart S1, S2. Regular rate and rhythm. Abdomen soft, no tenderness. LABS: No new labs have been obtained today. Culture has been negative so far. DIAGNOSTIC IMPRESSION AND PLAN: Patient admitted to the hospital with fever concerning for a catheter associated urinary tract infection. The patient's Scott has been changed. Urine culture has been negative so far. Still having a fever with concern for possible recurrent aspiration. May benefit from swallow evaluation, repeating a chest x-ray, inflammatory markers, and monitor clinical course closely. MMODL / IJN: [id number] /
[2021-02-01] MEDS: ATORVASTATIN 80 MG TAB PO SCH (20:14)
[2021-02-02 06:36] LABS: African American GFR (CKD) >90 (>60 ml/min/1.73 sqM); Anion Gap 5 mmol/L; Blood Urea Nitrogen 10 mg/dL (9-20); Calcium 7.7 mg/dL (8.4-10.2); Carbon Dioxide 24 mmol/L (22-30); Chloride 106 mmol/L (98-107); Glucose 101 mg/dL (74-99); Magnesium 1.8 mg/dL (1.6-2.3); Non-African American GFR(CKD) >90 (>60 ml/min/1.73 sqM); Potassium 3.9 mmol/L (3.5-5.1); Sodium 135 mmol/L (137-145)
--- NOTE | 2021-02-02 07:50 | XR ---
EXAMINATION TYPE: XR chest 2V DATE OF EXAM: 02/02/2021 COMPARISON: Chest x-ray 01/29/2021 HISTORY: Pneumonia TECHNIQUE: Frontal and lateral views of the chest are obtained. FINDINGS: Increased density is now noted at the lung bases as compared to prior exam, the hemidiaphr agm on the left is somewhat obscured. Patient is rotated. There is no evident pneumothorax. Cardiac m ediastinal silhouette is likely stable. There is elevation right hemidiaphragm. Postop change noted t o the lumbar spine. Aorta is dense. IMPRESSION: Findings may be indicative of pneumonia versus basilar effusions and associated atelecta sis or edema, correlate
[2021-02-02 08:03] VITALS: RESP 16
[2021-02-02] MEDS: oxyCODONE-APAP 7.5-325MG 1 EACH TAB PO PRN (08:23)
[2021-02-02] MEDS: TAMSULOSIN 0.4 MG CAP.ER.24H PO SCH (08:23)
[2021-02-02] MEDS: PANTOPRAZOLE 40 MG TABLET PO SCH (08:24)
[2021-02-02] MEDS: METOPROLOL SUCCINATE (ER) 25 MG TAB.ER.24H PO SCH (08:24)
[2021-02-02] MEDS: CLOPIDOGREL 75 MG TAB PO SCH (08:24)
[2021-02-02] MEDS: ASPIRIN 81 MG PO SCH (08:24)
[2021-02-02] MEDS: APIXABAN 5 MG TAB PO SCH (08:24)
[2021-02-02] MEDS: VIT A,C & E-LUTEIN-MINERALS 1 EACH TAB PO SCH (08:25)
[2021-02-02] MEDS: ERTAPENEM 1 GM in SODIUM CHLORIDE 0.9% 50 ML IVPB SCH (08:32)
[2021-02-02 11:36] LABS: Basophils # (A) 0.03 X 10*3/uL (0.00-0.10); Basophils % (A) 0.4 %; Eosinophils # (A) 0.09 X 10*3/uL (0.04-0.35); Eosinophils % (A) 1.3 %; HCT 27.1 % (39.6-50.0); Lymphocytes # (A) 0.65 X 10*3/uL (0.90-5.00); Lymphocytes % (A) 9.1 %; MCH 31.8 pg (27.0-32.0); MCHC 33.2 g/dL (32.0-37.0); MCV 95.8 fL (80.0-97.0); Mean Platelet Volume 9.4 fL (9.5-12.2); Monocytes # (A) 0.59 X 10*3/uL (0.20-1.00); Monocytes % (A) 8.3 %; Neutrophils # (A) 5.71 X 10*3/uL (1.80-7.70); Neutrophils % (A) 80.3 %; Platelet Count 302 X 10*3/uL (140-440); RBC 2.83 X 10*6/uL (4.40-5.60); RDW 13.7 % (11.5-14.5); WBC 7.11 X 10*3/uL (4.50-10.00)
[2021-02-02] MEDS: MAGNESIUM SULFATE-D5W PMX 1 GM in DEXTROSE/WATER 1 100ML.BAG IVPB SCH ×2 (12:20→13:18)
[2021-02-02] MEDS: LEVOFLOXACIN 500 MG TAB PO SCH (13:06)
[2021-02-02 13:24] VITALS: BP 109/70; PULSE 57; TEMP 98.7
--- NOTE | 2021-02-02 15:09 | P.DS ---
Providers Date of admission: 01/29/21 21:44 Attending physician: Salomon Chapman Consults: 01/30/21 15:27 Consult Physician Routine Consulting Provider: Paolo Velásquez Consult Reason/Comments: sepsis Do you want consulting provider notified?: Yes Primary care physician: Juan Miguel De La O Hospital Course: Final diagnoses -Sepsis possibility of urinary tract infection, related to indwelling catheter, present on admission Possible right lower lobe pneumonia and atelectasis, possible pneumonia left lung base, present on admission -Possible or toxic encephalopathy, related to possible sepsis which has resolved -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 He was evaluated PT OT today who cleared patient for home. Patient was evaluated by ID, urine culture and blood cultures are negative. Patient will continue a 5 day course of oral Levaquin. Repeat labs in 3 days, follow-up with PCP, ID, cardiology, urology. Hospital course This is a pleasant 80-year-old male who presents to the with complaints of fevers up to 104 home. He denies any earache, sore throat, rhinorrhea, cough or phlegm production. He does state his urine is darker than usual but he does not have any dysuria. Is currently being treated for skin cancer on his scalp. Patient is a medical history of coronary artery disease status post PCI with 3 stents approximately 3 weeks ago, artery disease, hyperlipidemia, hypertension, BPH, prostate cancer, paroxysmal A. fib on eliquis. He also has a history of prostate problems with a chronic indwelling catheter. The catheter was replaced in the . There is concern for UTI versus pneumonia. His initial urinalysis in the showed 1+ protein, large blood, large leukocyte Estrace, occasional bacteria, and nitrate positive. A repeat urinalysis revealed large blood, moderate leukocyte esterase with a stable WBC count of 47, and negative for nitrates. His Covid, influenza A and B were negative. Patient is vaccinated against Covid. Initial labs also revealed a white blood cell count 17.4, hemoglobin of 11, sodium 128, creatinine 0.64 and a calcium of 8.1. Patient's magnesium was also 1.6. His pro calcitonin was elevated at 0.31, CRP 23. This suggests a infection of bacterial etiology. Patient's radial site related to his recent cardiac catheterization is intact, there is no erythema, no drainage noted. Patient was febrile this admission his most recent temp was 101.9 and February 01 at 1 AM. He has remained afebrile in the last day and a half. His white blood cell count has resolved and is now 7. Patient had a repeat chest x- ray completed on February 02 it did show findings indicative of pneumonia versus bibasilar effusions and associated atelectasis or edema, correlate. A BNP was ordered, results were 12,300. Current medications include triple therapy with baby aspirin, Plavix, eliquis, Toprol, Flomax. Patient was evaluated by ID who placed patient on IV Invanz for cultures finalized. Patient had a urine culture was negative 2 as well as a negative blood culture. Vital signs have remained stable with a temp of 98.7, heart rate 57, blood pressure 109/70, 95% on room air. 02/02/2021 Patient is evaluated today sitting up in the chair. He states that he would like to return home today. He denies any chest pain, palpitations, cough, shortness of breath. He denies any nausea vomiting or diarrhea. He states that he is tolerating a diet. He feels better. He was up ambulating with PT OT in the hallway today without difficulty. He is taking all his prescribed medications. Labs reviewed today include a hemoglobin of 9, white blood cell count of 7.11, potassium 3.9, mag 1.8. His sodium today is 135. Vital signs are as described above. Patient was cleared by infectious disease today to continue a course of oral Levaquin for 5 days. In addition patient is swallowing evaluation completed today to rule out silent aspiration, patient's evaluation was essentially normal recommendations include continue regular diet with liquids. Patient's BNP came back at 12,000 today, however patient's lungs did not reveal any crackles and there is mild stable nonpitting ankle edema. Patient is not experiencing any shortness of breath. Patient will continue with his incentive spirometer. And will follow-up with his blocker metal base in the office. Please see medication reconciliation for list of current medications. Thank you for allowing us to participate in the care of this patient. Patient Condition at Discharge: Fair Plan - Discharge Summary Discharge Rx Participant: No New Discharge Prescriptions: New Famotidine [Pepcid] 20 mg PO BID #60 tablet levoFLOXacin 500 mg PO DAILY 7 Days #7 tab Acetaminophen Tab [Tylenol] 650 mg PO Q6HR PRN tab PRN Reason: Mild Pain Or Fever > 100.5 Continue Tamsulosin [Flomax] 0.4 mg PO DAILY 30 Days #30 cap.er.24h Vit C/E/Zn/Coppr/Lutein/Zeaxan [Preservision Areds 2 Softgel] 1 cap PO BID Aspirin 81 mg PO DAILY Atorvastatin [Lipitor] 80 mg PO HS #30 tab oxyCODONE HCL/ACETAMINOPHEN [Percocet 7.5-325 mg] 1 tab PO BID PRN PRN Reason: Pain Clopidogrel Bisulfate [Plavix] 75 mg PO DAILY Apixaban [Eliquis] 5 mg PO BID Nitroglycerin Sl Tabs [Nitrostat] 0.4 mg SUBLINGUAL Q5M PRN PRN Reason: Chest Pain Metoprolol Succinate (ER) [Toprol XL] 25 mg PO DAILY #30 tablet Discharge Medication List oxyCODONE HCL/ACETAMINOPHEN [Percocet 7.5-325 mg] 1 tab PO BID PRN 09/03/20 [His tory] Tamsulosin [Flomax] 0.4 mg PO DAILY 30 Days #30 cap.er.24h 09/06/20 [Rx] Apixaban [Eliquis] 5 mg PO BID 12/07/20 [History] Clopidogrel Bisulfate [Plavix] 75 mg PO DAILY 12/07/20 [History] Vit C/E/Zn/Coppr/Lutein/Zeaxan [Preservision Areds 2 Softgel] 1 cap PO BID 12/07/20 [History] Aspirin 81 mg PO DAILY 01/04/21 [History] Nitroglycerin Sl Tabs [Nitrostat] 0.4 mg SUBLINGUAL Q5M PRN 01/04/21 [History] Atorvastatin [Lipitor] 80 mg PO HS #30 tab 01/26/21 [Rx] Metoprolol Succinate (ER) [Toprol XL] 25 mg PO DAILY #30 tablet 01/26/21 [Rx] Acetaminophen Tab [Tylenol] 650 mg PO Q6HR PRN tab 02/02/21 [Rx] Famotidine [Pepcid] 20 mg PO BID #60 tablet 02/02/21 [Rx] levoFLOXacin 500 mg PO DAILY 7 Days #7 tab 02/02/21 [Rx] Follow up Appointment(s)/Referral(s): [facility], [NON-STAFF] - 1-2 Days Malick Guaman MD [STAFF PHYSICIAN] - 1 Week (Office will call you with your appointment.) Juan Miguel De La O MD [Primary Care Provider] - 1-2 days (Patient to call and make a ppointment) Paolo Velásquez MD [STAFF PHYSICIAN] - 02/08/21 2:00 pm Ambulatory/Diagnostic Orders: Basic Metabolic Panel [LAB.AMB] Time Frame: 2 Days, Location: None Selected Complete Blood Count w/diff [LAB.AMB] Time Frame: 2 Days, Location: None Selected Patient Instructions/Handouts: Urinary Tract Infection in Men (DC), Sepsis (GEN) Activity/Diet/Wound Care/Special Instructions: Patient will need to follow Dr. Guaman if he is already from his previous admission F/U Infectious disease Follow-up with PCP Discharge Disposition: HOME SELF-CARE
--- NOTE | 2021-02-02 15:26 | PN ---
PROGRESS NOTE DATE OF SERVICE: 02/02/2021 REASON FOR FOLLOWUP: UTI and pneumonia. INTERVAL HISTORY: The patient is afebrile. The patient is feeling better, breathing comfortably. He was seen on rounds this morning. No chest pain or shortness of breath. He did have a cough. The nursing staff mentioned he is eating okay without any choking on the food. No diarrhea. Patient is anxious to go home. PHYSICAL EXAMINATION: Blood pressure 139/70 with a pulse of 57, temperature 98.7. He is 95% on room air. GENERAL DESCRIPTION: General description is an elderly male up in the bed in no distress. RESPIRATORY SYSTEM: Unlabored breathing. Decreased breath sounds at the bases. No wheeze. HEART: S1, S2. Regular rate and rhythm. ABDOMEN: Soft. No tenderness. LABS: Hemoglobin is 9 with a white count of 7.11, BUN of 10, creatinine 0.57. Urine cultures remain negative. Chest x-ray with multiple did not mention any worsening. DIAGNOSTIC IMPRESSION AND PLAN: Patient admitted to hospital with fever. There was concern about a catheter-associated urinary tract infection. Urine culture subsequently came back negative. Plan at this time is to finish therapy with a short course of oral Levaquin and close outpatient followup. Discussed with the nurse practitioner for the admitting team. MMODL / IJN: [id number] /
== END 2021-02-02 16:02 | disposition home health service (06) | DRG 698 ==
LOC: EC 17:28 → 4SSUR 21:44
PROVIDERS: ADMIT Hospitalist; ATTEND Hospitalist
DX: T83.518A Infection and inflammatory reaction due to other urinary catheter, initial encounter (principal); A41.9 Sepsis, unspecified organism; E43 Unspecified severe protein-calorie malnutrition; G93.41 Metabolic encephalopathy; J18.9 Pneumonia, unspecified organism; R65.20 Severe sepsis without septic shock; G92 Toxic encephalopathy; I21.3 ST elevation (STEMI) myocardial infarction of unspecified site; Z68.1 Body mass index [BMI] 19.9 or less, adult; E87.1 Hypo-osmolality and hyponatremia; I50.42 Chronic combined systolic (congestive) and diastolic (congestive) heart failure; J98.11 Atelectasis; N39.0 Urinary tract infection, site not specified; C44.40 Unspecified malignant neoplasm of skin of scalp and neck; E78.5 Hyperlipidemia, unspecified; Z20.822 Contact with and (suspected) exposure to COVID-19; E83.51 Hypocalcemia; E86.0 Dehydration; G89.29 Other chronic pain; I11.0 Hypertensive heart disease with heart failure; F03.90 Unspecified dementia, unspecified severity, without behavioral disturbance, psychotic disturbance, mood disturbance, and anxiety; Z85.46 Personal history of malignant neoplasm of prostate; I95.9 Hypotension, unspecified; E88.09 Other disorders of plasma-protein metabolism, not elsewhere classified; Z66 Do not resuscitate; I25.10 Atherosclerotic heart disease of native coronary artery without angina pectoris; I25.2 Old myocardial infarction; I48.0 Paroxysmal atrial fibrillation; Y84.6 Urinary catheterization as the cause of abnormal reaction of the patient, or of later complication, without mention of misadventure at the time of the procedure; N40.0 Benign prostatic hyperplasia without lower urinary tract symptoms; M19.90 Unspecified osteoarthritis, unspecified site; K29.00 Acute gastritis without bleeding; D63.0 Anemia in neoplastic disease; V89.2XXS Person injured in unspecified motor-vehicle accident, traffic, sequela; M25.552 Pain in left hip; M54.9 Dorsalgia, unspecified; Z79.01 Long term (current) use of anticoagulants; E86.1 Hypovolemia; R31.9 Hematuria, unspecified; N28.9 Disorder of kidney and ureter, unspecified; Z88.1 Allergy status to other antibiotic agents; Z98.890 Other specified postprocedural states; Z98.42 Cataract extraction status, left eye; Z98.41 Cataract extraction status, right eye; Z79.02 Long term (current) use of antithrombotics/antiplatelets; Z79.82 Long term (current) use of aspirin; Z79.899 Other long term (current) drug therapy; Z80.3 Family history of malignant neoplasm of breast; Z82.49 Family history of ischemic heart disease and other diseases of the circulatory system; Z86.711 Personal history of pulmonary embolism; Z87.01 Personal history of pneumonia (recurrent); Z87.442 Personal history of urinary calculi; Z87.891 Personal history of nicotine dependence; Z95.5 Presence of coronary angioplasty implant and graft; Z96.642 Presence of left artificial hip joint; Z90.49 Acquired absence of other specified parts of digestive tract; Z87.440 Personal history of urinary (tract) infections; Z92.3 Personal history of irradiation
CPT/HCPCS: 36415; 71046; 74176; 80048; 80053; 81001; 82550; 83605; 83690; 83735; 83880; 84145; 85025; 86140; 87040; 87086; 87502; 87635; 93005; 96360; 99285

== ENCOUNTER 2021-02-26 11:19 | Inpatient (IN) | payer MEDICARE, BC ==
[2021-02-26 13:10] LABS: Basophils % (A) 0 %; Eosinophils # (A) 0.1 k/uL (0-0.7); Eosinophils % (A) 0 %; HCT 32.8 % (39.0-53.0); HGB 10.5 gm/dL (13.0-17.5); Lymphocytes # (A) 0.2 k/uL (1.0-4.8); Lymphocytes % (A) 1 %; MCHC 31.9 g/dL (31.0-37.0); MCV 94.2 fL (80.0-100.0); Mean Platelet Volume 6.6; Monocytes # (A) 0.6 k/uL (0-1.0); Monocytes % (A) 3 %; Neutrophils # (A) 22.6 k/uL (1.3-7.7); Neutrophils % (A) 96 %; Platelet Count 419 k/uL (150-450); RBC 3.48 m/uL (4.30-5.90); RDW 14.7 % (11.5-15.5); WBC 23.6 k/uL (3.8-10.6)
[2021-02-26] MEDS ORDERED: ACETAMINOPHEN TAB 500 MG TAB PO STA (13:16)
[2021-02-26] MEDS ORDERED: SODIUM CHLORIDE 0.9% 1,000 ML IV STA ×2 (13:16→15:09)
[2021-02-26 13:23] LABS: Chloride 104 mmol/L (98-107)
[2021-02-26 13:24] LABS: ALT 10 U/L (4-49); AST 28 U/L (17-59); African American GFR (CKD) >90 (>60 ml/min/1.73 sqM); Albumin 2.9 g/dL (3.5-5.0); Alkaline Phosphatase 87 U/L (38-126); Anion Gap 8 mmol/L; Blood Urea Nitrogen 36 mg/dL (9-20); Calcium 8.7 mg/dL (8.4-10.2); Carbon Dioxide 25 mmol/L (22-30); Glucose 142 mg/dL (74-99); Magnesium 1.9 mg/dL (1.6-2.3); Non-African American GFR(CKD) >90 (>60 ml/min/1.73 sqM); Potassium 4.4 mmol/L (3.5-5.1); Sodium 137 mmol/L (137-145); Total Bilirubin 0.4 mg/dL (0.2-1.3); Total Protein 6.3 g/dL (6.3-8.2)
[2021-02-26 13:29] LABS: INR 1.2 (<1.2); Partial Thromboplastin Time 25.9 sec (22.0-30.0); Prothrombin Time 12.7 sec (9.0-12.0)
[2021-02-26 13:40] LABS: Appearance,Urine Turbid (Clear); Bacteria,Urine Occasional /hpf; Bilirubin,Urine Negative (Negative); Blood,Urine Large (Negative); Color,Urine Yellow; Glucose,Urine (UA) Negative (Negative); Ketones,Urine 1+ (Negative); Leukocyte Esterase,Urine Large (Negative); Mucus,Urine Rare /hpf; Nitrite,Urine Positive (Negative); Protein,Urine 2+ (Negative); RBC,Urine >182 /hpf (0-5); Specific Gravity,Urine 1.017 (1.001-1.035); Urobilinogen,Urine <2.0 mg/dL (<2.0); WBC,Urine >182 /hpf (0-5)
--- NOTE | 2021-02-26 13:40 | XR ---
EXAMINATION TYPE: XR chest 2V DATE OF EXAM: 02/26/2021 COMPARISON: 02/02/2021 HISTORY: Shortness of breath TECHNIQUE: Frontal and lateral views of the chest are obtained. FINDINGS: Scattered senescent parenchymal changes noted. Hyperinflation compatible with COPD. Patchy right perihilar and right basilar infiltrate. Heart size is stable. Mediastinal structures are stable and grossly unremarkable. No evidence for hilar prominence. Degenerative changes dorsal spine. IMPRESSION: 1. Patchy right perihilar and right basilar infiltrate.
[2021-02-26] MEDS ORDERED: NALOXONE 0.4 MG/ML 1 ML VIAL IV PRN (15:53)
[2021-02-26] MEDS ORDERED: KETOROLAC 15 MG/ML 1 ML VIAL IVP PRN (15:53)
[2021-02-26] MEDS ORDERED: ASPIRIN 81 MG PO STA (15:55)
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
[2021-02-26] MEDS: LEVOFLOXACIN 500MG-D5W PMX 500 MG in DEXTROSE/WATER 1 100ML.BAG IVPB SCH (16:20)
--- NOTE | 2021-02-26 18:29 | US ---
EXAMINATION TYPE: US renals and bladder DATE OF EXAM: 02/26/2021 COMPARISON: CT 01/30/2021, US 07/10/2019 CLINICAL HISTORY: uti. EXAM MEASUREMENTS: Right Kidney: 10.2 x 5.6 x 6.9 cm Left Kidney: 10.9 x 5.4 x 5.3 cm Right Kidney: small cyst measures 0.8 x 0.9 x 0.7 cm. Left Kidney: moderate hydronephrosis, in the upper pole the hydro appears to have debris as it is not anechoic. Bladder: not well visualized as patient has davila catheter . IMPRESSION: 1. Moderate left-sided hydronephrosis with hypoechoic fluid/debris and diffuse thinning of the cortex , likely related to chronic obstruction. Superimposed infectious process is not excluded. 1. Limited evaluation of the urinary bladder due to incomplete distention.
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
[2021-02-26] MEDS ORDERED: HEPARIN SODIUM,PORCINE/PF 5,000 UNIT/0.5 ML SYRINGE SQ SCH (21:00)
[2021-02-26] MEDS: APIXABAN 5 MG TAB PO SCH (21:06)
[2021-02-26] MEDS: ATORVASTATIN 80 MG TAB PO SCH (21:06)
[2021-02-26] MEDS: SODIUM CHLORIDE 0.9% 1,000 ML IV SCH (21:06)
[2021-02-26] MEDS: FAMOTIDINE 20 MG TAB PO SCH (21:06)
[2021-02-27] MEDS: ACETAMINOPHEN TAB 325 MG TAB PO PRN (00:59)
[2021-02-27] MEDS: MORPHINE SULFATE 2 MG/ML SYRINGE IV PRN ×2 (02:16→12:34)
[2021-02-27 06:41] LABS: Basophils % (A) 0 %; Eosinophils % (A) 0 %; HCT 32.7 % (39.0-53.0); HGB 10.1 gm/dL (13.0-17.5); Hypochromasia Slight; Lymphocytes # (A) 0.2 k/uL (1.0-4.8); Lymphocytes % (A) 1 %; MCH 30.2 pg (25.0-35.0); MCV 97.4 fL (80.0-100.0); Mean Platelet Volume 6.8; Monocytes # (A) 0.5 k/uL (0-1.0); Monocytes % (A) 2 %; Neutrophils # (A) 25.1 k/uL (1.3-7.7); Neutrophils % (A) 96 %; Platelet Count 310 k/uL (150-450); RBC 3.36 m/uL (4.30-5.90); WBC 26.1 k/uL (3.8-10.6)
[2021-02-27 06:56] LABS: African American GFR (CKD) >90 (>60 ml/min/1.73 sqM); Anion Gap 7 mmol/L; Blood Urea Nitrogen 31 mg/dL (9-20); Calcium 8.7 mg/dL (8.4-10.2); Carbon Dioxide 24 mmol/L (22-30); Chloride 107 mmol/L (98-107); Glucose 119 mg/dL (74-99); Non-African American GFR(CKD) >90 (>60 ml/min/1.73 sqM); Potassium 3.9 mmol/L (3.5-5.1); Sodium 138 mmol/L (137-145)
[2021-02-27] MEDS: SODIUM CHLORIDE 0.9% 1,000 ML IV SCH ×2 (07:03→18:20)
[2021-02-27] MEDS: METOPROLOL SUCCINATE (ER) 25 MG TAB.ER.24H PO SCH (08:00)
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
[2021-02-27] MEDS ORDERED: ONDANSETRON 4 MG TAB PO STA (08:23)
[2021-02-27] MEDS: TAMSULOSIN 0.4 MG CAP.ER.24H PO SCH (08:47)
[2021-02-27] MEDS: FAMOTIDINE 20 MG TAB PO SCH ×2 (08:48→20:55)
[2021-02-27] MEDS: CLOPIDOGREL 75 MG TAB PO SCH (09:29)
[2021-02-27] MEDS: APIXABAN 5 MG TAB PO SCH ×2 (09:29→20:55)
[2021-02-27] MEDS: ASPIRIN 81 MG PO SCH (09:31)
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
[2021-02-27] MEDS ORDERED: MORPHINE SULFATE 4 MG/ML SYRINGE IVP STA (14:05)
--- NOTE | 2021-02-27 15:39 | P.PN ---
Subjective This is a pleasant 80 years old male with past medical history of atrial fibrillation on Eliquis, hyperlipidemia, Hypertension, Pulmonary Embolus , prostate cancer status post radiotherapy, left hydronephrosis, kidney stone, pyelonephritis, chronic back pain and left hip pain. Tingling and numbness in the left leg Patient presents because of increased weakness and inability to eat or drink for about a week patient states also he came because of fever. He has indwelling Scott catheter which it was changed here in the emergency room so really could not tell if he has urinary symptoms however he denies suprapubic pain. he had low-grade fever on admission 99.8. Leukocytosis with WBCs 23.6. Hemoglobin 10.65. INR 1.2, BMP and liver enzymes are unremarkable. Troponin is elevated 0.09. Urinalysis is suspicious for infection Multiple viruses are negative including Covid, RSV and influenza In the emergency room he was started on Levaquin Renal ultrasound showed moderate left sided hydronephrosis with fluid/debris and diffuse thinning of the cortex, right related to chronic obstruction. 02/27/2021 Patient with complicated UTI, he does not complain much from pain, Scott catheter is in place and he is fully awake and oriented but lethargic. Neurology input is appreciated they plan for possible cystoscopy and stent placement especially patient would not benefit from antibiotic therapy. Patient is covered with Levaquin IV currently. Urine culture is pending Patient is on aspirin, Plavix and Eliquis. Discussed with the staff to hold it per urology service if needed. Patient will be nothing by mouth after midnight Cardiology evaluated patient for elevated troponin, most likely secondary to sepsis and recent cardiac disease. Continue with conservative management as per their recommendation. Other than that he has leukocytosis of 20 6K, hemoglobin stable at 10.1 and a blood pressure improved 120/80 on normal saline at 1:30 milliliters per hour Objective - Vital Signs Vital signs: Vital Signs Temp 98.1 F 02/27/21 11:31 Pulse 67 02/27/21 13:26 Resp 18 02/27/21 13:26 BP 120/80 02/27/21 13:26 Pulse Ox 96 02/27/21 13:26 Intake & Output 02/26/21 02/27/21 02/27/21 18:59 06:59 18:59 Output Total 100 Balance -100 Weight 54.431 kg Output: Urine 100 Uretheral (Scott) 100 - Exam -GENERAL: The patient is alert and oriented x3, not in any acute distress. Thin built HEENT: Pupils are round and equally reacting to light. EOMI. No scleral icterus. No conjunctival pallor. Normocephalic, atraumatic. No pharyngeal erythema. No thyromegaly. CARDIOVASCULAR: S1 and S2 present. No murmurs, rubs, or gallops. PULMONARY: Chest is clear to auscultation, no wheezing or crackles. -ABDOMEN: Soft, nontender, nondistended, normoactive bowel sounds. No palpable organomegaly. Scott catheter is in place MUSCULOSKELETAL: No joint swelling or deformity. EXTREMITIES: No cyanosis, clubbing, or pedal edema. NEUROLOGICAL: Gross neurological examination did not reveal any focal deficits. SKIN: No rashes. no petechiae. - Labs CBC & Chem 7: 02/27/21 06:18 02/27/21 06:18 Labs: Abnormal Lab Results - Last 24 Hours (Table) 02/26/21 02/26/21 02/27/21 Range/Units 20:19 23:58 06:18 WBC 26.1 H (3.8-10.6) k/uL RBC 3.36 L (4.30-5.90) m/uL Hgb 10.1 L (13.0-17.5) gm/dL Hct 32.7 L (39.0-53.0) % Neutrophils # 25.1 H (1.3-7.7) k/uL Lymphocytes # 0.2 L (1.0-4.8) k/uL BUN (9-20) mg/dL Creatinine (0.66-1.25) mg/dL Glucose (74-99) mg/dL Troponin I 0.083 H* 0.072 H* (0.000-0.034) ng/mL 02/27/21 Range/Units 06:18 WBC (3.8-10.6) k/uL RBC (4.30-5.90) m/uL Hgb (13.0-17.5) gm/dL Hct (39.0-53.0) % Neutrophils # (1.3-7.7) k/uL Lymphocytes # (1.0-4.8) k/uL BUN 31 H (9-20) mg/dL Creatinine 0.63 L (0.66-1.25) mg/dL Glucose 119 H (74-99) mg/dL Troponin I (0.000-0.034) ng/mL Microbiology - Last 24 Hours (Table) 02/26/21 13:04 Urine Culture - Preliminary Urine,Clean Catch Assessment and Plan Assessment: Acute urinary tract infection Sepsis with leukocytosis and fever moderate left sided hydronephrosis elevated troponin, rule out cardiac causes, less likely Hyperlipidemia Hypertension Chronic atrial fibrillation on Eliquis History of PE on Eliquis Rubén of prostate cancer status post radiotherapy Of kidney stone with left hydronephrosis and pyelonephritis Back pain and left hip pain Chronic numbness of the left leg Plan: This is a pleasant 80 years old male who presents with acute urinary tract infection and sepsis Continue with Levaquin daily . Follow-up urine culture. Scott catheter already was changed. Urology consult. Continue with aggressive IV hydration Cardiology consult for elevated troponin, given aspirin Labs and medication were reviewed.. Continue same treatment. Continue with symptomatic treatment. Resume home medication. Monitor lytes and vitals. DVT and GI prophylaxis. Further recommendations depends on the clinical course of the patient DVT prophylaxis:Eliquis GI Prophylaxis: Pepcid PT/OT: Pending Prognosis is guarded
[2021-02-27] MEDS: LEVOFLOXACIN 500MG-D5W PMX 500 MG in DEXTROSE/WATER 1 100ML.BAG IVPB SCH (16:05)
--- NOTE | 2021-02-27 16:43 | P.PN ---
Subjective Progress Note Date: 02/27/21 The patient is in the hospital with urinary tract infection with sepsis. He has a chronic indwelling catheter. He failed a TURP probably due to a frozen sphincter from his prostate cancer. Radiation for his prostate cancer in 2009. In 2018 he was identified with significant left hydronephrosis this is due to chronic obstructing stone. He ended up with a left nephrostomy tube. Left Ureteral stent was unable to be placed. The patient has chronic hydronephrosis on the left side. The question is whether this is infected urine. Clinically he is stable. His white count elevated little bit today. Cardiology saw the patient and felt that his cardiac status was due to his recent non-STEMI AR. T he plan is to observe him another 24 hours to see if he might improve with IV antibiotics. If not we will then have to decide whether we want to do cystoscopy retrograde pyelogram with stent placement if possible or nephrostomy tube. Objective - Vital Signs Vital signs: Vital Signs Temp 98.1 F 02/27/21 11:31 Pulse 67 02/27/21 13:26 Resp 18 02/27/21 13:26 BP 120/80 02/27/21 13:26 Pulse Ox 96 02/27/21 13:26 Intake & Output 02/26/21 02/27/21 02/27/21 18:59 06:59 18:59 Output Total 100 Balance -100 Weight 54.431 kg Output: Urine 100 Uretheral (Scott) 100 - Labs CBC & Chem 7: 02/27/21 06:18 02/27/21 06:18 Labs: Abnormal Lab Results - Last 24 Hours (Table) 02/26/21 02/26/21 02/27/21 Range/Units 20:19 23:58 06:18 WBC 26.1 H (3.8-10.6) k/uL RBC 3.36 L (4.30-5.90) m/uL Hgb 10.1 L (13.0-17.5) gm/dL Hct 32.7 L (39.0-53.0) % Neutrophils # 25.1 H (1.3-7.7) k/uL Lymphocytes # 0.2 L (1.0-4.8) k/uL BUN (9-20) mg/dL Creatinine (0.66-1.25) mg/dL Glucose (74-99) mg/dL Troponin I 0.083 H* 0.072 H* (0.000-0.034) ng/mL 02/27/21 Range/Units 06:18 WBC (3.8-10.6) k/uL RBC (4.30-5.90) m/uL Hgb (13.0-17.5) gm/dL Hct (39.0-53.0) % Neutrophils # (1.3-7.7) k/uL Lymphocytes # (1.0-4.8) k/uL BUN 31 H (9-20) mg/dL Creatinine 0.63 L (0.66-1.25) mg/dL Glucose 119 H (74-99) mg/dL Troponin I (0.000-0.034) ng/mL Microbiology - Last 24 Hours (Table) 02/26/21 13:04 Urine Culture - Preliminary Urine,Clean Catch
[2021-02-27] MEDS: MORPHINE SULFATE 4 MG/ML SYRINGE IV PRN ×2 (18:17→23:43)
[2021-02-27] MEDS: ATORVASTATIN 80 MG TAB PO SCH (20:55)
[2021-02-27] MEDS: DOCUSATE 100 MG CAP PO SCH (20:55)
[2021-02-27] MEDS: HYDROmorphone 0.5 MG/0.5 ML SYRINGE IVP PRN (23:58)
[2021-02-28] MEDS: SODIUM CHLORIDE 0.9% 1,000 ML IV SCH ×2 (01:28→05:36)
[2021-02-28] MEDS: MORPHINE SULFATE 4 MG/ML SYRINGE IV PRN (05:36)
[2021-02-28] MEDS: METOPROLOL SUCCINATE (ER) 25 MG TAB.ER.24H PO SCH (08:04)
[2021-02-28] MEDS: ONDANSETRON 4 MG/2 ML VIAL IVP PRN ×2 (08:04→19:44)
[2021-02-28] MEDS: DOCUSATE 100 MG CAP PO SCH ×2 (08:04→19:46)
[2021-02-28] MEDS: APIXABAN 5 MG TAB PO SCH ×2 (08:04→19:46)
[2021-02-28] MEDS: FAMOTIDINE 20 MG TAB PO SCH ×2 (08:04→19:46)
[2021-02-28] MEDS: TAMSULOSIN 0.4 MG CAP.ER.24H PO SCH (08:04)
[2021-02-28] MEDS: CLOPIDOGREL 75 MG TAB PO SCH (08:04)
[2021-02-28] MEDS: HYDROmorphone 0.5 MG/0.5 ML SYRINGE IVP PRN (08:04)
[2021-02-28] MEDS: ASPIRIN 81 MG PO SCH (08:04)
--- NOTE | 2021-02-28 10:36 | PN ---
PROGRESS NOTE Mr. Bonds is an 80-year-old male with known history of coronary artery disease, ischemic cardiomyopathy, status post PCI, history of paroxysmal atrial fibrillation, who presented with urinary tract infection and elevated temperature. He is feeling better today. He denies any symptoms of chest discomfort. He denies any dizziness or palpitations. He continues to be in sinus mechanism. There is no evidence of malignant arrhythmia. He was evaluated by Dr. Guaman yesterday as well as Dr. Hammer. In the past, ejection fraction was 30% to 35% and his EKG is consistent with anterior wall myocardial infarction that has been documented in the past. He continues to be at this time on aspirin once a day, Plavix 75 mg daily, Eliquis 5 mg twice a day, metoprolol succinate 25 mg daily, Lipitor 80 mg daily. PHYSICAL EXAMINATION: Blood pressure is running in the 130s with a heart rate in the 90s. LUNGS: Clear. HEART: Regular rate and rhythm. S1, S2. No S3, with systolic murmur. No diastolic murmur. ABDOMEN: Soft, nontender. EXTREMITIES: No edema. LAB DATA: BUN and creatinine of 31 and 0.63. Potassium 3.9, hemoglobin 10.1, white blood cells 26.1. He has been afebrile in the morning. IMPRESSION: 1. Urinary tract infection with urinary retention. 2. History of coronary artery disease, status post stenting. 3. History of ischemic cardiomyopathy. 4. Paroxysmal atrial fibrillation. 5. History of hyperlipidemia. 6. History of prostate cancer. 7. Hydronephrosis. RECOMMENDATIONS: I will add to his regimen losartan and stop the aspirin. I believe that the elevation of troponin is related to the infectious process. There is no evidence to suggest recurrent acute ischemic event. Will follow his renal function closely and follow his hemodynamics to see if further adjustment of his medical regimen is needed. Depending on his progress, further recommendations will be made. MMODL / IJN: [id number] /
[2021-02-28] MEDS: lisinopriL 5 MG TAB PO SCH (12:03)
--- NOTE | 2021-02-28 12:14 | P.PN ---
Subjective Progress Note Date: 02/28/21 Principal diagnosis: Hydronephrosis The patient is afebrile. Her Scott catheter is in place. He continues to experience left-sided abdominal and hip pain. Urine culture is negative. Objective - Vital Signs Vital signs: Vital Signs Temp 98.1 F 02/27/21 11:31 Pulse 96 02/28/21 08:08 Resp 13 02/28/21 08:08 BP 132/90 02/28/21 08:08 Pulse Ox 99 02/28/21 08:08 - Constitutional General appearance: Present: cooperative, no acute distress - Gastrointestinal General gastrointestinal: Present: soft. Absent: distended, tenderness - Genitourinary Genitourinary Comment(s): Normal phallus, normal testes. A Scott catheter is in place, draining cloudy urine. - Psychiatric Psychiatric: Present: A&O x's 3 - Labs CBC & Chem 7: 02/27/21 06:18 02/27/21 06:18 Labs: Microbiology - Last 24 Hours (Table) 02/26/21 13:04 Urine Culture - Final Urine,Clean Catch Assessment and Plan (1) Unspecified hydronephrosis Current Visit: Yes Status: Acute Code(s): N13.30 - UNSPECIFIED HYDRONEPHROSIS SNOMED Code(s): 48019901 Plan: The patient's urine culture shows mixed organisms. He is receiving Levaquin. He is afebrile, but his left-sided pain has persisted as has his leukocytosis. If he fails to improve, he will require cystoscopy, left retrograde pyelogram, and attempted stent placement or insertion of a left percutaneous nephrostomy tube.
--- NOTE | 2021-02-28 15:55 | P.PN ---
Subjective 80-year-old male was admitted for possible urinary tract infection urine was significant abnormal and patient does have leukocytosis without any fever patient does have a Scott catheter after there was some nonspecific hydronephrosis because of which neurology evaluated the patient. Patient is receiving IV Levaquin and patient is ALLERGIC to cephalosporins urine cultures is not impressive for UTI. Patient also has mildly elevated troponins because of his cardiology evaluated the patient this troponin elevation is not secondary to myocardial infarction patient has minimal elevation in stable troponin elevation patient will be transferred out of cardiac care unit will be monitored. Patient still has leukocytosis with white blood cell count of 26,000 which will be repeated tomorrow Constitutional: Denied any fatigue denied any fever. Cardio vascular: denied any chest pain, palpitations Gastrointestinal denied any nausea vomiting Pulmonary: Denied any shortness of breath cough Neurologic denied any new focal deficits All inpatient medications were reviewed and appropriate changes in these medications as dictated in the interval history and assessment and plan. PHYSICAL EXAMINATION: GENERAL: The patient is alert and oriented x3, not in any acute distress. Well developed, well nourished. HEENT: Pupils are round and equally reacting to light. EOMI. No scleral icterus. No conjunctival pallor. Normocephalic, atraumatic. No pharyngeal erythema. No thyromegaly. CARDIOVASCULAR: S1 and S2 present. No murmurs, rubs, or gallops. PULMONARY: Chest is clear to auscultation, no wheezing or crackles. ABDOMEN: Soft, nontender, nondistended, normoactive bowel sounds. No palpable organomegaly. MUSCULOSKELETAL: No joint swelling or deformity. EXTREMITIES: No cyanosis, clubbing, or pedal edema. NEUROLOGICAL: Gross neurological examination did not reveal any focal deficits. SKIN: No rashes. Assessment and plan Acute urinary tract infection possibility: Cranial levofloxacin can use to have white blood cell count will continue to monitor Sepsis with leukocytosis and fever moderate left sided hydronephrosis: Neurology evaluated the patient elevated troponin, not secondary to myocardial infarction Hyperlipidemia Hypertension Chronic atrial fibrillation on Eliquis History of PE on Eliquis Rubén of prostate cancer status post radiotherapy Of kidney stone with left hydronephrosis and pyelonephritis Back pain and left hip pain Chronic numbness of the left leg DVT prophylaxis: On Eliquis at this time Objective - Vital Signs Vital signs: Vital Signs Temp 98.2 F 02/28/21 14:24 Pulse 95 10/25/21 14:24 Resp 16 02/28/21 14:24 BP 126/69 02/28/21 14:24 Pulse Ox 95 02/28/21 14:24 Intake & Output 02/27/21 02/28/21 02/28/21 18:59 06:59 18:59 Weight 54.431 kg - Labs CBC & Chem 7: 02/27/21 06:18 02/27/21 06:18 Labs: Microbiology - Last 24 Hours (Table) 02/26/21 13:04 Urine Culture - Final Urine,Clean Catch
[2021-02-28] MEDS: LEVOFLOXACIN 500 MG TAB PO SCH (17:42)
[2021-02-28] MEDS: ATORVASTATIN 80 MG TAB PO SCH (19:46)
[2021-03-01] MEDS: SODIUM CHLORIDE 0.9% 1,000 ML IV SCH ×3 (04:01→21:11)
[2021-03-01 08:23] LABS: HCT 33.3 % (39.0-53.0); HGB 10.7 gm/dL (13.0-17.5); MCH 30.6 pg (25.0-35.0); MCHC 32.2 g/dL (31.0-37.0); MCV 95.1 fL (80.0-100.0); Mean Platelet Volume 6.9; Platelet Count 250 k/uL (150-450); RDW 14.5 % (11.5-15.5); WBC 12.4 k/uL (3.8-10.6)
[2021-03-01 08:37] LABS: African American GFR (CKD) >90 (>60 ml/min/1.73 sqM); Anion Gap 4 mmol/L; Blood Urea Nitrogen 20 mg/dL (9-20); Calcium 8.1 mg/dL (8.4-10.2); Carbon Dioxide 26 mmol/L (22-30); Chloride 108 mmol/L (98-107); Glucose 94 mg/dL (74-99); Non-African American GFR(CKD) >90 (>60 ml/min/1.73 sqM); Sodium 138 mmol/L (137-145)
[2021-03-01] MEDS: lisinopriL 5 MG TAB PO SCH (09:47)
[2021-03-01] MEDS: METOPROLOL SUCCINATE (ER) 25 MG TAB.ER.24H PO SCH (09:47)
[2021-03-01] MEDS: DOCUSATE 100 MG CAP PO SCH ×2 (09:47→21:19)
[2021-03-01] MEDS: APIXABAN 5 MG TAB PO SCH ×2 (09:47→21:19)
[2021-03-01] MEDS: FAMOTIDINE 20 MG TAB PO SCH ×2 (09:47→21:19)
[2021-03-01] MEDS: TAMSULOSIN 0.4 MG CAP.ER.24H PO SCH (09:47)
[2021-03-01] MEDS: CLOPIDOGREL 75 MG TAB PO SCH (09:48)
--- NOTE | 2021-03-01 10:24 | P.PN ---
Progress Note - Text Progress Note Date: 03/01/21 The patient states that he is feeling better today. He continues to report left-sided discomfort. He is afebrile, and the WBC count has decreased to 12.4. Urine culture showed mixed organisms, consistent with contamination. Given the clinical improvement, I would suggest that antibiotics be continued and we will hold off on retrograde pyelogram and nephrostomy tube placement as long as he continues to improve.
--- NOTE | 2021-03-01 11:11 | P.PN ---
Subjective Progress Note Date: 03/01/21 HISTORY OF PRESENT ILLNESS: Patient examined this morning at the bedside. Patient denies chest pain or pressure. Denies shortness of breath. Blood pressure 123/72. Telemetry reveals sinus mechanism. He is on 3 L nasal cannula with oxygen saturations greater than 92%. PHYSICAL EXAM: VITAL SIGNS: Reviewed. GENERAL: Well-developed in no acute distress. NECK: Supple. No JVD or thyromegaly LUNGS: Respirations even and unlabored. Lungs essentially clear to auscultation bilaterally. HEART: Regular rate and rhythm. S1 and S2 heard. Systolic murmur noted. EXTREMITIES: Normal range of motion. No clubbing or cyanosis. Peripheral pulses intact. No lower extremity edema ASSESSMENT: Urinary tract infection Urinary retention Abnormal troponins, secondary to above, no evidence of acute coronary syndrome Coronary artery disease with previous stenting History of paroxysmal atrial fibrillation History of ischemic cardiomyopathy with ejection fraction 30-35% Hyperlipidemia History of prostate cancer PLAN: Continue current cardiac medications. Patient is currently stable from a cardiac standpoint. We will follow on an as needed basis. Please call with questions or concerns. Nurse practitioner note has been reviewed by physician. Signing provider agrees with the documented findings, assessment, and plan of care. Objective - Vital Signs Vital signs: Vital Signs Temp 97.6 F 03/01/21 08:23 Pulse 82 03/01/21 08:23 Resp 16 03/01/21 08:23 BP 123/72 03/01/21 08:23 Pulse Ox 94 L 03/01/21 08:23 Intake & Output 02/28/21 03/01/21 03/01/21 18:59 06:59 18:59 Intake Total 182 992 7271 Output Total 775 450 Balance -150 -350 1186 Weight 54.431 kg 79.5 kg Intake: Intake, IV Titration 375 600 Amount Sodium Chloride 0.9% 1, 375 600 000 ml @ 75 mls/hr IV . [id number] [facility] Rx#:[id number] Oral 250 100 586 Output: Urine 775 450 Other: Voiding Method Indwelling Catheter Indwelling Catheter - Labs CBC & Chem 7: 03/01/21 07:36 03/01/21 07:36 Labs: Abnormal Lab Results - Last 24 Hours (Table) 03/01/21 03/01/21 Range/Units 07:36 07:36 WBC 12.4 H (3.8-10.6) k/uL RBC 3.50 L (4.30-5.90) m/uL Hgb 10.7 L (13.0-17.5) gm/dL Hct 33.3 L (39.0-53.0) % Chloride 108 H (98-107) mmol/L Creatinine 0.58 L (0.66-1.25) mg/dL Calcium 8.1 L (8.4-10.2) mg/dL
--- NOTE | 2021-03-01 14:48 | P.PN ---
Subjective Progress Note Date: 03/01/21 80-year-old male was admitted for possible urinary tract infection urine was significant abnormal and patient does have leukocytosis without any fever patient does have a Scott catheter after there was some nonspecific hydronephrosis because of which neurology evaluated the patient. Patient is receiving IV Levaquin and patient is ALLERGIC to cephalosporins urine cultures is not impressive for UTI. Patient also has mildly elevated troponins because of his cardiology evaluated the patient this troponin elevation is not secondary to myocardial infarction patient has minimal elevation in stable troponin elevation patient will be transferred out of cardiac care unit will be monitored. Patient still has leukocytosis with white blood cell count of 26,000 which will be repeated tomorrow 03/01/2021 Patient is evaluated today resting the bed, with platelet the bedside. He does still complain of some back pain worse on the left. Patient was evaluated by urology who at this time was not recommending a retrograde program and nephrostomy tube placement as well as patient continues to improve. Urine culture showed mixed organisms that was most with a contamination. His white blood cell count is decreasing now is 12.4 today. Additional labs include a hemoglobin of 10.7. Potassium stable at 4, sodium 138, BP 120, creatinine 0.58. He is continued on antibiotics in the form of oral levofloxacin. Appetite is fair. Patient has remained afebrile, 97.6, heart rate 82 sinus rhythm, blood pressure 120/72 and 94% on 3 L of cannula. We will follow closely with urology services. If they're planning to proceed with surgical intervention, patient's blood thinner will need to be placed on hold. ROS Constitutional: Denied any fatigue denied any fever. Cardio vascular: denied any chest pain, palpitations Gastrointestinal denied any nausea vomiting Pulmonary: Denied any shortness of breath cough Neurologic denied any new focal deficits All inpatient medications were reviewed and appropriate changes in these medications as dictated in the interval history and assessment and plan. PHYSICAL EXAMINATION: GENERAL: The patient is alert and oriented x3, not in any acute distress. Well d eveloped, well nourished. HEENT: Pupils are round and equally reacting to light. EOMI. No scleral icterus. No conjunctival pallor. Normocephalic, atraumatic. No pharyngeal erythema. No thyromegaly. CARDIOVASCULAR: S1 and S2 present. No murmurs, rubs, or gallops. PULMONARY: Chest is clear to auscultation, no wheezing or crackles. ABDOMEN: Soft, nontender, nondistended, normoactive bowel sounds. No palpable organomegaly. MUSCULOSKELETAL: No joint swelling or deformity. EXTREMITIES: No cyanosis, clubbing, or pedal edema. NEUROLOGICAL: Gross neurological examination did not reveal any focal deficits. SKIN: No rashes. Assessment and plan Acute urinary tract infection possibility: on oral levofloxacin, WBC trending down Sepsis with leukocytosis and fever moderate left sided hydronephrosis: Urology following a long for a possible nephrostomy tube. elevated troponin, not secondary to myocardial infarction Hyperlipidemia Hypertension Chronic atrial fibrillation on Eliquis History of PE on Eliquis History of prostate cancer status post radiotherapy kidney stone with left hydronephrosis and pyelonephritis Back pain and left hip pain Chronic numbness of the left leg DVT prophylaxis: On Eliquis at this time GI prophylaxis: Pepcid Follow up with urology regarding recommendations for a nephrostomy tube as patient is on eliquis and is willing to be stopped prior to procedure. Prog nosis is guarded for this patient, PT OT have been ordered. Continue with pain management. Objective - Vital Signs Vital signs: Vital Signs Temp 97.6 F 03/01/21 08:23 Pulse 82 03/01/21 08:23 Resp 16 03/01/21 08:23 BP 123/72 03/01/21 08:23 Pulse Ox 94 L 03/01/21 08:23 Intake & Output 02/28/21 03/01/21 03/01/21 18:59 06:59 18:59 Intake Total 816 737 1331 Output Total 775 450 Balance -150 -350 1186 Weight 54.431 kg 79.5 kg Intake: Intake, IV Titration 375 600 Amount Sodium Chloride 0.9% 1, 375 600 000 ml @ 75 mls/hr IV . [id number] [facility] Rx#:[id number] Oral 250 100 586 Output: Urine 775 450 Other: Voiding Method Indwelling Catheter Indwelling Catheter - Labs CBC & Chem 7: 03/01/21 07:36 03/01/21 07:36 Labs: Abnormal Lab Results - Last 24 Hours (Table) 03/01/21 03/01/21 Range/Units 07:36 07:36 WBC 12.4 H (3.8-10.6) k/uL RBC 3.50 L (4.30-5.90) m/uL Hgb 10.7 L (13.0-17.5) gm/dL Hct 33.3 L (39.0-53.0) % Chloride 108 H (98-107) mmol/L Creatinine 0.58 L (0.66-1.25) mg/dL Calcium 8.1 L (8.4-10.2) mg/dL Assessment and Plan Time with Patient: Greater than 30
[2021-03-01] MEDS: LEVOFLOXACIN 500 MG TAB PO SCH (16:33)
[2021-03-01] MEDS: ATORVASTATIN 80 MG TAB PO SCH (21:19)
[2021-03-02] MEDS: SODIUM CHLORIDE 0.9% 1,000 ML IV SCH (05:24)
[2021-03-02] MEDS: APIXABAN 5 MG TAB PO SCH ×2 (09:05→20:35)
[2021-03-02] MEDS: FAMOTIDINE 20 MG TAB PO SCH ×2 (09:05→20:35)
[2021-03-02] MEDS: DOCUSATE 100 MG CAP PO SCH ×2 (09:05→20:35)
[2021-03-02] MEDS: METOPROLOL SUCCINATE (ER) 25 MG TAB.ER.24H PO SCH (09:06)
[2021-03-02] MEDS: TAMSULOSIN 0.4 MG CAP.ER.24H PO SCH (09:06)
[2021-03-02] MEDS: CLOPIDOGREL 75 MG TAB PO SCH (09:06)
[2021-03-02] MEDS: lisinopriL 5 MG TAB PO SCH (09:06)
[2021-03-02 09:22] LABS: Basophils # (A) 0.02 X 10*3/uL (0.00-0.10); Basophils % (A) 0.1 %; Eosinophils # (A) 0.05 X 10*3/uL (0.04-0.35); Eosinophils % (A) 0.3 %; HCT 33.1 % (39.6-50.0); HGB 10.2 g/dL (13.0-17.0); Lymphocytes # (A) 0.48 X 10*3/uL (0.90-5.00); Lymphocytes % (A) 3.3 %; MCH 29.5 pg (27.0-32.0); MCHC 30.8 g/dL (32.0-37.0); MCV 95.7 fL (80.0-97.0); Mean Platelet Volume 9.5 fL (9.5-12.2); Monocytes # (A) 1.05 X 10*3/uL (0.20-1.00); Monocytes % (A) 7.3 %; Neutrophils # (A) 12.79 X 10*3/uL (1.80-7.70); Neutrophils % (A) 88.4 %; Platelet Count 241 X 10*3/uL (140-440); RBC 3.46 X 10*6/uL (4.40-5.60); RDW 14.5 % (11.5-14.5); WBC 14.47 X 10*3/uL (4.50-10.00)
[2021-03-02] MEDS: ONDANSETRON 4 MG/2 ML VIAL IVP PRN (09:25)
[2021-03-02 09:41] LABS: Anion Gap 9.2 mmol/L (4.00-12.00); Calcium 7.7 mg/dL (8.7-10.3); Carbon Dioxide 23.8 mmol/L (21.6-31.8); Non-African American GFR(CKD) 100.9 (60.0-200.0); Potassium 3.8 mmol/L (3.5-5.5)
[2021-03-02] MEDS ORDERED: POTASSIUM CHLORIDE ER 20 MEQ TAB.ER PO STA (13:05)
[2021-03-02] MEDS: LEVOFLOXACIN 500 MG TAB PO SCH (14:08)
[2021-03-02] MEDS: MAGNESIUM SULFATE-D5W PMX 1 GM in DEXTROSE/WATER 1 100ML.BAG IVPB SCH ×2 (16:55→17:58)
[2021-03-02] MEDS: ATORVASTATIN 80 MG TAB PO SCH (20:35)
--- NOTE | 2021-03-02 21:36 | P.PN ---
Subjective Progress Note Date: 03/02/21 80-year-old male was admitted for possible urinary tract infection urine was significant abnormal and patient does have leukocytosis without any fever patient does have a Scott catheter after there was some nonspecific hydronephrosis because of which neurology evaluated the patient. Patient is receiving IV Levaquin and patient is ALLERGIC to cephalosporins urine cultures is not impressive for UTI. Patient also has mildly elevated troponins because of his cardiology evaluated the patient this troponin elevation is not secondary to myocardial infarction patient has minimal elevation in stable troponin elevation patient will be transferred out of cardiac care unit will be monitored. Patient still has leukocytosis with white blood cell count of 26,000 which will be repeated tomorrow 03/01/2021 Patient is evaluated today resting the bed, with platelet the bedside. He does still complain of some back pain worse on the left. Patient was evaluated by urology who at this time was not recommending a retrograde program and nephrostomy tube placement as well as patient continues to improve. Urine culture showed mixed organisms that was most with a contamination. His white blood cell count is decreasing now is 12.4 today. Additional labs include a hemoglobin of 10.7. Potassium stable at 4, sodium 138, BP 120, creatinine 0.58. He is continued on antibiotics in the form of oral levofloxacin. Appetite is fair. Patient has remained afebrile, 97.6, heart rate 82 sinus rhythm, blood pressure 120/72 and 94% on 3 L of cannula. We will follow closely with urology services. If they're planning to proceed with surgical intervention, patient's blood thinner will need to be placed on hold. 03/02/2021 Patient is evaluated sitting in the bed today. He appears more fatigued today, and his appetite is not improving. [employer] was consulted, pt is receiving carnation BIDWM. PT was in room with patient, and required 2 to help patient achieve a sitting position on the edge of the bed. His skin overlying his spine is reddened, blanchable in all but a small deeper red area on the outward c urvature. Optifoam ordered to cushion his spine to prevent breakdown and discussed using barrier cream with RN, and to turn the patient. WBC is rising again up to 14.47 from 12.4 yesterday. Hgb is stable at 10.2. Potassium 3.8, mg 1.8. Pt remains afebrile, heart rate of 77, BP of 119/67, he is 100% on 3L we can wean this as tolerated. Awaiting decision from urology about nephrostomy as pt will need to stop his eliquis, f/u tomorrow. He will need ZAIDA on discharge once medically stable. ROS Constitutional: Denied any fatigue denied any fever. Cardio vascular: denied any chest pain, palpitations Gastrointestinal denied any nausea vomiting Pulmonary: Denied any shortness of breath cough Neurologic denied any new focal deficits All inpatient medications were reviewed and appropriate changes in these medications as dictated in the interval history and assessment and plan. PHYSICAL EXAMINATION: GENERAL: The patient is alert and oriented x3, not in any acute distress. Well developed, well nourished. HEENT: Pupils are round and equally reacting to light. EOMI. No scleral icterus. No conjunctival pallor. Normocephalic, atraumatic. No pharyngeal erythema. No thyromegaly. CARDIOVASCULAR: S1 and S2 present. No murmurs, rubs, or gallops. PULMONARY: Chest is clear to auscultation, no wheezing or crackles. ABDOMEN: Soft, nontender, nondistended, normoactive bowel sounds. No palpable organomegaly. MUSCULOSKELETAL: No joint swelling or deformity. EXTREMITIES: No cyanosis, clubbing, or pedal edema. NEUROLOGICAL: Gross neurological examination did not reveal any focal deficits. SKIN: No rashes. Assessment and plan Acute urinary tract infection possibility: on oral levofloxacin Sepsis with leukocytosis and fever moderate left sided hydronephrosis: Urology following a long for a possible nephrostomy tube. elevated troponin, not secondary to myocardial infarction Hyperlipidemia Hypertension Chronic atrial fibrillation on Eliquis History of PE on Eliquis History of prostate cancer status post radiotherapy kidney stone with left hydronephrosis and pyelonephritis Back pain and left hip pain Chronic numbness of the left leg FULL CODE DVT prophylaxis: On Eliquis at this time GI prophylaxis: Pepcid Follow up with urology regarding recommendations for a nephrostomy tube as patient is on eliquis and will need to be stopped prior to procedure. Repeat AM labs, f/u with urology tomorrow. Cardiology signed off. Objective - Vital Signs Vital signs: Vital Signs Temp 98.2 F 03/02/21 14:00 Pulse 92 03/02/21 14:00 Resp 16 03/02/21 14:00 BP 125/73 03/02/21 14:00 Pulse Ox 95 03/02/21 14:00 Intake & Output 03/01/21 03/02/21 03/02/21 18:59 06:59 18:59 Intake Total 2031 850 Output Total 900 900 Balance 1131 -50 Weight 80.5 kg Intake: Intake, IV Titration 1200 450 Amount Sodium Chloride 0.9% 1, 1200 450 000 ml @ 75 mls/hr IV . [id number] [facility] Rx#:[id number] Oral 831 400 Output: Urine 900 900 Other: Voiding Method Indwelling Catheter Indwelling Catheter Indwelling Catheter - Labs CBC & Chem 7: 03/02/21 06:35 03/02/21 06:35 Labs: Abnormal Lab Results - Last 24 Hours (Table) 03/02/21 03/02/21 Range/Units 06:35 06:35 WBC 14.47 H (4.50-10.00) X 10*3/uL RBC 3.46 L (4.40-5.60) X 10*6/uL Hgb 10.2 L (13.0-17.0) g/dL Hct 33.1 L (39.6-50.0) % MCHC 30.8 L (32.0-37.0) g/dL Immature Gran # 0.08 H (0.00-0.04) X 10*3/uL Neutrophils # 12.79 H (1.80-7.70) X 10*3/uL Lymphocytes # 0.48 L (0.90-5.00) X 10*3/uL Monocytes # 1.05 H (0.20-1.00) X 10*3/uL Creatinine 0.5 L (0.6-1.5) mg/dL BUN/Creatinine Ratio 30.00 H (12.00-20.00) Ratio Calcium 7.7 L (8.7-10.3) mg/dL Assessment and Plan Time with Patient: Greater than 30
[2021-03-03] MEDS: SODIUM CHLORIDE 0.9% 1,000 ML IV SCH ×3 (06:08→18:09)
[2021-03-03] MEDS: FAMOTIDINE 20 MG TAB PO SCH ×2 (08:05→20:27)
[2021-03-03] MEDS: METOPROLOL SUCCINATE (ER) 25 MG TAB.ER.24H PO SCH (08:05)
[2021-03-03] MEDS: DOCUSATE 100 MG CAP PO SCH ×2 (08:05→20:27)
[2021-03-03] MEDS: CLOPIDOGREL 75 MG TAB PO SCH (08:05)
[2021-03-03] MEDS: lisinopriL 5 MG TAB PO SCH (08:05)
[2021-03-03] MEDS: APIXABAN 5 MG TAB PO SCH ×2 (08:06→20:27)
[2021-03-03] MEDS: TAMSULOSIN 0.4 MG CAP.ER.24H PO SCH (08:06)
[2021-03-03] MEDS: ONDANSETRON 4 MG/2 ML VIAL IVP PRN (08:38)
[2021-03-03 10:06] LABS: Basophils # (A) 0.02 X 10*3/uL (0.00-0.10); Basophils % (A) 0.2 %; Eosinophils # (A) 0.08 X 10*3/uL (0.04-0.35); Eosinophils % (A) 0.6 %; HCT 31.5 % (39.6-50.0); HGB 9.9 g/dL (13.0-17.0); Lymphocytes # (A) 0.49 X 10*3/uL (0.90-5.00); Lymphocytes % (A) 3.8 %; MCH 29.5 pg (27.0-32.0); MCHC 31.4 g/dL (32.0-37.0); MCV 93.8 fL (80.0-97.0); Mean Platelet Volume 9.7 fL (9.5-12.2); Monocytes # (A) 0.97 X 10*3/uL (0.20-1.00); Monocytes % (A) 7.5 %; Neutrophils # (A) 11.32 X 10*3/uL (1.80-7.70); Neutrophils % (A) 87.5 %; Platelet Count 281 X 10*3/uL (140-440); RBC 3.36 X 10*6/uL (4.40-5.60); RDW 14.6 % (11.5-14.5); WBC 12.93 X 10*3/uL (4.50-10.00)
[2021-03-03 11:23] LABS: Magnesium 2.1 mg/dL (1.5-2.4)
[2021-03-03] MEDS ORDERED: bisacodyL 10 MG SUPP RECTAL STA (11:48)
[2021-03-03 11:58] LABS: African American GFR (CKD) 105.6 (60.0-200.0); Anion Gap 14.5 mmol/L (4.00-12.00); BUN/Creat Ratio 21.22 Ratio (12.00-20.00); Blood Urea Nitrogen 13.6 mg/dL (9.0-27.0); Calcium 7.9 mg/dL (8.7-10.3); Carbon Dioxide 19.9 mmol/L (21.6-31.8); Non-African American GFR(CKD) 91.1 (60.0-200.0); Potassium 4.8 mmol/L (3.5-5.5)
--- NOTE | 2021-03-03 15:26 | P.PN ---
Subjective Progress Note Date: 03/03/21 80-year-old male was admitted for possible urinary tract infection urine was significant abnormal and patient does have leukocytosis without any fever patient does have a Scott catheter after there was some nonspecific hydronephrosis because of which neurology evaluated the patient. Patient is receiving IV Levaquin and patient is ALLERGIC to cephalosporins urine cultures is not impressive for UTI. Patient also has mildly elevated troponins because of his cardiology evaluated the patient this troponin elevation is not secondary to myocardial infarction patient has minimal elevation in stable troponin elevation patient will be transferred out of cardiac care unit will be monitored. Patient still has leukocytosis with white blood cell count of 26,000 which will be repeated tomorrow 03/01/2021 Patient is evaluated today resting the bed, with platelet the bedside. He does still complain of some back pain worse on the left. Patient was evaluated by urology who at this time was not recommending a retrograde program and nephrostomy tube placement as well as patient continues to improve. Urine culture showed mixed organisms that was most with a contamination. His white blood cell count is decreasing now is 12.4 today. Additional labs include a hemoglobin of 10.7. Potassium stable at 4, sodium 138, BP 120, creatinine 0.58. He is continued on antibiotics in the form of oral levofloxacin. Appetite is fair. Patient has remained afebrile, 97.6, heart rate 82 sinus rhythm, blood pressure 120/72 and 94% on 3 L of cannula. We will follow closely with urology services. If they're planning to proceed with surgical intervention, patient's blood thinner will need to be placed on hold. 03/02/2021 Patient is evaluated sitting in the bed today. He appears more fatigued today, and his appetite is not improving. Complex Care Nurse was consulted, pt is receiving carnation BIDWM. PT was in room with patient, and required 2 to help patient achieve a sitting position on the edge of the bed. His skin overlying his spine is reddened, blanchable in all but a small deeper red area on the outward curvature. Optifoam ordered to cushion his spine to prevent breakdown and discussed using barrier cream with RN, and to turn the patient. WBC is rising again up to 14.47 from 12.4 yesterday. Hgb is stable at 10.2. Potassium 3.8, mg 1.8. Pt remains afebrile, heart rate of 77, BP of 119/67, he is 100% on 3L we can wean this as tolerated. Awaiting decision from urology about nephrostomy as pt will need to stop his eliquis, f/u tomorrow. He will need ZAIDA on discharge once medically stable. 03/03/2021 Patient is evaluated today resting in the bed, apparently he was not cooperative with PT today. Dietary is recommending tube feedings as patients oral intake remains poor. This was discussed with the patient at the bedside. He states that he does not want a feeding tube at this time, but he will discuss with his and particularly talked about. We also discussed an appetite stimulant. We will discuss again tomorrow and make further recommendations. Patient continues on PO Levaquin, white count has decreased again to 12.93, hemoglobin 9.9. Patient had a bowel movement for 4 days we added a stool softener as he is on quite a bit of oxycodone. Sodium today is 139, potassium 4.8, magnesium 2.1. Blood pressure 131/74, afebrile, heart rate 74, 92% 3 L nasal cannula. Patient has persistent chronic lower back pain which she states also has some acute pain on top of this. He does have CVA tenderness more prominent on the left than the right. Left message with Dr. Mcconnell office that he would like to discuss plan of care. ROS Constitutional: Denied any fatigue denied any fever. Cardio vascular: denied any chest pain, palpitations Gastrointestinal: denied any nausea vomiting, reports decreased appetite, no bowel movement for 4 days : Denies any suprapubic pain or dysuria, he does have a chronic Scott catheter. Patient does have some CVA tenderness more prominent on the left than the right. Pulmonary: Denied any shortness of breath cough Neurologic denied any new focal deficits All inpatient medications were reviewed and appropriate changes in these medications as dictated in the interval history and assessment and plan. PHYSICAL EXAMINATION: GENERAL: The patient is alert and oriented x3, not in any acute distress. Well developed, well nourished. HEENT: Pupils are round and equally reacting to light. EOMI. No scleral icterus. No conjunctival pallor. Normocephalic, atraumatic. No pharyngeal erythema. No thyromegaly. CARDIOVASCULAR: S1 and S2 present. No murmurs, rubs, or gallops. PULMONARY: Chest is clear to auscultation, no wheezing or crackles. ABDOMEN: Soft, nontender, nondistended, normoactive bowel sounds. No palpable organomegaly. MUSCULOSKELETAL: No joint swelling or deformity. EXTREMITIES: No cyanosis, clubbing, or pedal edema. NEUROLOGICAL: Gross neurological examination did not reveal any focal deficits. SKIN: No rashes. Assessment and plan Acute urinary tract infection possibility: on oral levofloxacin, urine culture is negative Sepsis with leukocytosis and fever Leukocytosis possibility of UTI although culture is negative, could also be reactive moderate left sided hydronephrosis: Urology following a long for a possible nephrostomy tube. elevated troponin, not secondary to myocardial infarction Hyperlipidemia Hypertension Chronic atrial fibrillation on Eliquis History of PE on Eliquis History of prostate cancer status post radiotherapy kidney stone with left hydronephrosis and pyelonephritis Back pain and left hip pain Chronic numbness of the left leg FULL CODE DVT prophylaxis: On Eliquis at this time GI prophylaxis: Pepcid Follow up with urology regarding recommendations for a nephrostomy tube as patient is on eliquis and will need to be stopped prior to procedure. Repeat AM labs, f/u with urology. Cardiology signed off. Discussed possibility of needing a PEG tube with patient. We will follow-up with his . Objective - Vital Signs Vital signs: Vital Signs Temp 97.4 F L 03/03/21 08:00 Pulse 84 03/03/21 08:00 Resp 18 03/03/21 08:00 BP 119/66 03/03/21 08:00 Pulse Ox 94 L 03/03/21 08:59 Intake & Output 03/02/21 03/03/21 03/03/21 18:59 06:59 18:59 Intake Total 236 Output Total 500 900 Balance -264 -900 Weight 75.5 kg Intake: Oral 236 Output: Urine 500 900 Other: Voiding Method Indwelling Catheter Indwelling Catheter Indwelling Catheter - Labs CBC & Chem 7: 03/03/21 06:08 03/03/21 06:08 Labs: Abnormal Lab Results - Last 24 Hours (Table) 03/03/21 03/03/21 Range/Units 06:08 06:08 WBC 12.93 H (4.50-10.00) X 10*3/uL RBC 3.36 L (4.40-5.60) X 10*6/uL Hgb 9.9 L (13.0-17.0) g/dL Hct 31.5 L (39.6-50.0) % MCHC 31.4 L (32.0-37.0) g/dL RDW 14.6 H (11.5-14.5) % Immature Gran # 0.05 H (0.00-0.04) X 10*3/uL Neutrophils # 11.32 H (1.80-7.70) X 10*3/uL Lymphocytes # 0.49 L (0.90-5.00) X 10*3/uL Carbon Dioxide 19.9 L (21.6-31.8) mmol/L Anion Gap 14.50 H (4.00-12.00) mmol/L BUN/Creatinine Ratio 21.22 H (12.00-20.00) Ratio Calcium 7.9 L (8.7-10.3) mg/dL Assessment and Plan Time with Patient: Greater than 30
[2021-03-03] MEDS: LEVOFLOXACIN 500 MG TAB PO SCH (16:09)
[2021-03-03] MEDS: ATORVASTATIN 80 MG TAB PO SCH (20:27)
[2021-03-04] MEDS: CLOPIDOGREL 75 MG TAB PO SCH (07:30)
[2021-03-04] MEDS: APIXABAN 5 MG TAB PO SCH ×2 (07:30→20:33)
--- NOTE | 2021-03-04 08:46 | P.PN ---
Progress Note - Text Progress Note Date: 03/04/21 The patient remains afebrile. His WBC count yesterday was 12.93. Urine culture was negative. He has continued to experience left flank discomfort, though this morning he denies pain. I had a lengthy discussion with him regarding his left hydronephrosis. In April 2018, he underwent left ureteroscopy with laser lithotripsy and stone basketing. He was found to have a left ureteral stricture. The following month, he underwent an open left ureterolithotomy, ureteral resection, and re-anastomosis. Management options at this time include observation, cystoscopy with attempted left ureteral stent insertion, and placement of a left percutaneous nephrostomy tube. He is undecided whether or not he wishes to proceed with either option, and states that he will discuss it with his .
[2021-03-04] MEDS: FAMOTIDINE 20 MG TAB PO SCH ×2 (09:03→20:34)
[2021-03-04] MEDS: METOPROLOL SUCCINATE (ER) 25 MG TAB.ER.24H PO SCH (09:03)
[2021-03-04] MEDS: TAMSULOSIN 0.4 MG CAP.ER.24H PO SCH (09:03)
[2021-03-04] MEDS: SODIUM CHLORIDE 0.9% 1,000 ML IV SCH (09:03)
[2021-03-04] MEDS: DOCUSATE 100 MG CAP PO SCH ×2 (09:03→20:33)
[2021-03-04] MEDS: lisinopriL 5 MG TAB PO SCH (09:03)
[2021-03-04 09:36] LABS: Basophils % (A) 0 %; Eosinophils # (A) 0.1 k/uL (0-0.7); Eosinophils % (A) 1 %; HCT 34.2 % (39.0-53.0); HGB 10.6 gm/dL (13.0-17.5); Hypochromasia Slight; Lymphocytes # (A) 0.5 k/uL (1.0-4.8); Lymphocytes % (A) 4 %; MCH 29.7 pg (25.0-35.0); MCV 95.7 fL (80.0-100.0); Mean Platelet Volume 7.2; Monocytes # (A) 0.6 k/uL (0-1.0); Monocytes % (A) 5 %; Neutrophils % (A) 89 %; Platelet Count 355 k/uL (150-450); RBC 3.57 m/uL (4.30-5.90); RDW 14.3 % (11.5-15.5); WBC 11.3 k/uL (3.8-10.6)
--- NOTE | 2021-03-04 14:26 | P.PN ---
Subjective Progress Note Date: 03/04/21 80-year-old male was admitted for possible urinary tract infection urine was significant abnormal and patient does have leukocytosis without any fever patient does have a Scott catheter after there was some nonspecific hydronephrosis because of which neurology evaluated the patient. Patient is receiving IV Levaquin and patient is ALLERGIC to cephalosporins urine cultures is not impressive for UTI. Patient also has mildly elevated troponins because of his cardiology evaluated the patient this troponin elevation is not secondary to myocardial infarction patient has minimal elevation in stable troponin elevation patient will be transferred out of cardiac care unit will be monitored. Patient still has leukocytosis with white blood cell count of 26,000 which will be repeated tomorrow 03/01/2021 Patient is evaluated today resting the bed, with platelet the bedside. He does still complain of some back pain worse on the left. Patient was evaluated by urology who at this time was not recommending a retrograde program and nephrostomy tube placement as well as patient continues to improve. Urine culture showed mixed organisms that was most with a contamination. His white blood cell count is decreasing now is 12.4 today. Additional labs include a hemoglobin of 10.7. Potassium stable at 4, sodium 138, BP 120, creatinine 0.58. He is continued on antibiotics in the form of oral levofloxacin. Appetite is fair. Patient has remained afebrile, 97.6, heart rate 82 sinus rhythm, blood pressure 120/72 and 94% on 3 L of cannula. We will follow closely with urology services. If they're planning to proceed with surgical intervention, patient's blood thinner will need to be placed on hold. 03/02/2021 Patient is evaluated sitting in the bed today. He appears more fatigued today, and his appetite is not improving. Gunnery/Ordnance Officer was consulted, pt is receiving carnation BIDWM. PT was in room with patient, and required 2 to help patient achieve a sitting position on the edge of the bed. His skin overlying his spine is reddened, blanchable in all but a small deeper red area on the outward curvature. Optifoam ordered to cushion his spine to prevent breakdown and discussed using barrier cream with RN, and to turn the patient. WBC is rising again up to 14.47 from 12.4 yesterday. Hgb is stable at 10.2. Potassium 3.8, mg 1.8. Pt remains afebrile, heart rate of 77, BP of 119/67, he is 100% on 3L we can wean this as tolerated. Awaiting decision from urology about nephrostomy as pt will need to stop his eliquis, f/u tomorrow. He will need ZAIDA on discharge once medically stable. 03/03/2021 Patient is evaluated today resting in the bed, apparently he was not cooperative with PT today. Dietary is recommending tube feedings as patients oral intake remains poor. This was discussed with the patient at the bedside. He states that he does not want a feeding tube at this time, but he will discuss with his and particularly talked about. We also discussed an appetite stimulant. We will discuss again tomorrow and make further recommendations. Patient continues on PO Levaquin, white count has decreased again to 12.93, hemoglobin 9.9. Patient had a bowel movement for 4 days we added a stool softener as he is on quite a bit of oxycodone. Sodium today is 139, potassium 4.8, magnesium 2.1. Blood pressure 131/74, afebrile, heart rate 74, 92% 3 L nasal cannula. Patient has persistent chronic lower back pain which she states also has some acute pain on top of this. He does have CVA tenderness more prominent on the left than the right. Left message with Dr. Mcconnell office that he would like to discuss plan of care. 03/04/2021 Patient is evaluated today resting in the bed. He is trying to eat however he states that he still does not have an appetite. Dr. Mcconnell reevaluated the patient today and is recommending either observation, cystoscopy with possible left ureteral stent insertion, or placement of left percutaneous nephrostomy tube. After discussing further with the patient, we did also discuss his CODE STATUS. Patient expressed that he wishes to be a DO NOT RESUSCITATE, he does not want CPR, medications or intubation. Furthermore patient states that he really does not want a PEG tube and he is undecided if he wants to proceed with further interventions from urology. Patient wishes to discuss this when his gets here. His white count today is 11.3, hemoglobin 10.6. Blood pressure today is 131/78, 82 sinus rhythm he is 97% on 4 L nasal cannula we can wean this. ROS Constitutional: Denied any fatigue denied any fever. Cardio vascular: denied any chest pain, palpitations Gastrointestinal: denied any nausea vomiting, reports decreased appetite, no bowel movement for 4 days : Denies any suprapubic pain or dysuria, he does have a chronic Scott catheter. Patient does have some CVA tenderness more prominent on the left than the right. Pulmonary: Denied any shortness of breath cough Neurologic denied any new focal deficits All inpatient medications were reviewed and appropriate changes in these medications as dictated in the interval history and assessment and plan. PHYSICAL EXAMINATION: GENERAL: The patient is alert and oriented x3, not in any acute distress. Well developed, well nourished. HEENT: Pupils are round and equally reacting to light. EOMI. No scleral icterus. No conjunctival pallor. Normocephalic, atraumatic. No pharyngeal erythema. No thyromegaly. CARDIOVASCULAR: S1 and S2 present. No murmurs, rubs, or gallops. PULMONARY: Chest is clear to auscultation, no wheezing or crackles. ABDOMEN: Soft, nontender, nondistended, normoactive bowel sounds. No palpable organomegaly. MUSCULOSKELETAL: No joint swelling or deformity. EXTREMITIES: No cyanosis, clubbing, or pedal edema. NEUROLOGICAL: Gross neurological examination did not reveal any focal deficits. SKIN: No rashes. Assessment and plan Acute urinary tract infection possibility: on oral levofloxacin, urine culture is negative Sepsis with leukocytosis and fever Leukocytosis possibility of UTI although culture is negative, could also be reactive moderate left sided hydronephrosis: Urology following a long for a possible nephrostomy tube. elevated troponin, not secondary to myocardial infarction Hyperlipidemia Hypertension Chronic atrial fibrillation on Eliquis History of PE on Eliquis History of prostate cancer status post radiotherapy kidney stone with left hydronephrosis and pyelonephritis Back pain and left hip pain Chronic numbness of the left leg FULL CODE DVT prophylaxis: On Eliquis at this time GI prophylaxis: Pepcid Long discussion at the bedside with patient and about treatment options regarding PEG tube, surgical intervention from urology with either a cystoscopy or nephrostomy tube (this would be up to urology) and plan of care going forward. Patient expresses that he is not sure he wants anything aggressive done. A informational hospice meeting will be conducted tomorrow with , patient, and son in law. We will follow up tomorrow. Hospice would be appropriate for this patient if he does not wish to pursue further recommended interventions. Objective - Vital Signs Vital signs: Vital Signs Temp 98.3 F 03/04/21 07:15 Pulse 82 03/04/21 07:15 Resp 17 03/04/21 07:15 BP 131/78 03/04/21 07:15 Pulse Ox 97 03/04/21 07:15 Intake & Output 03/03/21 03/04/21 03/04/21 18:59 06:59 18:59 Intake Total 450 Output Total 500 1400 Balance -500 -950 Weight 75.5 kg Intake: Intake, IV Titration 450 Amount Sodium Chloride 0.9% 1, 450 000 ml @ 75 mls/hr IV . [id number] [facility] Rx#:[id number] Output: Urine 500 1400 Other: Voiding Method Indwelling Catheter Indwelling Catheter Indwelling Catheter # Bowel Movements 1 - Labs CBC & Chem 7: 03/04/21 09:11 03/03/21 06:08 Labs: Abnormal Lab Results - Last 24 Hours (Table) 03/03/21 03/04/21 Range/Units 06:08 09:11 WBC 11.3 H (3.8-10.6) k/uL RBC 3.57 L (4.30-5.90) m/uL Hgb 10.6 L (13.0-17.5) gm/dL Hct 34.2 L (39.0-53.0) % Neutrophils # 10.0 H (1.3-7.7) k/uL Lymphocytes # 0.5 L (1.0-4.8) k/uL Carbon Dioxide 19.9 L (21.6-31.8) mmol/L Anion Gap 14.50 H (4.00-12.00) mmol/L BUN/Creatinine Ratio 21.22 H (12.00-20.00) Ratio Calcium 7.9 L (8.7-10.3) mg/dL Assessment and Plan Time with Patient: Greater than 30
[2021-03-04] MEDS: LEVOFLOXACIN 500 MG TAB PO SCH (15:17)
[2021-03-04] MEDS: ONDANSETRON 4 MG/2 ML VIAL IVP PRN (17:16)
[2021-03-04] MEDS: ATORVASTATIN 80 MG TAB PO SCH (20:34)
[2021-03-05] MEDS: SODIUM CHLORIDE 0.9% 1,000 ML IV SCH ×2 (03:00→08:41)
[2021-03-05] MEDS ORDERED: MORPHINE SULFATE 2 MG/ML SYRINGE IVP STA (08:10)
[2021-03-05] MEDS: lisinopriL 5 MG TAB PO SCH (08:40)
[2021-03-05] MEDS: METOPROLOL SUCCINATE (ER) 25 MG TAB.ER.24H PO SCH (08:40)
[2021-03-05] MEDS: TAMSULOSIN 0.4 MG CAP.ER.24H PO SCH (08:40)
[2021-03-05] MEDS: FAMOTIDINE 20 MG TAB PO SCH ×2 (08:41→20:30)
[2021-03-05] MEDS: DOCUSATE 100 MG CAP PO SCH ×2 (08:41→20:30)
--- NOTE | 2021-03-05 12:01 | P.PN ---
Subjective Progress Note Date: 03/05/21 80-year-old male was admitted for possible urinary tract infection urine was significant abnormal and patient does have leukocytosis without any fever patient does have a Scott catheter after there was some nonspecific hydronephrosis because of which neurology evaluated the patient. Patient is receiving IV Levaquin and patient is ALLERGIC to cephalosporins urine cultures is not impressive for UTI. Patient also has mildly elevated troponins because of his cardiology evaluated the patient this troponin elevation is not secondary to myocardial infarction patient has minimal elevation in stable troponin elevation patient will be transferred out of cardiac care unit will be monitored. Patient still has leukocytosis with white blood cell count of 26,000 which will be repeated tomorrow 03/01/2021 Patient is evaluated today resting the bed, with platelet the bedside. He does still complain of some back pain worse on the left. Patient was evaluated by urology who at this time was not recommending a retrograde program and nephrostomy tube placement as well as patient continues to improve. Urine culture showed mixed organisms that was most with a contamination. His white blood cell count is decreasing now is 12.4 today. Additional labs include a hemoglobin of 10.7. Potassium stable at 4, sodium 138, BP 120, creatinine 0.58. He is continued on antibiotics in the form of oral levofloxacin. Appetite is fair. Patient has remained afebrile, 97.6, heart rate 82 sinus rhythm, blood pressure 120/72 and 94% on 3 L of cannula. We will follow closely with urology services. If they're planning to proceed with surgical intervention, patient's blood thinner will need to be placed on hold. 03/02/2021 Patient is evaluated sitting in the bed today. He appears more fatigued today, and his appetite is not improving. Scale Mechanic was consulted, pt is receiving carnation BIDWM. PT was in room with patient, and required 2 to help patient achieve a sitting position on the edge of the bed. His skin overlying his spine is reddened, blanchable in all but a small deeper red area on the outward curvature. Optifoam ordered to cushion his spine to prevent breakdown and discussed using barrier cream with RN, and to turn the patient. WBC is rising again up to 14.47 from 12.4 yesterday. Hgb is stable at 10.2. Potassium 3.8, mg 1.8. Pt remains afebrile, heart rate of 77, BP of 119/67, he is 100% on 3L we can wean this as tolerated. Awaiting decision from urology about nephrostomy as pt will need to stop his eliquis, f/u tomorrow. He will need ZAIDA on discharge once medically stable. 03/03/2021 Patient is evaluated today resting in the bed, apparently he was not cooperative with PT today. Dietary is recommending tube feedings as patients oral intake remains poor. This was discussed with the patient at the bedside. He states that he does not want a feeding tube at this time, but he will discuss with his and particularly talked about. We also discussed an appetite stimulant. We will discuss again tomorrow and make further recommendations. Patient continues on PO Levaquin, white count has decreased again to 12.93, hemoglobin 9.9. Patient had a bowel movement for 4 days we added a stool softener as he is on quite a bit of oxycodone. Sodium today is 139, potassium 4.8, magnesium 2.1. Blood pressure 131/74, afebrile, heart rate 74, 92% 3 L nasal cannula. Patient has persistent chronic lower back pain which she states also has some acute pain on top of this. He does have CVA tenderness more prominent on the left than the right. Left message with Dr. Mcconnell office that he would like to discuss plan of care. 03/04/2021 Patient is evaluated today resting in the bed. He is trying to eat however he states that he still does not have an appetite. Dr. Mcconnell reevaluated the patient today and is recommending either observation, cystoscopy with possible left ureteral stent insertion, or placement of left percutaneous nephrostomy tube. After discussing further with the patient, we did also discuss his CODE STATUS. Patient expressed that he wishes to be a DO NOT RESUSCITATE, he does not want CPR, medications or intubation. Furthermore patient states that he really does not want a PEG tube and he is undecided if he wants to proceed with further interventions from urology. Patient wishes to discuss this when his gets here. His white count today is 11.3, hemoglobin 10.6. Blood pressure today is 131/78, 82 sinus rhythm he is 97% on 4 L nasal cannula we can wean this. 03/05/2021 Patient is evaluated today resting in bed. He is requesting something more for pain management. He does state that he has quite a bit of chronic back pain on top of an acute patent. There is an informational hospice visit today with and son in law. We did stop eliquis and Plavix for now until hospice meeting and family and patient decide if they want to pursue a PEG tube. Eliquis was given last night. Patient does state that he does not want the PEG tube and he does not want any urological intervention. He just states that he wants his pain controlled at this time. He is a DO NOT RESUSCITATE now. Patient's labs were not drawn today. We will recheck him tomorrow. Vital signs include a temperature of 98.6, blood pressure 127/67. He is 94% on 4 L. ROS Constitutional: Denied any fatigue denied any fever. Cardio vascular: denied any chest pain, palpitations Gastrointestinal: denied any nausea vomiting, reports decreased appetite, no bowel movement for 4 days : Denies any suprapubic pain or dysuria, he does have a chronic Scott cathete r. Patient does have some CVA tenderness more prominent on the left than the right. Pulmonary: Denied any shortness of breath cough Neurologic denied any new focal deficits All inpatient medications were reviewed and appropriate changes in these medications as dictated in the interval history and assessment and plan. PHYSICAL EXAMINATION: GENERAL: The patient is alert and oriented x3, not in any acute distress. Patient is pale in color and appears weak and fatigued. HEENT: Pupils are round and equally reacting to light. EOMI. No scleral icterus. No conjunctival pallor. Normocephalic, atraumatic. No pharyngeal erythema. No thyromegaly. CARDIOVASCULAR: S1 and S2 present. No murmurs, rubs, or gallops. PULMONARY: Chest is clear to auscultation, no wheezing or crackles. ABDOMEN: Soft, nontender, nondistended, normoactive bowel sounds. No palpable organomegaly. MUSCULOSKELETAL: No joint swelling or deformity. EXTREMITIES: No cyanosis, clubbing, or pedal edema. NEUROLOGICAL: Gross neurological examination did not reveal any focal deficits. SKIN: No rashes. Assessment and plan Acute urinary tract infection possibility: on oral levofloxacin, urine culture is negative Sepsis with leukocytosis and fever Leukocytosis possibility of UTI although culture is negative, could also be reactive moderate left sided hydronephrosis: Urology following a long for a possible nephrostomy tube. elevated troponin, not secondary to myocardial infarction Hyperlipidemia Hypertension Chronic atrial fibrillation on Eliquis History of PE on Eliquis History of prostate cancer status post radiotherapy kidney stone with left hydronephrosis and pyelonephritis Back pain and left hip pain Chronic numbness of the left leg FULL CODE DVT prophylaxis: Eliquis [place] GI prophylaxis: [facility] Informational hospice meeting today. eliquis and plavix o/h until and patient decide about PEG tube and possible urological interventions. Objective - Vital Signs Vital signs: Vital Signs Temp 98.6 F 03/05/21 07:22 Pulse 77 03/05/21 07:22 Resp 18 03/05/21 07:22 BP 127/67 03/05/21 07:22 Pulse Ox 94 L 03/05/21 08:10 Intake & Output 03/04/21 03/05/21 03/05/21 18:59 06:59 18:59 Intake Total 1410 Output Total 1200 Balance 1410 -1200 Weight 78.5 kg Intake: Intake, IV Titration 900 Amount Sodium Chloride 0.9% 1, 900 000 ml @ 75 mls/hr IV . [id number] [facility] Rx#:[id number] Oral 510 Output: Urine 1200 Other: Voiding Method Indwelling Catheter Indwelling Catheter Indwelling Catheter - Labs CBC & Chem 7: 03/04/21 09:11 03/03/21 06:08 Assessment and Plan Time with Patient: Greater than 30
[2021-03-05 12:14] LABS: Basophils % (A) 0 %; Eosinophils # (A) 0.1 k/uL (0-0.7); Eosinophils % (A) 1 %; HGB 10.3 gm/dL (13.0-17.5); Hypochromasia Slight; Lymphocytes # (A) 0.6 k/uL (1.0-4.8); Lymphocytes % (A) 6 %; MCH 30.1 pg (25.0-35.0); MCHC 31.2 g/dL (31.0-37.0); MCV 96.4 fL (80.0-100.0); Mean Platelet Volume 7.1; Monocytes # (A) 0.6 k/uL (0-1.0); Monocytes % (A) 6 %; Neutrophils # (A) 8.9 k/uL (1.3-7.7); Neutrophils % (A) 86 %; Platelet Count 382 k/uL (150-450); RBC 3.42 m/uL (4.30-5.90); RDW 14.3 % (11.5-15.5); WBC 10.4 k/uL (3.8-10.6)
[2021-03-05 12:30] LABS: African American GFR (CKD) >90 (>60 ml/min/1.73 sqM); Anion Gap 5 mmol/L; Blood Urea Nitrogen 9 mg/dL (9-20); Calcium 7.6 mg/dL (8.4-10.2); Carbon Dioxide 28 mmol/L (22-30); Chloride 104 mmol/L (98-107); Glucose 93 mg/dL (74-99); Non-African American GFR(CKD) >90 (>60 ml/min/1.73 sqM); Potassium 3.4 mmol/L (3.5-5.1); Sodium 137 mmol/L (137-145)
[2021-03-05] MEDS: MORPHINE SULFATE 2 MG/ML SYRINGE IVP PRN ×2 (13:10→19:27)
[2021-03-05] MEDS ORDERED: Potassium Replacement Protocol 1 EACH MISC MISCELLANE PRN (13:26)
[2021-03-05] MEDS: POTASSIUM CHLORIDE 10 MEQ in WATER FOR INJECTION 1 100ML.BAG IVPB SCH ×4 (14:05→20:29)
--- NOTE | 2021-03-05 14:21 | P.PN ---
Progress Note - Text Progress Note Date: 03/05/21 The patient remains afebrile. His WBC count today has normalized (10.4). His clinical condition is unchanged. As of now, he declines cystoscopy with attempted left ureteral stent insertion as well as placement of a left nephrostomy tube.
[2021-03-05] MEDS: LEVOFLOXACIN 500 MG TAB PO SCH (16:00)
[2021-03-05] MEDS: ACETAMINOPHEN TAB 325 MG TAB PO PRN (20:29)
[2021-03-05] MEDS: ATORVASTATIN 80 MG TAB PO SCH (20:30)
[2021-03-06] MEDS: MORPHINE SULFATE 2 MG/ML SYRINGE IVP PRN ×6 (00:37→22:57)
[2021-03-06 02:11] LABS: Basophils % (A) 0 %; Eosinophils # (A) 0.2 k/uL (0-0.7); Eosinophils % (A) 2 %; HGB 10.3 gm/dL (13.0-17.5); Hypochromasia Slight; Lymphocytes # (A) 0.5 k/uL (1.0-4.8); Lymphocytes % (A) 6 %; MCH 30.2 pg (25.0-35.0); MCHC 31.1 g/dL (31.0-37.0); MCV 96.9 fL (80.0-100.0); Mean Platelet Volume 6.8; Monocytes # (A) 0.5 k/uL (0-1.0); Monocytes % (A) 5 %; Neutrophils # (A) 7.8 k/uL (1.3-7.7); Neutrophils % (A) 85 %; Platelet Count 359 k/uL (150-450); RDW 14.3 % (11.5-15.5); WBC 9.2 k/uL (3.8-10.6)
[2021-03-06 02:33] LABS: African American GFR (CKD) >90 (>60 ml/min/1.73 sqM); Anion Gap 3 mmol/L; Blood Urea Nitrogen 10 mg/dL (9-20); Calcium 7.6 mg/dL (8.4-10.2); Carbon Dioxide 27 mmol/L (22-30); Chloride 102 mmol/L (98-107); Glucose 106 mg/dL (74-99); Non-African American GFR(CKD) >90 (>60 ml/min/1.73 sqM); Potassium 3.7 mmol/L (3.5-5.1); Sodium 132 mmol/L (137-145)
[2021-03-06] MEDS: SODIUM CHLORIDE 0.9% 1,000 ML IV SCH ×2 (03:31→14:12)
[2021-03-06] MEDS: lisinopriL 5 MG TAB PO SCH (07:51)
[2021-03-06] MEDS: ONDANSETRON 4 MG/2 ML VIAL IVP PRN (07:51)
[2021-03-06] MEDS: METOPROLOL SUCCINATE (ER) 25 MG TAB.ER.24H PO SCH (07:51)
[2021-03-06] MEDS: FAMOTIDINE 20 MG TAB PO SCH ×2 (07:51→21:43)
[2021-03-06] MEDS: TAMSULOSIN 0.4 MG CAP.ER.24H PO SCH (07:52)
[2021-03-06] MEDS: DOCUSATE 100 MG CAP PO SCH ×2 (07:52→21:43)
--- NOTE | 2021-03-06 13:04 | P.PN ---
Subjective Progress Note Date: 03/06/21 80-year-old male was admitted for possible urinary tract infection urine was significant abnormal and patient does have leukocytosis without any fever patient does have a Scott catheter after there was some nonspecific hydronephrosis because of which neurology evaluated the patient. Patient is receiving IV Levaquin and patient is ALLERGIC to cephalosporins urine cultures is not impressive for UTI. Patient also has mildly elevated troponins because of his cardiology evaluated the patient this troponin elevation is not secondary to myocardial infarction patient has minimal elevation in stable troponin elevation patient will be transferred out of cardiac care unit will be monitored. Patient still has leukocytosis with white blood cell count of 26,000 which will be repeated tomorrow 03/01/2021 Patient is evaluated today resting the bed, with platelet the bedside. He does still complain of some back pain worse on the left. Patient was evaluated by urology who at this time was not recommending a retrograde program and nephrostomy tube placement as well as patient continues to improve. Urine culture showed mixed organisms that was most with a contamination. His white blood cell count is decreasing now is 12.4 today. Additional labs include a hemoglobin of 10.7. Potassium stable at 4, sodium 138, BP 120, creatinine 0.58. He is continued on antibiotics in the form of oral levofloxacin. Appetite is fair. Patient has remained afebrile, 97.6, heart rate 82 sinus rhythm, blood pressure 120/72 and 94% on 3 L of cannula. We will follow closely with urology services. If they're planning to proceed with surgical intervention, patient's blood thinner will need to be placed on hold. 03/02/2021 Patient is evaluated sitting in the bed today. He appears more fatigued today, and his appetite is not improving. Medical Record Specialist was consulted, pt is receiving carnation BIDWM. PT was in room with patient, and required 2 to help patient achieve a sitting position on the edge of the bed. His skin overlying his spine is reddened, blanchable in all but a small deeper red area on the outward curvature. Optifoam ordered to cushion his spine to prevent breakdown and discussed using barrier cream with RN, and to turn the patient. WBC is rising again up to 14.47 from 12.4 yesterday. Hgb is stable at 10.2. Potassium 3.8, mg 1.8. Pt remains afebrile, heart rate of 77, BP of 119/67, he is 100% on 3L we can wean this as tolerated. Awaiting decision from urology about nephrostomy as pt will need to stop his eliquis, f/u tomorrow. He will need ZAIDA on discharge once medically stable. 03/03/2021 Patient is evaluated today resting in the bed, apparently he was not cooperative with PT today. Dietary is recommending tube feedings as patients oral intake remains poor. This was discussed with the patient at the bedside. He states that he does not want a feeding tube at this time, but he will discuss with his and particularly talked about. We also discussed an appetite stimulant. We will discuss again tomorrow and make further recommendations. Patient continues on PO Levaquin, white count has decreased again to 12.93, hemoglobin 9.9. Patient had a bowel movement for 4 days we added a stool softener as he is on quite a bit of oxycodone. Sodium today is 139, potassium 4.8, magnesium 2.1. Blood pressure 131/74, afebrile, heart rate 74, 92% 3 L nasal cannula. Patient has persistent chronic lower back pain which she states also has some acute pain on top of this. He does have CVA tenderness more prominent on the left than the right. Left message with Dr. Mcconnell office that he would like to discuss plan of care. 03/04/2021 Patient is evaluated today resting in the bed. He is trying to eat however he states that he still does not have an appetite. Dr. Mcconnell reevaluated the patient today and is recommending either observation, cystoscopy with possible left ureteral stent insertion, or placement of left percutaneous nephrostomy tube. After discussing further with the patient, we did also discuss his CODE STATUS. Patient expressed that he wishes to be a DO NOT RESUSCITATE, he does not want CPR, medications or intubation. Furthermore patient states that he really does not want a PEG tube and he is undecided if he wants to proceed with further interventions from urology. Patient wishes to discuss this when his gets here. His white count today is 11.3, hemoglobin 10.6. Blood pressure today is 131/78, 82 sinus rhythm he is 97% on 4 L nasal cannula we can wean this. 03/05/2021 Patient is evaluated today resting in bed. He is requesting something more for pain management. He does state that he has quite a bit of chronic back pain on top of an acute patent. There is an informational hospice visit today with and son in law. We did stop eliquis and Plavix for now until hospice meeting and family and patient decide if they want to pursue a PEG tube. Eliquis was given last night. Patient does state that he does not want the PEG tube and he does not want any urological intervention. He just states that he wants his pain controlled at this time. He is a DO NOT RESUSCITATE now. Patient's labs were not drawn today. We will recheck him tomorrow. Vital signs include a temperature of 98.6, blood pressure 127/67. He is 94% on 4 L. 03/06/2021 Long discussion with the patient the bedside today regarding hospice. Patient states that this time he does not wish to proceed with any further interventions including a PEG tube or urological intervention. He would just like to remain comfortable to have his pain control. We did increase his morphine on top of his oral oxycodone. We did add a stool softener. However his nutritional intake is very poor. Patient ultimately wishes to proceed with hospice and goal be to return home with hospice care. He does not want to make a definitive plan until it is discussed with his and son-in-law. We will follow up with the son-in-law and today about the hospice meeting yesterday. If that is the agreement, discharge planning for tomorrow with hospice. ROS Constitutional: Denied any fatigue denied any fever. Cardio vascular: denied any chest pain, palpitations Gastrointestinal: denied any nausea vomiting, reports decreased appetite, no bowel movement for 4 days : Denies any suprapubic pain or dysuria, he does have a chronic Scott catheter. Patient does have some CVA tenderness more prominent on the left than the right. Pulmonary: Denied any shortness of breath cough Neurologic denied any new focal deficits All inpatient medications were reviewed and appropriate changes in these medications as dictated in the interval history and assessment and plan. PHYSICAL EXAMINATION: GENERAL: The patient is alert and oriented x3, not in any acute distress. Patient is pale in color and appears weak and fatigued. HEENT: Pupils are round and equally reacting to light. EOMI. No scleral icterus. No conjunctival pallor. Normocephalic, atraumatic. No pharyngeal erythema. No thyromegaly. CARDIOVASCULAR: S1 and S2 present. No murmurs, rubs, or gallops. PULMONARY: Chest is clear to auscultation, no wheezing or crackles. ABDOMEN: Soft, nontender, nondistended, normoactive bowel sounds. No palpable organomegaly. MUSCULOSKELETAL: No joint swelling or deformity. EXTREMITIES: No cyanosis, clubbing, or pedal edema. NEUROLOGICAL: Gross neurological examination did not reveal any focal deficits. SKIN: No rashes. Assessment and plan Acute urinary tract infection possibility: on oral levofloxacin, urine culture is negative Sepsis with leukocytosis and fever Leukocytosis possibility of UTI although culture is negative, could also be reactive, improved moderate left sided hydronephrosis: Urology following a long for a possible nephrostomy tube. elevated troponin, not secondary to myocardial infarction Hyperlipidemia Hypertension Chronic atrial fibrillation on Eliquis History of PE on Eliquis History of prostate cancer status post radiotherapy kidney stone with left hydronephrosis and pyelonephritis Back pain and left hip pain Chronic numbness of the left leg FULL CODE DVT prophylaxis: Eliquis GI prophylaxis: Pepcid Follow-up with and son-in-law for final decision about hospice on discharge. Objective - Vital Signs Vital signs: Vital Signs Temp 98.4 F 03/06/21 05:58 Pulse 73 03/06/21 05:58 Resp 18 03/06/21 05:58 BP 119/58 03/06/21 05:58 Pulse Ox 96 03/06/21 07:47 Intake & Output 03/05/21 03/06/21 03/06/21 18:59 06:59 18:59 Intake Total 30 Output Total 200 300 Balance -200 -270 Weight 79 kg Intake: Oral 30 Output: Urine 200 300 Other: Voiding Method Indwelling Catheter Indwelling Catheter Indwelling Catheter # Voids 300 - Labs CBC & Chem 7: 03/06/21 01:55 03/06/21 01:55 Labs: Abnormal Lab Results - Last 24 Hours (Table) 03/06/21 03/06/21 Range/Units 01:55 01:55 RBC 3.40 L (4.30-5.90) m/uL Hgb 10.3 L (13.0-17.5) gm/dL Hct 33.0 L (39.0-53.0) % Neutrophils # 7.8 H (1.3-7.7) k/uL Lymphocytes # 0.5 L (1.0-4.8) k/uL Sodium 132 L (137-145) mmol/L Creatinine 0.50 L (0.66-1.25) mg/dL Glucose 106 H (74-99) mg/dL Calcium 7.6 L (8.4-10.2) mg/dL Assessment and Plan Time with Patient: Greater than 30
[2021-03-06] MEDS: CLOPIDOGREL 75 MG TAB PO SCH (14:12)
[2021-03-06] MEDS: LEVOFLOXACIN 500 MG TAB PO SCH (14:58)
--- NOTE | 2021-03-06 15:31 | P.PN ---
Progress Note - Text Progress Note Date: 03/06/21 The patient remains afebrile, and his WBC count remains normal. His clinical condition is unchanged. He reports weakness and left hip pain. He denies flank pain. He continues to decline cystoscopy with attempted left ureteral stent insertion as well as placement of a left nephrostomy tube.
[2021-03-06] MEDS ORDERED: TEMAZEPAM 30 MG CAP PO SCH (21:00)
[2021-03-06] MEDS ORDERED: TEMAZEPAM 15 MG CAP PO SCH (21:41)
[2021-03-06] MEDS: ATORVASTATIN 80 MG TAB PO SCH (21:43)
[2021-03-06] MEDS: APIXABAN 5 MG TAB PO SCH (21:43)
[2021-03-07] MEDS: SODIUM CHLORIDE 0.9% 1,000 ML IV SCH (02:59)
[2021-03-07 03:26] VITALS: PULSE 61
[2021-03-07 07:13] VITALS: BP 122/73; RESP 17; TEMP 97.6
[2021-03-07] MEDS: lisinopriL 5 MG TAB PO SCH (07:46)
[2021-03-07] MEDS: DOCUSATE 100 MG CAP PO SCH (07:46)
[2021-03-07] MEDS: METOPROLOL SUCCINATE (ER) 25 MG TAB.ER.24H PO SCH (07:46)
[2021-03-07] MEDS: FAMOTIDINE 20 MG TAB PO SCH (07:47)
[2021-03-07] MEDS: CLOPIDOGREL 75 MG TAB PO SCH (07:47)
[2021-03-07] MEDS: TAMSULOSIN 0.4 MG CAP.ER.24H PO SCH (07:47)
[2021-03-07] MEDS: APIXABAN 5 MG TAB PO SCH (07:47)
[2021-03-07 14:38] VITALS: BMI 25.0
== END 2021-03-07 16:00 | disposition hospice, home (50) | DRG 872 ==
LOC: EC 11:19 → 3SCARD 15:53 → 5NMEDONC 02-28 10:48 → 4SSUR 02-28 13:53
PROVIDERS: ADMIT Internal Medicine; ATTEND Internal Medicine
DX: A41.9 Sepsis, unspecified organism (principal); N13.6 Pyonephrosis; I48.20 Chronic atrial fibrillation, unspecified; D64.9 Anemia, unspecified; E78.5 Hyperlipidemia, unspecified; E86.0 Dehydration; Z20.822 Contact with and (suspected) exposure to COVID-19; G89.29 Other chronic pain; I10 Essential (primary) hypertension; I25.10 Atherosclerotic heart disease of native coronary artery without angina pectoris; I25.2 Old myocardial infarction; I25.5 Ischemic cardiomyopathy; Z66 Do not resuscitate; I83.90 Asymptomatic varicose veins of unspecified lower extremity; M19.90 Unspecified osteoarthritis, unspecified site; I48.0 Paroxysmal atrial fibrillation; Z79.01 Long term (current) use of anticoagulants; Z79.02 Long term (current) use of antithrombotics/antiplatelets; Z79.82 Long term (current) use of aspirin; Z79.899 Other long term (current) drug therapy; Z80.3 Family history of malignant neoplasm of breast; Z96.642 Presence of left artificial hip joint; Z95.5 Presence of coronary angioplasty implant and graft; Z92.3 Personal history of irradiation; Z88.1 Allergy status to other antibiotic agents; Z87.891 Personal history of nicotine dependence; Z87.442 Personal history of urinary calculi; Z86.711 Personal history of pulmonary embolism; Z85.46 Personal history of malignant neoplasm of prostate; Z82.49 Family history of ischemic heart disease and other diseases of the circulatory system
CPT/HCPCS: 36415; 71046; 76770; 80048; 80053; 81001; 83605; 83735; 84484; 85025; 85027; 85610; 85730; 87086; 87636; 93005; 94760; 96360; 99285